=== PATIENT | female | born 1995 | race Caucasian/White ===

== ENCOUNTER 2016-09-25 13:46 | Observation (INO) | payer BC ==
[2016-09-25 14:17] LABS: Glucose,Whole Blood 138 mg/dL (75-99)
[2016-09-25 14:46] LABS: Basophils % (A) 1 %; CH 26.9; CHCM 33.3; Eosinophils % (A) 0 %; HCT 31.7 % (34.0-46.0); HDW 3.38; HGB 10.5 gm/dL (11.4-16.0); Luc # (Auto) 0.07; Luc % (Auto) 1; Lymphocytes # (A) 0.2 k/uL (1.0-4.8); Lymphocytes % (A) 3 %; MCHC 33.3 g/dL (31.0-37.0); MCV 81.3 fL (80.0-100.0); Mean Platelet Volume 8.2; Monocytes # (A) 0.3 k/uL (0-1.0); Monocytes % (A) 5 %; Neutrophils # (A) 5.4 k/uL (1.3-7.7); Neutrophils % (A) 90 %; RDW 14.8 % (11.5-15.5); WBC 6.1 k/uL (3.8-10.6)
[2016-09-25] MEDS ORDERED: ACETAMINOPHEN IV (For NPO) 1,000 MG in EMPTY BAG 1 BAG IVPB ONE (14:47)
[2016-09-25 14:48] LABS: Appearance,Urine Clear (Clear); Bilirubin,Urine Negative (Negative); Glucose,Urine (UA) Negative (Negative); Ketones,Urine 2+ (Negative); Leukocyte Esterase,Urine Negative (Negative); Mucus,Urine Many /hpf; Nitrite,Urine Negative (Negative); PH, Urine 6.5 (5.0-8.0); Particle Count 7068; Protein,Urine 1+ (Negative); RBC,Urine 1 /hpf (0-5); Specific Gravity,Urine 1.024 (1.001-1.035); Squamous Epithelial Cell,Urine 1 /hpf (0-4); UA Billing (MACRO vs. MICRO) MICRO
[2016-09-25 14:51] LABS: ALT 23 U/L (9-52); AST 23 U/L (14-36); Alkaline Phosphatase 72 U/L (38-126); Anion Gap 14 mmol/L; Blood Urea Nitrogen 4 mg/dL (7-17); Calcium 8.2 mg/dL (8.4-10.2); Carbon Dioxide 19 mmol/L (22-30); Chloride 101 mmol/L (98-107); Glucose 110 mg/dL (74-99); Non-African American GFR(MDRD) >60 (>60 ml/min/1.73 sqM); Potassium 3.5 mmol/L (3.5-5.1); Sodium 134 mmol/L (137-145); Total Bilirubin 0.3 mg/dL (0.2-1.3); Total Protein 6.5 g/dL (6.3-8.2)
[2016-09-25] MEDS: LACTATED RINGERS 1,000 ML IV SCH ×4 (14:52→21:54)
[2016-09-25] MEDS ORDERED: OSELTAMIVIR 75 MG CAP PO STA (16:03)
--- NOTE | 2016-09-25 16:29 | P.HPOB ---
History of Present Illness H&P Date: 09/25/16 This is a 20-year-old white female 5 para 4004 EDC 01/04/2017 established via ultrasound here at 18-4/7 weeks on 08/08/2016. Today she is 25- 4/7 weeks and presents with fever, chills, body aches, and emesis 1 for the past 2 days. Fetus has been active throughout the . She denies uterine contractions or vaginal bleeding. She denies fluid leakage. Past medical history is significant for anxiety and depression, previously on Prozac but stopped upon discovering she was . Past surgical history section 2014 for breech presentation. Past obstetric history normal spontaneous vaginal delivery 2012 of liveborn male infant, 7 pounds, live-born vaginal delivery of female infant 2013 7 pounds , for breech 2014, 2015 of liveborn male , 7 pounds. She denies issues with any of the previous pregnancies. Past gynecologic history menarche began at the age of 7 with monthly interval and 7 day duration. She denies the history in the past of gonorrhea chlamydia HSV or HPV infections. Social history patient is , her is not the father of this current , she was a tobacco smoker for approximately 3 years of one half pack per day, she denies alcohol or drug use. ALLERGIES include penicillin to which reports hives. Family history patient states is noncontributory. On exam this is a pleasant white female, 5 foot 5 inches, 220 pounds, blood pressure 122/70, respirations 16, pulse 133, temp 103. heart rate is in the 150 to 160s. Chest is clear to auscultation in all cunha anteriorly and posteriorly. Abdomen is soft, obviously gravid, nontender. Extremities are negative for edema. Breasts are not engorged. Cervix is closed, posterior, high, floating. Bedside ultrasound reveals a darling breech fetus, estimated weight 32 percentile for 25 weeks. heart rate 160 sonographically, SEDA normal at 14.5 cm, posterior placenta. Labs include sodium 134, potassium 3.5, chloride 101, CO2 19, P1 4, creatinine 0.47, glucose 110. UA is essentially negative but 1+ urine protein is noted. There are also 2+ ketones noted. Hemoglobin 10.5, hematocrit 31.7, WBC 6.1, platelets 209,000. Influenza A swab is positive of the patient's nares. Impression: 25-4/7 weeks intrauterine , positive influenza A with associated maternal fever and tachycardia. Plan we will proceed with IV fluid hydration. Tamiflu 75 mg has been ordered. Supportive care. Consider observation through the night versus discharge home pending patient's progress. Ofirmev 1000 mg has been given to help with patient 's fever, tachycardia, and body aches. Patient is encouraged to seek care at one of the local physician's offices at her earliest convenience. Past Medical History Past Medical History: No Reported History Additional Past Medical History / Comment(s): Gestational diabetes History of Any Multi-Drug Resistant Organisms: None Reported Past Surgical History: Section Past Anesthesia/Blood Transfusion Reactions: No Reported Reaction Past Psychological History: Anxiety, Depression Smoking Status: Never smoker Past Alcohol Use History: None Reported Past Drug Use History: None Reported - Past Family History Mother History Unknown: Yes Family Medical History: No Reported History Medications and Allergies Home Medications Medication Instructions Recorded Confirmed Type Idc-Ttvk-Zcuhd Acid 1 dose PO DAILY 08/08/16 09/22/16 History [-U Capsule] Allergies Allergy/AdvReac Type Severity Reaction Status Date / Time Penicillins Allergy Intermediate Rash/Hives Verified 08/08/16 14:50 Exam - Vital Signs Vital signs: Intake and Output 09/25/16 09/25/16 09/25/16 06:59 14:59 22:59 Other: Weight 205 kg Patient Weight 09/26/16 06:59 Weight 205 kg Results Result Diagrams: 09/25/16 14:24 09/25/16 14:24 Abnormal Lab Results - Last 24 Hours (Table) 09/25/16 09/25/16 09/25/16 Range/Units 14:07 14:17 14:24 Hgb 10.5 L (11.4-16.0) gm/dL Hct 31.7 L (34.0-46.0) % Lymphocytes # 0.2 L (1.0-4.8) k/uL Sodium (137-145) mmol/L Carbon Dioxide (22-30) mmol/L BUN (7-17) mg/dL Creatinine (0.52-1.04) mg/dL Glucose (74-99) mg/dL POC Glucose (mg/dL) 138 H (75-99) mg/dL Calcium (8.4-10.2) mg/dL Albumin (3.5-5.0) g/dL Urine Protein 1+ H (Negative) Urine Ketones 2+ H (Negative) Urine Mucus Many H (None) /hpf Influenza Type A RNA (Not Detectd) 09/25/16 09/25/16 Range/Units 14:24 15:30 Hgb (11.4-16.0) gm/dL Hct (34.0-46.0) % Lymphocytes # (1.0-4.8) k/uL Sodium 134 L (137-145) mmol/L Carbon Dioxide 19 L (22-30) mmol/L BUN 4 L (7-17) mg/dL Creatinine 0.47 L (0.52-1.04) mg/dL Glucose 110 H (74-99) mg/dL POC Glucose (mg/dL) (75-99) mg/dL Calcium 8.2 L (8.4-10.2) mg/dL Albumin 3.2 L (3.5-5.0) g/dL Urine Protein (Negative) Urine Ketones (Negative) Urine Mucus (None) /hpf Influenza Type A RNA Detected H (Not Detectd)
--- NOTE | 2016-09-25 16:46 | US ---
EXAMINATION TYPE: US OB >= 14 wk fetus DATE OF EXAM: 09/25/2016 2:48 PM COMPARISON: None CLINICAL HISTORY: no care Abdominal pain, nausea TECHNIQUE: Transabdominal (TA) GESTATIONAL AGE / DATING Physician Established: (25 weeks/4 days) EDC: 01/04/17 Dates by LMP: (25 weeks/4 days) EDC: 01/04/17 Dates by First Scan: (25 weeks/1 days) EDC: 01/07/17 Dates by Current Scan: (25 weeks/0 days) EDC: 01/08/17 SURVEY IUP: Single PLACENTA: Posterior PREVIA: No Previa SEDA: 14.6 cm Normal CERVICAL LENGTH (transabdominal: norm > 3.0cm): 3.7 cm BIOMETRY PRESENTATION: Breech LIE: Transverse with head maternal RT BPD: 6.3 cm 25 weeks / 3 days HC: 23.6 cm 25 weeks / 4 days AC: 21.3 cm 25 weeks / 5 days FL: 4.5 cm 24 weeks / 6 days ESTIMATED WEIGHT IN GRAMS: 805 grams ESTIMATED WEIGHT IN LBS/OZS: 1 lbs. 12 oz. WEIGHT PERCENTAGE BASED ON ESTABLISHED DATES: 32.1% HC/AC: 1.11 Normal FL/AC: 21.15 Normal HEART RATE: 160 bpm RHYTHM: Normal MATERNAL WALL MEASUREMENT: 4.2 cm from skin to anterior uterine wall (if exam limited due to body hab itus). TECHNOLOGIST IMPRESSION: Single viable IUP 25wks/0days with VINITA of 01/08/17 IMPRESSION: 1. Single intrauterine gestation estimated 25 weeks 0 days gestation. Cardiac activity measures 160 b pm.
[2016-09-25] MEDS: SODIUM CHLORIDE 0.9% 1,000 ML IV ONE ×3 (17:00→19:00)
[2016-09-25 19:55] LABS: Hepatitis B Surface Ag Index 0.06
[2016-09-25] MEDS: ACETAMINOPHEN TAB 325 MG TAB PO PRN (21:28)
[2016-09-25 21:45] VITALS: BMI 34.1
[2016-09-26] MEDS: ACETAMINOPHEN TAB 325 MG TAB PO PRN (03:42)
[2016-09-26] MEDS: LACTATED RINGERS 1,000 ML IV SCH (03:43)
[2016-09-26 04:34] VITALS: RESP 17
[2016-09-26 04:53] LABS: Potassium 3.5 mmol/L (3.5-5.1)
[2016-09-26 07:31] VITALS: BP 107/53; PULSE 111; TEMP 98.2
--- NOTE | 2016-09-26 10:33 | P.DS ---
Providers Date of admission: 09/25/16 20:44 Expected date of discharge: 09/26/16 Attending physician: Denise Stern Primary care physician: Stated None Hospital Course: This is a 20-year-old white female 5 para 4004 EDC 01/04/2017 established by 18 week ultrasound here, at 25-4/7 weeks' gestation. Patient presented yesterday to the triage area with body aches, fever, malaise, and emesis 2. She has had no care with this . Please see my dictated history and physical for details. On admission patient's temperature was 103 orally. She was given O firm out with good response. On admission her heart rate was 133, this has resolved through the night. Influenza a cultures of the nares were positive. labs were all drawn, rubella status noted to be nonimmune, blood type AB+. Patient was given 4 L of fluid for initial 2+ ketones in the urine, UA otherwise negative. She slept well through the night. This morning she has had clear liquids, she has showered, she is feeling somewhat improved. Chest is reasonably clear, there are some scattered rhonchi that clear with cough. Abdomen is soft and nontender, heart rate is in the 140s with good overall variability for stated gestational age. Cervix was checked and noted to be long and closed. Patient is being discharged home this morning with a diagnosis of influenza. I have reviewed with her and her good hand hygiene and other parameters to be undertaken at home. I have strongly encouraged her to proceed with some care. She will use zjxe-zwe-qyahqzk acetaminophen as needed, 500 mg pills, 2 every 4-6 hours as needed. Again, I have strongly recommended that she follow up for care tomorrow. Return with any fever greater than 100.4, inability to tolerate food, decreased movement, or any other obstetrical concerns. Patient Condition at Discharge: Stable Plan - Discharge Summary Discharge Medication List Dfh-Ncay-Cgpzm Acid [-U Capsule] 1 dose PO DAILY 08/08/16 [ History] Discharge Disposition: HOME SELF-CARE
[2016-09-28 17:46] LABS: HIV-1/HIV-2 Ab Screen NONREAC (NON REAC)
== END 2016-09-26 12:18 | disposition home or self-care (01) ==
LOC: FBPOP 13:46 → 4FBP 20:44
PROVIDERS: ADMIT Obstetrics & Gynecology; ATTEND Obstetrics & Gynecology
DX: O99.512 Diseases of the respiratory system complicating pregnancy, second trimester (principal); J11.1 Influenza due to unidentified influenza virus with other respiratory manifestations; O99.342 Other mental disorders complicating pregnancy, second trimester; F41.8 Other specified anxiety disorders; O09.32 Supervision of pregnancy with insufficient antenatal care, second trimester; Z3A.25 25 weeks gestation of pregnancy; Z88.0 Allergy status to penicillin
CPT/HCPCS: 99214; 96360; 96361; 86900; 86901; 86762; 80051; 80053; 85025; 86850; 87340; 81001; 87040; 87389; 86780; 80306; 87502; 76805; G0378 ×2; J0131; 96365; 96366

== ENCOUNTER 2016-11-01 17:00 | Outpatient (CLI) | payer BC ==
[2016-11-01] MEDS ORDERED: BETAMET ACET-BETAMETH SOD PHOS 6 MG/ML VIAL IM SCH (18:00)
--- NOTE | 2016-11-01 18:59 | US ---
EXAMINATION TYPE: US OB >= 14 wk fetus DATE OF EXAM: 11/01/2016 6:27 PM COMPARISON: Prior in PACS CLINICAL HISTORY: Pain and pressure TECHNIQUE: Transvaginal (TV) and Transabdominal (TA) GESTATIONAL AGE / DATING Physician Established: (30 weeks/6 days) EDC: 01/04/2017 Dates by LMP: (30 weeks/6 days) EDC: 01/04/2017 Dates by First Scan: (30 weeks/3 days) EDC: 01/07/2017 Dates by Current Scan: (31 weeks/6 days) EDC: 12/28/2016 SURVEY IUP: Single PLACENTA: Posterior PREVIA: No Previa SEDA: 9.4 cm Lower limits of normal CERVICAL LENGTH (transvaginal: norm> 2.5cm): 1.9 cm (Supplemental transvaginal imaging performed to verify cervical length.) BIOMETRY PRESENTATION: Vertex LIE: Longitudinal BPD: 8.1 cm 32 weeks / 5 days HC: 30.2 cm 33 weeks / 4 days AC: 26.69 cm 30 weeks / 6 days FL: 5.81 cm 30 weeks / 3 days ESTIMATED WEIGHT IN GRAMS: 1694 grams ESTIMATED WEIGHT IN LBS/OZS: 3 lbs. 12 oz. WEIGHT PERCENTAGE BASED ON ESTABLISHED DATES: 44.9% HC/AC: 1.13 Normal FL/AC: 21.76 Normal HEART RATE: 147 bpm RHYTHM: Normal TECHNOLOGIST IMPRESSION: Viable IUP, measurements congruent with dates. The cervix is shortened and there appears to be a small amount of possible cervical funneling present IMPRESSION: The cervical length is 2 cm. There is very minimal funneling. Normal amniotic fluid. No definite comp licating process seen.
== END 2016-11-01 18:57 | disposition home or self-care (01) ==
LOC: FBPOP 17:00
PROVIDERS: ATTEND Obstetrics & Gynecology
DX: Z53.9 Procedure and treatment not carried out, unspecified reason (principal); O99.89 Other specified diseases and conditions complicating pregnancy, childbirth and the puerperium; R10.9 Unspecified abdominal pain; R19.7 Diarrhea, unspecified; O62.2 Other uterine inertia; O26.873 Cervical shortening, third trimester; Z3A.30 30 weeks gestation of pregnancy
CPT/HCPCS: 59025; 99214; 96372; 84112; 82731; 76805; J0702

== ENCOUNTER 2016-11-02 18:29 | Outpatient (CLI) | payer BC ==
[2016-11-02] MEDS ORDERED: BETAMET ACET-BETAMETH SOD PHOS 6 MG/ML VIAL IM SCH (18:45)
== END 2016-11-02 19:00 | disposition home or self-care (01) ==
LOC: FBPOP 18:29
PROVIDERS: ATTEND Obstetrics & Gynecology
DX: Z53.9 Procedure and treatment not carried out, unspecified reason (principal)
CPT/HCPCS: 59025; 96372; J0702

== ENCOUNTER 2016-12-27 21:10 | Inpatient (IN) | payer BC, OTHER ==
[2016-12-27] MEDS ORDERED: LIDOCAINE 1% (PF) 10 MG/ML (30 ML SDV) SQ PRN (23:17)
[2016-12-27] MEDS ORDERED: TERBUTALINE 1 MG/ML VIAL SQ PRN (23:17)
[2016-12-27] MEDS ORDERED: CARBOPROST TROMETHAMINE 250 MCG/ML 1 ML AMP IM PRN (23:17)
[2016-12-27] MEDS ORDERED: METHYLERGONOVINE 0.2 MG/ML 1 ML AMP IM PRN (23:17)
[2016-12-27] MEDS ORDERED: OXYTOCIN 10 UNIT/ML 1 ML VIAL IM PRN (23:17)
[2016-12-27] MEDS ORDERED: LACTATED RINGERS 1,000 ML IV SCH (23:30)
[2016-12-27] MEDS: LACTATED RINGERS 1,000 ML IV SCH (23:55)
[2016-12-28 00:13] LABS: Basophils % (A) 0 %; CH 24.4; CHCM 32.1; Eosinophils # (A) 0.1 k/uL (0-0.7); Eosinophils % (A) 1 %; HDW 3.62; HGB 10.6 gm/dL (11.4-16.0); Hypochromasia Moderate; Luc # (Auto) 0.16; Luc % (Auto) 2; Lymphocytes # (A) 1.7 k/uL (1.0-4.8); Lymphocytes % (A) 17 %; MCH 23.9 pg (25.0-35.0); MCHC 31.3 g/dL (31.0-37.0); MCV 76.4 fL (80.0-100.0); Mean Platelet Volume 8.6; Microcytosis Slight; Monocytes # (A) 0.4 k/uL (0-1.0); Monocytes % (A) 4 %; Neutrophils # (A) 7.4 k/uL (1.3-7.7); Neutrophils % (A) 76 %; Poikilocytosis Slight; RBC 4.45 m/uL (3.80-5.40); RDW 15.7 % (11.5-15.5); WBC 9.7 k/uL (3.8-10.6); WBC (Perox) 9.48
[2016-12-28 00:22] VITALS: BMI 35.6
[2016-12-28] MEDS: OXYTOCIN 30 UNITS/500 ML NS 30 UNIT in SALINE 1 500ML.BAG IV SCH (06:53)
[2016-12-28] MEDS: LACTATED RINGERS 1,000 ML IV SCH ×2 (07:11→08:04)
[2016-12-28] MEDS ORDERED: BUPIVACAINE (PF) 0.25% 30 ML VIAL ONE (07:30)
[2016-12-28] MEDS ORDERED: SODIUM CHLORIDE 0.9% 100 ML BAG ONE (07:30)
[2016-12-28] MEDS ORDERED: fentaNYL (PF) 50 MCG/ML 5 ML AMP ONE (07:30)
--- NOTE | 2016-12-28 10:20 | P.HPOB ---
History of Present Illness H&P Date: 12/28/16 This is a 21-year-old white female 5 para 4004 EDC 01/04/2017 at 39 weeks gestation. Patient presented last night with uterine contractions, she was found to be 5 cm on admission. She denied fluid leakage or vaginal bleeding. Fetus is been active throughout the . history blood type is AB+, rubella status immune. VDRL testing, hepatitis B surface antigen, group B strep cultures, urine culture, gonorrhea and chlamydia cultures all negative. One-hour Glucola 114. Past medical history is significant for anxiety, asthma, depression, kidney stones, and thyroid disease. Past surgical history section in 2014, successful VBACs to follow. Current medications vitamins daily. ALLERGIES penicillin to which reports vomiting and hives. Social history patient is , she had social tobacco prior to , no alcohol tobacco or drug use with . On exam this is a pleasant white female, she is 5 foot 5 inches 214 pounds, vital signs are stable and she is afebrile. The general physical exam is within normal limits. The chest is clear in all cunha. Cervix is 7 cm dilated , 80% effaced, -2 station, vertex presentation. Artificial amniorrhexis reveals clear fluid. heart tones are reassuring in the 140s baseline with frequent accelerations, consistent with reactive NST. Impression: 39 week intrauterine , active spontaneous labor. All signs reassuring. Plan: Close maternal and surveillance. Epidural may be placed per patient 's request. Oxytocin will be used if needed for arrest of dilatation. Anticipate . Past Medical History Past Medical History: No Reported History Additional Past Medical History / Comment(s): Gestational diabetes History of Any Multi-Drug Resistant Organisms: None Reported Past Surgical History: Section Past Anesthesia/Blood Transfusion Reactions: No Reported Reaction Past Psychological History: Anxiety, Depression Smoking Status: Never smoker Past Alcohol Use History: None Reported Past Drug Use History: None Reported - Past Family History Mother History Unknown: Yes Family Medical History: No Reported History Medications and Allergies Home Medications Medication Instructions Recorded Confirmed Type Rbl-Yryv-Cihhd Acid 1 dose PO DAILY 08/08/16 12/27/16 History [-U Capsule (formulary)] Allergies Allergy/AdvReac Type Severity Reaction Status Date / Time Penicillins Allergy Intermediate Rash/Hives Verified 12/27/16 21:33 Exam - Vital Signs Vital signs: Vital Signs Temp Pulse Resp BP 12/27/16 23:19 98.1 F 93 16 144/90 12/27/16 21:33 98.1 F 93 16 144/90 Intake and Output 12/27/16 12/28/16 12/28/16 22:59 06:59 14:59 Intake Total 1999 Balance 1999 Intake: IV 2000 Lactated Ringers 1,000 ml 2000 @ 125 mls/hr IV .Q8H [facility] Rx#:[id number] Other: # Voids 1 Weight 97.069 kg 97.069 kg Results Result Diagrams: 12/27/16 23:53 Abnormal Lab Results - Last 24 Hours (Table) 12/27/16 Range/Units 23:53 Hgb 10.6 L (11.4-16.0) gm/dL MCV 76.4 L (80.0-100.0) fL MCH 23.9 L (25.0-35.0) pg RDW 15.7 H (11.5-15.5) %
[2016-12-28] MEDS ORDERED: WITCH HAZEL 1 EACH MED..PAD TOPICAL PRN (10:24)
[2016-12-28] MEDS ORDERED: diphenhydrAMINE 50 MG CAP PO PRN (10:24)
[2016-12-28] MEDS ORDERED: diphenhydrAMINE ELIXIR 25 MG/10 ML CUP PO PRN (10:24)
[2016-12-28] MEDS ORDERED: diphenhydrAMINE 50 MG/ML 1 ML VIAL IVP PRN ×2 (10:24)
[2016-12-28] MEDS ORDERED: ACETAMINOPHEN TAB 325 MG TAB PO PRN (10:24)
[2016-12-28] MEDS ORDERED: SIMETHICONE 80 MG CHEWABLE PO PRN (10:24)
[2016-12-28] MEDS ORDERED: diphenhydrAMINE 25 MG CAP PO PRN (10:24)
[2016-12-28] MEDS ORDERED: ZOLPIDEM 5 MG TAB PO PRN (10:24)
[2016-12-28] MEDS ORDERED: HYDROCORTISONE 2.5% RECTAL CREAM 30 GM TUBE RECTAL PRN (10:24)
[2016-12-28] MEDS ORDERED: BENZOCAINE/MENTHOL SPRAY 1 GM/SPRAY AEROSOL TOPICAL PRN (10:24)
[2016-12-28] MEDS ORDERED: LANOLIN CREAM 5 GM TUBE TOPICAL PRN (10:24)
--- NOTE | 2016-12-28 10:24 | P.PROBDLV ---
Vaginal Delivery Note - . Vaginal Delivery Note: This is a 21-year-old white female 5 para 4004 EDC 01/04/2017 at 39 weeks gestation. Patient presented last night in early spontaneous labor. Artificial amniorrhexis this morning reveals clear fluid. She requested and received an epidural. Oxytocin augmentation was given. She does have a history of previous section, planning . Please see my dictated history and physical for details. Patient became completely dilated and began the second stage of labor at that time. Perineal body was prepped and draped in the usual sterile fashion. Infant's head delivered straight occiput posterior. He restituted accordingly. There was a nuchal cord 1 that was reduced. The left or anterior shoulder was delivered from underneath the pubic symphysis at which time the oropharynx, nasopharynx, and external nares were bulb suctioned on the perineal body. Patient was officially delivered of a liveborn male at 1007 hrs. Umbilical cord was doubly clamped and ligated, he was handed to waiting nurses for evaluation where scores of 9 and 9 at one and 5 minutes respectively were given. weighed 7 lbs. 13 oz. The placenta delivered spontaneously , it was inspected and noted to be intact with trivascular cord at 1010 hrs. Uterus is then massaged, firm and mobile and in the midline. Inspection of the cervix, vagina, perineum and periurethral areas revealed a small superficial left labial laceration, approximate 1.5 cm. It is not bleeding, well approximated, and therefore not suture repaired. Patient and her are requesting circumcision for their son. Total estimated blood loss 200 mL's.
[2016-12-28] MEDS: IBUPROFEN 600 MG TAB PO PRN ×2 (13:49→20:12)
[2016-12-28] MEDS: Acetaminophen-Codeine 300-30mg TAB PO PRN (15:21)
[2016-12-28] MEDS: HYDROcodone/APAP 5-325MG 1 EACH TAB PO PRN ×2 (17:47→22:36)
[2016-12-28] MEDS: SENNOSIDES-DOCUSATE SODIUM 1 EACH TAB PO SCH (20:12)
[2016-12-29] MEDS: LACTATED RINGERS 1,000 ML IV SCH (01:33)
[2016-12-29] MEDS: IBUPROFEN 600 MG TAB PO PRN ×3 (02:58→17:28)
[2016-12-29] MEDS: HYDROcodone/APAP 5-325MG 1 EACH TAB PO PRN (06:15)
--- NOTE | 2016-12-29 07:06 | P.PN ---
Subjective Principal diagnosis: day #1 Well. Patient complains of bilateral hip pain. Declines discharge home today. Objective - Vital Signs Vital signs: Vital Signs Temp 98.4 F 12/29/16 00:00 Pulse 87 12/29/16 00:00 Resp 16 12/29/16 00:00 BP 120/56 12/29/16 00:00 Pulse Ox Intake & Output 12/28/16 12/29/16 12/29/16 18:59 06:59 18:59 Intake Total 2000 Output Total 400 Balance 1600 Intake: IV 2000 Lactated Ringers 1,000 ml 2000 @ 125 mls/hr IV .Q8H [facility] Rx#:[id number] Output: Estimated Blood Loss 400 Other: # Voids 1 - Constitutional General appearance: Present: average body habitus, morbidly obese - EENT Eyes: Present: PERRLA ENT: Present: hearing grossly normal - Neck Thyroid: bilateral: normal size - Respiratory Respiratory: bilateral: CTA - Cardiovascular Rhythm: regular - Gastrointestinal General gastrointestinal: Present: normal bowel sounds - Integumentary Integumentary: Present: normal - Neurologic Neurologic: Present: CNII-XII intact - Musculoskeletal Musculoskeletal: Present: gait normal, strength equal bilaterally - Psychiatric Psychiatric: Present: A&O x's 3 - Labs CBC & Chem 7: 12/27/16 23:53 Assessment and Plan Plan: We'll discontinue [place]. Ibuprofen as needed for pain. Circumcision now. Patient requesting discharge home tomorrow. Time with Patient: Less than 30
[2016-12-29] MEDS: OXYTOCIN 30 UNITS/500 ML NS 30 UNIT in SALINE 1 500ML.BAG IV SCH (07:21)
[2016-12-29] MEDS: SENNOSIDES-DOCUSATE SODIUM 1 EACH TAB PO SCH ×2 (10:24→20:49)
[2016-12-29] MEDS: Acetaminophen-Codeine 300-30mg TAB PO PRN ×3 (12:21→21:36)
[2016-12-30] MEDS: IBUPROFEN 600 MG TAB PO PRN ×3 (00:18→12:58)
[2016-12-30] MEDS: Acetaminophen-Codeine 300-30mg TAB PO PRN ×3 (01:56→15:45)
--- NOTE | 2016-12-30 07:08 | P.DS ---
Providers Date of admission: 12/27/16 23:15 Expected date of discharge: 12/30/16 Attending physician: Denise Stern Primary care physician: Denise Stern [place] Hospital Course: This is a 21-year-old white female 5 para 5005 status post successful 2 days ago. Patient was scheduled for induction, one on to swiftly deliver a liveborn male infant with scores of 9 and 9 at one and 5 minutes respectively. She did receive an epidural. was occiput posterior on presentation, there was a nuchal cord 1. was 7 lbs. 13 oz. or 3550 g. Please see my dictated delivery note for details. Patient is doing well today. She is voiding, ambulating and passing flatus without difficulty. Vital signs are stable and she is afebrile. She is complaining of right hip pain, she has good strength, normal reflexes, physical exam is certainly normal. It is possible that the sciatic nerve has been stretched secondary to be occiput posterior position on presentation. I find no focal deficits. Fundus is firm and in the midline, symmetric and 18 week size. Breast-feeding is going well. There is minimal lochia rubra. Perineal body is intact. Patient is being discharged home today in good condition. She is reminded no intercourse, tampons or douching. I reminded her to use bupi-mwj-bcziudu ibuprofen products, 200 mg pills, for every 8 hours as needed for pain. I've asked her to call with any fevers shakes or chills, foul smelling or copious lochia, with the passage of large blood clots, with any pain not alleviated by ibuprofen, or indeed with any concerns. Patient Condition at Discharge: Good Plan - Discharge Summary Discharge Medication List Dxy-Pxte-Jegqx Acid [-U Capsule (formulary)] 1 dose PO DAILY [History] Follow up Appointment(s)/Referral(s): Denise Stern MD [Primary Care Provider] - 6 Weeks Discharge Disposition: HOME SELF-CARE
[2016-12-30] MEDS: SENNOSIDES-DOCUSATE SODIUM 1 EACH TAB PO SCH (08:49)
[2016-12-30 09:19] VITALS: RESP 18
[2016-12-30 17:08] VITALS: BP 132/94; PULSE 90; TEMP 97.2
== END 2016-12-30 20:00 | disposition home or self-care (01) | DRG 775 ==
LOC: FBPOP 21:10 → 4FBP 23:15
PROVIDERS: ADMIT Obstetrics & Gynecology; ATTEND Obstetrics & Gynecology
PROC: 10E0XZZ Delivery of Products of Conception, External Approach (ICD-10-PCS; principal; 2016-12-28)
DX: O34.219 Maternal care for unspecified type scar from previous cesarean delivery (principal); O64.0XX0 Obstructed labor due to incomplete rotation of fetal head, not applicable or unspecified; Z37.0 Single live birth; O69.81X0 Labor and delivery complicated by cord around neck, without compression, not applicable or unspecified; Z3A.39 39 weeks gestation of pregnancy; O70.0 First degree perineal laceration during delivery; Z86.32 Personal history of gestational diabetes; Z87.442 Personal history of urinary calculi; Z88.0 Allergy status to penicillin
CPT/HCPCS: 59025; 84112; 85025; 88307; 99213

== ENCOUNTER 2017-01-16 11:29 | Emergency (ER) | payer OTHER ==
[2017-01-16 11:33] VITALS: RESP 18
--- NOTE | 2017-01-16 12:05 | ED ---
General Adult HPI - General Chief complaint: Urogenital Stated complaint: female gu, problems urinating Time Seen by Provider: 01/16/17 11:36 Source: patient, family, RN notes reviewed, old records reviewed Mode of arrival: ambulatory Limitations: no limitations - History of Present Illness Initial comments: Chief complaint and history of present illness a 21-year-old female here with significant other. The patient had a baby 3 weeks ago. 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 Last night around 3 AM she had discomfort with urination frequency and urgency. Yesterday she had right flank area pain but she also states she's had chronic low back pain. The pain seemingly went toward the right lower quadrant. Currently no back pain no right lower quadrant pain no nausea no vomiting no chills. Just frequency urgency and terminal dysuria. - Related Data Home Medications Medication Instructions Recorded Confirmed Acetaminophen Tab [Tylenol Tab] 1,000 mg PO Q6HR PRN 01/16/17 01/16/17 Previous Rx's Medication Instructions Recorded Phenazopyridine [Pyridium] 200 mg PO TID #6 tablet 01/16/17 Sulfamethox-Tmp 800-160Mg [Bactrim 1 each PO Q12HR #20 tab 01/16/17 DS 800-160 mg] Allergies Allergy/AdvReac Type Severity Reaction Status Date / Time Penicillins Allergy Intermediate Rash/Hives Verified 01/16/17 11:38 Review of Systems ROS Statement: Those systems with pertinent positive or pertinent negative responses have been documented in the HPI. Review of systems. No visual acuity changes or headache no chest pain or shortness of breath no gastrointestinal problems. problems as noted in the chief complaint. No neuro deficits. All systems were reviewed. Past medical problems none. Patient's surgeries include 1 . Family history grandfather had lung cancer. Patient has ALLERGIES to penicillin which causes hives and shortness of breath. Patient denies smoking denies drinking. Patient had a on her third baby's this last one, her fifth, was natural spontaneous delivery. Without complications. ROS Other: All systems not noted in ROS Statement are negative. Past Medical History Past Medical History: No Reported History Additional Past Medical History / Comment(s): Gestational diabetes History of Any Multi-Drug Resistant Organisms: None Reported Past Surgical History: Section Past Anesthesia/Blood Transfusion Reactions: No Reported Reaction Past Psychological History: Anxiety, Depression Smoking Status: Never smoker Past Alcohol Use History: None Reported Past Drug Use History: None Reported - Past Family History Mother History Unknown: Yes Family Medical History: No Reported History General Exam - General Exam Comments Initial Comments: General: The patient is awake and alert, in no distress, and does not appear acutely ill. Here complaining of frequency urgency and dysuria and no other complaints this time. Vital signs shows temperature 97.6 pulse 77 respiratory rate 18 pulse ox 98% room air blood pressure 140/78 Eye: Pupils are equal, extra-ocular movements are intact; there is normal conjunctiva bilaterally. No signs of icterus. Cardiovascular: There is a regular rate and rhythm. No murmur, rub or gallop is appreciated. Respiratory: Lungs are clear to auscultation, respirations are non-labored, breath sounds are equal. No wheezes, stridor, rales, or rhonchi. Gastrointestinal: Soft, non-distended, non-tender abdomen without masses or organomegaly noted. There is no rebound or guarding present. No CVA tenderness. Bowel sounds are unremarkable. Negative Barth sign. No pain with deep palpation to the right lower quadrant. Back: There is no tenderness to palpation in the midline. There is no obvious deformity. No rashes noted. History of chronic low back pain. When she does get steroid shots. Musculoskeletal: Normal ROM, no tenderness, There is no pedal edema. There is no calf tenderness or swelling. Sensation intact. Neurological: No complaint of any numbness or tingling. Skin: Skin is warm and dry and no rashes or lesions are noted. Limitations: no limitations Course Vital Signs 01/16/17 11:30 Temperature 97.6 F Pulse Rate 77 Respiratory 18 Rate Blood Pressure 140/78 O2 Sat by Pulse 98 Oximetry Medical Decision Making - Medical Decision Making X-ray was done and reviewed by radiologist's his final impression is is no sign of intestinal obstruction or pneumoperitoneum. Fecal pattern is normal. Lung bases are clear. There are no pathologic calcifications. Impression; nonacute abdomen, no change. As read by Dr. Hoskins Urine shows large leuk esterase, 15 rbc's greater than 180 WBCs. Culture pending. The patient is not breast-feeding. She'll be placed on Bactrim DS one tablet twice day for 10 days for UTI, as well as Pyridium for control of dysuria. Told to increase her fluids. Follow-up with family physician. Recommend that she get a repeat urine test done approximately one week after finishing the antibiotics. - Lab Data Lab Results 01/16/17 Range/Units 12:00 Urine Color Yellow Urine Appearance Cloudy H (Clear) Urine pH 5.5 (5.0-8.0) Ur Specific [place] 1.015 (1.001-1.035) Urine Protein Trace H (Negative) Urine Glucose (UA) Negative (Negative) Urine Ketones Negative (Negative) Urine Blood Moderate H (Negative) Urine Nitrite Positive H (Negative) Urine Bilirubin Negative (Negative) Urine Urobilinogen <2.0 (<2.0) mg/dL Ur Leukocyte Esterase Large H (Negative) Urine RBC 15 H (0-5) /hpf Urine WBC >182 H (0-5) /hpf Urine WBC Clumps Few H (None) /hpf Ur Squamous Epith Cells 2 (0-4) /hpf Urine Bacteria Rare H (None) /hpf Urine Mucus Rare H (None) /hpf Disposition Clinical Impression: Urinary tract infection Disposition: HOME SELF-CARE Condition: Fair Instructions: Urinary Tract Infection in Women (ED) Additional Instructions: Increase fluids. Take Bactrim DS one tablet twice a day for 10 days, use Pyridium 1 tablet 3 times daily for 2 days. This will turn her urine orange. Get urine rechecked within the week following completion of antibiotics. Return emergency room if you have any difficulties develop high fever or back pain. Prescriptions: Phenazopyridine [Pyridium] 200 mg PO TID #6 tablet Sulfamethox-Tmp 800-160Mg [Bactrim DS 800-160 mg] 1 each PO Q12HR #20 tab Time of Disposition: 12:39
--- NOTE | 2017-01-16 12:27 | XR ---
EXAMINATION TYPE: XR abdomen 2V DATE OF EXAM: 01/16/2017 12:23 PM COMPARISON: 02/24/2015 HISTORY: Abdominal pain TECHNIQUE: 3 views FINDINGS: There is no sign of intestinal obstruction or pneumoperitoneum. Fecal pattern is normal. Kimmie ng bases are clear. There are no pathologic calcifications. IMPRESSION: Nonacute abdomen. No change.
[2017-01-16 12:29] LABS: Appearance,Urine Cloudy (Clear); Bacteria,Urine Rare /hpf; Bilirubin,Urine Negative (Negative); Glucose,Urine (UA) Negative (Negative); Ketones,Urine Negative (Negative); Leukocyte Esterase,Urine Large (Negative); Mucus,Urine Rare /hpf; Nitrite,Urine Positive (Negative); PH, Urine 5.5 (5.0-8.0); Particle Count 52137; Protein,Urine Trace (Negative); RBC,Urine 15 /hpf (0-5); Specific Gravity,Urine 1.015 (1.001-1.035); Squamous Epithelial Cell,Urine 2 /hpf (0-4); UA Billing (MACRO vs. MICRO) MICRO; Urobilinogen,Urine <2.0 mg/dL (<2.0); WBC,Urine >182 /hpf (0-5)
[2017-01-16 12:57] VITALS: BP 118/72; PULSE 75; TEMP 98.1
== END 2017-01-16 12:57 | disposition home or self-care (01) ==
LOC: EC 11:29
DX: N39.0 Urinary tract infection, site not specified (principal); Z88.0 Allergy status to penicillin
CPT/HCPCS: 74020; 81001; 87077; 87086; 87186; 99284

== ENCOUNTER 2017-02-27 16:20 | Emergency (ER) | payer BC, OTHER ==
[2017-02-27 17:06] VITALS: RESP 18
[2017-02-27] MEDS ORDERED: ORPHENADRINE 30 MG/ML 2 ML VIAL IM STA (17:23)
[2017-02-27] MEDS ORDERED: KETOROLAC 60 MG/2 ML VIAL IM STA (17:23)
--- NOTE | 2017-02-27 17:25 | ED ---
Back Pain HPI - General Chief Complaint: Back Pain/Injury Stated Complaint: back pain Time Seen by Provider: 02/27/17 17:11 Source: patient, RN notes reviewed, old records reviewed Limitations: no limitations - History of Present Illness Initial Comments: This is a 21 Road female presenting to the emergency Department chief complaint of right leg and back pain for the past day. Patient reports she will comply with that after sleeping. She denies any falls or trauma. Patient reports that she's not . Last menstrual cycle was one week ago. Patient reports no difficulty in urinating or bowel movements. Denies any saddle anesthesias. - Related Data Home Medications Medication Instructions Recorded Confirmed Acetaminophen Tab [Tylenol Tab] 1,000 mg PO Q6HR PRN 01/16/17 01/16/17 Previous Rx's Medication Instructions Recorded Phenazopyridine [Pyridium] 200 mg PO TID #6 tablet 01/16/17 Sulfamethox-Tmp 800-160Mg [Bactrim 1 each PO Q12HR #20 tab 01/16/17 DS 800-160 mg] Acetaminophen-Codeine 300-30mg 1 tab PO Q6H PRN #15 tablet 02/27/17 [Tylenol #3] Cyclobenzaprine [Flexeril] 10 mg PO TID #20 tab 02/27/17 Allergies Allergy/AdvReac Type Severity Reaction Status Date / Time Penicillins Allergy Intermediate Rash/Hives Verified 02/27/17 17:07 Review of Systems ROS Statement: Those systems with pertinent positive or pertinent negative responses have been documented in the HPI. ROS Other: All systems not noted in ROS Statement are negative. Past Medical History Past Medical History: No Reported History Additional Past Medical History / Comment(s): Gestational diabetes History of Any Multi-Drug Resistant Organisms: None Reported Past Surgical History: Section Past Anesthesia/Blood Transfusion Reactions: No Reported Reaction Past Psychological History: Anxiety, Depression Smoking Status: Never smoker Past Alcohol Use History: None Reported Past Drug Use History: None Reported - Past Family History Mother History Unknown: Yes Family Medical History: No Reported History General Exam - General Exam Comments Initial Comments: Well-appearing 21-year-old female. No distress. Limitations: no limitations General appearance: alert, in no apparent distress Head exam: Present: atraumatic, normocephalic, normal inspection Eye exam: Present: normal appearance, PERRL, EOMI. Absent: scleral icterus, conjunctival injection, periorbital swelling ENT exam: Present: normal exam, mucous membranes moist Neck exam: Present: normal inspection. Absent: tenderness, meningismus, lymphadenopathy Respiratory exam: Present: normal lung sounds bilaterally. Absent: respiratory distress, wheezes, rales, rhonchi, stridor Cardiovascular Exam: Present: regular rate, normal rhythm, normal heart sounds. Absent: systolic murmur, diastolic murmur, rubs, gallop, clicks GI/Abdominal exam: Present: soft, normal bowel sounds. Absent: distended, tenderness, guarding, rebound, rigid Extremities exam: Present: normal inspection, full ROM, normal capillary refill. Absent: tenderness, pedal edema, joint swelling, calf tenderness Back exam: Present: normal inspection, full ROM, paraspinal tenderness (Sided lumbar paraspinal tenderness.), other (Right-sided positive straight leg test.) Neurological exam: Present: alert, oriented X3, CN II-XII intact Psychiatric exam: Present: normal affect, normal mood Skin exam: Present: warm, dry, intact, normal color. Absent: rash Course Vital Signs 02/27/17 16:20 Temperature 98.3 F Pulse Rate 89 Respiratory 18 Rate Blood Pressure 113/79 O2 Sat by Pulse 98 Oximetry Medical Decision Making - Medical Decision Making Was is a 21-year-old female chief complaint of right-sided back pain radiating down her right leg for the past day. Patient denies any fever or chills. Patient reports that she had this pain after waking up. She denies any trauma. Patient does have positive straight leg test on the right leg. She is tender over the lumbar vertebral spine. Patient will be given IM Norflex and Toradol. Given no trauma unlikely knee x-rays. Patient will be discharged with muscle relaxers and pain medication. Discussed following up with primary care provider orthopedic physician. Patient was also given a note for work today. Disposition Clinical Impression: Lumbar paraspinal muscle spasm Disposition: HOME SELF-CARE Condition: Good Instructions: Acute Low Back Pain (ED) Additional Instructions: Denies apply heat and ice lower back. Follow-up with primary care provider. Take the medication as prescribed. Return to the emergency department if any alarming signs or symptoms occur. Prescriptions: Acetaminophen-Codeine 300-30mg [Tylenol #3] 1 tab PO Q6H PRN #15 tablet PRN Reason: Pain Cyclobenzaprine [Flexeril] 10 mg PO TID #20 tab Referrals: None,Stated [Primary Care Provider] - 1-2 days Laura Stone MD [STAFF PHYSICIAN] - 1-2 days Time of Disposition: 17:25
[2017-02-27 17:49] VITALS: BP 125/85; PULSE 98; TEMP 98.7
== END 2017-02-27 17:49 | disposition home or self-care (01) ==
LOC: EC 16:20
DX: M62.830 Muscle spasm of back (principal); M79.604 Pain in right leg; Z88.0 Allergy status to penicillin
CPT/HCPCS: 99283; 96372; J2360; J1885

== ENCOUNTER 2017-04-01 14:16 | Emergency (ER) | payer BC, OTHER ==
[2017-04-01 14:29] VITALS: RESP 18
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
[2017-04-01] MEDS ORDERED: ACET/COD 300 MG/30 MG STARTER PACK 6 TAB BTL PO STA (16:02)
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
[2017-04-01 16:54] VITALS: BP 125/75; PULSE 72; TEMP 98.2
== END 2017-04-01 16:53 | disposition home or self-care (01) ==
LOC: EC 14:16
DX: S06.0X9A Concussion with loss of consciousness of unspecified duration, initial encounter (principal); H57.11 Ocular pain, right eye; H53.8 Other visual disturbances; H57.8 Other specified disorders of eye and adnexa; F17.200 Nicotine dependence, unspecified, uncomplicated; Z88.0 Allergy status to penicillin; W22.8XXA Striking against or struck by other objects, initial encounter
CPT/HCPCS: 70450; 70480; 99284

== ENCOUNTER 2017-06-07 23:44 | Emergency (ER) | payer BC, OTHER ==
[2017-06-07 23:51] VITALS: BP 131/85; PULSE 78; RESP 18; TEMP 98.1
[2017-06-08] MEDS ORDERED: ACET/COD 300 MG/30 MG STARTER PACK 6 TAB BTL PO STA (00:13)
--- NOTE | 2017-06-08 00:13 | ED ---
ENT HPI - General Chief complaint: Dental/Oral Stated complaint: Dental Pain Time Seen by Provider: 06/08/17 00:01 Source: patient Mode of arrival: ambulatory Limitations: no limitations - History of Present Illness Initial comments: 21-year-old female patient presents to emergency department today for evaluation of bilateral upper and lower jaw pain. Patient states that symptoms started approximately 3 weeks ago. She states the pain has been intermittent since then. She states that for the last 2 days the pain has been constant and feels like its getting worse. She states that she is unable to sleep due to the pain. She states that the pain radiates into her head. States she has been taking Tylenol and ibuprofen at home without relief of symptoms. She states she did call some dentist office today to see if she could get in, she is awaiting return calls. She states that she does have one broken tooth of the right upper, and does have some known cavities. She states that she is not sure when her last visit to the dentist was, but it has been a long time. She denies any difficulty opening and closing her mouth, difficulty swallowing, any oral swelling, fever, chills, nausea, or vomiting. Patient denies any recent rash, shortness breath, chest pain, abdominal pain, diarrhea, constipation, back pain, numbness, tingling, dizziness, weakness, hematuria, dysuria, urinary urgency, urinary frequency, headache, visual changes, or any other complaints. - Related Data Home Medications Medication Instructions Recorded Confirmed Ibuprofen [Motrin] 800 mg PO 06/07/17 Previous Rx's Medication Instructions Recorded Acetaminophen-Codeine 300-30mg 1 tab PO Q6H PRN #15 tablet 06/08/17 [Tylenol #3] Allergies Allergy/AdvReac Type Severity Reaction Status Date / Time Penicillins Allergy Unknown Anaphylaxis Verified 02/27/17 17:32 Review of Systems ROS Statement: Those systems with pertinent positive or pertinent negative responses have been documented in the HPI. ROS Other: All systems not noted in ROS Statement are negative. Past Medical History Past Medical History: No Reported History Additional Past Medical History / Comment(s): Gestational diabetes History of Any Multi-Drug Resistant Organisms: None Reported Past Surgical History: Section Past Anesthesia/Blood Transfusion Reactions: No Reported Reaction Past Psychological History: Anxiety, Depression Smoking Status: Light tobacco smoker Past Alcohol Use History: None Reported, Occasional Past Drug Use History: None Reported - Past Family History Mother History Unknown: Yes Family Medical History: No Reported History General Exam Limitations: no limitations General appearance: alert, in no apparent distress, other (This is a well- developed, well-nourished adult female patient in no acute distress. Vital signs upon presentation her temperature 98.1F, pulse 78, respirations 18, blood pressure 131/85, pulse ox 100% on room air.) Head exam: Present: atraumatic, normocephalic, normal inspection Eye exam: Present: normal appearance, PERRL, EOMI. Absent: scleral icterus, conjunctival injection, periorbital swelling ENT exam: Present: normal exam, normal oropharynx, mucous membranes moist, TM's normal bilaterally, other (There is a fractured tooth #4. There is evidence of an erupting wisdom tooth in the left upper, and the right lower. There is no evidence of gingival erythema, gumline tenderness, or area of drainable abscess. ) Neck exam: Present: normal inspection. Absent: tenderness, meningismus, lymphadenopathy Respiratory exam: Present: normal lung sounds bilaterally. Absent: respiratory distress, wheezes, rales, rhonchi, stridor Cardiovascular Exam: Present: regular rate, normal rhythm, normal heart sounds. Absent: systolic murmur, diastolic murmur, rubs, gallop, clicks Neurological exam: Present: alert, oriented X3, CN II-XII intact Psychiatric exam: Present: normal affect, normal mood Skin exam: Present: warm, dry, intact, normal color. Absent: rash Course Vital Signs 06/07/17 23:48 Temperature 98.1 F Pulse Rate 78 Respiratory 18 Rate Blood Pressure 131/85 O2 Sat by Pulse 100 Oximetry Medical Decision Making - Medical Decision Making 21-year-old female patient presents for complaints of bilateral upper and lower dental pain. She states that her front teeth are not affected. Physical exam did reveal a fractured tooth #4. There was also evidence of erupting wisdom teeth in the right upper, and left lower. Patient will be given Tylenol No. 3 for pain management, she is instructed to apply warm compresses or ice packs to the face. She is instructed to follow-up with a dentist as soon as possible. She reports that she does have calls out to dentist near where she lives, she is waiting return calls. She is urged to call other places to see when she can get in the soonest. She is instructed to follow-up with her primary care physician for recheck in 1-2 days. She is instructed to return here immediately for any new, worsening, or concerning symptoms. She verbalizes understanding and agrees with this plan. Disposition Clinical Impression: Pain, dental Disposition: HOME SELF-CARE Condition: Good Instructions: Toothache (ED) Additional Instructions: Apply warm compresses or ice packs to the outside of your face. Take pain medications as directed. Follow up with dentist as soon as possible. Return here immediately for any new, worsening, or concerning symptoms. Prescriptions: Acetaminophen-Codeine 300-30mg [Tylenol #3] 1 tab PO Q6H PRN #15 tablet PRN Reason: Pain Referrals: Bay Crowell MD [Primary Care Provider] - 1-2 days Time of Disposition: 00:13
== END 2017-06-08 00:30 | disposition home or self-care (01) ==
LOC: EC 23:44
DX: K08.89 Other specified disorders of teeth and supporting structures (principal); F17.200 Nicotine dependence, unspecified, uncomplicated; Z88.0 Allergy status to penicillin; Z79.1 Long term (current) use of non-steroidal anti-inflammatories (NSAID)
CPT/HCPCS: 99282

== ENCOUNTER 2017-06-13 23:27 | Emergency (ER) | payer OTHER ==
[2017-06-13 23:38] VITALS: RESP 16; TEMP 98.9
[2017-06-14] MEDS ORDERED: ACET/COD 300 MG/30 MG STARTER PACK 6 TAB BTL PO STA (00:44)
--- NOTE | 2017-06-14 00:45 | ED ---
ENT HPI - General Chief complaint: ENT Stated complaint: Jaw Pain Time Seen by Provider: 06/14/17 00:28 Source: patient, RN notes reviewed, old records reviewed Mode of arrival: ambulatory Limitations: no limitations - History of Present Illness Initial comments: This jis a 21 year old female with CC of right jaw and lower tooth pain for one week. Patient states tried orajel and otc medication to repair a broken tooth. Patient states she thinks she has abscess. Patient denies trisumus or discharge of gums. Repors that occasionally right cheek swelled. Patient denies fever or chills. MD complaint: tooth pain - Related Data Home Medications Medication Instructions Recorded Confirmed Ibuprofen [Motrin] 800 mg PO 06/07/17 Previous Rx's Medication Instructions Recorded Acetaminophen-Codeine 300-30mg 1 tab PO Q6H PRN #15 tablet 06/08/17 [Tylenol #3] Acetaminophen-Codeine 300-30mg 1 tab PO Q8H PRN #15 tablet 06/14/17 [Tylenol #3] Clindamycin [Cleocin] 450 mg PO TID 7 Days 06/14/17 Allergies Allergy/AdvReac Type Severity Reaction Status Date / Time Penicillins Allergy Unknown Anaphylaxis Verified 06/13/17 23:38 Review of Systems ROS Statement: Those systems with pertinent positive or pertinent negative responses have been documented in the HPI. ROS Other: All systems not noted in ROS Statement are negative. Constitutional: Denies: fever, chills Eyes: Denies: eye pain ENT: Reports: dental pain. Denies: ear pain Respiratory: Denies: cough, dyspnea Cardiovascular: Denies: chest pain, palpitations Endocrine: Denies: fatigue Gastrointestinal: Denies: abdominal pain, nausea Genitourinary: Denies: dysuria Musculoskeletal: Denies: back pain Skin: Reports: lesions Past Medical History Past Medical History: No Reported History Additional Past Medical History / Comment(s): Gestational diabetes History of Any Multi-Drug Resistant Organisms: None Reported Past Surgical History: Section Past Anesthesia/Blood Transfusion Reactions: No Reported Reaction Past Psychological History: Anxiety, Depression Smoking Status: Light tobacco smoker Past Alcohol Use History: None Reported, Occasional Past Drug Use History: None Reported - Past Family History Mother History Unknown: Yes Family Medical History: No Reported History General Exam - General Exam Comments Initial Comments: Patient is a 21 year old female, no distress. Limitations: no limitations General appearance: alert, in no apparent distress Head exam: Present: atraumatic, normocephalic, normal inspection Eye exam: Present: normal appearance, PERRL, EOMI. Absent: scleral icterus, conjunctival injection, periorbital swelling ENT exam: Present: normal exam, mucous membranes moist, other (broken right lower molar, tender around gum and patient has plastic filler OTC in tooth. ) Neck exam: Present: normal inspection. Absent: tenderness, meningismus, lymphadenopathy Respiratory exam: Present: normal lung sounds bilaterally. Absent: respiratory distress, wheezes, rales, rhonchi, stridor Cardiovascular Exam: Present: regular rate, normal rhythm, normal heart sounds. Absent: systolic murmur, diastolic murmur, rubs, gallop, clicks Neurological exam: Present: alert, oriented X3, CN II-XII intact Psychiatric exam: Present: normal affect, normal mood Skin exam: Present: warm, dry, intact, normal color. Absent: rash Course Vital Signs 06/13/17 06/14/17 23:35 01:08 Temperature 98.9 F Pulse Rate 89 78 Respiratory 16 16 Rate Blood Pressure 153/84 143/91 O2 Sat by Pulse 100 96 Oximetry Medical Decision Making - Medical Decision Making This jis a 21 year old female with CC of right jaw and lower tooth pain for one week. PAtient has fractured tooth #28 and patient has tooth repair cream over the tooth. Patient is tender over gums, will be discharged with pain and antibiotics. REturn parameters discussed. Disposition Clinical Impression: Pain, dental Disposition: HOME SELF-CARE Condition: Good Instructions: Dental Abscess (ED) Additional Instructions: [facility] [address] [place] [address] [phone] (existing clients only) For new clients: [phone] 1st consult: $50 (includes Xrays) Usually 30% less then private dentist for visits after. [employer] Have to pay $50 for Xrays anmd rest is covered. [phone] Prescriptions: Acetaminophen-Codeine 300-30mg [Tylenol #3] 1 tab PO Q8H PRN #15 tablet PRN Reason: Pain Clindamycin [Cleocin] 450 mg PO TID 7 Days Referrals: Bay Crowell MD [Primary Care Provider] - 1-2 days Time of Disposition: 00:44
[2017-06-14 01:10] VITALS: BP 143/91; PULSE 78
== END 2017-06-14 01:10 | disposition home or self-care (01) ==
LOC: EC 23:27
DX: K08.89 Other specified disorders of teeth and supporting structures (principal); R68.84 Jaw pain; F17.200 Nicotine dependence, unspecified, uncomplicated; Z79.1 Long term (current) use of non-steroidal anti-inflammatories (NSAID); Z88.0 Allergy status to penicillin
CPT/HCPCS: 99283

== ENCOUNTER 2017-11-21 18:08 | Emergency (ER) | payer BC, OTHER ==
--- NOTE | 2017-11-21 19:04 | ED ---
Lower Extremity Injury HPI - General Chief Complaint: Extremity Injury, Lower Stated Complaint: Leg pain Time Seen by Provider: 11/21/17 18:43 Source: patient, RN notes reviewed Mode of arrival: ambulatory Limitations: no limitations - History of Present Illness Initial Comments: This is a 21-year-old female who presents to the emergency department with chief complaint of left leg pain. Patient states that she developed left knee pain 3 days ago. She denies any falls or specific injury/trauma. She describes the pain as sharp and shooting occurring intermittently throughout the day. She states that sometimes it feels tingly. She denies any recent surgeries or hospitalizations. Denies use of oral control. She has had 5 pregnancies, her last being January 2017. She does state that she is a current, every day smoker. Patient states that she does not feel pain when she touches her leg and is able to bear weight and ambulate normally. She states that she has been monitoring for signs of blood clots, including redness and swelling. She states that she has not noticed any of these signs. Denies fever , chills, chest pain, shortness of breath, abdominal pain, nausea or vomiting, constipation or diarrhea, dysuria or hematuria, headache or vision changes. - Related Data Home Medications Medication Instructions Recorded Confirmed No Known Home Medications [No 11/21/17 11/21/17 Known Home Medications] Allergies Allergy/AdvReac Type Severity Reaction Status Date / Time Penicillins Allergy Unknown Anaphylaxis Verified 11/21/17 20:44 Review of Systems ROS Statement: Those systems with pertinent positive or pertinent negative responses have been documented in the HPI. ROS Other: All systems not noted in ROS Statement are negative. Past Medical History Past Medical History: No Reported History Additional Past Medical History / Comment(s): Gestational diabetes History of Any Multi-Drug Resistant Organisms: None Reported Past Surgical History: Section Past Anesthesia/Blood Transfusion Reactions: No Reported Reaction Past Psychological History: Anxiety, Depression Smoking Status: Light tobacco smoker Past Alcohol Use History: None Reported, Occasional Past Drug Use History: None Reported - Past Family History Mother History Unknown: Yes Family Medical History: No Reported History General Exam - General Exam Comments Initial Comments: General: Awake and alert, well-developed; in no apparent distress. HEENT: Head atraumatic, normocephalic. Pupils are equal, round and reactive to light. Extraocular movements intact. Oropharynx moist without erythema or exudate. Neck: Supple. Normal ROM. Cardiovascular: Regular rate and rhythm. No murmurs, rubs or gallops. Chest symmetrical. Respiratory: Lungs clear to auscultation bilaterally. No wheezes, rales or rhonchi. Normal respiratory effort with no use of accessory muscles. Musculoskeletal: Normal range of motion of the left knee. There is no tenderness on palpation. No erythema, swelling or contusions. Sensation is intact. Pedal pulses are 2+ equal and palpable bilaterally. No calf tenderness. Negative Homans sign. Skin: [place], warm and dry without rashes or lesions. Neurological: Alert and oriented x3. CN II-XII grossly intact. Speech is fluent and answers are appropriate. No focal neuro deficits. Psychiatric: Normal mood and affect. No overt signs of depression or anxiety noted. Limitations: no limitations Course Vital Signs 11/21/17 18:46 Temperature 98.2 F Pulse Rate 87 Respiratory 18 Rate Blood Pressure 156/80 O2 Sat by Pulse 99 Oximetry Medical Decision Making - Medical Decision Making This is a 21-year-old female presented to the emergency department with chief complaint of left leg pain. On physical examination, no areas of left lower extremity were tender to palpation. No swelling, erythema or contusions noted. Patient is neurovascularly intact. She denied any specific injuries or trauma. A left knee x-ray was obtained and revealed no acute abnormalities. Ultrasound venous doppler of the left lower extremity was negative for an acute DVT. Patient's vital signs stable and she is in no acute distress. She will be discharged home. Recommended following up with her primary care provider within 1-2 days. Patient is in agreement plan and voices understanding. All questions were answered. - Radiology Data Radiology results: report reviewed X-ray left knee findings: Bones and joints and soft tissues are unremarkable. Impression: No acute process. Disposition Clinical Impression: Knee pain Disposition: HOME SELF-CARE Condition: Good Instructions: Knee Pain (ED) Additional Instructions: Please follow up with primary care provider within 1-2 days. Return to emergency department if symptoms should worsen or any concerns arise. Referrals: Bay Crowell MD [Primary Care Provider] - 1-2 days Time of Disposition: 21:05
--- NOTE | 2017-11-21 19:25 | XR ---
PROCEDURE: XR knee complete LT, 3 views DATE AND TIME: 11/21/2017 7:11 PM REFERRING PHYSICIAN: Karma Whitt CLINICAL INDICATION: PHH, Pain TECHNIQUE: Department protocol. COMPARISON: None FINDINGS: Bones and joints and soft tissues are unremarkable. IMPRESSION: NO ACUTE PROCESS.
--- NOTE | 2017-11-21 21:02 | US ---
EXAMINATION TYPE: US venous doppler duplex LE LT DATE OF EXAM: 11/21/2017 8:02 PM COMPARISON: NONE CLINICAL HISTORY: Pain. Left leg pain SIDE PERFORMED: Left TECHNIQUE: The lower extremity deep venous system is examined utilizing real time linear array sonog raffaele with graded compression, doppler sonography and color-flow sonography. VESSELS IMAGED: External Iliac Vein (EIV) Common Femoral Vein Deep Femoral Vein Greater Saphenous Vein * Femoral Vein Popliteal Vein Small Saphenous Vein * Proximal Calf Veins (* superficial vessels) DESCRIPTION: Grayscale, color doppler, spectral doppler imaging performed of the deep veins of the lo wer extremities. There is normal flow, compressibility, vascular waveforms. IMPRESSION: NEGATIVE FOR DEEP VENOUS THROMBOSIS LEFT LOWER EXTREMITY.
[2017-11-21 21:13] VITALS: BP 144/80; PULSE 88; RESP 16; TEMP 98
== END 2017-11-21 21:13 | disposition home or self-care (01) ==
LOC: EC 18:08
DX: M25.562 Pain in left knee (principal); F17.200 Nicotine dependence, unspecified, uncomplicated; Z88.0 Allergy status to penicillin
CPT/HCPCS: 99284

== ENCOUNTER 2017-12-20 15:10 | Emergency (ER) | payer OTHER ==
[2017-12-20 15:22] VITALS: BP 132/87; PULSE 91; RESP 16; TEMP 98
[2017-12-20] MEDS ORDERED: IBUPROFEN 600 MG TAB PO STA (15:29)
--- NOTE | 2017-12-20 15:55 | ED ---
General Adult HPI - General Chief complaint: Fall Stated complaint: Fall Time Seen by Provider: 12/20/17 15:21 Source: patient, RN notes reviewed, old records reviewed Mode of arrival: ambulatory Limitations: no limitations - History of Present Illness Initial comments: 22-year-old female presents to the emergency department for a chief complaint of right leg pain. Patient states that about 5 days ago she was walking on a boardwalk when she slipped and fell on her right hip. Patient states she has has slight pain with movement of the right hip which is starting to feel better. Patient is mostly concerned about a bruise on the right hip. She states the bruise mostly went away but it feels slightly hard underneath the bruise and is tender. Patient states she can walk without difficulty. Patient states she has pain when she applies pressure to the right hip as well. Patient denies any pain in the knee, calf, or foot. Patient denies pain in the back or neck. Patient states she did not hit her head or lose consciousness when she fell 5 days ago. Patient states she has not been taking any Motrin or Tylenol or icing the area. Patient also donates plasma and is concerned about having continued to donate with a bruise. - Related Data Home Medications Medication Instructions Recorded Confirmed No Known Home Medications [No 11/21/17 11/21/17 Known Home Medications] Allergies Allergy/AdvReac Type Severity Reaction Status Date / Time Penicillins Allergy Unknown Anaphylaxis Verified 11/21/17 20:44 Review of Systems ROS Statement: Those systems with pertinent positive or pertinent negative responses have been documented in the HPI. ROS Other: All systems not noted in ROS Statement are negative. Past Medical History Past Medical History: No Reported History Additional Past Medical History / Comment(s): Gestational diabetes History of Any Multi-Drug Resistant Organisms: None Reported Past Surgical History: Section Past Anesthesia/Blood Transfusion Reactions: No Reported Reaction Past Psychological History: Anxiety, Depression Smoking Status: Light tobacco smoker Past Alcohol Use History: Occasional Past Drug Use History: None Reported - Past Family History Mother History Unknown: Yes Family Medical History: No Reported History General Exam Limitations: no limitations General appearance: alert, in no apparent distress Neck exam: Present: normal inspection. Absent: tenderness, meningismus, lymphadenopathy Respiratory exam: Present: normal lung sounds bilaterally. Absent: respiratory distress, wheezes, rales, rhonchi, stridor Cardiovascular Exam: Present: regular rate, normal rhythm, normal heart sounds. Absent: systolic murmur, diastolic murmur, rubs, gallop, clicks Extremities exam: Present: full ROM (Patient has full range of motion of the lower back including flexion and extension as well as twisting. Patient has full range of motion of the right lower extremity including flexion extension and abduction and abduction.), tenderness (Patient has tenderness to lateral proximal femur on the right side on the bruise. ), normal capillary refill (cap refill < 2 seconds in RLE.), other (Patient has a small 3 x 3 cm hematoma on the right lateral proximal thigh. No other visible abnormalities noted of the hip.). Absent: pedal edema, joint swelling, calf tenderness (neg homans) Back exam: Present: normal inspection, full ROM. Absent: tenderness Course Vital Signs 12/20/17 15:18 Temperature 98 F Pulse Rate 91 Respiratory 16 Rate Blood Pressure 132/87 O2 Sat by Pulse 98 Oximetry Medical Decision Making - Medical Decision Making 22-year-old female presents to the emergency department for chief complaint of right lower extremity pain. Patient states she fell on a boardwalk 5 days ago. Patient states the pain in her hip has been improving and she can walk on it without difficulty. Patient is concerned about a bruise on the lateral proximal femur of the right lower extremity. It is about 3 x 3 cm on exam. Patient states the bruise feels hard and I discussed this is likely a characteristic of a hematoma and nothing to be concerned about at this point. Patient has full range of motion of the lower back and right hip. Neurovascular intact of the right lower extremity. No pain in the calf. Patient was offered x-rays and declined because she did not think she needed them. Patient would rather monitor and make sure she is getting better. Patient states the bruise has decreased a lot so she would like to monitor that as well. She has not tried Motrin or Tylenol for pain relief. test was performed as she stated she was unsure if she was . She was given Motrin in the emergency department which she stated helped with the pain. Patient was instructed to take Motrin or Tylenol for pain and ice the affected area while allowing for the hip to rest. She will follow up in primary care in 1-2 days or return to the emergency department if symptoms worsen. - Lab Data Lab Results 12/20/17 Range/Units 15:40 Urine HCG, Qual Not Detected (Not Detectd) Disposition Clinical Impression: Fall, Hematoma of right lower extremity Disposition: HOME SELF-CARE Condition: Good Instructions: Hip Pain (ED) Additional Instructions: Please return to the emergency department if he has worsening pain or symptoms. Otherwise follow-up with primary care in 1-2 days. Take Motrin or Tylenol for pain relief and ice the affected area. Is patient prescribed a controlled substance at discharge?: No Referrals: Bay Crowell MD [Primary Care Provider] - 1-2 days Time of Disposition: 15:54
== END 2017-12-20 15:58 | disposition home or self-care (01) ==
LOC: EC 15:10
DX: S70.11XA Contusion of right thigh, initial encounter (principal); F17.200 Nicotine dependence, unspecified, uncomplicated; Z88.0 Allergy status to penicillin; W01.0XXA Fall on same level from slipping, tripping and stumbling without subsequent striking against object, initial encounter; Y93.01 Activity, walking, marching and hiking; Y92.89 Other specified places as the place of occurrence of the external cause
CPT/HCPCS: 81025; 99284

== ENCOUNTER 2018-02-19 21:13 | Emergency (ER) | payer BC, OTHER ==
[2018-02-19 21:25] VITALS: BP 139/89; PULSE 90; RESP 20; TEMP 98.4
[2018-02-19] MEDS ORDERED: CLINDAMYCIN 150 MG CAP PO STA (21:46)
[2018-02-19] MEDS ORDERED: ACET/COD 300 MG/30 MG STARTER PACK 6 TAB BTL PO STA (21:46)
[2018-02-19] MEDS ORDERED: KETOROLAC 30 MG/ML 1 ML VIAL IM STA (21:46)
--- NOTE | 2018-02-19 21:52 | ED ---
ENT HPI - General Chief complaint: Dental/Oral Stated complaint: Mouth Pain Time Seen by Provider: 02/19/18 21:30 Source: patient Mode of arrival: ambulatory Limitations: no limitations - History of Present Illness Initial comments: 22-year-old female patient presents to the emergency department today for evaluation of right lower dental pain. Patient states that she has had this pain for the last 3 days. Patient states that she feels that her face is swollen. She denies any fevers or chills. States it hurts to open and close her mouth. Denies any difficulty swallowing. Denies any nausea or vomiting. Patient states that she has been taking Tylenol and Motrin for pain control but is not helping. She denies any drainage from the mouth. Patient denies any recent rash, shortness breath, chest pain, abdominal pain, nausea, vomiting, diarrhea, constipation, back pain, numbness, tingling, dizziness, weakness, hematuria, dysuria, urinary urgency, urinary frequency, headache, visual changes , or any other complaints. - Related Data Previous Rx's Medication Instructions Recorded Acetaminophen-Codeine 300-30mg 1 tab PO Q6H PRN #12 tablet 02/19/18 [Tylenol #3] Clindamycin HCl 300 mg PO Q6H #40 cap 02/19/18 Ibuprofen [Motrin] 600 mg PO Q8HR PRN #30 tab 02/19/18 Allergies Allergy/AdvReac Type Severity Reaction Status Date / Time Penicillins Allergy Unknown Anaphylaxis Verified 02/19/18 21:25 Review of Systems ROS Statement: Those systems with pertinent positive or pertinent negative responses have been documented in the HPI. ROS Other: All systems not noted in ROS Statement are negative. Past Medical History Past Medical History: No Reported History Additional Past Medical History / Comment(s): Gestational diabetes History of Any Multi-Drug Resistant Organisms: None Reported Past Surgical History: Section Past Anesthesia/Blood Transfusion Reactions: No Reported Reaction Past Psychological History: Anxiety, Depression Smoking Status: Former smoker Past Alcohol Use History: Occasional Past Drug Use History: None Reported - Past Family History Mother History Unknown: Yes Family Medical History: No Reported History General Exam Limitations: no limitations General appearance: alert, in no apparent distress, other (Physical well- developed, well-nourished adult female patient in no acute distress. Vital signs upon presentation are temperature 98.4F, pulse 90, respirations 20, blood pressure 139/89, pulse ox 100% on room air.) Eye exam: Present: normal appearance, PERRL, EOMI. Absent: scleral icterus, conjunctival injection, periorbital swelling ENT exam: Present: mucous membranes moist, other (Patient has dental caries, gingival erythema, gingival swelling, no evidence of drainable abscess.). Absent: normal exam Neck exam: Present: normal inspection. Absent: tenderness, meningismus, lymphadenopathy Respiratory exam: Present: normal lung sounds bilaterally. Absent: respiratory distress, wheezes, rales, rhonchi, stridor Cardiovascular Exam: Present: regular rate, normal rhythm, normal heart sounds. Absent: systolic murmur, diastolic murmur, rubs, gallop, clicks Neurological exam: Present: alert, oriented X3, CN II-XII intact Psychiatric exam: Present: normal affect, normal mood Skin exam: Present: warm, dry, intact, normal color. Absent: rash Course Vital Signs 02/19/18 21:21 Temperature 98.4 F Pulse Rate 90 Respiratory 20 Rate Blood Pressure 139/89 O2 Sat by Pulse 100 Oximetry Medical Decision Making - Medical Decision Making 22-year-old female patient presents the emergency department today for evaluation of right lower dental pain. Physical examination did reveal dental caries, gingival erythema, and gingival swelling to the right lower dentition. No evidence of drainable abscess. We will treat patient with clindamycin and pain medication. She is instructed to follow-up with the dentist as soon as possible, her plan is to make calls tomorrow. Return parameters discussed in detail. She verbalizes understanding and agrees with this plan. Disposition Clinical Impression: Dental abscess Disposition: HOME SELF-CARE Condition: Good Instructions: Dental Abscess (ED) Additional Instructions: Take pain medications as directed. Complete antibiotic prescription in full. Follow-up with dentistry as soon as possible. Return here immediately for any new, worsening, or concerning symptoms. Prescriptions: Acetaminophen-Codeine 300-30mg [Tylenol #3] 1 tab PO Q6H PRN #12 tablet PRN Reason: Pain Clindamycin HCl 300 mg PO Q6H #40 cap Ibuprofen [Motrin] 600 mg PO Q8HR PRN #30 tab PRN Reason: Pain Is patient prescribed a controlled substance at d/c from ED?: Yes When asked, does pt state using other controlled substances?: No If prescribed controlled substance>3 days was MAPS reviewed?: Prescribed <3 Days If opioid is for acute pain is fill amount 7 days or less?: Yes If Rx opioid, was Start Talking consent form obtained?: Yes Referrals: Bay Crowell MD [Primary Care Provider] - 1-2 days Time of Disposition: 21:52
== END 2018-02-19 22:00 | disposition home or self-care (01) ==
LOC: EC 21:13
DX: K04.7 Periapical abscess without sinus (principal); K02.9 Dental caries, unspecified; Z87.891 Personal history of nicotine dependence; Z88.0 Allergy status to penicillin
CPT/HCPCS: 99283; 96372; J1885

== ENCOUNTER 2018-02-21 20:20 | Emergency (ER) | payer OTHER ==
--- NOTE | 2018-02-21 21:49 | ED ---
General Adult HPI - General Chief complaint: Dental/Oral Stated complaint: Oral Pain Time Seen by Provider: 02/21/18 21:00 Source: patient, RN notes reviewed Mode of arrival: ambulatory Limitations: no limitations - History of Present Illness Initial comments: 22-year-old female presents to the emergency department for a chief complaint of toothache 1 week. Patient was seen 3 days ago forced the same problem. Patient states the pain is more constant at this point. Patient states the Motrin or hurting her stomach and the Tylenol threes are not helping. Patient will try to get into a dentist but has not yet been successful. Patient denies fevers or chills at home. Patient denies any difficulty swallowing. Patient denies any swelling in the throat or jaw. Patient denies any neck stiffness. Patient has been taking clindamycin for the past 2 days. She states is not helping. Patient has no other complaints at this time including shortness of breath, chest pain, abdominal pain, nausea or vomiting, headache, or visual changes. - Related Data Previous Rx's Medication Instructions Recorded Acetaminophen-Codeine 300-30mg 1 tab PO Q6H PRN #12 tablet 02/19/18 [Tylenol #3] Clindamycin HCl 300 mg PO Q6H #40 cap 02/19/18 Ibuprofen [Motrin] 600 mg PO Q8HR PRN #30 tab 02/19/18 Acetaminophen [Tylenol] 500 mg PO Q4-6H PRN #20 tab 02/21/18 Ibuprofen [Motrin] 600 mg PO Q8HR PRN #20 tab 02/21/18 Allergies Allergy/AdvReac Type Severity Reaction Status Date / Time Penicillins Allergy Unknown Anaphylaxis Verified 02/21/18 20:39 Review of Systems ROS Statement: Those systems with pertinent positive or pertinent negative responses have been documented in the HPI. ROS Other: All systems not noted in ROS Statement are negative. Past Medical History Past Medical History: No Reported History Additional Past Medical History / Comment(s): Gestational diabetes History of Any Multi-Drug Resistant Organisms: None Reported Past Surgical History: Section Past Anesthesia/Blood Transfusion Reactions: No Reported Reaction Past Psychological History: Anxiety, Depression Smoking Status: Former smoker Past Alcohol Use History: Occasional Past Drug Use History: None Reported - Past Family History Mother History Unknown: Yes Family Medical History: No Reported History General Exam Limitations: no limitations General appearance: alert, in no apparent distress Head exam: Present: atraumatic, normocephalic, normal inspection Eye exam: Present: normal appearance ENT exam: Present: normal exam, mucous membranes moist, TM's normal bilaterally , normal external ear exam. Absent: normal oropharynx (Patient has a fractured tooth 29 that is tender to palpation with tongue depressor. No drainable abscesses noted. No swelling around the tooth.), other (no swelling of the jaw or neck.) Neck exam: Present: normal inspection, full ROM (full flexion, extension, or rotation). Absent: tenderness, meningismus, lymphadenopathy Respiratory exam: Present: normal lung sounds bilaterally. Absent: respiratory distress, wheezes, rales, rhonchi, stridor Cardiovascular Exam: Present: regular rate, normal rhythm, normal heart sounds. Absent: systolic murmur, diastolic murmur, rubs, gallop, clicks Course Vital Signs 02/21/18 02/21/18 20:23 21:49 Temperature 98.3 F 97.6 F Pulse Rate 100 83 Respiratory 16 18 Rate Blood Pressure 149/105 136/92 O2 Sat by Pulse 99 97 Oximetry Medical Decision Making - Medical Decision Making 22 year old female presents to the emergency department for a chief complaint of tooth pain times one week. Patient was seen here 3 days ago and given clindamycin. Patient states the pain is becoming more constant. Patient denies swelling in the jaw. Patient denies fevers or chills at home. Patient denies neck stiffness or neck pain. Patient is attempting to get into a dentist and has an appointment but for 2 weeks or now. On exam patient is a fractured tooth 29. No drainable abscess noted. No swelling inside the mouth of the right side of the neck or the jaw. Patient has full range of motion of the neck. At this time due to patient's penicillin ALLERGY she is to continue clindamycin and continue to take Motrin and Tylenol for pain. She is to eat food with Motrin. She is to follow up with primary care in 1-2 days if she cannot get into a dentist. She is aware she needs to return to the emergency Department if she starts to develop swelling of the jaw and neck or fevers. Disposition Clinical Impression: Tooth pain Disposition: HOME SELF-CARE Condition: Good Instructions: Toothache (ED) Additional Instructions: Please take Motrin and Tylenol for pain. Continue antibiotic. Follow-up with dentist as soon as possible. If you have severely worsening symptoms, fever, or swelling of the neck return to the emergency department. Prescriptions: Acetaminophen [Tylenol] 500 mg PO Q4-6H PRN #20 tab PRN Reason: Pain Ibuprofen [Motrin] 600 mg PO Q8HR PRN #20 tab PRN Reason: Pain Is patient prescribed a controlled substance at d/c from ED?: No Referrals: Bay Crowell MD [Primary Care Provider] - 1-2 days Time of Disposition: 21:47
[2018-02-21 21:57] VITALS: BP 136/92; PULSE 83; RESP 18; TEMP 97.6
== END 2018-02-21 21:56 | disposition home or self-care (01) ==
LOC: EC 20:20
DX: K08.89 Other specified disorders of teeth and supporting structures (principal); S02.5XXA Fracture of tooth (traumatic), initial encounter for closed fracture; Z87.891 Personal history of nicotine dependence; Z88.0 Allergy status to penicillin; X58.XXXA Exposure to other specified factors, initial encounter
CPT/HCPCS: 99282

== ENCOUNTER 2018-02-28 14:41 | Emergency (ER) | payer OTHER ==
[2018-02-28 14:46] VITALS: BP 116/82; PULSE 96; RESP 18; TEMP 98
--- NOTE | 2018-02-28 15:24 | ED ---
Female Urogenital HPI - General Chief complaint: Urogenital Stated complaint: pelvic pain Time Seen by Provider: 02/28/18 14:48 Source: patient, RN notes reviewed Mode of arrival: ambulatory Limitations: no limitations - History of Present Illness Initial comments: This is a 22-year-old female presents emergency Department chief complaint lower abdominal pain. Patient states it's in her pelvic region. She has no nausea, vomiting diarrhea constipation. Denies any dysuria or hematuria. She states her last normal period was in November. Patient has not taken a test. Patient is A0. Patient denies any back pain, flank pain, fever, chills, headache, dizziness, rectal pain, vaginal bleeding, vaginal discharge - Related Data Previous Rx's Medication Instructions Recorded Clindamycin HCl 300 mg PO Q6H #40 cap 02/19/18 Cephalexin [Keflex] 500 mg PO Q8HR #21 cap 02/28/18 Allergies Allergy/AdvReac Type Severity Reaction Status Date / Time Penicillins Allergy Unknown Anaphylaxis Verified 02/28/18 15:04 Review of Systems ROS Statement: Those systems with pertinent positive or pertinent negative responses have been documented in the HPI. ROS Other: All systems not noted in ROS Statement are negative. Past Medical History Past Medical History: No Reported History Additional Past Medical History / Comment(s): Gestational diabetes History of Any Multi-Drug Resistant Organisms: None Reported Past Surgical History: Section Past Anesthesia/Blood Transfusion Reactions: No Reported Reaction Past Psychological History: Anxiety, Depression Smoking Status: Former smoker Past Alcohol Use History: None Reported Past Drug Use History: None Reported - Past Family History Mother History Unknown: Yes Family Medical History: No Reported History General Exam Limitations: no limitations General appearance: alert, in no apparent distress Head exam: Present: atraumatic, normocephalic, normal inspection Respiratory exam: Present: normal lung sounds bilaterally. Absent: respiratory distress, wheezes, rales, rhonchi, stridor Cardiovascular Exam: Present: regular rate, normal rhythm, normal heart sounds. Absent: systolic murmur, diastolic murmur, rubs, gallop, clicks GI/Abdominal exam: Present: soft, tenderness (Minimal very low abdominal/pelvic tenderness), normal bowel sounds. Absent: distended, guarding, rebound, rigid Back exam: Absent: CVA tenderness (R), CVA tenderness (L) Skin exam: Present: warm, dry, intact, normal color. Absent: rash Course Vital Signs 02/28/18 14:43 Temperature 98.0 F Pulse Rate 96 Respiratory 18 Rate Blood Pressure 116/82 O2 Sat by Pulse 98 Oximetry Medical Decision Making - Medical Decision Making 22-year-old female was on for lower abdominal pain. Patient's found to have urinary tract infection is found to be . Ultrasound shows single viable IUP 11 weeks 4 days. Patient will be discharged on antibiotics and she is advised follow-up with her [facility]. - Lab Data Lab Results 02/28/18 02/28/18 Range/Units 15:15 15:15 Urine Color Yellow Urine Appearance Cloudy H (Clear) Urine pH 6.0 (5.0-8.0) Ur Specific [place] 1.027 (1.001-1.035) Urine Protein 1+ H (Negative) Urine Glucose (UA) Negative (Negative) Urine Ketones Trace H (Negative) Urine Blood Negative (Negative) Urine Nitrite Positive H (Negative) Urine Bilirubin Negative (Negative) Urine Urobilinogen <2.0 (<2.0) mg/dL Ur Leukocyte Esterase Moderate H (Negative) Urine RBC 2 (0-5) /hpf Urine WBC 23 H (0-5) /hpf Ur Squamous Epith Cells 4 (0-4) /hpf Calcium Oxalate Crystal Many H (None) /hpf Urine Bacteria Many H (None) /hpf Urine Mucus Many H (None) /hpf Urine HCG, Qual Detected (Not Detectd) Disposition Clinical Impression: Urinary tract infection, Disposition: HOME SELF-CARE Condition: Stable Instructions: Urinary Tract Infection in Women (ED) Additional Instructions: Please return to the Emergency Department if symptoms worsen or any other concerns. Prescriptions: Cephalexin [Keflex] 500 mg PO Q8HR #21 cap Is patient prescribed a controlled substance at d/c from ED?: No Referrals: Bay Crowell MD [Primary Care Provider] - 1-2 days Time of Disposition: 16:33
[2018-02-28 15:34] LABS: Appearance,Urine Cloudy (Clear); Bacteria,Urine Many /hpf; Bilirubin,Urine Negative (Negative); Blood,Urine Negative (Negative); Calcium Oxalate Crystals,Urine Many /hpf; Color,Urine Yellow; Glucose,Urine (UA) Negative (Negative); Ketones,Urine Trace (Negative); Leukocyte Esterase,Urine Moderate (Negative); Mucus,Urine Many /hpf; Nitrite,Urine Positive (Negative); Protein,Urine 1+ (Negative); RBC,Urine 2 /hpf (0-5); Specific Gravity,Urine 1.027 (1.001-1.035); Squamous Epithelial Cell,Urine 4 /hpf (0-4); Urobilinogen,Urine <2.0 mg/dL (<2.0); WBC,Urine 23 /hpf (0-5)
--- NOTE | 2018-02-28 16:25 | US ---
EXAMINATION TYPE: Transabdominal DATE OF EXAM: 12/06/17 COMPARISON: NONE CLINICAL HISTORY: Pain. Positive beta-hCG test. EXAM PERFORMED: Transvaginal (TV) and Transabdominal (TA) EXAM MEASUREMENTS: GESTATIONAL AGE / DATING Physician Established: Not yet established Dates by LMP: sometime in November Dates by First Scan: No previous this is first scan Dates by Current Scan for: (11 weeks/4 days) EDC: 09/15/18 MATERNAL ANATOMY Uterus: 12.0 x 8.2 x 9.2cm Right Ovary: obscured by bowel gas Left Ovary: obscured by bowel gas Post CDS / Adnexa: wnl Presence of free fluid: wnl Presence of corpus luteal cyst: no Presence of subchorionic bleed: no GESTATION / SURVEY CRL: 4.8 (11 weeks/4 days) Yolk Sac (normal less than 6mm): not seen Heart Rate: 167 bpm IUP: Viable IUP Date of LMP: sometime in November Beta HcG (if available): not available Single live intrauterine gestation is felt present as pole and gestational sac are seen. Yolk s ac is not clearly identified. No free fluid is seen in pelvic cul-de-sac. Neither ovary is seen. No suspicious adnexal masses are seen on images saved. IMPRESSION: Single live intrauterine gestation is confirmed, mean crown-rump length is 4.8 cm corresponding to 11 week 4 day old fetus.
== END 2018-02-28 16:45 | disposition home or self-care (01) ==
LOC: EC 14:41
DX: O23.41 Unspecified infection of urinary tract in pregnancy, first trimester (principal); Z87.891 Personal history of nicotine dependence; Z88.0 Allergy status to penicillin; Z98.890 Other specified postprocedural states; Z3A.11 11 weeks gestation of pregnancy
CPT/HCPCS: 76801; 76817; 81001; 81025; 87077; 87086; 87186; 99284

== ENCOUNTER 2018-03-12 17:14 | Emergency (ER) | payer OTHER ==
[2018-03-12 17:51] LABS: Appearance,Urine Cloudy (Clear); Bilirubin,Urine Negative (Negative); Blood,Urine Negative (Negative); Color,Urine Yellow; Glucose,Urine (UA) Negative (Negative); Ketones,Urine Negative (Negative); Leukocyte Esterase,Urine Large (Negative); Mucus,Urine Rare /hpf; Nitrite,Urine Negative (Negative); Protein,Urine Trace (Negative); RBC,Urine 15 /hpf (0-5); Specific Gravity,Urine 1.019 (1.001-1.035); Squamous Epithelial Cell,Urine 1 /hpf (0-4); Urobilinogen,Urine <2.0 mg/dL (<2.0); WBC,Urine 119 /hpf (0-5)
--- NOTE | 2018-03-12 18:15 | ED ---
General Adult HPI - General Chief complaint: Abdominal Pain Stated complaint: 12 WEEKS AND CRAMPING Time Seen by Provider: 03/12/18 17:25 Source: patient, RN notes reviewed Mode of arrival: ambulatory Limitations: no limitations - History of Present Illness Initial comments: Patient 22-year-old female presented to the emergency room today with chief complaint of urinary tract infection. Patient does admit to be approximately 13 weeks by ultrasound. Patient states that she was seen here in the emergency room 2 weeks ago diagnosed with urinary tract infection. She states that she was on antibiotics of Keflex which she completed the entire course. Patient states she still having some spotting at times. Still admits to some lower abdominal cramping. Patient states that she does have follow-up with her OB in 2 days. Patient states has been using [id number] Azo for the symptoms with little relief the patient denies any other complaints. Patient denies any recent fever, chills, shortness of breath, chest pain, back pain, nausea or vomiting, numbness or tingling, dysuria or hematuria, constipation or diarrhea, headaches or visual changes, or any other complaints. - Related Data Home Medications Medication Instructions Recorded Confirmed Phenazopyridine HCl 95 mg PO Q6H PRN 03/12/18 03/12/18 Previous Rx's Medication Instructions Recorded Nitrofurantoin Monohyd/M-Cryst 100 mg PO Q12HR #14 cap 03/12/18 [Macrobid] Allergies Allergy/AdvReac Type Severity Reaction Status Date / Time Penicillins Allergy Unknown Anaphylaxis Verified 03/12/18 17:42 Review of Systems ROS Statement: Those systems with pertinent positive or pertinent negative responses have been documented in the HPI. ROS Other: All systems not noted in ROS Statement are negative. Past Medical History Past Medical History: No Reported History Additional Past Medical History / Comment(s): Gestational diabetes History of Any Multi-Drug Resistant Organisms: None Reported Past Surgical History: Section Past Anesthesia/Blood Transfusion Reactions: No Reported Reaction Past Psychological History: Anxiety, Depression Smoking Status: Former smoker Past Alcohol Use History: None Reported Past Drug Use History: None Reported - Past Family History Mother History Unknown: Yes Family Medical History: No Reported History General Exam Limitations: no limitations Course Vital Signs 03/12/18 17:21 Temperature 98.3 F Pulse Rate 85 Respiratory 18 Rate Blood Pressure 128/73 O2 Sat by Pulse 98 Oximetry Medical Decision Making - Medical Decision Making Patient's labs been reviewed and does show evidence for urinary tract infection. Patient's vitals are stable. No fever. She denies any back or flank pain. No chills at home. Patient was on a course of antibiotics of Keflex which she states she didn't complete the course. Urine culture was reviewed from 2 weeks ago showing that susceptible to most drugs. At this time patient will be given dose of Rocephin here in emergency room. He will be discharged home on Macrobid. She does have follow-up in 2 days. She is advised that she should return if there is any fever, chills or increase or worsening of symptoms. Patient states understanding and is in agreement. - Lab Data Lab Results 03/12/18 Range/Units 17:39 Urine Color Yellow Urine Appearance Cloudy H (Clear) Urine pH 6.0 (5.0-8.0) Ur Specific [place] 1.019 (1.001-1.035) Urine Protein Trace H (Negative) Urine Glucose (UA) Negative (Negative) Urine Ketones Negative (Negative) Urine Blood Negative (Negative) Urine Nitrite Negative (Negative) Urine Bilirubin Negative (Negative) Urine Urobilinogen <2.0 (<2.0) mg/dL Ur Leukocyte Esterase Large H (Negative) Urine RBC 15 H (0-5) /hpf Urine WBC 119 H (0-5) /hpf Ur Squamous Epith Cells 1 (0-4) /hpf Urine Mucus Rare H (None) /hpf Disposition Clinical Impression: UTI (urinary tract infection), Disposition: HOME SELF-CARE Condition: Good Instructions: Urinary Tract Infection in Women (ED) Additional Instructions: Please use medication as discussed. Please follow-up with [facility]/family doctor in the next 2 days of symptoms have not improved. Please return to emergency room if the symptoms increase or worsen or for any other concerns. Prescriptions: Nitrofurantoin Monohyd/M-Cryst [Macrobid] 100 mg PO Q12HR #14 cap Is patient prescribed a controlled substance at d/c from ED?: No Referrals: Bay Crowell MD [Primary Care Provider] - 1-2 days Issa Marie DO [Doctor of Osteopathic Medicine] - 1-2 days Time of Disposition: 18:14
[2018-03-12] MEDS ORDERED: cefTRIAXone 1,000 MG VIAL (IM USE) IM STA (18:23)
[2018-03-12 18:34] VITALS: BP 130/80; PULSE 86; RESP 16; TEMP 98.2
== END 2018-03-12 18:33 | disposition home or self-care (01) ==
LOC: EC 17:14
DX: O23.41 Unspecified infection of urinary tract in pregnancy, first trimester (principal); Z3A.13 13 weeks gestation of pregnancy; Z87.891 Personal history of nicotine dependence; Z88.0 Allergy status to penicillin
CPT/HCPCS: 81001; 87086; 99284; 96372; J0696; 87077; 87186

== ENCOUNTER 2018-04-05 15:41 | Emergency (ER) | payer OTHER ==
[2018-04-05] MEDS ORDERED: SODIUM CHLORIDE 0.9% 1,000 ML IV STA (16:02)
--- NOTE | 2018-04-05 16:12 | ED ---
General Adult HPI - General Chief complaint: Vaginal Bleeding Stated complaint: Vaginal Bleeding-15 wks Time Seen by Provider: 04/05/18 15:46 Source: patient, RN notes reviewed, old records reviewed Mode of arrival: ambulatory Limitations: no limitations - History of Present Illness Initial comments: Patient 22-year-old female presented to the emergency room today with a chief complaint of vaginal bleeding. Patient does admit that she is approximately 15 weeks by ultrasound. Patient does admit that she was treated for urinary tract infection approximately one month ago. Patient states that she was feeling well up until the past 2 days she noticed she was having some light spotting. She states heavier bleeding today that was bright in color. She states she has been using tampon. Patient is to some lower abdominal cramping. Denies any other complaints. Patient denies any recent fever, chills, shortness of breath, chest pain, back pain, numbness or tingling, dysuria or hematuria, constipation or diarrhea, headaches or visual changes, or any other complaints. - Related Data Home Medications Medication Instructions Recorded Confirmed Acetaminophen Tab [Tylenol Tab] 650 mg PO Q6H PRN 04/05/18 04/05/18 [id number] Acid 1 cap PO DAILY 04/05/18 04/05/18 [-U Capsule (formulary)] Previous Rx's Medication Instructions Recorded Sulfamethox-Tmp 800-160Mg [Bactrim 1 tab PO Q12HR #6 tab 04/05/18 DS 800-160 mg] Allergies Allergy/AdvReac Type Severity Reaction Status Date / Time Penicillins Allergy Unknown Anaphylaxis Verified 04/05/18 16:04 Review of Systems ROS Statement: Those systems with pertinent positive or pertinent negative responses have been documented in the HPI. ROS Other: All systems not noted in ROS Statement are negative. Past Medical History Past Medical History: No Reported History Additional Past Medical History / Comment(s): Gestational diabetes History of Any Multi-Drug Resistant Organisms: None Reported Past Surgical History: Section Past Anesthesia/Blood Transfusion Reactions: No Reported Reaction Past Psychological History: Anxiety, Depression Smoking Status: Former smoker Past Alcohol Use History: None Reported Past Drug Use History: None Reported - Past Family History Mother History Unknown: Yes Family Medical History: No Reported History General Exam - General Exam Comments Initial Comments: General: The patient is awake and alert, in no distress, and does not appear acutely ill. Eye: extra-ocular movements are intact. No nystagmus. There is normal conjunctiva bilaterally. No signs of icterus. Ears, nose, mouth and throat: There are moist mucous membranes and no oral lesions. Neck: The neck is supple, there is no tenderness or JVD. Cardiovascular: There is a regular rate and rhythm. No murmur, rub or gallop is appreciated. Respiratory: Lungs are clear to auscultation, respirations are non-labored, breath sounds are equal. No wheezes, stridor, rales, or rhonchi. Gastrointestinal: Soft, non-distended, non-tender abdomen without masses or organomegaly noted. There is no rebound or guarding present. No CVA tenderness. Musculoskeletal: Normal ROM, no tenderness. Strength 5/5. Sensation intact. Neurological: A&O x 3. CN II-XII intact, There are no obvious motor or sensory deficits. Coordination appears grossly intact. Speech is normal. Skin: Skin is warm and dry and no rashes or lesions are noted. Psychiatric: Cooperative, appropriate mood & affect, normal judgment. Limitations: no limitations Course Vital Signs 04/05/18 15:43 Temperature 98.1 F Pulse Rate 101 H Respiratory 20 Rate Blood Pressure 106/56 O2 Sat by Pulse 99 Oximetry Medical Decision Making - Medical Decision Making Patient's reexamined at this time shows no signs of distress. Her labs are been reviewed. Her beta hCG is less than 2.4. Her urinalysis shows possible infection. Culture will be added. Patient will be given antibiotic to cover. Patient's ultrasound shows no evidence of IUP. Results were discussed with the patient. Patient is resting comfortably. She will be discharged home she is advised to follow-up with her [facility]. Advised return to emergency room if any symptoms increase or worsen. - Lab Data Result diagrams: 04/05/18 16:30 04/05/18 16:30 Lab Results 04/05/18 04/05/18 04/05/18 Range/Units 16:30 16:30 16:30 WBC 8.5 (3.8-10.6) k/uL RBC 5.54 H (3.80-5.40) m/uL Hgb 13.6 (11.4-16.0) gm/dL Hct 42.7 (34.0-46.0) % MCV 77.1 L (80.0-100.0) fL MCH 24.5 L (25.0-35.0) pg MCHC 31.8 (31.0-37.0) g/dL RDW 15.4 (11.5-15.5) % Plt Count 282 (150-450) k/uL Neutrophils % 67 % Lymphocytes % 24 % Monocytes % 4 % Eosinophils % 2 % Basophils % 1 % Neutrophils # 5.7 (1.3-7.7) k/uL Lymphocytes # 2.0 (1.0-4.8) k/uL Monocytes # 0.3 (0-1.0) k/uL Eosinophils # 0.2 (0-0.7) k/uL Basophils # 0.1 (0-0.2) k/uL Hypochromasia Slight Microcytosis Slight Sodium 141 (137-145) mmol/L Potassium 4.1 (3.5-5.1) mmol/L Chloride 108 H (98-107) mmol/L Carbon Dioxide 26 (22-30) mmol/L Anion Gap 7 mmol/L BUN 5 L (7-17) mg/dL Creatinine 0.50 L (0.52-1.04) mg/dL Est GFR (CKD-EPI)AfAm >90 (>60 ml/min/1.73 sqM) Est GFR (CKD-EPI)NonAf >90 (>60 ml/min/1.73 sqM) Glucose 107 H (74-99) mg/dL Calcium 8.1 L (8.4-10.2) mg/dL Total Bilirubin 0.2 (0.2-1.3) mg/dL AST 18 (14-36) U/L ALT 24 (9-52) U/L Alkaline Phosphatase 52 (38-126) U/L Total Protein 5.4 L (6.3-8.2) g/dL Albumin 3.0 L (3.5-5.0) g/dL HCG, Quant mIU/mL Urine Color Urine Appearance (Clear) Urine pH (5.0-8.0) Ur Specific [place] (1.001-1.035) Urine Protein (Negative) Urine Glucose (UA) (Negative) Urine Ketones (Negative) Urine Blood (Negative) Urine Nitrite (Negative) Urine Bilirubin (Negative) Urine Urobilinogen (<2.0) mg/dL Ur Leukocyte Esterase (Negative) Urine RBC (0-5) /hpf Urine WBC (0-5) /hpf Urine Bacteria (None) /hpf Urine Mucus (None) /hpf Blood Type AB Positive Blood Type Recheck No 04/05/18 04/05/18 Range/Units 16:30 18:05 WBC (3.8-10.6) k/uL RBC (3.80-5.40) m/uL Hgb (11.4-16.0) gm/dL Hct (34.0-46.0) % MCV (80.0-100.0) fL MCH (25.0-35.0) pg MCHC (31.0-37.0) g/dL RDW (11.5-15.5) % Plt Count (150-450) k/uL Neutrophils % % Lymphocytes % % Monocytes % % Eosinophils % % Basophils % % Neutrophils # (1.3-7.7) k/uL Lymphocytes # (1.0-4.8) k/uL Monocytes # (0-1.0) k/uL Eosinophils # (0-0.7) k/uL Basophils # (0-0.2) k/uL Hypochromasia Microcytosis Sodium (137-145) mmol/L Potassium (3.5-5.1) mmol/L Chloride (98-107) mmol/L Carbon Dioxide (22-30) mmol/L Anion Gap mmol/L BUN (7-17) mg/dL Creatinine (0.52-1.04) mg/dL Est GFR (CKD-EPI)AfAm (>60 ml/min/1.73 sqM) Est GFR (CKD-EPI)NonAf (>60 ml/min/1.73 sqM) Glucose (74-99) mg/dL Calcium (8.4-10.2) mg/dL Total Bilirubin (0.2-1.3) mg/dL AST (14-36) U/L ALT (9-52) U/L Alkaline Phosphatase (38-126) U/L Total Protein (6.3-8.2) g/dL Albumin (3.5-5.0) g/dL HCG, Quant <2.4 mIU/mL Urine Color Light Yellow Urine Appearance Clear (Clear) Urine pH 7.0 (5.0-8.0) Ur Specific [place] 1.012 (1.001-1.035) Urine Protein Negative (Negative) Urine Glucose (UA) Negative (Negative) Urine Ketones Negative (Negative) Urine Blood Small H (Negative) Urine Nitrite Negative (Negative) Urine Bilirubin Negative (Negative) Urine Urobilinogen <2.0 (<2.0) mg/dL Ur Leukocyte Esterase Small H (Negative) Urine RBC 2 (0-5) /hpf Urine WBC 13 H (0-5) /hpf Urine Bacteria Rare H (None) /hpf Urine Mucus Rare H (None) /hpf Blood Type Blood Type Recheck Disposition Clinical Impression: Spontaneous Disposition: HOME SELF-CARE Condition: Good Instructions: Miscarriage (ED) Additional Instructions: Please follow-up with her [facility] over the next 2-5 days. Please use antibiotic as prescribed for urinary tract infection. Please return here to the emergency room for symptoms increase or worsen. Prescriptions: Sulfamethox-Tmp 800-160Mg [Bactrim DS 800-160 mg] 1 tab PO Q12HR #6 tab Is patient prescribed a controlled substance at d/c from ED?: No Referrals: Bay Crowell MD [Primary Care Provider] - 1-2 days Time of Disposition: 18:47
[2018-04-05 16:58] LABS: Basophils # (A) 0.1 k/uL (0-0.2); Basophils % (A) 1 %; Eosinophils # (A) 0.2 k/uL (0-0.7); Eosinophils % (A) 2 %; HCT 42.7 % (34.0-46.0); HGB 13.6 gm/dL (11.4-16.0); Hypochromasia Slight; Lymphocytes % (A) 24 %; MCH 24.5 pg (25.0-35.0); MCHC 31.8 g/dL (31.0-37.0); MCV 77.1 fL (80.0-100.0); Mean Platelet Volume 6.7; Microcytosis Slight; Monocytes # (A) 0.3 k/uL (0-1.0); Monocytes % (A) 4 %; Neutrophils # (A) 5.7 k/uL (1.3-7.7); Neutrophils % (A) 67 %; Platelet Count 282 k/uL (150-450); RBC 5.54 m/uL (3.80-5.40); RDW 15.4 % (11.5-15.5); WBC 8.5 k/uL (3.8-10.6)
[2018-04-05 17:02] LABS: ALT 24 U/L (9-52); AST 18 U/L (14-36); Alkaline Phosphatase 52 U/L (38-126); Anion Gap 7 mmol/L; Blood Urea Nitrogen 5 mg/dL (7-17); Calcium 8.1 mg/dL (8.4-10.2); Carbon Dioxide 26 mmol/L (22-30); Chloride 108 mmol/L (98-107); Glucose 107 mg/dL (74-99); Potassium 4.1 mmol/L (3.5-5.1); Sodium 141 mmol/L (137-145); Total Bilirubin 0.2 mg/dL (0.2-1.3); Total Protein 5.4 g/dL (6.3-8.2)
--- NOTE | 2018-04-05 17:55 | US ---
EXAMINATION TYPE: US OB >= 14 wk fetus DATE OF EXAM: 04/05/2018 COMPARISON: US 2018 CLINICAL HISTORY: Pain; bleeding/cramping x 4 days, 6, para 5 TECHNIQUE: Transabdominal (TA) GESTATIONAL AGE / DATING Physician Established: Not established yet Dates by LMP: Unknown Dates by First Scan: (16 weeks/5 days) EDC: 09/15/2018 Dates by Current Scan: No IUP seen at this time Beta HCG (if available): Not available at time of exam Uterus: 8.5 x 4.1 x 5.0cm, anteverted Endometrium: 1.2cm Right Ovary: 2.9 x 1.8 x 1.9cm Left Ovary: 2.3 x 1.7 x 1.9cm Bilateral adnexa: wnl Posterior Cul de Sac: wnl SURVEY IUP: No IUP seen at this time IMPRESSION: NO IUP AT THIS TIME.
[2018-04-05 18:21] LABS: Appearance,Urine Clear (Clear); Bacteria,Urine Rare /hpf; Bilirubin,Urine Negative (Negative); Blood,Urine Small (Negative); Color,Urine Light Yellow; Glucose,Urine (UA) Negative (Negative); Ketones,Urine Negative (Negative); Leukocyte Esterase,Urine Small (Negative); Mucus,Urine Rare /hpf; Nitrite,Urine Negative (Negative); Protein,Urine Negative (Negative); RBC,Urine 2 /hpf (0-5); Specific Gravity,Urine 1.012 (1.001-1.035); Urobilinogen,Urine <2.0 mg/dL (<2.0); WBC,Urine 13 /hpf (0-5)
[2018-04-05 19:06] VITALS: BP 131/82; PULSE 77; RESP 18; TEMP 98.3
== END 2018-04-05 19:06 | disposition home or self-care (01) ==
LOC: EC 15:41
DX: O03.9 Complete or unspecified spontaneous abortion without complication (principal); Z87.891 Personal history of nicotine dependence; Z88.0 Allergy status to penicillin
CPT/HCPCS: 36415; 76805; 80053; 81001; 84702; 85025; 86900; 86901; 87086; 96360; 99284

== ENCOUNTER 2018-04-29 02:22 | Emergency (ER) | payer OTHER ==
[2018-04-29] MEDS ORDERED: SODIUM CHLORIDE 0.9% 1,000 ML IV STA (03:10)
[2018-04-29 03:31] LABS: Basophils % (A) 0 %; Eosinophils % (A) 0 %; HCT 33.9 % (34.0-46.0); HGB 10.9 gm/dL (11.4-16.0); Hypochromasia Slight; Lymphocytes # (A) 0.8 k/uL (1.0-4.8); Lymphocytes % (A) 6 %; MCH 24.6 pg (25.0-35.0); MCHC 32.3 g/dL (31.0-37.0); MCV 76.2 fL (80.0-100.0); Mean Platelet Volume 7.3; Microcytosis Slight; Monocytes # (A) 0.6 k/uL (0-1.0); Monocytes % (A) 4 %; Neutrophils # (A) 11.5 k/uL (1.3-7.7); Neutrophils % (A) 89 %; Platelet Count 332 k/uL (150-450); RBC 4.45 m/uL (3.80-5.40); RDW 15.7 % (11.5-15.5)
[2018-04-29 03:39] LABS: Partial Thromboplastin Time 22.2 sec (22.0-30.0); Prothrombin Time 10.1 sec (9.0-12.0)
[2018-04-29 03:43] LABS: ALT 130 U/L (9-52); AST 213 U/L (14-36); Alcohol 28 mg/dL; Alkaline Phosphatase 58 U/L (38-126); Anion Gap 11 mmol/L; Blood Urea Nitrogen 8 mg/dL (7-17); Carbon Dioxide 22 mmol/L (22-30); Chloride 108 mmol/L (98-107); Glucose 119 mg/dL (74-99); Potassium 3.8 mmol/L (3.5-5.1); Sodium 141 mmol/L (137-145); Total Bilirubin 0.3 mg/dL (0.2-1.3); Total Protein 6.9 g/dL (6.3-8.2)
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
--- NOTE | 2018-04-29 03:58 | XR ---
EXAMINATION TYPE: XR hand complete LT DATE OF EXAM: 04/29/2018 COMPARISON: NONE HISTORY: Hand pain TECHNIQUE: 3 views FINDINGS: Metacarpals appear intact. I see no fracture nor dislocation. Joint spaces are fairly zabrina l. There are no erosions. There is nondisplaced transverse fracture of the distal radius. There is no ndisplaced fracture of the ulnar styloid process. IMPRESSION: Distal radius and ulna fractures. No hand fracture.
--- NOTE | 2018-04-29 04:00 | XR ---
EXAMINATION TYPE: XR forearm LT DATE OF EXAM: 04/29/2018 COMPARISON: NONE HISTORY: Pain TECHNIQUE: 2 views FINDINGS: There is nondisplaced transverse fracture of the distal radial metaphysis. There is nondisp laced fracture of the ulnar styloid process. Elbow joint appears intact. There is no dislocation. IMPRESSION: Nondisplaced distal radius and ulna fractures.
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
[2018-04-29 04:18] LABS: Creatine Kinase 380 U/L (30-135)
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
[2018-04-29] MEDS ORDERED: ONDANSETRON 4 MG/2 ML VIAL IVP STA (04:25)
[2018-04-29] MEDS ORDERED: MORPHINE SULFATE 4 MG/ML SYRINGE IVP STA (04:25)
[2018-04-29 04:31] LABS: Troponin I <0.012 ng/mL (0.000-0.034)
[2018-04-29 05:20] LABS: Appearance,Urine Clear (Clear); Bilirubin,Urine Negative (Negative); Blood,Urine Large (Negative); Color,Urine Yellow; Glucose,Urine (UA) Negative (Negative); Ketones,Urine Negative (Negative); Leukocyte Esterase,Urine Small (Negative); Nitrite,Urine Negative (Negative); PH, Urine 6.5 (5.0-8.0); Protein,Urine 1+ (Negative); RBC,Urine >182 /hpf (0-5); Specific Gravity,Urine 1.036 (1.001-1.035); Squamous Epithelial Cell,Urine 1 /hpf (0-4); Urobilinogen,Urine <2.0 mg/dL (<2.0); WBC,Urine 20 /hpf (0-5)
[2018-04-29 05:23] LABS: Amphetamine Screen,Urine Not Detected (NotDetected); Barbiturate Screen,Urine Not Detected (NotDetected); Benzodiazepines Screen,Urine Not Detected (NotDetected); Cocaine Screen,Urine Not Detected (NotDetected); Methadone Screen, Urine Not Detected (NotDetected); Opiate Screen,Urine Not Detected (NotDetected); Oxycodone Screen, Urine Not Detected (NotDetected); Phencyclidine Screen,Urine Not Detected (NotDetected); Tricyclic Antidepressant,Urine Not Detected (NotDetected); Urn Cannabinoid Scrn Detected (NotDetected)
[2018-04-29 05:27] LABS: Creatine Kinase MB 2.7 ng/mL (0.0-2.4)
[2018-04-29 06:15] VITALS: BP 125/79; PULSE 108; RESP 18; TEMP 98.6
== END 2018-04-29 06:05 | disposition other institution (70) ==
LOC: EC 02:22
DX: S52.592A Other fractures of lower end of left radius, initial encounter for closed fracture (principal); S52.615A Nondisplaced fracture of left ulna styloid process, initial encounter for closed fracture; S36.899A Unspecified injury of other intra-abdominal organs, initial encounter; Z87.891 Personal history of nicotine dependence; Z88.0 Allergy status to penicillin; V47.5XXA Car driver injured in collision with fixed or stationary object in traffic accident, initial encounter; Y92.89 Other specified places as the place of occurrence of the external cause
CPT/HCPCS: 36415; 93005; 86900; 86901; 80053; 82550; 82553; 84484; 85025; 85610; 85730; 86850; 81001; 81025; 80306; 80320; 73090; 73130; 72125; 70450; 71260; 74177; 99285; 29125; 96374; 96375; 96361; J2270; J2405; Q9967

== ENCOUNTER 2018-05-25 10:29 | Emergency (ER) | payer OTHER ==
[2018-05-25] MEDS ORDERED: SODIUM CHLORIDE 0.9% 1,000 ML IV STA (11:27)
[2018-05-25 11:56] LABS: Basophils % (A) 0 %; Eosinophils # (A) 0.1 k/uL (0-0.7); Eosinophils % (A) 2 %; HGB 10.9 gm/dL (11.4-16.0); Hypochromasia Marked; Lymphocytes % (A) 22 %; MCH 23.4 pg (25.0-35.0); MCHC 30.3 g/dL (31.0-37.0); MCV 77.4 fL (80.0-100.0); Mean Platelet Volume 7.1; Monocytes # (A) 0.2 k/uL (0-1.0); Monocytes % (A) 5 %; Neutrophils # (A) 3.1 k/uL (1.3-7.7); Neutrophils % (A) 70 %; Platelet Count 262 k/uL (150-450); RBC 4.65 m/uL (3.80-5.40); RDW 13.8 % (11.5-15.5); WBC 4.4 k/uL (3.8-10.6)
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
[2018-05-25 12:07] LABS: Appearance,Urine Cloudy (Clear); Bacteria,Urine Rare /hpf; Bilirubin,Urine Negative (Negative); Blood,Urine Negative (Negative); Color,Urine Yellow; Glucose,Urine (UA) Negative (Negative); Ketones,Urine Negative (Negative); Leukocyte Esterase,Urine Trace (Negative); Mucus,Urine Few /hpf; Nitrite,Urine Negative (Negative); PH, Urine 6.5 (5.0-8.0); Partial Thromboplastin Time 24.5 sec (22.0-30.0); Protein,Urine Negative (Negative); Prothrombin Time 10.1 sec (9.0-12.0); RBC,Urine 1 /hpf (0-5); Specific Gravity,Urine 1.017 (1.001-1.035); Squamous Epithelial Cell,Urine 12 /hpf (0-4); Urobilinogen,Urine <2.0 mg/dL (<2.0); WBC,Urine 5 /hpf (0-5)
[2018-05-25 12:09] LABS: ALT 21 U/L (9-52); AST 28 U/L (14-36); Alkaline Phosphatase 62 U/L (38-126); Amylase 43 U/L (30-110); Anion Gap 12 mmol/L; Blood Urea Nitrogen 7 mg/dL (7-17); Calcium 9.2 mg/dL (8.4-10.2); Carbon Dioxide 20 mmol/L (22-30); Chloride 108 mmol/L (98-107); Glucose 87 mg/dL (74-99); Lipase 54 U/L (23-300); Sodium 140 mmol/L (137-145); Total Bilirubin 0.4 mg/dL (0.2-1.3); Total Protein 7.4 g/dL (6.3-8.2)
[2018-05-25 12:10] LABS: Potassium 4.2 mmol/L (3.5-5.1)
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
[2018-05-25 14:38] VITALS: BP 135/85; PULSE 72; RESP 18; TEMP 98
== END 2018-05-25 14:38 | disposition home or self-care (01) ==
LOC: EC 10:29
DX: O99.89 Other specified diseases and conditions complicating pregnancy, childbirth and the puerperium (principal); R10.9 Unspecified abdominal pain; R07.81 Pleurodynia; Z3A.01 Less than 8 weeks gestation of pregnancy; Z87.891 Personal history of nicotine dependence; Z88.0 Allergy status to penicillin; Z98.890 Other specified postprocedural states
CPT/HCPCS: 36415; 76700; 76770; 76801; 76817; 80053; 81001; 81025; 82150; 83605; 83690; 84702; 85025; 85610; 85730; 96360; 96361; 99284

== ENCOUNTER 2019-02-05 12:21 | Emergency (ER) | payer OTHER ==
[2019-02-05] MEDS ORDERED: ONDANSETRON 4 MG/2 ML VIAL IVP STA (13:57)
[2019-02-05] MEDS ORDERED: PANTOPRAZOLE 40 MG/10 ML VIAL IVP STA (13:57)
[2019-02-05] MEDS ORDERED: KETOROLAC 30 MG/ML 1 ML VIAL IVP STA (13:57)
[2019-02-05] MEDS ORDERED: SODIUM CHLORIDE 0.9% 1,000 ML IV STA ×2 (13:57)
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
[2019-02-05 14:40] LABS: Appearance,Urine Cloudy (Clear); Bacteria,Urine Many /hpf; Bilirubin,Urine Negative (Negative); Blood,Urine Negative (Negative); Color,Urine Yellow; Glucose,Urine (UA) Negative (Negative); Ketones,Urine Negative (Negative); Leukocyte Esterase,Urine Small (Negative); Mucus,Urine Occasional /hpf; Nitrite,Urine Positive (Negative); Protein,Urine Negative (Negative); RBC,Urine 1 /hpf (0-5); Specific Gravity,Urine 1.026 (1.001-1.035); Squamous Epithelial Cell,Urine 20 /hpf (0-4); Urobilinogen,Urine <2.0 mg/dL (<2.0); WBC,Urine 10 /hpf (0-5)
[2019-02-05 14:46] LABS: INR 0.9 (<1.2); Prothrombin Time 10.1 sec (9.0-12.0)
[2019-02-05 14:54] LABS: ALT 12 U/L (9-52); AST 14 U/L (14-36); African American GFR (CKD) >90 (>60 ml/min/1.73 sqM); Albumin 3.3 g/dL (3.5-5.0); Alkaline Phosphatase 52 U/L (38-126); Amylase 34 U/L (30-110); Anion Gap 4 mmol/L; Blood Urea Nitrogen 11 mg/dL (7-17); Calcium 8.7 mg/dL (8.4-10.2); Carbon Dioxide 27 mmol/L (22-30); Chloride 111 mmol/L (98-107); Glucose 88 mg/dL (74-99); Lipase 50 U/L (23-300); Potassium 4.2 mmol/L (3.5-5.1); Sodium 142 mmol/L (137-145); Total Bilirubin 0.2 mg/dL (0.2-1.3); Total Protein 5.8 g/dL (6.3-8.2)
[2019-02-05 15:14] LABS: Anisocytosis Slight; Basophils # (A) 0.1 k/uL (0-0.2); Basophils % (A) 1 %; Eosinophils # (A) 0.3 k/uL (0-0.7); Eosinophils % (A) 4 %; HCT 44.4 % (34.0-46.0); HGB 14.3 gm/dL (11.4-16.0); Lymphocytes # (A) 1.8 k/uL (1.0-4.8); Lymphocytes % (A) 23 %; MCH 26.2 pg (25.0-35.0); MCHC 32.3 g/dL (31.0-37.0); Mean Platelet Volume 7.5; Monocytes # (A) 0.3 k/uL (0-1.0); Monocytes % (A) 4 %; Neutrophils # (A) 5.1 k/uL (1.3-7.7); Neutrophils % (A) 66 %; Platelet Count 294 k/uL (150-450); RBC 5.48 m/uL (3.80-5.40); WBC 7.8 k/uL (3.8-10.6)
--- NOTE | 2019-02-05 15:43 | XR ---
KUB HISTORY: Abdominal pain Frontal KUB submitted on [address] 04/29/2018 There is a slight spinal curvature present. Lung bases are clear. No evident bowel obstruction or pne umoperitoneum. Intrauterine contraceptive device is present over the pelvis. Bone mineralization is n ormal. IMPRESSION: IUD within the pelvis.
--- NOTE | 2019-02-05 15:45 | XR ---
EXAMINATION TYPE: XR chest 2V DATE OF EXAM: 02/05/2019 COMPARISON: Prior chest x-ray 02/15/2014 HISTORY: Abdominal pain TECHNIQUE: Frontal and lateral views of the chest are obtained. FINDINGS: There is no focal air space opacity, pleural effusion, or pneumothorax seen. The cardiac silhouette size is within normal limits. The osseous structures are intact. IMPRESSION: No acute cardiopulmonary process.
[2019-02-05] MEDS ORDERED: AZITHROMYCIN 500 MG TAB PO STA (16:29)
[2019-02-05 16:43] VITALS: BP 128/75; PULSE 77; RESP 16; TEMP 98.1
[2019-02-06 14:42] LABS: N. gonorrhoeae,PCR Negative (Neg,Equiv); Neisseria Source Urine
[2019-02-06 14:59] LABS: C. trachomatis,PCR Negative (Neg,Equiv); Chlamydia trachomatis Source Urine
== END 2019-02-05 16:56 | disposition home or self-care (01) ==
LOC: EC 12:21
DX: N39.0 Urinary tract infection, site not specified (principal); R10.12 Left upper quadrant pain; R07.81 Pleurodynia; R11.0 Nausea; F32.9 Major depressive disorder, single episode, unspecified; F41.9 Anxiety disorder, unspecified; Z87.891 Personal history of nicotine dependence; Z88.0 Allergy status to penicillin; Z79.899 Other long term (current) drug therapy; Z97.5 Presence of (intrauterine) contraceptive device
CPT/HCPCS: 99284; 96365; 96375 ×3; 96361 ×2; 36415; 80053; 82150; 83690; 85025; 85610; 85730; 81001; 81025; 87491; 87591; 87086; 87077; 87186; 71046; 74018; J2405; J0696; J1885; C9113

== ENCOUNTER 2019-02-23 19:02 | Emergency (ER) | payer OTHER ==
[2019-02-23] MEDS ORDERED: ONDANSETRON 4 MG/2 ML VIAL IVP STA (19:34)
[2019-02-23] MEDS ORDERED: KETOROLAC 30 MG/ML 1 ML VIAL IVP STA (19:34)
[2019-02-23] MEDS ORDERED: SODIUM CHLORIDE 0.9% 1,000 ML IV STA (19:34)
[2019-02-23 20:16] LABS: Basophils # (A) 0.1 k/uL (0-0.2); Basophils % (A) 1 %; Eosinophils # (A) 0.3 k/uL (0-0.7); Eosinophils % (A) 4 %; HCT 41.4 % (34.0-46.0); HGB 13.9 gm/dL (11.4-16.0); Lymphocytes # (A) 2.2 k/uL (1.0-4.8); Lymphocytes % (A) 29 %; MCH 26.7 pg (25.0-35.0); MCHC 33.5 g/dL (31.0-37.0); MCV 79.6 fL (80.0-100.0); Mean Platelet Volume 7.6; Monocytes # (A) 0.3 k/uL (0-1.0); Monocytes % (A) 4 %; Neutrophils # (A) 4.7 k/uL (1.3-7.7); Neutrophils % (A) 61 %; Platelet Count 282 k/uL (150-450); RBC 5.21 m/uL (3.80-5.40); RDW 14.7 % (11.5-15.5); WBC 7.7 k/uL (3.8-10.6)
[2019-02-23 20:25] LABS: ALT 12 U/L (9-52); AST 20 U/L (14-36); African American GFR (CKD) >90 (>60 ml/min/1.73 sqM); Albumin 4.2 g/dL (3.5-5.0); Alkaline Phosphatase 62 U/L (38-126); Anion Gap 9 mmol/L; Blood Urea Nitrogen 14 mg/dL (7-17); Calcium 8.7 mg/dL (8.4-10.2); Carbon Dioxide 28 mmol/L (22-30); Chloride 104 mmol/L (98-107); Glucose 110 mg/dL (74-99); Potassium 3.7 mmol/L (3.5-5.1); Sodium 141 mmol/L (137-145); Total Bilirubin 0.3 mg/dL (0.2-1.3); Total Protein 7.2 g/dL (6.3-8.2)
--- NOTE | 2019-02-23 20:35 | ED ---
Headache HPI - General Chief Complaint: Headache Stated Complaint: headaches, vision trouble Time Seen by Provider: 02/23/19 19:18 Mode of arrival: ambulatory - History of Present Illness Initial Comments: 23-year-old female patient presents to the emergency department today for evaluation of headache and dizziness for the last 5-7 days. Patient states that the headache has been present constantly for the last 7 days. States that whenever she stands she becomes dizzy and lightheaded. Patient states it is affecting her vision. She denies any double vision. States she has been nauseated but no vomiting. She denies chance of . Denies any numbness, tingling, weakness to extremities. Denies any headache injury. Denies any history of headache. She denies any chest pain or shortness of breath. Patient denies any recent rash, shortness breath, chest pain, abdominal pain, diarrhea, constipation, back pain, hematuria, dysuria, urinary urgency, urinary frequency, or any other complaints. - Related Data Home Medications Medication Instructions Recorded Confirmed Citalopram Hydrobromide [CeleXA] 40 mg PO HS 02/05/19 02/05/19 Previous Rx's Medication Instructions Recorded Ketorolac [Toradol] 10 mg PO TID #12 tab 02/05/19 Nitrofurantoin Monohyd/M-Cryst 100 mg PO Q12HR #14 cap 02/05/19 [Macrobid] Ondansetron [Zofran ODT] 4 mg PO Q8HR #8 tab 02/05/19 Allergies Allergy/AdvReac Type Severity Reaction Status Date / Time Penicillins Allergy Unknown Anaphylaxis Verified 02/23/19 19:06 Review of Systems ROS Statement: Those systems with pertinent positive or pertinent negative responses have been documented in the HPI. ROS Other: All systems not noted in ROS Statement are negative. Past Medical History Past Medical History: No Reported History Additional Past Medical History / Comment(s): Gestational diabetes History of Any Multi-Drug Resistant Organisms: None Reported Past Surgical History: Section Past Anesthesia/Blood Transfusion Reactions: No Reported Reaction Past Psychological History: Anxiety, Depression Smoking Status: Former smoker Past Alcohol Use History: Occasional Past Drug Use History: None Reported - Past Family History Mother History Unknown: Yes Family Medical History: No Reported History General Exam General appearance: alert, in no apparent distress, other (This a well- developed, well-nourished adult female patient in no acute distress. Vital signs upon presentation are temperature 98.5F, pulse 81, respirations 20, blood pressure 132/74, pulse ox 97% on room air.) Eye exam: Present: normal appearance, PERRL, EOMI. Absent: scleral icterus, conjunctival injection, nystagmus, periorbital swelling ENT exam: Present: normal exam, normal oropharynx, mucous membranes moist Respiratory exam: Present: normal lung sounds bilaterally. Absent: respiratory distress, wheezes, rales, rhonchi, stridor Cardiovascular Exam: Present: regular rate, normal rhythm, normal heart sounds. Absent: systolic murmur, diastolic murmur, rubs, gallop, clicks GI/Abdominal exam: Present: soft, normal bowel sounds. Absent: distended, tenderness, guarding, rebound, rigid Neurological exam: Present: alert, oriented X3, CN II-XII intact, other (Strength in all 4 extremities is 5/5.) Psychiatric exam: Present: normal affect, normal mood Skin exam: Present: warm, dry, intact, normal color. Absent: rash Course Vital Signs 02/23/19 02/23/19 19:07 21:49 Temperature 98.5 F 98.2 F Pulse Rate 81 77 Respiratory 20 18 Rate Blood Pressure 132/74 97/66 O2 Sat by Pulse 97 99 Oximetry Medical Decision Making - Medical Decision Making 23-year-old female patient presented to the emergency department today for evaluation of headache and dizziness. Physical examination is unremarkable. She is neurologically intact with no focal deficits. Labs reviewed and were unremarkable. EKG showed normal sinus rhythm. Patient was given IV fluids, Toradol, Reglan, Benadryl. Upon reevaluation she does report complete improvement of symptoms. She will be discharged at this time to follow-up with her primary care physician for recheck in 1-2 days. Return parameters were discussed in detail. She verbalizes understanding and agrees with this plan. - Lab Data Result diagrams: 02/23/19 20:04 02/23/19 20:04 Lab Results 02/23/19 02/23/19 02/23/19 Range/Units 20:04 20:04 21:00 WBC 7.7 (3.8-10.6) k/uL RBC 5.21 (3.80-5.40) m/uL Hgb 13.9 (11.4-16.0) gm/dL Hct 41.4 (34.0-46.0) % MCV 79.6 L (80.0-100.0) fL MCH 26.7 (25.0-35.0) pg MCHC 33.5 (31.0-37.0) g/dL RDW 14.7 (11.5-15.5) % Plt Count 282 (150-450) k/uL Neutrophils % 61 % Lymphocytes % 29 % Monocytes % 4 % Eosinophils % 4 % Basophils % 1 % Neutrophils # 4.7 (1.3-7.7) k/uL Lymphocytes # 2.2 (1.0-4.8) k/uL Monocytes # 0.3 (0-1.0) k/uL Eosinophils # 0.3 (0-0.7) k/uL Basophils # 0.1 (0-0.2) k/uL Sodium 141 (137-145) mmol/L Potassium 3.7 (3.5-5.1) mmol/L Chloride 104 (98-107) mmol/L Carbon Dioxide 28 (22-30) mmol/L Anion Gap 9 mmol/L BUN 14 (7-17) mg/dL Creatinine 0.52 (0.52-1.04) mg/dL Est GFR (CKD-EPI)AfAm >90 (>60 ml/min/1.73 sqM) Est GFR (CKD-EPI)NonAf >90 (>60 ml/min/1.73 sqM) Glucose 110 H (74-99) mg/dL Calcium 8.7 (8.4-10.2) mg/dL Total Bilirubin 0.3 (0.2-1.3) mg/dL AST 20 (14-36) U/L ALT 12 (9-52) U/L Alkaline Phosphatase 62 (38-126) U/L Total Protein 7.2 (6.3-8.2) g/dL Albumin 4.2 (3.5-5.0) g/dL Urine Color Urine Appearance (Clear) Urine pH (5.0-8.0) Ur Specific [place] (1.001-1.035) Urine Protein (Negative) Urine Glucose (UA) (Negative) Urine Ketones (Negative) Urine Blood (Negative) Urine Nitrite (Negative) Urine Bilirubin (Negative) Urine Urobilinogen (<2.0) mg/dL Ur Leukocyte Esterase (Negative) Urine HCG, Qual Not Detected (Not Detectd) 02/23/19 Range/Units 21:00 WBC (3.8-10.6) k/uL RBC (3.80-5.40) m/uL Hgb (11.4-16.0) gm/dL Hct (34.0-46.0) % MCV (80.0-100.0) fL MCH (25.0-35.0) pg MCHC (31.0-37.0) g/dL RDW (11.5-15.5) % Plt Count (150-450) k/uL Neutrophils % % Lymphocytes % % Monocytes % % Eosinophils % % Basophils % % Neutrophils # (1.3-7.7) k/uL Lymphocytes # (1.0-4.8) k/uL Monocytes # (0-1.0) k/uL Eosinophils # (0-0.7) k/uL Basophils # (0-0.2) k/uL Sodium (137-145) mmol/L Potassium (3.5-5.1) mmol/L Chloride (98-107) mmol/L Carbon Dioxide (22-30) mmol/L Anion Gap mmol/L BUN (7-17) mg/dL Creatinine (0.52-1.04) mg/dL Est GFR (CKD-EPI)AfAm (>60 ml/min/1.73 sqM) Est GFR (CKD-EPI)NonAf (>60 ml/min/1.73 sqM) Glucose (74-99) mg/dL Calcium (8.4-10.2) mg/dL Total Bilirubin (0.2-1.3) mg/dL AST (14-36) U/L ALT (9-52) U/L Alkaline Phosphatase (38-126) U/L Total Protein (6.3-8.2) g/dL Albumin (3.5-5.0) g/dL Urine Color Yellow Urine Appearance Clear (Clear) Urine pH 5.5 (5.0-8.0) Ur Specific [place] 1.019 (1.001-1.035) Urine Protein Negative (Negative) Urine Glucose (UA) Negative (Negative) Urine Ketones Negative (Negative) Urine Blood Negative (Negative) Urine Nitrite Negative (Negative) Urine Bilirubin Negative (Negative) Urine Urobilinogen <2.0 (<2.0) mg/dL Ur Leukocyte Esterase Negative (Negative) Urine HCG, Qual (Not Detectd) - EKG Data -: EKG Interpreted by Me EKG Comments: EKG obtained at 1957 shows normal sinus rhythm with a ventricular rate of 84, AL interval 136, QRS duration 82, QT 370, QTC 437. No evidence of ST elevation or depression. Disposition Clinical Impression: Acute headache Disposition: HOME SELF-CARE Condition: Good Instructions (If sedation given, give patient instructions): Acute Headache (ED) Additional Instructions: Increase fluids. Consider taking codn-uvv-voilbid ALLERGY medication. Follow- up with your primary care physician for recheck in 1-2 days. Return to the emergency department immediately for any new, worsening, or concerning symptoms. Is patient prescribed a controlled substance at d/c from ED?: No Referrals: Bay Crowell MD [Primary Care Provider] - 1-2 days Time of Disposition: 21:34
[2019-02-23] MEDS ORDERED: METOCLOPRAMIDE 5 MG/ML 2 ML VIAL IVP STA (21:03)
[2019-02-23] MEDS ORDERED: diphenhydrAMINE 50 MG/ML 1 ML VIAL IVP STA (21:03)
[2019-02-23 21:08] LABS: Appearance,Urine Clear (Clear); Bilirubin,Urine Negative (Negative); Blood,Urine Negative (Negative); Color,Urine Yellow; Glucose,Urine (UA) Negative (Negative); Ketones,Urine Negative (Negative); Leukocyte Esterase,Urine Negative (Negative); Nitrite,Urine Negative (Negative); PH, Urine 5.5 (5.0-8.0); Protein,Urine Negative (Negative); Specific Gravity,Urine 1.019 (1.001-1.035); Urobilinogen,Urine <2.0 mg/dL (<2.0)
[2019-02-23 21:50] VITALS: BP 97/66; PULSE 77; RESP 18; TEMP 98.2
== END 2019-02-23 21:55 | disposition home or self-care (01) ==
LOC: EC 19:02
DX: R51 Headache (principal); R42 Dizziness and giddiness; R11.0 Nausea; F32.9 Major depressive disorder, single episode, unspecified; F41.9 Anxiety disorder, unspecified; Z87.891 Personal history of nicotine dependence; Z79.899 Other long term (current) drug therapy; Z88.0 Allergy status to penicillin
CPT/HCPCS: 36415; 93005; 80053; 85025; 81003; 81025; 99284; 96374; 96375 ×3; 96361 ×2; J1200; J2765; J2405; J1885

== ENCOUNTER 2019-03-19 00:11 | Emergency (ER) | payer OTHER ==
[2019-03-19 01:40] LABS: Amorphous Sediment,Urine Rare /hpf; Appearance,Urine Cloudy (Clear); Bacteria,Urine Occasional /hpf; Bilirubin,Urine Negative (Negative); Blood,Urine Negative (Negative); Color,Urine Light Yellow; Glucose,Urine (UA) Negative (Negative); Ketones,Urine Negative (Negative); Leukocyte Esterase,Urine Negative (Negative); Nitrite,Urine Negative (Negative); Protein,Urine Negative (Negative); Specific Gravity,Urine 1.012 (1.001-1.035); Squamous Epithelial Cell,Urine 1 /hpf (0-4); Urobilinogen,Urine <2.0 mg/dL (<2.0); WBC,Urine 1 /hpf (0-5)
--- NOTE | 2019-03-19 01:40 | ED ---
Abdominal Pain HPI - General Chief Complaint: Abdominal Pain Stated Complaint: Abd Cramping/Pelvic Pain Time Seen by Provider: 03/19/19 00:28 Source: patient, RN notes reviewed, old records reviewed Mode of arrival: ambulatory Limitations: no limitations - History of Present Illness Initial Comments: Patient's 23-year-old female presents emergency department today for evaluation with complaints of pelvic pain and cramping for the past 2 weeks. She states she was seen at [facility] on March 06. Attention negative test. She is concerned because she has an IUD Mirena she had this placed in November. She states she is on her menstrual cycle throughout this month. Patient states that she is well seen and on March 06. Patient states that she has had no fevers or chills. Denies any lower quadrant specific sided pain. She denies any dysuria hematuria or stool changes. - Related Data Home Medications Medication Instructions Recorded Confirmed Citalopram Hydrobromide [CeleXA] 40 mg PO HS 02/05/19 02/05/19 Previous Rx's Medication Instructions Recorded Ketorolac [Toradol] 10 mg PO TID #12 tab 02/05/19 Nitrofurantoin Monohyd/M-Cryst 100 mg PO Q12HR #14 cap 02/05/19 [Macrobid] Ondansetron [Zofran ODT] 4 mg PO Q8HR #8 tab 02/05/19 traMADol HCL [Ultram] 50 mg PO Q6HR PRN 3 Days #12 tab 03/19/19 Allergies Allergy/AdvReac Type Severity Reaction Status Date / Time Penicillins Allergy Unknown Anaphylaxis Verified 03/19/19 00:18 Review of Systems ROS Statement: Those systems with pertinent positive or pertinent negative responses have been documented in the HPI. ROS Other: All systems not noted in ROS Statement are negative. Past Medical History Past Medical History: Asthma Additional Past Medical History / Comment(s): Gestational diabetes, History of Any Multi-Drug Resistant Organisms: None Reported Past Surgical History: Section Additional Past Surgical History / Comment(s): IUD placement Past Anesthesia/Blood Transfusion Reactions: No Reported Reaction Past Psychological History: Anxiety, Depression Smoking Status: Current some day smoker Past Alcohol Use History: Occasional Past Drug Use History: None Reported - Past Family History Mother History Unknown: Yes Family Medical History: No Reported History General Exam - General Exam Comments Initial Comments: Well appearing 23 year old female. Limitations: no limitations General appearance: alert, in no apparent distress Head exam: Present: atraumatic, normocephalic, normal inspection Eye exam: Present: normal appearance, PERRL, EOMI. Absent: scleral icterus, conjunctival injection, periorbital swelling ENT exam: Present: normal exam, mucous membranes moist Neck exam: Present: normal inspection. Absent: tenderness, meningismus, lymphadenopathy Respiratory exam: Present: normal lung sounds bilaterally. Absent: respiratory distress, wheezes, rales, rhonchi, stridor Cardiovascular Exam: Present: regular rate GI/Abdominal exam: Present: soft, normal bowel sounds. Absent: distended, tenderness, guarding, rebound, rigid External exam: Present: normal external exam Speculum exam: Present: normal speculum exam, other (IUD strings found. ) By manual exam: Present: normal by manual exam. Absent: cervical motion tenderness Extremities exam: Present: normal inspection, full ROM, normal capillary refill. Absent: tenderness, pedal edema, joint swelling, calf tenderness Back exam: Present: normal inspection Course Vital Signs 03/19/19 03/19/19 03/19/19 00:15 01:30 02:47 Temperature 98.0 F 97.5 F L Pulse Rate 83 80 82 Respiratory 18 12 12 Rate Blood Pressure 126/87 124/85 139/86 O2 Sat by Pulse 97 99 99 Oximetry Medical Decision Making - Medical Decision Making 23 year old female concern for no menstrual cycle has IUD for 3 months. Patient HCG is negative. Patient pelvic found IUD inplace, no adnexal tendernesss. She has US scheduled with OB in 4 days. Discussed completing US and close OBGYN follow up. - Lab Data Lab Results 03/19/19 03/19/19 03/19/19 Range/Units 00:28 00:28 02:06 Urine Color Light Yellow Urine Appearance Cloudy H (Clear) Urine pH 7.0 (5.0-8.0) Ur Specific [place] 1.012 (1.001-1.035) Urine Protein Negative (Negative) Urine Glucose (UA) Negative (Negative) Urine Ketones Negative (Negative) Urine Blood Negative (Negative) Urine Nitrite Negative (Negative) Urine Bilirubin Negative (Negative) Urine Urobilinogen <2.0 (<2.0) mg/dL Ur Leukocyte Esterase Negative (Negative) Urine WBC 1 (0-5) /hpf Ur Squamous Epith Cells 1 (0-4) /hpf Amorphous Sediment Rare H (None) /hpf Urine Bacteria Occasional H (None) /hpf Urine HCG, Qual Not Detected (Not Detectd) Trichomonas Ag (Rapid) Negative (Negative) Disposition Clinical Impression: Pelvic cramping, IUD contraception Disposition: HOME SELF-CARE Condition: Good Instructions (If sedation given, give patient instructions): Intrauterine Device (DC) Additional Instructions: Follow-up with [facility] within the next few days. Patient has a scheduled ultrasound on March 23. Take the anti-inflammatory medication as prescribed for pain. Return to emergency department if any alarming signs or symptoms occur. Prescriptions: traMADol HCL [Ultram] 50 mg PO Q6HR PRN 3 Days #12 tab PRN Reason: Pain Is patient prescribed a controlled substance at d/c from ED?: Yes If prescribed controlled substance>3 days was MAPS reviewed?: Prescribed <3 Days If opioid is for acute pain is fill amount 7 days or less?: Yes If Rx opioid, was Start Talking consent form obtained?: Yes Referrals: Bay Crowell MD [Primary Care Provider] - 1-2 days Time of Disposition: 02:31
[2019-03-19] MEDS ORDERED: ACET/COD 300 MG/30 MG STARTER PACK 6 TAB BTL PO STA (02:29)
[2019-03-19 03:06] VITALS: RESP 12
[2019-03-19 03:08] VITALS: BP 139/86; PULSE 82; TEMP 97.5
[2019-03-20 12:55] LABS: C. trachomatis,PCR Negative (Neg,Equiv); Chlamydia trachomatis Source Vagina
[2019-03-20 12:59] LABS: N. gonorrhoeae,PCR Negative (Neg,Equiv); Neisseria Source Vagina
== END 2019-03-19 02:47 | disposition home or self-care (01) ==
LOC: EC 00:11
DX: R10.2 Pelvic and perineal pain (principal); F41.9 Anxiety disorder, unspecified; F32.9 Major depressive disorder, single episode, unspecified; F17.200 Nicotine dependence, unspecified, uncomplicated; Z97.5 Presence of (intrauterine) contraceptive device; Z32.02 Encounter for pregnancy test, result negative; Z79.899 Other long term (current) drug therapy; Z88.0 Allergy status to penicillin
CPT/HCPCS: 81001; 81025; 87070; 87205; 87491; 87591; 87808; 99284

== ENCOUNTER 2019-03-22 22:23 | Emergency (ER) | payer OTHER ==
[2019-03-22 22:27] VITALS: BP 147/86; PULSE 92; RESP 18; TEMP 97.6
[2019-03-22] MEDS ORDERED: BUPIVACAIN-EPI 0.25%-1:200,000 30 ML VIAL SQ STA (23:07)
[2019-03-22] MEDS ORDERED: ACET/COD 300 MG/30 MG STARTER PACK 6 TAB BTL PO STA (23:08)
[2019-03-22] MEDS ORDERED: BUPIVACAINE (PF) 0.75% 10 ML VIAL SQ STA (23:42)
--- NOTE | 2019-03-23 | ED ---
ENT HPI - General Chief complaint: Dental/Oral Stated complaint: dental pain Time Seen by Provider: 03/22/19 22:46 Source: patient Mode of arrival: ambulatory Limitations: no limitations - History of Present Illness Initial comments: Patient is a 23-year-old male presenting to emergency Department with dental pain. Patient reports her dental pain started approximately 3 days ago in the left lower jaw so she went to the emergency department where she was diagnosed with a dental infection and prescribed clindamycin. Patient reports taking 2 days' worth of antibiotics but the pain or swelling have not resolved. Patient reports the pain is located at tooth #19 and 20. Patient reports the pain is exacerbated with trying or putting any pressure on those teeth. Patient reports the pain is alleviated when nothing is touching them. Patient reports alternating between Tylenol and ibuprofen for pain control with minimal improvement. Patient denies drooling, dysphasia, changes in voice, headache, fever, nausea or vomiting. - Related Data Home Medications Medication Instructions Recorded Confirmed Citalopram Hydrobromide [CeleXA] 40 mg PO HS 02/05/19 02/05/19 Previous Rx's Medication Instructions Recorded Ketorolac [Toradol] 10 mg PO TID #12 tab 02/05/19 Nitrofurantoin Monohyd/M-Cryst 100 mg PO Q12HR #14 cap 02/05/19 [Macrobid] Ondansetron [Zofran ODT] 4 mg PO Q8HR #8 tab 02/05/19 traMADol HCL [Ultram] 50 mg PO Q6HR PRN 3 Days #12 tab 03/19/19 Allergies Allergy/AdvReac Type Severity Reaction Status Date / Time Penicillins Allergy Unknown Anaphylaxis Verified 03/19/19 00:18 Review of Systems ROS Statement: Those systems with pertinent positive or pertinent negative responses have been documented in the HPI. ROS Other: All systems not noted in ROS Statement are negative. Past Medical History Past Medical History: Asthma Additional Past Medical History / Comment(s): Gestational diabetes, History of Any Multi-Drug Resistant Organisms: None Reported Past Surgical History: Section Additional Past Surgical History / Comment(s): IUD placement Past Anesthesia/Blood Transfusion Reactions: No Reported Reaction Past Psychological History: Anxiety, Depression Smoking Status: Current some day smoker Past Alcohol Use History: Occasional Past Drug Use History: None Reported - Past Family History Mother History Unknown: Yes Family Medical History: No Reported History General Exam Limitations: no limitations General appearance: alert, in no apparent distress Head exam: Present: atraumatic, normocephalic. Absent: normal inspection (Mild swelling near the angle of the mandible.) Eye exam: Present: normal appearance, PERRL, EOMI Pupils: Present: normal accommodation ENT exam: Present: normal exam, mucous membranes moist, TM's normal bilaterally, normal external ear exam. Absent: normal oropharynx (Multiple dental caries. Dental caries on tooth #18 through 21. Pain with palpation on tooth #19 and 20. No erythema of the gumline or discharge. No oral lesions noted.) Neck exam: Present: normal inspection, full ROM. Absent: tenderness, meningismus, lymphadenopathy Respiratory exam: Present: normal lung sounds bilaterally Cardiovascular Exam: Present: regular rate, normal rhythm, normal heart sounds Extremities exam: Present: normal inspection, full ROM Back exam: Present: normal inspection, full ROM Neurological exam: Present: alert, oriented X3 Psychiatric exam: Present: normal affect, normal mood Skin exam: Present: warm, intact, normal color Course Vital Signs 03/22/19 22:24 Temperature 97.6 F Pulse Rate 92 Respiratory 18 Rate Blood Pressure 147/86 O2 Sat by Pulse 100 Oximetry Medical Decision Making - Medical Decision Making Patient is a 23-year-old female presenting to emergency Department with dental pain. Based on physical examination the patient does not appear to have a dental infection. No abscesses were noted. I suspect the pain to be directly related to poor dentition. Patient was given Tylenol 3 starter pack. Left Inferior alveolar block with Marcaine was administered. Patient reports feeling much better. Patient advised to follow-up with a dentist. Strict return parameters were thoroughly discussed with patient who is understanding and agreeable. Case discussed with physician. Disposition Clinical Impression: Pain, dental Disposition: HOME SELF-CARE Condition: Stable Instructions (If sedation given, give patient instructions): Toothache (ED), Dental Caries (ED) Additional Instructions: Please follow up with a dentist. Please maintain proper oral hygiene. Please return to emergency department if symptoms worsen. Is patient prescribed a controlled substance at d/c from ED?: No Referrals: Bay Crowell MD [Primary Care Provider] - 1-2 days Time of Disposition: 00:00
== END 2019-03-23 00:05 | disposition home or self-care (01) ==
LOC: EC 22:23
DX: K08.89 Other specified disorders of teeth and supporting structures (principal); F32.9 Major depressive disorder, single episode, unspecified; F41.9 Anxiety disorder, unspecified; F17.200 Nicotine dependence, unspecified, uncomplicated; Z79.899 Other long term (current) drug therapy; Z88.0 Allergy status to penicillin; Z97.5 Presence of (intrauterine) contraceptive device
CPT/HCPCS: 64400; 99282

== ENCOUNTER 2019-03-24 08:02 | Emergency (ER) | payer OTHER ==
[2019-03-24 08:06] VITALS: BP 135/97; PULSE 87; RESP 18; TEMP 97.9
--- NOTE | 2019-03-24 08:35 | ED ---
General Adult HPI - General Chief complaint: Dental/Oral Stated complaint: Oral Pain Time Seen by Provider: 03/24/19 08:10 Source: patient, RN notes reviewed, old records reviewed Mode of arrival: ambulatory Limitations: no limitations - History of Present Illness Initial comments: 23-year-old female patient presented to the chief complaint of dental pain and abscess. Patient reports that she is not . Patient has no pertinent past medical history. Patient is currently taking clindamycin. Patient does have a penicillin ALLERGY. Denies any systemic complaints. Systemic: Pt denies fatigue, fever/chills, rash. Pt denies weakness, night sweats, weight loss. Neuro: Pt denies headache, visual disturbances, syncope or pre-syncope. HEENT: Pt denies ocular discharge or irritation, otalgia, rhinorrhea, pharyngitis or notable lymphadenopathy. Cardiopulmonary: Pt denies chest pain, SOB, heart palpitations, dyspnea on exertion. Abdominal/GI: Pt denies abdominal pain, n/v/d. : Pt denies dysuria, burning w/ urination, frequency/urgency. Denies new onset urinary or bowel incontinence. MSK: Pt denies myalgia, loss of strength or function in extremities. Neuro: Pt denies new onset weakness, paresthesias. - Related Data Home Medications Medication Instructions Recorded Confirmed Citalopram Hydrobromide [CeleXA] 40 mg PO HS 02/05/19 02/05/19 Previous Rx's Medication Instructions Recorded Ketorolac [Toradol] 10 mg PO TID #12 tab 02/05/19 Nitrofurantoin Monohyd/M-Cryst 100 mg PO Q12HR #14 cap 02/05/19 [Macrobid] Ondansetron [Zofran ODT] 4 mg PO Q8HR #8 tab 02/05/19 traMADol HCL [Ultram] 50 mg PO Q6HR PRN 3 Days #12 tab 03/19/19 Allergies Allergy/AdvReac Type Severity Reaction Status Date / Time Penicillins Allergy Unknown Anaphylaxis Verified 03/24/19 08:04 Review of Systems ROS Statement: Those systems with pertinent positive or pertinent negative responses have been documented in the HPI. ROS Other: All systems not noted in ROS Statement are negative. Past Medical History Past Medical History: Asthma Additional Past Medical History / Comment(s): Gestational diabetes, History of Any Multi-Drug Resistant Organisms: None Reported Past Surgical History: Section Additional Past Surgical History / Comment(s): IUD placement Past Anesthesia/Blood Transfusion Reactions: No Reported Reaction Past Psychological History: Anxiety, Depression Smoking Status: Current some day smoker Past Alcohol Use History: Occasional Past Drug Use History: None Reported - Past Family History Mother History Unknown: Yes Family Medical History: No Reported History General Exam - General Exam Comments Initial Comments: Constitutional: NAD, AOX3, Pt has pleasant affect. HEENT: NC/AT, trachea midline, neck supple, no lymphadenopathy. Posterior pharynx non erythematous, without exudates. External ears appear normal, without discharge. Mucous membranes moist. Eyes PERRLA, EOM intact. There is no scleral icterus. No pallor noted. Small abscess noted inferior to 19th and 20th tooth. I&D displayed a small amount of purulent drainage and blood. Cardiopulmonary: RRR, no murmurs, rubs or gallops, no JVD noted. Lungs CTAB in anterior and posterior cunha. No peripheral edema. Abdominal exam: Abdomen soft and non-distended. Abdomen non-tender to palpation in all 4 quadrants. Bowel sounds active in LLQ. No hepatosplenomegaly. No ecchymosis Neuro: CN II-XII grossly intact. No nuchal rigidity. No raccon eyes, no lujan sign, no hemotympanum. No cervical spinal tenderness. MSK: No posterior calf tenderness bilaterally, homans sign negative bilaterally. Posterior tibialis and radial pulse +2 bilaterally. Sensation intact in upper and lower extremities. Full active ROM in upper and lower extremities, 5/5 stregnth. Limitations: no limitations Course Vital Signs 03/24/19 08:04 Temperature 97.9 F Pulse Rate 87 Respiratory 18 Rate Blood Pressure 135/97 O2 Sat by Pulse 99 Oximetry Procedures - Incision & Drainage Consent Obtained: verbal consent Indication: dental abscess Site: other (inferior to 19th and 20th tooth) Size (cm): 2 Needle Aspiration Performed?: Yes I&D Drainage Obtained: Pus, Blood Patient Tolerated Procedure: well Medical Decision Making - Medical Decision Making 23-year-old female patient presented to the chief complaint of dental pain and abscess. Patient reports that she is not . Patient has no pertinent past medical history. Patient is currently taking clindamycin. Patient does have a penicillin ALLERGY. Denies any systemic complaints. Patient also in stable, afebrile. Physical exam displayed: Small abscess noted inferior to 19th and 20th tooth. I&D displayed a small amount of purulent drainage and blood. Patient will be discharged, will continue to take clindamycin. Patient to follow up with dentist today. Patient return to ER if condition worsens. Case discussed with Dr. Carrero. Disposition Clinical Impression: Dental abscess Disposition: HOME SELF-CARE Condition: Stable Instructions (If sedation given, give patient instructions): Dental Abscess (ED) Additional Instructions: Patient to adhere to previously discussed treatment plan and will take medication(s) as directed. Patient to follow up with PCP in 1-2 days. Patient to return to ED if symptoms do not improve. Continue taking clindamycin. Follow up with dentist today. Return to ER if condition worsens. Is patient prescribed a controlled substance at d/c from ED?: No Referrals: Bay Crowell MD [Primary Care Provider] - 1-2 days Marcella Nassar DDS [STAFF PHYSICIAN] - 1-2 days Fercho Del Real DDS [STAFF PHYSICIAN] - 1-2 days Cecilia Dolan DDS [STAFF PHYSICIAN] - 1-2 days
[2019-03-24] MEDS ORDERED: ACETAMINOPHEN TAB 325 MG TAB PO STA (08:40)
== END 2019-03-24 08:47 | disposition home or self-care (01) ==
LOC: EC 08:02
DX: K04.7 Periapical abscess without sinus (principal); F41.9 Anxiety disorder, unspecified; F32.9 Major depressive disorder, single episode, unspecified; F17.200 Nicotine dependence, unspecified, uncomplicated; Z97.5 Presence of (intrauterine) contraceptive device; Z79.899 Other long term (current) drug therapy; Z88.0 Allergy status to penicillin
CPT/HCPCS: 41800; 99283

== ENCOUNTER 2020-11-15 19:46 | Emergency (ER) | payer OTHER ==
[2020-11-15 19:58] VITALS: RESP 18; TEMP 98.5
[2020-11-15] MEDS ORDERED: SODIUM CHLORIDE 0.9% 1,000 ML IV STA (20:36)
[2020-11-15] MEDS ORDERED: KETOROLAC 15 MG/ML 1 ML VIAL IVP STA (20:36)
[2020-11-15] MEDS ORDERED: ONDANSETRON 4 MG/2 ML VIAL IVP STA (20:36)
--- NOTE | 2020-11-15 20:51 | ED ---
Abdominal Pain HPI - General Chief Complaint: Abdominal Pain Stated Complaint: Left side pain Time Seen by Provider: 11/15/20 20:17 Source: patient Mode of arrival: ambulatory Limitations: no limitations - History of Present Illness Initial Comments: Patient is a 24-year-old female presenting to the emergency Department with complaints of left flank pain that started yesterday. Patient states it has been fairly constant with increases in pain that make her very nauseous. She denies history of kidney stones. She states that "her right kidney does not function as well as the left side, she does get frequent UTIs." She denies any dysuria or hematuria. She admits to a , no other abdominal surgeries. She denies being secondary to IUD. She denies any chest pain or shortness of breath. She has no further complaints at this time. Upon arrival to the ER, her vitals are stable. - Related Data Home Medications Medication Instructions Recorded Confirmed Citalopram Hydrobromide [CeleXA] 40 mg PO HS 02/05/19 02/05/19 Previous Rx's Medication Instructions Recorded Ketorolac [Toradol] 10 mg PO TID #12 tab 02/05/19 Nitrofurantoin Monohyd/M-Cryst 100 mg PO Q12HR #14 cap 02/05/19 [Macrobid] Ondansetron [Zofran ODT] 4 mg PO Q8HR #8 tab 02/05/19 traMADol HCL [Ultram] 50 mg PO Q6HR PRN 3 Days #12 tab 03/19/19 Allergies Allergy/AdvReac Type Severity Reaction Status Date / Time Penicillins Allergy Unknown Anaphylaxis Verified 11/15/20 19:58 Review of Systems ROS Statement: Those systems with pertinent positive or pertinent negative responses have been documented in the HPI. ROS Other: All systems not noted in ROS Statement are negative. Past Medical History Past Medical History: Asthma Additional Past Medical History / Comment(s): Gestational diabetes, History of Any Multi-Drug Resistant Organisms: None Reported Past Surgical History: Section Additional Past Surgical History / Comment(s): IUD placement Past Anesthesia/Blood Transfusion Reactions: No Reported Reaction Past Psychological History: Anxiety, Depression Smoking Status: Never smoker Past Alcohol Use History: Occasional Past Drug Use History: None Reported - Past Family History Mother History Unknown: Yes Family Medical History: No Reported History General Exam - General Exam Comments Initial Comments: GENERAL: Patient is well-developed and well-nourished. Patient is nontoxic and in mild distress. HEAD: Atraumatic, normocephalic. EYES: Pupils equal round and reactive to light, extraocular movements intact, sclera anicteric, conjunctiva are normal. Eyelids were unremarkable. ENT: TMs normal, nares patent, oropharynx clear without exudates. Moist mucous membranes. NECK: Normal range of motion, supple without lymphadenopathy or JVD. LUNGS: Unlabored respirations. Breath sounds clear to auscultation bilaterally and equal. No wheezes rales or rhonchi. HEART: Regular rate and rhythm without murmurs, rubs or gallops. ABDOMEN: Soft, nontender, normoactive bowel sounds. No guarding, no rebound. No masses appreciated. Mild left flank pain tenderness with percussion. : Deferred MUSCULOSKELETAL: Normal extremities with adequate strength and normal range of motion, no pitting or edema. No clubbing or cyanosis. NEUROLOGICAL: Patient is alert and oriented x 3. Motor and sensory are also intact. Cranial nerves II through XII grossly intact. Symmetrical smile. Normal speech, normal gait. PSYCH: Normal mood, normal affect. SKIN: Warm, Dry, normal turgor, no rashes or lesions noted. Limitations: no limitations Course Vital Signs 11/15/20 11/15/20 11/15/20 19:56 21:25 22:31 Temperature 98.5 F Pulse Rate 91 81 82 Respiratory 18 18 18 Rate Blood Pressure 121/85 117/84 121/96 O2 Sat by Pulse 98 98 98 Oximetry Medical Decision Making - Medical Decision Making Patient is a 24-year-old female here with left flank pain since yesterday. Positive nausea and vomiting. No fevers. Her vitals are stable. She denies being secondary to IUD. Labs are unremarkable, urine shows no evidence of infection, hCG is not detected. CT of the abdomen shows no evidence of renal stone. I discussed with patient that her pain could be from a muscle s train of her back versus gas pains. She states she does have issues with constipation. I recommended MiraLAX for the constipation as well as ibuprofen for possible back strain. Patient is stable for discharge. Patient is in agreement with this plan of care. Return parameters were discussed with the patient and they verbalized understanding. Case discussed with Dr. Perez. - Lab Data Result diagrams: 11/15/20 20:55 11/15/20 20:55 Lab Results 11/15/20 11/15/20 11/15/20 Range/Units 20:55 20:55 20:55 WBC 8.9 (3.8-10.6) k/uL RBC 5.05 (3.80-5.40) m/uL Hgb 14.7 (11.4-16.0) gm/dL Hct 42.0 (34.0-46.0) % MCV 83.1 (80.0-100.0) fL MCH 29.1 (25.0-35.0) pg MCHC 35.0 (31.0-37.0) g/dL RDW 13.4 (11.5-15.5) % Plt Count 299 (150-450) k/uL MPV 7.0 Neutrophils % 63 % Lymphocytes % 29 % Monocytes % 4 % Eosinophils % 2 % Basophils % 1 % Neutrophils # 5.6 (1.3-7.7) k/uL Lymphocytes # 2.6 (1.0-4.8) k/uL Monocytes # 0.4 (0-1.0) k/uL Eosinophils # 0.1 (0-0.7) k/uL Basophils # 0.1 (0-0.2) k/uL Sodium 139 (137-145) mmol/L Potassium 3.9 (3.5-5.1) mmol/L Chloride 102 (98-107) mmol/L Carbon Dioxide 27 (22-30) mmol/L Anion Gap 10 mmol/L BUN 11 (7-17) mg/dL Creatinine 0.58 (0.52-1.04) mg/dL Est GFR (CKD-EPI)AfAm >90 (>60 ml/min/1.73 sqM) Est GFR (CKD-EPI)NonAf >90 (>60 ml/min/1.73 sqM) Glucose 96 (74-99) mg/dL Calcium 9.1 (8.4-10.2) mg/dL Total Bilirubin 0.3 (0.2-1.3) mg/dL AST 20 (14-36) U/L ALT 16 (4-34) U/L Alkaline Phosphatase 89 (38-126) U/L Total Protein 7.4 (6.3-8.2) g/dL Albumin 4.2 (3.5-5.0) g/dL Amylase 49 (30-110) U/L Lipase 85 (23-300) U/L Urine Color Yellow Urine Appearance Clear (Clear) Urine pH 6.0 (5.0-8.0) Ur Specific [place] 1.024 (1.001-1.035) Urine Protein Negative (Negative) Urine Glucose (UA) Negative (Negative) Urine Ketones Negative (Negative) Urine Blood Small H (Negative) Urine Nitrite Negative (Negative) Urine Bilirubin Negative (Negative) Urine Urobilinogen <2.0 (<2.0) mg/dL Ur Leukocyte Esterase Trace H (Negative) Urine RBC 2 (0-5) /hpf Urine WBC 9 H (0-5) /hpf Ur Squamous Epith Cells 3 (0-4) /hpf Urine Bacteria Rare H (None) /hpf Hyaline Casts 1 (0-2) /lpf Urine Mucus Occasional H (None) /hpf Urine HCG, Qual (Not Detectd) 11/15/20 Range/Units 20:55 WBC (3.8-10.6) k/uL RBC (3.80-5.40) m/uL Hgb (11.4-16.0) gm/dL Hct (34.0-46.0) % MCV (80.0-100.0) fL MCH (25.0-35.0) pg MCHC (31.0-37.0) g/dL RDW (11.5-15.5) % Plt Count (150-450) k/uL MPV Neutrophils % % Lymphocytes % % Monocytes % % Eosinophils % % Basophils % % Neutrophils # (1.3-7.7) k/uL Lymphocytes # (1.0-4.8) k/uL Monocytes # (0-1.0) k/uL Eosinophils # (0-0.7) k/uL Basophils # (0-0.2) k/uL Sodium (137-145) mmol/L Potassium (3.5-5.1) mmol/L Chloride (98-107) mmol/L Carbon Dioxide (22-30) mmol/L Anion Gap mmol/L BUN (7-17) mg/dL Creatinine (0.52-1.04) mg/dL Est GFR (CKD-EPI)AfAm (>60 ml/min/1.73 sqM) Est GFR (CKD-EPI)NonAf (>60 ml/min/1.73 sqM) Glucose (74-99) mg/dL Calcium (8.4-10.2) mg/dL Total Bilirubin (0.2-1.3) mg/dL AST (14-36) U/L ALT (4-34) U/L Alkaline Phosphatase (38-126) U/L Total Protein (6.3-8.2) g/dL Albumin (3.5-5.0) g/dL Amylase (30-110) U/L Lipase (23-300) U/L Urine Color Urine Appearance (Clear) Urine pH (5.0-8.0) Ur Specific [place] (1.001-1.035) Urine Protein (Negative) Urine Glucose (UA) (Negative) Urine Ketones (Negative) Urine Blood (Negative) Urine Nitrite (Negative) Urine Bilirubin (Negative) Urine Urobilinogen (<2.0) mg/dL Ur Leukocyte Esterase (Negative) Urine RBC (0-5) /hpf Urine WBC (0-5) /hpf Ur Squamous Epith Cells (0-4) /hpf Urine Bacteria (None) /hpf Hyaline Casts (0-2) /lpf Urine Mucus (None) /hpf Urine HCG, Qual Not Detected (Not Detectd) Disposition Clinical Impression: Left sided abdominal pain Disposition: HOME SELF-CARE Condition: Stable Instructions (If sedation given, give patient instructions): Abdominal Pain (ED) Additional Instructions: Please return to the Emergency Department if symptoms worsen or any other concerns. Trial of ibuprofen for muscle ache. Also try MiraLAX and/or gas-X for constipation, gas relief. Follow-up with your regular doctor. Is patient prescribed a controlled substance at d/c from ED?: No Referrals: None,Stated [Primary Care Provider] - 1-2 days Time of Disposition: 22:54
[2020-11-15 21:27] LABS: Basophils # (A) 0.1 k/uL (0-0.2); Basophils % (A) 1 %; Eosinophils # (A) 0.1 k/uL (0-0.7); Eosinophils % (A) 2 %; HGB 14.7 gm/dL (11.4-16.0); Lymphocytes # (A) 2.6 k/uL (1.0-4.8); Lymphocytes % (A) 29 %; MCH 29.1 pg (25.0-35.0); MCV 83.1 fL (80.0-100.0); Monocytes # (A) 0.4 k/uL (0-1.0); Monocytes % (A) 4 %; Neutrophils # (A) 5.6 k/uL (1.3-7.7); Neutrophils % (A) 63 %; Platelet Count 299 k/uL (150-450); RBC 5.05 m/uL (3.80-5.40); RDW 13.4 % (11.5-15.5); WBC 8.9 k/uL (3.8-10.6)
[2020-11-15 21:31] LABS: Appearance,Urine Clear (Clear); Bacteria,Urine Rare /hpf; Bilirubin,Urine Negative (Negative); Blood,Urine Small (Negative); Color,Urine Yellow; Glucose,Urine (UA) Negative (Negative); Hyaline Casts,Urine 1 /lpf (0-2); Ketones,Urine Negative (Negative); Leukocyte Esterase,Urine Trace (Negative); Mucus,Urine Occasional /hpf; Nitrite,Urine Negative (Negative); Protein,Urine Negative (Negative); RBC,Urine 2 /hpf (0-5); Specific Gravity,Urine 1.024 (1.001-1.035); Squamous Epithelial Cell,Urine 3 /hpf (0-4); Urobilinogen,Urine <2.0 mg/dL (<2.0); WBC,Urine 9 /hpf (0-5)
[2020-11-15 21:38] LABS: ALT 16 U/L (4-34); AST 20 U/L (14-36); African American GFR (CKD) >90 (>60 ml/min/1.73 sqM); Albumin 4.2 g/dL (3.5-5.0); Alkaline Phosphatase 89 U/L (38-126); Amylase 49 U/L (30-110); Anion Gap 10 mmol/L; Blood Urea Nitrogen 11 mg/dL (7-17); Calcium 9.1 mg/dL (8.4-10.2); Carbon Dioxide 27 mmol/L (22-30); Chloride 102 mmol/L (98-107); Glucose 96 mg/dL (74-99); Lipase 85 U/L (23-300); Non-African American GFR(CKD) >90 (>60 ml/min/1.73 sqM); Potassium 3.9 mmol/L (3.5-5.1); Sodium 139 mmol/L (137-145); Total Bilirubin 0.3 mg/dL (0.2-1.3); Total Protein 7.4 g/dL (6.3-8.2)
[2020-11-15] MEDS ORDERED: MORPHINE SULFATE 2 MG/ML SYRINGE IVP ONE (22:07)
--- NOTE | 2020-11-15 22:28 | CT ---
EXAMINATION TYPE: CT abdomen pelvis wo con DATE OF EXAM: 11/15/2020 COMPARISON: 04/29/2018 HISTORY: left flank pain CT DLP: 1395.4 mGycm Automated exposure control for dose reduction was used. Images obtained from the diaphragm to the floor the pelvis without contrast. The lung bases are clear of consolidation. There is no pleural effusion. There is minimal pleural thi ckening at the left posterior lung base. Heart appears normal. Liver spleen pancreas gallbladder stomach appear intact. The bile ducts are not dilated. There is no adrenal mass. Kidneys have normal size and contour. There is no hydronephrosis. Ureters a re not dilated. There is no retroperitoneal adenopathy. Bladder distends smoothly. There is no inguin al hernia. Uterus is anteverted. There is no evidence of a pelvic mass. There is no free fluid in the pelvis. There is no mesenteric edema. There is no ascites or free air. There is no bowel obstruction. Appendi x appears normal. Lumbar vertebra have normal spacing and alignment. Posterior elements are intact. Bony pelvis is inta ct. The hip joints are intact. I see no bony destructive process. IMPRESSION: No significant abnormality of the abdomen and pelvis. There is clearing of the retroperitoneal densit y on the right side compared to old exam. No renal stone or obstruction. I do not see a cause for left flank pain.
[2020-11-15 22:32] VITALS: BP 121/96; PULSE 82
== END 2020-11-15 23:19 | disposition home or self-care (01) ==
LOC: EC 19:46
DX: R10.9 Unspecified abdominal pain (principal); J45.909 Unspecified asthma, uncomplicated; Z79.1 Long term (current) use of non-steroidal anti-inflammatories (NSAID); Z88.0 Allergy status to penicillin
CPT/HCPCS: 36415; 80053; 82150; 83690; 85025; 81001; 81025; 74176; 99284; 96374; 96375; 96361; J2405; J2270; J1885

== ENCOUNTER 2021-07-06 17:04 | Emergency (ER) | payer OTHER ==
[2021-07-06 17:33] VITALS: BP 140/92; PULSE 86; RESP 18; TEMP 98.7
[2021-07-06] MEDS ORDERED: ONDANSETRON ODT 4 MG TAB PO STA (18:54)
[2021-07-06] MEDS ORDERED: HYDROcodone/APAP 5-325MG 1 EACH TAB PO STA (18:55)
[2021-07-06] MEDS ORDERED: KETOROLAC 15 MG/ML 1 ML VIAL IM STA (19:02)
--- NOTE | 2021-07-06 19:11 | XR ---
Result: History: Pain. Comparison: None available. Technique: 3 views of the left foot. Findings: The bone mineralization is appropriate for age. There is moderately displaced fracture of the third toe distal phalangeal tuft with overlying soft ti ssue edema. No radiopaque foreign body seen. Impression: Third toe distal phalanx fracture.
[2021-07-06] MEDS ORDERED: DIPH,PERTUS(ACELL)TETVAC-LF 0.5 ML VIAL IM ONE (19:22)
[2021-07-06] MEDS ORDERED: MORPHINE SULFATE 4 MG/ML SYRINGE IVP STA (19:41)
[2021-07-06] MEDS ORDERED: LIDOCAINE 1% INJ 10MG/ML (20 ML MDV) SQ ONE (19:41)
[2021-07-06] MEDS ORDERED: CLINDAMYCIN 150 MG CAP PO STA (21:30)
[2021-07-06] MEDS ORDERED: ACET/COD 300 MG/30 MG STARTER PACK 6 TAB BTL PO STA (21:32)
--- NOTE | 2021-07-06 21:45 | ED ---
Lower Extremity Injury HPI - General Chief Complaint: Extremity Injury, Lower Stated Complaint: toe injury Time Seen by Provider: 07/06/21 18:52 Source: patient Mode of arrival: ambulatory Limitations: no limitations - History of Present Illness Initial Comments: 25-year-old female presents emergency room with reported toe injury. Patient states that she stubbed her toe just prior to hospital arrival. Patient suffered a laceration to her third toe on the left. She had extensive bleeding from the area. Admits to numbness and tingling. No pain in any other digit. Denies any other injury sustained. - Related Data Home Medications Medication Instructions Recorded Confirmed Citalopram Hydrobromide [CeleXA] 40 mg PO HS 02/05/19 02/05/19 Previous Rx's Medication Instructions Recorded Ketorolac [Toradol] 10 mg PO TID #12 tab 02/05/19 Nitrofurantoin Monohyd/M-Cryst 100 mg PO Q12HR #14 cap 02/05/19 [Macrobid] Ondansetron [Zofran ODT] 4 mg PO Q8HR #8 tab 02/05/19 traMADol HCL [Ultram] 50 mg PO Q6HR PRN 3 Days #12 tab 03/19/19 Clindamycin HCl 300 mg PO Q6HR #20 cap 07/06/21 HYDROcodone/APAP 5-325MG [[place] 5] 1 each PO Q6HR PRN #12 tab 07/06/21 Allergies Allergy/AdvReac Type Severity Reaction Status Date / Time Penicillins Allergy Unknown Anaphylaxis Verified 07/06/21 17:33 Review of Systems ROS Statement: Those systems with pertinent positive or pertinent negative responses have been documented in the HPI. ROS Other: All systems not noted in ROS Statement are negative. Past Medical History Past Medical History: Asthma Additional Past Medical History / Comment(s): Gestational diabetes, History of Any Multi-Drug Resistant Organisms: None Reported Past Surgical History: Section Additional Past Surgical History / Comment(s): IUD placement Past Anesthesia/Blood Transfusion Reactions: No Reported Reaction Past Psychological History: Anxiety, Depression Smoking Status: Current some day smoker Past Alcohol Use History: Occasional Past Drug Use History: None Reported - Past Family History Mother History Unknown: Yes Family Medical History: No Reported History General Exam Limitations: no limitations Skin exam: Present: warm, dry, other (3rd toe on right demonstrates partial amputation with nail avulsion and hematoma formation - overall laceration measures 3.5 x 1.5 cm. Deep subq involvement. cap refill delayed. Continued oozing from digit. ) Course Vital Signs 07/06/21 17:30 Temperature 98.7 F Pulse Rate 86 Respiratory 18 Rate Blood Pressure 140/92 O2 Sat by Pulse 98 Oximetry Procedures - Laceration Laceration #1 Consent Obtained: verbal consent Indication: laceration Site: foot Size (cm): 4 Description: avulsion, irregular Depth: involves muscle layer Anesthetic Used: lidocaine 1%, without epi Anesthesia Technique: nerve block Amount (mls): 6 Pre-repair: wound explored, irrigated extensively, wound margins revised Type of Sutures: nylon Size of Sutures: 5-0 Number of Sutures: 2 Technique: simple, interrupted Complications: other (inability to close top of laceration due to hematoma formation and swelling) Medical Decision Making - Medical Decision Making Upon arrival patient was placed into room 29. She is given a dose of Toradol for pain control and 4 mg of Zofran for nausea. Patient has continued pain and therefore is given a [place]. Unsure of her last tetanus vaccine and therefore tetanus was updated. She was sent for an x-ray of her foot which demonstrates a tuft fracture of the third distal phalanx. This is an open fracture and therefore the patient was given a dose of clindamycin in the emergency department due to ALLERGY to penicillins. I do attempt repair however the patient does have significant thrombosed tissue on the dorsal aspect of her digit. Clot was removed and 2 nylon sutures were placed at the lateral aspects to approximate the tissue. Patient is instructed that she will need to follow up with orthopedics or podiatry for revision. Patient will be placed on clindamycin for open fracture. She is sent with a Tylenol 3 starter pack was placed on [place] in the outpatient setting. She is instructed that her stitches must be removed in 7-10 days and therefore would like her to follow up with the sales and training specialist her mechanical applications engineer in this amount of time. Return to the emergency room for any new or worsening symptoms. Patient agreed to treatment plan and was discharged home in stable condition Disposition Clinical Impression: Open toe fracture Disposition: HOME SELF-CARE Condition: Stable Instructions (If sedation given, give patient instructions): Toe Fracture (ED) Additional Instructions: Please follow up with the mechanical applications engineer or the orthopedic surgeons for further repair. You should be seen within the next week. Call to make an appointment. Keep the area clean and dry. Your stitches need to come out in 7-10 days. Return to the ER for any increasing redness, pustular drainage Prescriptions: Clindamycin HCl 300 mg PO Q6HR #20 cap HYDROcodone/APAP 5-325MG [[place] 5] 1 each PO Q6HR PRN #12 tab PRN Reason: Pain Is patient prescribed a controlled substance at d/c from ED?: Yes When asked, does pt state using other controlled substances?: No If prescribed controlled substance>3 days was MAPS reviewed?: Prescribed <3 Days If opioid is for acute pain is fill amount 7 days or less?: Yes If Rx opioid, was Start Talking consent form obtained?: Yes Referrals: Guru Hernandez MD [Primary Care Provider] - 1-2 days Lars Mesa DPM [Doctor of Osteopathic Medicine] - 1-2 days Justice Shane DPM [STAFF PHYSICIAN] - 1-2 days Tobias Newman MD [STAFF PHYSICIAN] - 1-2 days Time of Disposition: 21:48
== END 2021-07-06 22:16 | disposition home or self-care (01) ==
LOC: EC 17:04
DX: S92.422B Displaced fracture of distal phalanx of left great toe, initial encounter for open fracture (principal); S91.312A Laceration without foreign body, left foot, initial encounter; J45.909 Unspecified asthma, uncomplicated; F17.200 Nicotine dependence, unspecified, uncomplicated; Z88.0 Allergy status to penicillin; W22.8XXA Striking against or struck by other objects, initial encounter
CPT/HCPCS: 73630; 99284; 96374; 96372; J2270; J2001; J1885

== ENCOUNTER 2021-08-23 13:55 | Emergency (ER) | payer OTHER ==
[2021-08-23 14:44] VITALS: TEMP 98.7
--- NOTE | 2021-08-23 15:29 | XR ---
EXAMINATION TYPE: XR chest 2V DATE OF EXAM: 08/23/2021 COMPARISON: 02/05/2019 HISTORY: Cough TECHNIQUE: FINDINGS: Heart and mediastinum are normal. Lungs are clear. Diaphragm is normal. Bony thorax is inta ct. IMPRESSION: Normal chest. No change.
[2021-08-23 15:38] VITALS: BP 144/90; PULSE 87; RESP 18
[2021-08-23] MEDS ORDERED: CLARITHROMYCIN 500 MG TAB PO STA (15:57)
--- NOTE | 2021-08-23 15:57 | ED ---
URI HPI - General Chief Complaint: Upper Respiratory Infection Stated Complaint: Headache Time Seen by Provider: 08/23/21 15:13 Source: patient, RN notes reviewed Mode of arrival: ambulatory Limitations: no limitations - History of Present Illness Initial Comments: 25-year-old female presents emergency from chief complaint of sinus pressure sinus headache. Patient states she's been sick for last 1 week. Patient states she has recurrent sinus issues states that this pressure frontal and cheek area area patient states that she just doesn't feel well with good denies any posterior headache, dizziness, blurred vision states pain her face gets worse when she leans over she states she's had multiple decongestants which only gave her minimal relief. No focal deficits no visual changes patient offers no complaints. - Related Data Home Medications Medication Instructions Recorded Confirmed Citalopram Hydrobromide [CeleXA] 40 mg PO HS 02/05/19 02/05/19 Previous Rx's Medication Instructions Recorded Ketorolac [Toradol] 10 mg PO TID #12 tab 02/05/19 Nitrofurantoin Monohyd/M-Cryst 100 mg PO Q12HR #14 cap 02/05/19 [Macrobid] Ondansetron [Zofran ODT] 4 mg PO Q8HR #8 tab 02/05/19 traMADol HCL [Ultram] 50 mg PO Q6HR PRN 3 Days #12 tab 03/19/19 Clindamycin HCl 300 mg PO Q6HR #20 cap 07/06/21 HYDROcodone/APAP 5-325MG [[place] 5] 1 each PO Q6HR PRN #12 tab 07/06/21 Clarithromycin [Biaxin] 500 mg PO Q12HR #20 tablet 08/23/21 Allergies Allergy/AdvReac Type Severity Reaction Status Date / Time Penicillins Allergy Unknown Anaphylaxis Verified 08/23/21 14:44 Review of Systems ROS Statement: Those systems with pertinent positive or pertinent negative responses have been documented in the HPI. ROS Other: All systems not noted in ROS Statement are negative. Past Medical History Past Medical History: Asthma Additional Past Medical History / Comment(s): Gestational diabetes, History of Any Multi-Drug Resistant Organisms: None Reported Past Surgical History: Section Additional Past Surgical History / Comment(s): IUD placement Past Anesthesia/Blood Transfusion Reactions: No Reported Reaction Past Psychological History: Anxiety, Depression Smoking Status: Current some day smoker Past Alcohol Use History: Occasional Past Drug Use History: None Reported - Past Family History Mother History Unknown: Yes Family Medical History: No Reported History General Exam Limitations: no limitations General appearance: alert, in no apparent distress Head exam: Present: atraumatic, normocephalic, normal inspection Eye exam: Present: normal appearance, PERRL, EOMI. Absent: scleral icterus, conjunctival injection, periorbital swelling ENT exam: Present: normal oropharynx, mucous membranes moist, TM's normal bilaterally, other (Maxillary frontal sinus tenderness). Absent: normal exam Neck exam: Present: normal inspection, full ROM. Absent: tenderness, meningismus, lymphadenopathy Respiratory exam: Present: normal lung sounds bilaterally. Absent: respiratory distress, wheezes, rales, rhonchi, stridor Cardiovascular Exam: Present: regular rate, normal rhythm, normal heart sounds. Absent: systolic murmur, diastolic murmur, rubs, gallop, clicks Course Vital Signs 08/23/21 08/23/21 14:40 15:37 Temperature 98.7 F Pulse Rate 84 87 Respiratory 16 18 Rate Blood Pressure 143/104 144/90 O2 Sat by Pulse 99 98 Oximetry Medical Decision Making - Medical Decision Making Patient symptoms more consistent with acute sinusitis. Patient has normal neuro exam normal exam otherwise. Patient will be discharged in stable condition she is advised to follow-up with ENT this week and return for worsening change in symptoms. - Lab Data Lab Results 08/23/21 Range/Units 14:46 Coronavirus (PCR) Not Detected (Not Detectd) Disposition Clinical Impression: Sinusitis Disposition: HOME SELF-CARE Condition: Stable Instructions (If sedation given, give patient instructions): Sinusitis (ED) Additional Instructions: Please return to the Emergency Department if symptoms worsen or any other concerns. Prescriptions: Clarithromycin [Biaxin] 500 mg PO Q12HR #20 tablet Is patient prescribed a controlled substance at d/c from ED?: No Referrals: Guru Hernandez MD [Primary Care Provider] - 1-2 days Time of Disposition: 15:57
== END 2021-08-23 16:27 | disposition home or self-care (01) ==
LOC: EC 13:55
DX: J01.90 Acute sinusitis, unspecified (principal); F17.200 Nicotine dependence, unspecified, uncomplicated; J45.909 Unspecified asthma, uncomplicated; Z20.822 Contact with and (suspected) exposure to COVID-19; Z88.0 Allergy status to penicillin
CPT/HCPCS: 71046; 87635; 99284

== ENCOUNTER 2021-09-11 22:17 | Emergency (ER) | payer OTHER ==
--- NOTE | 2021-09-11 23:21 | ED ---
Chest Pain HPI - General Chief Complaint: Chest Pain Stated Complaint: chest, arm pain Time Seen by Provider: 09/11/21 22:43 Source: patient, RN notes reviewed, old records reviewed Mode of arrival: ambulatory Limitations: no limitations - History of Present Illness Initial Comments: This is a 25-year-old female presents to the ER stay. Patient concern for heart heart history has a strong family history of heart disease. Patient presented today for evaluation of shortness of breath chest pain and left arm pain. Patient herself is no medical history does suffer from gestational diabetes. Symptoms are for 3 days now has been persistent for all 3 days. Denies any fevers, no other complaints MD Complaint: chest pain -: days(s) (3) Pain Location: left chest Pain Radiation: LUE Severity: moderate Severity scale (1-10): 4 Quality: tightness, aching Consistency: constant Improves With: nothing Worsens With: exertion Anginal Symptoms: dyspnea Other Symptoms: palpitations Treatments Prior to Arrival: none - Related Data Home Medications Medication Instructions Recorded Confirmed Albuterol Sulfate [Ventolin HFA] 1 - 2 puff INHALATION RT-Q6H PRN 09/11/21 09/11/21 Gabapentin 300 mg PO DIRECTED 09/11/21 09/11/21 buPROPion XL [Wellbutrin XL] 150 mg PO DIRECTED 09/11/21 09/11/21 Allergies Allergy/AdvReac Type Severity Reaction Status Date / Time Penicillins Allergy Unknown Anaphylaxis Verified 09/11/21 23:16 Review of Systems ROS Statement: Those systems with pertinent positive or pertinent negative responses have been documented in the HPI. ROS Other: All systems not noted in ROS Statement are negative. EKG Findings - EKG Comments: EKG Findings:: EKG shows sinus rhythm 82 [place] 136 QRS 76 QTC 432 Past Medical History Past Medical History: Asthma Additional Past Medical History / Comment(s): Gestational diabetes, History of Any Multi-Drug Resistant Organisms: None Reported Past Surgical History: Section Additional Past Surgical History / Comment(s): IUD placement Past Anesthesia/Blood Transfusion Reactions: No Reported Reaction Past Psychological History: Anxiety, Depression Smoking Status: Current some day smoker Past Alcohol Use History: Occasional Past Drug Use History: None Reported - Past Family History Mother History Unknown: Yes Family Medical History: No Reported History General Exam General appearance: alert, in no apparent distress Head exam: Present: atraumatic, normocephalic, normal inspection Eye exam: Present: normal appearance, PERRL, EOMI. Absent: scleral icterus, conjunctival injection, periorbital swelling ENT exam: Present: normal exam, mucous membranes moist Neck exam: Present: normal inspection. Absent: tenderness, meningismus, lymphadenopathy Respiratory exam: Present: normal lung sounds bilaterally. Absent: respiratory distress, wheezes, rales, rhonchi, stridor Cardiovascular Exam: Present: regular rate, normal rhythm, normal heart sounds. Absent: systolic murmur, diastolic murmur, rubs, gallop, clicks GI/Abdominal exam: Present: soft, normal bowel sounds. Absent: distended, tenderness, guarding, rebound, rigid Extremities exam: Present: normal inspection, full ROM, normal capillary refill. Absent: tenderness, pedal edema, joint swelling, calf tenderness Back exam: Present: normal inspection Neurological exam: Present: alert, oriented X3, CN II-XII intact Psychiatric exam: Present: normal affect, normal mood Skin exam: Present: warm, dry, intact, normal color. Absent: rash Course Vital Signs 09/11/21 09/12/21 22:34 01:15 Temperature 97.5 F L 98.7 F Pulse Rate 83 87 Respiratory 18 16 Rate Blood Pressure 136/102 130/70 O2 Sat by Pulse 98 100 Oximetry - Reevaluation(s) Reevaluation #1: 09/12/21 00:53 Medical record is reviewed Reevaluation #2: 09/12/21 02:09 Patient's symptoms here in the ER but there are non-concerning no distress Reevaluation #3: 09/12/21 02:09 Patient informed results and questions answered - Consultations Consultation #1: Studies Chest x-rays negative for acute disease Chest Pain MDM - MDM 25 female of atypical chest pain. No acute findings here in the ER patient can be discharged home Disposition Clinical Impression: Chest pain Disposition: HOME SELF-CARE Condition: Good Instructions (If sedation given, give patient instructions): Chest Pain (ED) Is patient prescribed a controlled substance at d/c from ED?: No Referrals: Guru Hernandez MD [Primary Care Provider] - 1-2 days
[2021-09-11] MEDS ORDERED: KETOROLAC 15 MG/ML 1 ML VIAL IVP STA (23:36)
[2021-09-11] MEDS ORDERED: SODIUM CHLORIDE 0.9% 1,000 ML IV STA (23:36)
[2021-09-12 00:44] LABS: Basophils # (A) 0.1 k/uL (0-0.2); Basophils % (A) 1 %; Eosinophils # (A) 0.1 k/uL (0-0.7); Eosinophils % (A) 2 %; HCT 44.4 % (34.0-46.0); HGB 14.8 gm/dL (11.4-16.0); Lymphocytes # (A) 2.3 k/uL (1.0-4.8); Lymphocytes % (A) 28 %; MCH 28.5 pg (25.0-35.0); MCHC 33.5 g/dL (31.0-37.0); MCV 85.3 fL (80.0-100.0); Mean Platelet Volume 7.4; Monocytes # (A) 0.4 k/uL (0-1.0); Monocytes % (A) 4 %; Neutrophils # (A) 5.1 k/uL (1.3-7.7); Neutrophils % (A) 63 %; Platelet Count 317 k/uL (150-450); RDW 13.1 % (11.5-15.5); WBC 8.1 k/uL (3.8-10.6)
[2021-09-12 00:55] LABS: ALT 25 U/L (4-34); AST 25 U/L (14-36); African American GFR (CKD) >90 (>60 ml/min/1.73 sqM); Albumin 4.4 g/dL (3.5-5.0); Alkaline Phosphatase 87 U/L (38-126); Anion Gap 11 mmol/L; Blood Urea Nitrogen 13 mg/dL (7-17); Calcium 9.2 mg/dL (8.4-10.2); Carbon Dioxide 23 mmol/L (22-30); Chloride 105 mmol/L (98-107); Glucose 96 mg/dL (74-99); Lipase 89 U/L (23-300); Magnesium 1.9 mg/dL (1.6-2.3); Non-African American GFR(CKD) >90 (>60 ml/min/1.73 sqM); Potassium 4.1 mmol/L (3.5-5.1); Sodium 139 mmol/L (137-145); Total Bilirubin 0.5 mg/dL (0.2-1.3)
[2021-09-12 01:58] VITALS: RESP 16
--- NOTE | 2021-09-12 02:18 | XR ---
EXAMINATION TYPE: XR chest 1V portable DATE OF EXAM: 09/12/2021 COMPARISON: 08/23/2021 HISTORY: Chest pain TECHNIQUE: Single view FINDINGS: Heart and mediastinum are normal. Lungs are clear. Diaphragm is normal. Bony thorax is norm al. IMPRESSION: Multiple chest. No change.
[2021-09-12 02:30] VITALS: BP 174/90; PULSE 88; TEMP 98.6
== END 2021-09-12 02:25 | disposition home or self-care (01) ==
LOC: EC 22:17
DX: R07.89 Other chest pain (principal); J45.909 Unspecified asthma, uncomplicated; F17.200 Nicotine dependence, unspecified, uncomplicated; Z79.899 Other long term (current) drug therapy; Z88.0 Allergy status to penicillin
CPT/HCPCS: 99285; 96374; 96361; 36415; 93005; 85379; 83880; 80053; 83690; 83735; 84484; 85025; 71045; J1885

== ENCOUNTER 2022-04-01 20:58 | Emergency (ER) | payer OTHER ==
[2022-04-01 21:08] VITALS: PULSE 90; RESP 16; TEMP 98.1
--- NOTE | 2022-04-01 22:02 | ED ---
Animal Bite HPI - General Chief Complaint: Recheck/Abnormal Lab/Rx Stated Complaint: Lt leg possibe tick stuck Time Seen by Provider: 04/01/22 21:31 Source: patient Mode of arrival: ambulatory Limitations: no limitations - Related Data Home Medications Medication Instructions Recorded Confirmed Albuterol Sulfate [Ventolin HFA] 1 - 2 puff INHALATION RT-Q6H PRN 09/11/21 09/11/21 Gabapentin 300 mg PO DIRECTED 09/11/21 09/11/21 buPROPion XL [Wellbutrin XL] 150 mg PO DIRECTED 09/11/21 09/11/21 Allergies Allergy/AdvReac Type Severity Reaction Status Date / Time Penicillins Allergy Unknown Anaphylaxis Verified 04/01/22 21:08 Review of Systems ROS Statement: Those systems with pertinent positive or pertinent negative responses have been documented in the HPI. ROS Other: All systems not noted in ROS Statement are negative. Past Medical History Past Medical History: Asthma Additional Past Medical History / Comment(s): Gestational diabetes, History of Any Multi-Drug Resistant Organisms: None Reported Past Surgical History: Section Additional Past Surgical History / Comment(s): IUD placement Past Anesthesia/Blood Transfusion Reactions: No Reported Reaction Past Psychological History: Anxiety, Depression Smoking Status: Current some day smoker Past Alcohol Use History: Occasional Past Drug Use History: None Reported - Past Family History Mother History Unknown: Yes Family Medical History: No Reported History General Exam Limitations: no limitations Course Vital Signs 04/01/22 21:06 Temperature 98.1 F Pulse Rate 90 Respiratory 16 Rate O2 Sat by Pulse 99 Oximetry Disposition Referrals: Guru Hernandez MD [Primary Care Provider] - 1-2 days
[2022-04-01] MEDS ORDERED: DOXYCYCLINE 100 MG CAP PO STA (22:07)
--- NOTE | 2022-04-01 22:09 | ED ---
General Adult HPI - General Chief complaint: Recheck/Abnormal Lab/Rx Stated complaint: Lt leg possibe tick stuck Time Seen by Provider: 04/01/22 21:31 Source: patient, RN notes reviewed, old records reviewed Mode of arrival: ambulatory Limitations: no limitations - History of Present Illness Initial comments: Patient is a 26-year-old female who presents emergency department over concern for a bug bite on her left leg. Concerned she had a tick in her leg. Was told by family members to come have it removed. Is concerned the tick Is still present. She self admits she did actually did not see herself to bed. Believe she got bit yesterday. She's noticed a bump there. Is not sure what bit her. He is concerned regarding ticks that she states there are a lot of them. Denies any fevers, chills, other rashes. Denies any other acute complaints at this time. Presents for further evaluation and is concerned regarding possible presence of the tick head. - Related Data Home Medications Medication Instructions Recorded Confirmed Albuterol Sulfate [Ventolin HFA] 1 - 2 puff INHALATION RT-Q6H PRN 09/11/2103/26 Gabapentin 300 mg PO DIRECTED 09/11/21 09/11/21 buPROPion XL [Wellbutrin XL] 150 mg PO DIRECTED 09/11/21 09/11/21 Allergies Allergy/AdvReac Type Severity Reaction Status Date / Time Penicillins Allergy Unknown Anaphylaxis Verified 04/01/22 21:08 Review of Systems ROS Statement: Those systems with pertinent positive or pertinent negative responses have been documented in the HPI. Review of Systems: CONST: Denies fever EYES: Denies blurry vision ENT: Denies nasal congestion C/V: Denies Chest pain RESP: Denies shortness of breath GI: Denies abdominal pain : Denies dysuria SKIN: Endorses left thigh Bug bite MSK: Denies joint pain. NEURO: Denies headache ROS Other: All systems not noted in ROS Statement are negative. Past Medical History Past Medical History: Asthma Additional Past Medical History / Comment(s): Gestational diabetes, History of Any Multi-Drug Resistant Organisms: None Reported Past Surgical History: Section Additional Past Surgical History / Comment(s): IUD placement Past Anesthesia/Blood Transfusion Reactions: No Reported Reaction Past Psychological History: Anxiety, Depression Smoking Status: Current some day smoker Past Alcohol Use History: Occasional Past Drug Use History: None Reported - Past Family History Mother History Unknown: Yes Family Medical History: No Reported History General Exam - General Exam Comments Initial Comments: General: Appears in no acute distress. HEAD: Normal with no signs of head trauma. EYES: EOMI ENT: Hearing grossly intact RESPIRATORY: No respiratory distress C/V: Left lower extremity peripheral pulses 2+ and intact. ABD: Abdomen is nondistended EXT: No obvious deformity SKIN: Bug bite located over the lateral aspect of the left thigh. No surrounding cellulitis. No bug present. No tick visualized. There is a small scab on top of it. NEURO: Alert and oriented 4. Limitations: no limitations Course Vital Signs 04/01/22 21:06 Temperature 98.1 F Pulse Rate 90 Respiratory 16 Rate O2 Sat by Pulse 99 Oximetry Medical Decision Making - Medical Decision Making Based on the patient's presentation and physical exam, does appear she has a bite on her leg but no signs of a tick. She is concerned that it was a tick bite. I explained to her that there is no way for me to be sure, as I do not visualize a tick at this time. I did offer her prophylactic dosing for Lyme disease with a single dose doxycycline in the event that was a tick. The bite occurred yesterday. She was in agreement this plan. I advised follow-up with her PCP if symptoms do not improve. Can use local wound care otherwise. I instructed the patient to follow up with their PCP in the next 1-3 days. . I explained that the patient should return to the emergency department if they experience any worsening symptoms. Strict return precautions were discussed with the patient. The patient expressed understanding of these instructions. I answered all questions that the patient had. The patient was discharged home in good condition with their prescriptions and follow up information. Disposition Clinical Impression: Bug bite Disposition: HOME SELF-CARE Condition: Good Instructions (If sedation given, give patient instructions): Insect Bite or Sting (ED) Is patient prescribed a controlled substance at d/c from ED?: No Referrals: Guru Hernandez MD [Primary Care Provider] - 1-2 days Time of Disposition: 22:08
== END 2022-04-01 22:31 | disposition home or self-care (01) ==
LOC: EC 20:58
DX: S80.862A Insect bite (nonvenomous), left lower leg, initial encounter (principal); W57.XXXA Bitten or stung by nonvenomous insect and other nonvenomous arthropods, initial encounter; J45.909 Unspecified asthma, uncomplicated; F17.200 Nicotine dependence, unspecified, uncomplicated; Z88.0 Allergy status to penicillin; Z79.899 Other long term (current) drug therapy
CPT/HCPCS: 99281

== ENCOUNTER 2022-07-06 11:59 | Observation (INO) | payer OTHER ==
--- NOTE | 2022-07-06 12:32 | ED ---
General Adult HPI - General Chief complaint: Neuro Symptoms/Deficit Stated complaint: rt arm numbness, back pain Time Seen by Provider: 07/06/22 12:12 Source: patient, RN notes reviewed, old records reviewed Mode of arrival: ambulatory Limitations: no limitations - History of Present Illness Initial comments: Patient is a 26-year-old female with past medical history remarkable for asthma who presents emergency Department complaining of right arm numbness that has been more or less constant since approximate 7:30 PM last night. No known history of stroke herself but does have a history of stroke in family members. No known trauma. Denies headaches. Denies any weakness or other sensory deficits at this time. States it is isolated to her right arm demonstrated on the right shoulder down to the right fingertips. Has no numbness in the right neck, right superior shoulder. States she thinks she has a history of a bulging disc in her mid back but denies any known history of it in her neck. Denies any shooting sensation or pain down her right arm. No radicular like symptoms. No other acute complaints at this time. Presents for further evaluation at this time.Patient does endorse having some chronic back pain over the last few weeks which she states that occasionally shoots down her spine. - Related Data Home Medications Medication Instructions Recorded Confirmed No Known Home Medications 07/06/22 07/06/22 Allergies Allergy/AdvReac Type Severity Reaction Status Date / Time Penicillins Allergy Unknown Rash/Hives Verified 07/06/22 14:05 Review of Systems ROS Statement: Those systems with pertinent positive or pertinent negative responses have been documented in the HPI. Review of Systems: CONST: Denies fever EYES: Denies blurry vision ENT: Denies nasal congestion C/V: Denies Chest pain RESP: Denies shortness of breath GI: Denies abdominal pain : Denies dysuria SKIN: Denies rash. MSK: Denies joint pain. NEURO: Endorses right arm numbness ROS Other: All systems not noted in ROS Statement are negative. Past Medical History Past Medical History: Asthma Additional Past Medical History / Comment(s): Gestational diabetes, History of Any Multi-Drug Resistant Organisms: None Reported Past Surgical History: Section Additional Past Surgical History / Comment(s): IUD placement Past Anesthesia/Blood Transfusion Reactions: No Reported Reaction Past Psychological History: Anxiety, Depression Smoking Status: Current some day smoker Past Alcohol Use History: Occasional Past Drug Use History: Marijuana - Past Family History Mother History Unknown: Yes Family Medical History: No Reported History General Exam - General Exam Comments Initial Comments: General: Appears in no acute distress. HEAD: Normal with no signs of head trauma. EYES: PERRLA, EOMI, conjunctiva normal, no discharge. Pupils 3 mm and equal bilaterally. ENT: Hearing grossly intact, normal oropharynx. RESPIRATORY: Clear breath sounds bilaterally. No wheezes, rales, or rhonchi. C/V: Regular rate and rhythm. Peripheral pulses 2+ intact throughout. ABD: Abd is soft, nontender, nondistended EXT: Normal range of motion, no obvious deformity. No midline cervical spine tenderness to palpation. No midline thoracic or lumbar spine tenderness to palpation. SKIN: No rashes or lesions observed on exposed skin. NEURO: Alert and oriented 4. Cranial nerves II through XII are intact. NIH of 1, for decreased sensation to light touch in the right upper extremity from the proximal humerus down to the fingertips. GCS of 15. Limitations: no limitations Course Vital Signs 07/06/22 07/06/22 07/06/22 12:09 13:31 14:21 Temperature 98.3 F Pulse Rate 92 66 79 Respiratory 20 18 18 Rate Blood Pressure 127/85 122/89 112/76 O2 Sat by Pulse 98 94 L 98 Oximetry Medical Decision Making - Medical Decision Making Based on the patient's presentation and physical exam, patient has had decreased sensation to light touch in the right upper extremity since yesterday at approximate 7:30 PM. Last known well at 7:30 PM on 07/05/2022. Seems less likely to be radicular symptoms as the patient has an isolated to the proximal humerus and distally. As neuro symptoms started within the last 24 hours, Code stroke will be activated at this time. Patient is not a TPA candidate at this time as risks far outweigh the benefits, and patient is outside of the window. I spoke with Dr. Ngo of neurocrit care who was in agreement with the plan. We will obtain CT imaging, EKG, laboratory studies. Patient was in agreement this plan. Vital signs within acceptable limits. EKG shows no signs of acute ischemia. Laboratory studies are remarkable for undetectable troponin. Remainder the labs are unremarkable. Sugar is within normal limits. Chest x-ray shows no acute cardio Person process. CT C-spine shows no acute process. CT brain and CT angiogram of the brain shows no acute findings. I discussed results with the patient. I also updated Dr. Ngo who agreed with medical management, aspirin, admission to the hospital. I discussed admission for the patient and she was in agreement with this plan. Neurology will be consulted. I spoke with the admitting physician Dr. Duke accepted the patient. Patient was admitted in stable condition. Symptoms are unchanged. NIH remains 1 for right upper extremity sensory deficits to light touch. - Lab Data Result diagrams: 07/06/22 12:48 07/06/22 12:48 Lab Results 07/06/22 07/06/22 07/06/22 Range/Units 12:48 12:48 12:48 WBC 8.6 (3.8-10.6) k/uL RBC 5.15 (3.80-5.40) m/uL Hgb 14.8 (11.4-16.0) gm/dL Hct 43.2 (34.0-46.0) % MCV 83.9 (80.0-100.0) fL MCH 28.8 (25.0-35.0) pg MCHC 34.4 (31.0-37.0) g/dL RDW 13.2 (11.5-15.5) % Plt Count 312 (150-450) k/uL MPV 7.9 Neutrophils % 70 % Lymphocytes % 22 % Monocytes % 4 % Eosinophils % 2 % Basophils % 1 % Neutrophils # 6.1 (1.3-7.7) k/uL Lymphocytes # 1.9 (1.0-4.8) k/uL Monocytes # 0.3 (0-1.0) k/uL Eosinophils # 0.2 (0-0.7) k/uL Basophils # 0.1 (0-0.2) k/uL PT 10.5 (9.0-12.0) sec INR 1.0 (<1.2) APTT 25.4 (22.0-30.0) sec Sodium 138 (137-145) mmol/L Potassium 4.0 (3.5-5.1) mmol/L Chloride 104 (98-107) mmol/L Carbon Dioxide 24 (22-30) mmol/L Anion Gap 10 mmol/L BUN 9 (7-17) mg/dL Creatinine 0.46 L (0.52-1.04) mg/dL Est GFR (CKD-EPI)AfAm >90 (>60 ml/min/1.73 sqM) Est GFR (CKD-EPI)NonAf >90 (>60 ml/min/1.73 sqM) Glucose 107 H (74-99) mg/dL Calcium 8.4 (8.4-10.2) mg/dL Total Bilirubin 0.5 (0.2-1.3) mg/dL AST 23 (14-36) U/L ALT 22 (4-34) U/L Alkaline Phosphatase 82 (38-126) U/L Troponin I (0.000-0.034) ng/mL Total Protein 7.3 (6.3-8.2) g/dL Albumin 4.2 (3.5-5.0) g/dL 07/06/22 Range/Units 12:48 WBC (3.8-10.6) k/uL RBC (3.80-5.40) m/uL Hgb (11.4-16.0) gm/dL Hct (34.0-46.0) % MCV (80.0-100.0) fL MCH (25.0-35.0) pg MCHC (31.0-37.0) g/dL RDW (11.5-15.5) % Plt Count (150-450) k/uL MPV Neutrophils % % Lymphocytes % % Monocytes % % Eosinophils % % Basophils % % Neutrophils # (1.3-7.7) k/uL Lymphocytes # (1.0-4.8) k/uL Monocytes # (0-1.0) k/uL Eosinophils # (0-0.7) k/uL Basophils # (0-0.2) k/uL PT (9.0-12.0) sec INR (<1.2) APTT (22.0-30.0) sec Sodium (137-145) mmol/L Potassium (3.5-5.1) mmol/L Chloride (98-107) mmol/L Carbon Dioxide (22-30) mmol/L Anion Gap mmol/L BUN (7-17) mg/dL Creatinine (0.52-1.04) mg/dL Est GFR (CKD-EPI)AfAm (>60 ml/min/1.73 sqM) Est GFR (CKD-EPI)NonAf (>60 ml/min/1.73 sqM) Glucose (74-99) mg/dL Calcium (8.4-10.2) mg/dL Total Bilirubin (0.2-1.3) mg/dL AST (14-36) U/L ALT (4-34) U/L Alkaline Phosphatase (38-126) U/L Troponin I <0.012 (0.000-0.034) ng/mL Total Protein (6.3-8.2) g/dL Albumin (3.5-5.0) g/dL - EKG Data -: EKG Interpreted by Me EKG Comments: 12-lead Electrocardiogram Interpretation Note EKG was reviewed and interpreted by myself. 12-lead ECG performed at 1320 is interpreted by me as revealing normal sinus rhythm at a rate of 77 beats per minute. [place] is normal. NM interval 142 ms, QRS duration 97 ms, QTc 400 ms.. Isolated T-wave inversion in lead III. There were no acute ST or T wave abnormalities to suggest myocardial ischemia or injury. R wave progression across the precordium was satisfactory. By my interpretation this EKG is non- diagnostic for acute ischemia. Critical Care Time Critical Care Time: Yes Total Critical Care Time: 35 Critical Care Time: Upon my evaluation, this patient had a high probability of imminent or life- threatening deterioration due to a stroke pager activation, right upper extremity decreased sensation to light touch, which required my direct at tention, intervention, and personal management. I have personally provided 35 minutes of critical care time exclusive of time spent on separately billable procedures. Time includes review of laboratory data, radiology results, discussion with consultants, and monitoring for potential decompensation. Interventions were performed as documented in my note. Disposition Clinical Impression: Right arm numbness Disposition: ADMITTED IP TO THIS HOSP Condition: Stable Is patient prescribed a controlled substance at d/c from ED?: No Referrals: Guru Hernandez MD [Primary Care Provider] - 1-2 days Time of Disposition: 14:50
--- NOTE | 2022-07-06 12:55 | CT ---
EXAMINATION TYPE: CT brain wo con for TPA DATE OF EXAM: 07/06/2022 COMPARISON: CT brain April 29, 2018 HISTORY: Rt sided arm numbness since 8 PM last night. Acute onset neural deficit. CT DLP: 1103.6 mGycm. Automated Exposure Control for Dose Reduction was Utilized. TECHNIQUE: CT scan of the head is performed without contrast. FINDINGS: There is no acute intracranial hemorrhage, mass effect, or midline shift identified. The ventricles and sulci are within normal limits in size. Dow-white matter differentiation is maintain ed. The globes are intact and the visualized sinuses are clear. Incidental left nasal metallic ornam ent and right cheek metallic ornaments on current study. IMPRESSION: No acute intracranial hemorrhage or midline shift is seen.
--- NOTE | 2022-07-06 12:58 | CT ---
EXAMINATION TYPE: CT cervical spine wo con DATE OF EXAM: 07/06/2022 COMPARISON: CT cervical spine April 29, 2018 HISTORY: Neck pain and right arm numbness CT DLP: 880.7 mGycm. Automated Exposure Control for Dose Reduction was Utilized. TECHNIQUE: CT scan of the cervical spine is obtained without contrast, axial images are obtained, sa gittal and coronal reformatted images are also reviewed. FINDINGS: Coronal images redemonstrate slight scoliotic curvature. Sagittal images redemonstrate stra ightening and some reversal of normal cervical curvature. There is no acute fracture or dislocation. Prevertebral soft tissue appears within normal limits. The C1-C2 articulation is within normal limi ts on the coronal images. Vertebral body heights and disc space heights are maintained. Spinal canal is grossly preserved. Some artifact related to large body habitus limits evaluation for disc herniati on, posterior spurring right C6-C7 level sagittal image 60 effaces anterolateral thecal sac. Review of axial images redemonstrates normal size thyroid gland . Visualized lung apices show no pneu mothorax. IMPRESSION: There is no acute fracture or dislocation evident in the cervical spine. MRI noted more sensitive to evaluate spinal cord and disc herniations.
[2022-07-06 13:05] LABS: Basophils # (A) 0.1 k/uL (0-0.2); Basophils % (A) 1 %; Eosinophils # (A) 0.2 k/uL (0-0.7); Eosinophils % (A) 2 %; HCT 43.2 % (34.0-46.0); HGB 14.8 gm/dL (11.4-16.0); Lymphocytes # (A) 1.9 k/uL (1.0-4.8); Lymphocytes % (A) 22 %; MCH 28.8 pg (25.0-35.0); MCHC 34.4 g/dL (31.0-37.0); MCV 83.9 fL (80.0-100.0); Mean Platelet Volume 7.9; Monocytes # (A) 0.3 k/uL (0-1.0); Monocytes % (A) 4 %; Neutrophils # (A) 6.1 k/uL (1.3-7.7); Neutrophils % (A) 70 %; Platelet Count 312 k/uL (150-450); RBC 5.15 m/uL (3.80-5.40); RDW 13.2 % (11.5-15.5); WBC 8.6 k/uL (3.8-10.6)
[2022-07-06 13:26] LABS: ALT 22 U/L (4-34); AST 23 U/L (14-36); African American GFR (CKD) >90 (>60 ml/min/1.73 sqM); Albumin 4.2 g/dL (3.5-5.0); Alkaline Phosphatase 82 U/L (38-126); Anion Gap 10 mmol/L; Blood Urea Nitrogen 9 mg/dL (7-17); Calcium 8.4 mg/dL (8.4-10.2); Carbon Dioxide 24 mmol/L (22-30); Chloride 104 mmol/L (98-107); Glucose 107 mg/dL (74-99); Non-African American GFR(CKD) >90 (>60 ml/min/1.73 sqM); Sodium 138 mmol/L (137-145); Total Bilirubin 0.5 mg/dL (0.2-1.3); Total Protein 7.3 g/dL (6.3-8.2)
[2022-07-06 13:27] LABS: Partial Thromboplastin Time 25.4 sec (22.0-30.0); Prothrombin Time 10.5 sec (9.0-12.0)
--- NOTE | 2022-07-06 13:43 | XR ---
EXAMINATION TYPE: XR chest 2V DATE OF EXAM: 07/06/2022 COMPARISON: NONE TECHNIQUE: PA and lateral views submitted. HISTORY: Altered mental status FINDINGS: The lungs are clear and there is no pneumothorax, pleural effusion, or focal pneumonia. Heart size normal. No overt failure. IMPRESSION: 1. No acute process.
--- NOTE | 2022-07-06 13:53 | CT ---
EXAMINATION TYPE: CT angio head neck DATE OF EXAM: 07/06/2022 HISTORY: Rt arm numbness since 8 PM last night COMPARISON: None. CT DLP: 1047.2 mGycm. Automated Exposure Control for Dose Reduction was Utilized. TECHNIQUE: CTA scan of the head and neck is performed with IV Contrast, patient injected with 65 mL of Isovue 370, axial images are obtained, coronal and sagittal reformatted images are reviewed. 3D re constructed images are created on an independent workstation and reviewed. FINDINGS: Carotid/Vascular Structures: Normal 3 vessel origin from the aortic arch without significant plaque o r stenosis. No significant plaque or stenosis in the common or internal carotid arteries bilaterally. Patent external carotid arteries bilaterally without significant plaque or stenosis. Codominant vertebral arteries patent to basilar junction. No significant stenosis or aneurysm in the posterior circulation. There are hypoplastic bilateral posterior communicating arteries seen. Images of the anterior circulation show patent but small caliber left A1 segment. There is patent anterior c ommunicating artery seen. No significant focal stenosis or aneurysm is noted. Other: Prominent but subcentimeter lymph nodes throughout the neck are incidentally noted bilaterally . IMPRESSION: No significant vascular abnormality is seen. NASCET criteria was used in interpretation of this exam?
[2022-07-06] MEDS ORDERED: ASPIRIN 325 MG TAB PO STA (14:53)
--- NOTE | 2022-07-06 17:37 | P.CNNES ---
History of Present Illness Consult date: 07/06/22 Requesting physician: Lars Gonzales Reason for Consult: right arm sensory deficit History of Present Illness: Patient is a 26-year-old right-handed female, otherwise healthy, states that yesterday at 8 PM she was watching TV when she's developed numbness of the right arm, from shoulder all the way to the hand and fingers. She ignored the symptoms and went to sleep. At 2 AM she woke up and noticed that she was laying on her left side, but the right arm has become further worse. He was noticing pins and needles sensation in the right arm. She also was feeling some hurting aching in the right arm which she rates 8-9/10. 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 She denies any symptoms involving the face or the leg. No slurred speech or visual disturbance. Patient does complain of pain in the mid dorsal spine between scapulae and slight pain in the neck. As the symptoms persisted, she came to the ER at 12 noon. Vital signs on arrival blood pressure 127/85, pulse rate 92, temperature 98.3. Her CBC is normal, PT/PTT normal, CMP normal. Troponin negative. Patient continues to have symptoms in the right arm as mentioned above. Symptoms have not progressed any further. Stroke code was activated in the ED. Patient is of course not a candidate for TPA as symptoms have been present since yesterday. Patient underwent computed tomography scan of the head which was normal. I personally reviewed CT head agree with the findings. CT of the cervical spine showed no acute fracture or dislocation evident in the cervical spine. MRI recommended if needed. CTA of head and neck showed no significant vascular abnormality. EKG shows sinus rhythm. Patient says that she does get sometimes positional numbness of her arm if she is laying on that side, or of the leg if she is sitting with leg crossed, but the symptom goes away within a few minutes. Never persisted like this. She states her balance is fine. No visual symptoms. Patient states she has history of some transient vertigo, that'll resolve within couple minutes. Never had persistent vertigo. Patient denies any diabetes or hypertension. Patient has 6 kids. She works at a factory. Patient is not vaccinated. She sometimes smokes marijuana, once in a while to help her sleep. She is a very light smoker, about 1 pack per month. She does not take any antiplatelet medication. She does have some anxiety depression. Review of Systems All 14 points of review systems reviewed, pertinent positives and negatives mentioned as mentioned in HPI in detail. All other review of systems completely unremarkable. Past Medical History Past Medical History: Asthma Additional Past Medical History / Comment(s): Gestational diabetes, History of Any Multi-Drug Resistant Organisms: None Reported Past Surgical History: Section Additional Past Surgical History / Comment(s): IUD placement Past Anesthesia/Blood Transfusion Reactions: No Reported Reaction Past Psychological History: Anxiety, Depression Smoking Status: Current some day smoker Past Alcohol Use History: Occasional Past Drug Use History: Marijuana - Past Family History Mother History Unknown: Yes Family Medical History: No Reported History Medications and Allergies Home Medications Medication Instructions Recorded Confirmed Type No Known Home Medications 07/06/22 07/06/22 History Allergies Allergy/AdvReac Type Severity Reaction Status Date / Time Penicillins Allergy Unknown Rash/Hives Verified 07/06/22 14:05 Physical Examination - Vital Signs Vital Signs: Vital Signs Temp Pulse Pulse Resp BP BP Pulse Ox 07/06/22 17:04 99.0 F 91 18 133/95 98 07/06/22 16:57 78 18 136/86 98 07/06/22 15:04 99.0 F 91 18 133/95 98 07/06/22 14:21 79 18 112/76 98 07/06/22 13:31 66 18 122/89 94 L 07/06/22 12:09 98.3 F 92 20 127/85 98 Intake and Output 07/06/22 07/06/22 07/06/22 06:59 14:59 22:59 Other: Voiding Method Toilet Weight 117.934 kg Patient is a young female, very pleasant in no acute distress. Patient is alert awake oriented to time place and person. Speech and language functions are normal. Patient can name and repeat very well. No aphasia or dysarthria. Attention, concentration and fund of knowledge is adequate. On cranial nerve examination, pupils are equal, round and reacting to light, visual cunha are full on confrontation, with no neglect on double simultaneous stimulation. Extraocular muscles are intact with no nystagmus. Face is symmetric, tongue protrudes to the midline. Palatal elevation and sensation normal, hearing and shoulder shrug normal, facial sensation normal. On muscle strength testing, there is no pronator drift and the strength is normal in arms and legs distally and proximally. Deep tendon reflexes are symmetric 2 at the biceps, 2 brachioradialis, 2 at triceps, 2+ at the knees, 2 ankles and plantar is questionable down on the right, but definitely down on the left. Sensory to touch is decreased in the right arm as compared to the left. Sensory touch is equal involving the face and the legs. Sensory to temperature is s lightly decreased in the right arm as compared to the left. Cerebellar function showed no ataxia for [id number]-ct-[id number] testing. No dysdiadochokinesia. No ataxia for ryle-id-gjcf testing on either side. Tone and bulk of muscles normal. Gait deferred.. On general examination, there is no carotid bruit or murmur, S1-S2 audible. Chest is clear on consultation. Abdomen is soft nontender. No organomegaly, bowel sounds present. Peripheral pulses are present. No edema. Results - Laboratory Findings CBC and BMP: 07/06/22 12:48 07/07/22 08:00 Abnormal Lab Findings: Abnormal Labs 07/06/22 12:48 Creatinine 0.46 L Glucose 107 H Assessment and Plan Assessment: * Acute onset of numbness and tingling of right upper extremity from shoulder down to the fingertips since 8 PM last night. Exact cause is uncertain. Clinical examination is nonfocal except for right arm numbness. Rule out demyelinating disease, CVA, versus cervical disc. * Neck and midthoracic pain. * Anxiety * Depression Plan: * MRI of the brain with and without contrast rule out MS, versus CVA. * MRI of the cervical spine without contrast, rule out cervical disc herniation. * Further management based upon above test results. * Neurology will follow. Thank you for the consult.
--- NOTE | 2022-07-06 21:06 | P.HPIM ---
History of Present Illness H&P Date: 07/06/22 Chief Complaint: Right arm numbness This is a pleasant 26-year-old patient who follows with Dr. Hernandez. Patient had gone [id number] with her son in the evening. 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 After having dinner she said side down on the couch to watch television. She noticed that the right arm was feeling funny to started becoming numb. They to the light the right arm started hurting. Has slightly weak. No headache. No change in vision. No change in speech. No trouble walking. Presented to ER. Code stroke was called in the ER. An computed tomography scan of the brain and CT angiogram was unremarkable. Patient has noticed slight improvement in the right arm no symptoms are still present. Patient does not remember lifting any heavy objects or reaching out with the right arm. Or sleeping in the same arm. About a month ago patient had gone to [facility] where she thought she had herniated disc in the neck. As she was unable to straighten her neck. She was treated with NSAIDs steroids and antispasmodics. 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 Smokes about a pack a day month. Occasional marijuana and alcohol. Physical examination: VITAL SIGNS: 97.8, 77, 14, 130/79, 98% room air GENERAL: BMI 43.3, laying in bed awake. EYES: Pupils equal. Conjunctiva normal. HEENT: External appearance of nose and ears normal, oral cavity grossly normal. NECK: JVD not raised; masses not palpable. HEART: First and second heart sounds are normal; no edema. LUNGS: Respiratory rate normal; clear to auscultation. ABDOMEN: Soft, nontender, liver spleen not palpable, no masses palpable. PSYCH: Alert and oriented x3; mood and affect normal. MUSCULOSKELETAL:No Clubbing/cyanosis;muscles-grossly intact NEUROLOGICAL: [Cranial nerves grossly intact; no facial asymmetry, power in the right top 4/5, right side is slightly hyperreflexic, altered sensation in the right arm LYMPHATICS: No lymph nodes palpable in the axilla and neck INVESTIGATIONS, reviewed in the clinical context: WBC 8.6 hemoglobin 14.8 platelets 312 potassium 4 creatinine 0.46 Troponin I less than 0.012 EKG tracing personally reviewed by me-normal sinus rhythm. Rate 77 CT angiogram head and neck: No significant vascular abnormality seen. Chest x-ray film personally reviewed by me-unremarkable Cervical spine CT: Unremarkable CT brain: Unremarkable Assessment and plan: -This patient presents with about 24 hours of right arm weakness and numbness with abnormal sensation. Computed tomography scan of the brain and CT angiogram head and neck is all negative. About a month ago she was having trouble extending her neck and was found of herniated disc in the cervical spine. Most likely may be dealing with cervical spine radiculopathy with herniated disc. Brachial plexus involvement to be ruled out. Patient need MRI of the spine. Neurology is consulted to rule out other central causes. -Morbid obesity BMI 43.3 Weight loss measures -Chronic nicotine dependence, cigarette smoker Nicotine patch MR cervical spine without contrast, MRI of the brain with and without contrast, neurology consultation. Consultation to orthopedic spine. Care was discussed with the patient. Questions answered. Past Medical History Past Medical History: Asthma Additional Past Medical History / Comment(s): Gestational diabetes, History of Any Multi-Drug Resistant Organisms: None Reported Past Surgical History: Section Additional Past Surgical History / Comment(s): IUD placement Past Anesthesia/Blood Transfusion Reactions: No Reported Reaction Past Psychological History: Anxiety, Depression Smoking Status: Current some day smoker Past Alcohol Use History: Occasional Past Drug Use History: Marijuana - Past Family History Mother History Unknown: Yes Family Medical History: No Reported History Medications and Allergies Home Medications Medication Instructions Recorded Confirmed Type No Known Home Medications 07/06/22 07/06/22 History Allergies Allergy/AdvReac Type Severity Reaction Status Date / Time Penicillins Allergy Unknown Rash/Hives Verified 07/06/22 14:05 Physical Exam Vitals: Vital Signs Temp Pulse Pulse Resp BP BP Pulse Ox 07/06/22 20:00 97.8 F 77 14 138/79 98 07/06/22 17:04 99.0 F 91 18 133/95 98 07/06/22 16:57 78 18 136/86 98 07/06/22 15:23 99.0 F 98 18 133/95 98 07/06/22 15:04 99.0 F 91 18 133/95 98 07/06/22 14:21 79 18 112/76 98 07/06/22 13:31 66 18 122/89 94 L 07/06/22 12:09 98.3 F 92 20 127/85 98 Intake and Output 07/06/22 07/06/22 07/06/22 06:59 14:59 22:59 Intake Total 120 Balance 120 Intake: Oral 120 Other: Voiding Method Toilet Weight 117.934 kg 117.934 kg Results CBC & Chem 7: 07/06/22 12:48 07/06/22 12:48 Labs: Abnormal Lab Results - Last 24 Hours (Table) 07/06/22 Range/Units 12:48 Creatinine 0.46 L (0.52-1.04) mg/dL Glucose 107 H (74-99) mg/dL Thrombosis Risk Factor Assmnt - Choose All That Apply Each Factor Represents 1 point: Obesity (BMI >25) Thrombosis Risk Factor Assessment Total Risk Factor Score: 1 Thrombosis Risk Factor Assessment Level: Low Risk
[2022-07-06] MEDS: ENOXAPARIN 40 MG/0.4 ML SYRINGE SQ SCH (21:17)
[2022-07-06] MEDS: ACETAMINOPHEN TAB 325 MG TAB PO PRN (21:17)
[2022-07-07] MEDS: ENOXAPARIN 40 MG/0.4 ML SYRINGE SQ SCH (07:44)
[2022-07-07] MEDS ORDERED: ASPIRIN 81 MG PO SCH (09:00)
[2022-07-07 09:05] LABS: ALT 21 U/L (4-34); AST 21 U/L (14-36); African American GFR (CKD) >90 (>60 ml/min/1.73 sqM); Alkaline Phosphatase 85 U/L (38-126); Anion Gap 11 mmol/L; Blood Urea Nitrogen 8 mg/dL (7-17); Calcium 8.5 mg/dL (8.4-10.2); Carbon Dioxide 24 mmol/L (22-30); Chloride 104 mmol/L (98-107); Glucose 113 mg/dL (74-99); Non-African American GFR(CKD) >90 (>60 ml/min/1.73 sqM); Potassium 4.2 mmol/L (3.5-5.1); Sodium 139 mmol/L (137-145); Total Bilirubin 0.5 mg/dL (0.2-1.3); Total Protein 6.9 g/dL (6.3-8.2)
[2022-07-07] MEDS ORDERED: LORazepam 1 MG TAB PO STA (10:44)
--- NOTE | 2022-07-07 12:42 | P.PN ---
Progress Note - Text Progress Note Date: 07/07/22 Chief Complaint: Right arm numbness This is a pleasant 26-year-old patient who follows with Dr. Hernandez. Patient had gone [id number]-au-[id number] with her son in the evening. 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 After having dinner she said side down on the couch to watch television. She noticed that the right arm was feeling funny to started becoming numb. They to the light the right arm started hurting. Has slightly weak. No headache. No change in vision. No change in speech. No trouble walking. Presented to ER. Code stroke was called in the ER. An computed tomography scan of the brain and CT angiogram was unremarkable. Patient has noticed slight improvement in the right arm no symptoms are still present. Patient does not remember lifting any heavy objects or reaching out with the right arm. Or sleeping in the same arm. About a month ago patient had gone to [facility] where she thought she had herniated disc in the neck. As she was unable to straighten her neck. She was treated with NSAIDs steroids and antispasmodics. 07/07/2022: Patient has some numbness tingling and weakness in the right arm. Awaiting MRI of the neck and brain that was ordered. Awaiting consultation from orthopedic spine. Discussed with patient. 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 Smokes about a pack a day month. Occasional marijuana and alcohol. Physical examination: VITAL SIGNS: 98.3, 79, 18, 111/79, 96% room air GENERAL: Negative bed, comfortable EYES: Pupils equal. Conjunctiva normal. HEENT: External appearance of nose and ears normal, oral cavity grossly normal. NECK: JVD not raised; masses not palpable. HEART: First and second heart sounds are normal; no edema. LUNGS: Respiratory rate normal; clear to auscultation. ABDOMEN: Soft, nontender, liver spleen not palpable, no masses palpable. PSYCH: Alert and oriented x3; mood and affect normal. MUSCULOSKELETAL:No Clubbing/cyanosis;muscles-grossly intact NEUROLOGICAL: [Cranial nerves grossly intact; no facial asymmetry, power in the right top 4/5, right side is slightly hyperreflexic, altered sensation in the right arm INVESTIGATIONS, reviewed in the clinical context: WBC 8.6 hemoglobin 14.8 platelets 312 potassium 4 creatinine 0.46 Troponin I less than 0.012 EKG tracing personally reviewed by me-normal sinus rhythm. Rate 77 CT angiogram head and neck: No significant vascular abnormality seen. Chest x-ray film personally reviewed by me-unremarkable Cervical spine CT: Unremarkable CT brain: Unremarkable Assessment and plan: -This patient presents with about 24 hours of right arm weakness and numbness with abnormal sensation. Computed tomography scan of the brain and CT angiogram head and neck is all negative. About a month ago she was having trouble extending her neck and was found of herniated disc in the cervical spine. Most likely may be dealing with cervical spine radiculopathy with herniated disc. Brachial plexus involvement to be ruled out. Patient need MRI of the spine. Neurology is consulted to rule out other central causes. -Morbid obesity BMI 43.3 Weight loss measures -Chronic nicotine dependence, cigarette smoker Nicotine patch MR cervical spine without contrast, MRI of the brain with and without contrast, pending. Follow with neurology and orthopedic spine.
--- NOTE | 2022-07-07 13:39 | MR ---
EXAMINATION TYPE: MR brain wo/w antwon wo DATE OF EXAM: 07/07/2022 COMPARISON: CT cervical spine and brain from yesterday and older studies HISTORY: Right arm numbness, pain, neck pain, ?MS TECHNIQUE: Multiplanar, multisequence images of the brain and brainstem are all performed without and with IV co ntrast, utilizing 12 mL intravenous Gadavist . Demyelinating disease protocol. MRI cervical spine wit hout contrast. FINDINGS: Brain: FINDINGS: T2 Lesions Present : No Approximate Number of Lesions: n/a Locations Identified : n/a Size of Reference Lesion(s): n/a Enhancing Lesion(s) Present: n/a T1 Hypointense Lesion(s) Present: n/a Change from Prior: n/a Diffusion weighted images demonstrate no evidence of a recent infarct or other diffusion abnormality. There is no worrisome extra-axial fluid collection. The ventricular system and cisternal spaces ar e normal in size and appearance. The brain volume is age appropriate. T2*weighted images show no flor picious intraparenchymal blood product. No significant white matter changes. Midline structures redemonstrate empty sella morphology. The craniocervical junction appears within normal limits. Post contrast images demonstrate no abnormal enhancement or focal enhancing lesions. The dural venous sinuses appear patent. Mucosal thickening left sphenoid sinus redemonstrated posteri maeve otherwise paranasal sinuses are clear. Globes are intact bilaterally. IMPRESSION: 1. No significant white matter changes. No MRI evidence for recent infarct. No suspicious enhancement . 2. Empty sella morphology with mild to moderate left-sided chronic sphenoid sinusitis redemonstrated. MRI CERVICAL SPINE: FINDINGS: Sagittal images of the cervical spine show the craniocervical junction to remain within nor mal limits. The cervical and upper thoracic spinal cord is normal in caliber and signal. Vertebral alignment is stable and straightened. The vertebral body and intravertebral disk heights are normal. The bone marrow signal intensity is within normal limits. Axial images show C2-C3 through C4-C5 levels appear within normal limits. Axial images at C5-C6 level shows a focal right paracentral disc protrusion effacing the anterior the mathieu sac causing slight ventral indentation of right spinal cord ventral surface axial image 24. Paten t bilateral neural foramina. Axial images at C6-C7 levels with broad-based right paracentral disc protrusion effacing the anterior thecal sac up to ventral surface of spinal cord which is slightly flattened, the bilateral neural fo ramina no abnormal cord signal or edema. Axial images at C7-T1 level appear within normal limits. IMPRESSION: No MRI evidence for demyelinating disease involvement in the cervical spinal cord. Straig htening of the cervical spine with disc herniations at C5-C6 and C6-C7 level are noted as detailed ab ove.
[2022-07-07 14:54] LABS: LDL Cholesterol,Calculated 67.2 mg/dL (0.0-131.0)
--- NOTE | 2022-07-07 15:29 | P.CNOR ---
History of Present Illness - HPI Consult date: 07/07/22 Consult reason: other History of present illness: Patient is seen and examined at bedside. She is a very pleasant 26-year-old female who is coming by her toddler and her . Apparently patient's been having no tingling in her right upper extremity over the past 2 nights. She was quite worried about this and was worried about cardiac issues she felt numbness tingling and weakness at her right upper extremity. She says a couple of months ago she was having pain at her neck and that has been on and off for the past couple of months. Despite that she had been able to return to her regular activity. 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 She has not had missed work because of her neck and upper extremities until yesterday and today. She feels that her hand is still numb and tingly. She denies any problems in her lower extremity. She denies any chest pain or shortness of breath. She denies any left upper extremity issues. She says that she overall feels weak in her hand and fingers. She says is a history of coronary artery disease and her family. She denies any history of stroke. Denies any recent injury or trauma. Review of Systems As stated per HPI. Denies any nausea vomiting. Denies any shortness breath. Denies any changes lower extremities. Past Medical History Past Medical History: Asthma Additional Past Medical History / Comment(s): Gestational diabetes, History of Any Multi-Drug Resistant Organisms: None Reported Past Surgical History: Section Additional Past Surgical History / Comment(s): IUD placement Past Anesthesia/Blood Transfusion Reactions: No Reported Reaction Past Psychological History: Anxiety, Depression Smoking Status: Current some day smoker Past Alcohol Use History: Occasional Past Drug Use History: Marijuana - Past Family History Mother History Unknown: Yes Family Medical History: No Reported History Medications and Allergies Home Medications Medication Instructions Recorded Confirmed Type methylPREDNISolone Dose Pack 4 mg PO DIRECTED #21 tab 07/07/22 Rx [Medrol Dose Pack] Allergies Allergy/AdvReac Type Severity Reaction Status Date / Time Penicillins Allergy Unknown Rash/Hives Verified 07/06/22 14:05 Physical Examination Osteopathic Statement: *. No significant issues noted on an osteopathic structural exam other than those noted in the History and Physical/Consult. - C Spine: dermatomal strength & reflexes right Shoulder strength: flexion: 5/5 (Neck she has some diffuse spasm at the right paraspinals at the base of her neck. She has 5 out of 5 strength to her shoulder biceps triceps welcome hostess thumb extension and interosseous. There is no h yperreflexia. Negative Orlando's. Compartments are soft.) Strength: welcome hostess: 5/5 (Bilateral upper extremities have equal strength. She has good strength in her bilateral lower extremity. Her neck is good active and passive range of motion.) Results - Labs Labs: Abnormal Lab Results - Last 24 Hours (Table) 07/07/22 Range/Units 08:00 Glucose 113 H (74-99) mg/dL H & H 07/06/22 Range/Units 12:48 Hgb 14.8 (11.4-16.0) gm/dL Hct 43.2 (34.0-46.0) % Coagulation 07/06/22 Range/Units 12:48 INR 1.0 (<1.2) Result Diagrams: 07/06/22 12:48 07/07/22 08:00 - Diagnostic results Cervical MRI with/without contrast: report reviewed (MRI of the cervical spine without contrast is reviewed. She has evidence of an annular fissure and small disc herniation at the right paracentral space at C6 7. It is causing some distortion of the anterior thecal sac and narrowing of the right neural foramen. There is some diffuse disc bulging a), image reviewed (There is some diffuse disc bulging at C5 6. There is no cord signal change. There is no dislocation or evidence of trauma.) Assessment and Plan Assessment: Right upper extremity radiculopathy without weakness C6 7 disc herniation and annular fissure on the right which correlates with her right upper extremity symptoms Disc bulging C5 6 without significant stenosis No apparent evidence on imaging of cerebral vascular incident Plan: Right upper extremity radiculopathy without weakness C6 7 disc herniation and annular fissure on the right which correlates with her right upper extremity symptoms Disc bulging C5 6 without significant stenosis No apparent evidence on imaging of cerebral vascular incident The patient has had significant workup in regards to possibility of cerebrovascular incident however this is come up negative. She does have evidence of a disc herniation at C6 7 which correlates with her right upper extremity symptoms. She still maintains decent strength at her right upper extremity and I don't see a specific neurologic deficit at her right arm. I think that her symptoms stem from the disc herniation at C6 7 and as she is neurologically intact it is okay to continue with conservative treatment at this point. She can continue oral medications with anti-inflammatories. She may have some benefit with a dose of steroid and then discharge home with oral tapering dose of steroid. I think that she could have some benefit with physical therapy as well. It is okay for her to continue activities as she tolerates. I can see her back on an outpatient basis in the next few weeks. From a spine surgery standpoint I think it is okay for the patient be discharged home when she is cleared medicine.
[2022-07-07] MEDS ORDERED: methylPREDNISolone SOD SUCCI 40 MG/ML 1 ML VIAL IV STA (15:30)
--- NOTE | 2022-07-07 18:18 | P.PN ---
Subjective Progress Note Date: 07/07/22 Patient was seen for a follow-up. Patient denies any new neurological symptoms. Continues to have numbness of the right arm, essentially unchanged. No numbness of the facial region or the leg. Objective - Vital Signs Vital signs: Vital Signs Temp 98.3 F 07/07/22 11:42 Pulse 79 07/07/22 11:42 Resp 18 07/07/22 11:42 BP 111/79 07/07/22 11:42 Pulse Ox 96 07/07/22 11:42 FiO2 Intake & Output 07/06/22 07/07/22 07/07/22 18:59 06:59 18:59 Intake Total 120 120 380 Balance 120 120 380 Weight 117.934 kg Intake: IV 20 Invasive Line 1 20 Oral 120 120 360 Other: Voiding Method Toilet Toilet Toilet # Voids 2 1 - Exam Patient's mental status, speech and language functions are normal. Examination nonfocal except for right arm numbness. - Labs CBC & Chem 7: 07/06/22 12:48 07/07/22 08:00 Labs: Abnormal Lab Results - Last 24 Hours (Table) 07/07/22 Range/Units 08:00 Glucose 113 H (74-99) mg/dL Assessment and Plan Assessment: * Right arm numbness and tingling, likely due to right paracentral cervical disc herniation, right C5-C6 and C6-C7 levels. CVA ruled out. * Neck and midthoracic pain. * Anxiety * Depression Plan: * MRI of the brain with and without contrast was completely normal. No acute ischemic process. No demyelinating disease. I personally reviewed MRI, agree with the findings. * MRI of the cervical spine without contrast revealed straightening of the c ervical lordosis suggestive of muscle spasm. Focal right paracentral disc protrusion at C5-C6 level causing slight ventral indentation of the right spinal cord ventral surface. There is also broad-based right paracentral disc protrusion at C6-C7 level effacing the anterior thecal sac up to the ventral surface of spinal cord which is slightly flattened. No abnormal cord signal. I personally reviewed MRI, agree with the findings. * Agree with consultation with orthopedics spine. * Stop aspirin. * I reviewed patient's MRI of the brain and cervical spine with the patient. * Neurologically clear, if cleared by orthopedic spine.
[2022-07-08] MEDS: ENOXAPARIN 40 MG/0.4 ML SYRINGE SQ SCH (09:16)
[2022-07-08] MEDS: ACETAMINOPHEN TAB 325 MG TAB PO PRN (09:21)
[2022-07-08 11:10] VITALS: BP 129/86; RESP 16; TEMP 97.7
[2022-07-08 11:39] VITALS: BMI 43.2
[2022-07-08 13:35] VITALS: PULSE 74
--- NOTE | 2022-07-08 17:54 | P.DS ---
Providers Date of admission: 07/06/22 15:07 Expected date of discharge: 07/08/22 Attending physician: Ac Duke Consults: 07/06/22 14:54 Consult Physician Routine Consulting Provider: Derrek Cruz Consult Reason/Comments: right arm sensory deficit Do you want consulting provider notified?: Yes 07/06/22 20:56 Consult Physician Routine Consulting Provider: Nathalie Damon Consult Reason/Comments: Neck pain/right arm numbness Do you want consulting provider notified?: Yes Primary care physician: Guru [facility] Course: Chief Complaint: Right arm numbness This is a pleasant 26-year-old patient who follows with Dr. Hernandez. Patient had gone [id number] with her son in the evening. 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 After having dinner she said side down on the couch to watch television. She noticed that the right arm was feeling funny to started becoming numb. They to the light the right arm started hurting. Has slightly weak. No headache. No change in vision. No change in speech. No trouble walking. Presented to ER. Code stroke was called in the ER. An computed tomography scan of the brain and CT angiogram was unremarkable. Patient has noticed slight improvement in the right arm no symptoms are still present. Patient does not remember lifting any heavy objects or reaching out with the right arm. Or sleeping in the same arm. About a month ago patient had gone to [facility] where she thought she had herniated disc in the neck. As she was unable to straighten her neck. She was treated with NSAIDs steroids and antispasmodics. 07/07/2022: Patient has some numbness tingling and weakness in the right arm. Awaiting MRI of the neck and brain that was ordered. Awaiting consultation from orthopedic spine. Discussed with patient. 07/08/2022: Patient was seen by orthopedic spine Dr. Damon. Patient is felt to have symptoms coming from a herniated disc at C6-C7 level. Patient is put on steroids. Because of prior history of trouble with stomach bleeding want to avoid NSAIDs. This was discussed with the patient. Pepcid has been started. Activity as per orthopedics. Patient's follow-up with orthopedics outpatient. MRI brain unremarkable. Some improvement in part of the right arm. Past medical history to include: Asthma, gestational diabetes, anxiety depression Social history: Works in a factory. Lives with her fianc. Smokes about a pack a day month. Occasional marijuana and alcohol. Physical examination: VITAL SIGNS: 97.7, 79, 16, 10/03/1985, 99% room air GENERAL: comfortable EYES: Pupils equal. Conjunctiva normal. HEENT: External appearance of nose and ears normal, oral cavity grossly normal. NECK: JVD not raised; masses not palpable. HEART: First and second heart sounds are normal; no edema. LUNGS: Respiratory rate normal; clear to auscultation. ABDOMEN: Soft, nontender, liver spleen not palpable, no masses palpable. PSYCH: Alert and oriented x3; mood and affect normal. MUSCULOSKELETAL:No Clubbing/cyanosis;muscles-grossly intact NEUROLOGICAL: [Cranial nerves grossly intact; no facial asymmetry, power in the right top 4/5, right side is slightly hyperreflexic, altered sensation in the right arm INVESTIGATIONS, reviewed in the clinical context: Brain MRI: Unremarkable LDL 67 WBC 8.6 hemoglobin 14.8 platelets 312 potassium 4 creatinine 0.46 Troponin I less than 0.012 EKG tracing personally reviewed by me-normal sinus rhythm. Rate 77 CT angiogram head and neck: No significant vascular abnormality seen. Chest x-ray film personally reviewed by me-unremarkable Cervical spine CT: Unremarkable CT brain: Unremarkable Assessment and plan: -Disc herniation at C5-C6 and C6 7, causing right arm paresis and radiculopathy. Avoid NSAIDs because of GI symptoms. Prednisone taper. Follow with Dr. Damon outpatient. -Morbid obesity BMI 43.3 Weight loss measures -Chronic nicotine dependence, cigarette smoker Nicotine patch Disposition: Home Plan - Discharge Summary Discharge Rx Participant: Yes New Discharge Prescriptions: New Famotidine [Pepcid] 20 mg PO BID #60 tablet methylPREDNISolone Dose Pack [Medrol Dose Pack] 4 mg PO DIRECTED #21 tab Discharge Medication List methylPREDNISolone Dose Pack [Medrol Dose Pack] 4 mg PO DIRECTED #21 tab 07/07/22 [Rx] Famotidine [Pepcid] 20 mg PO BID #60 tablet 07/08/22 [Rx] Follow up Appointment(s)/Referral(s): Nathalie Damon DO [Doctor of Osteopathic Medicine] - 07/23/22 2:15 pm [facility] - 1 Week (For post-hospital followup care.) Patient Instructions/Handouts: Cervical Disc Herniation (DC) Activity/Diet/Wound Care/Special Instructions: Okay to continue activity as tolerated without restriction. Would try to avoid prolonged overhead work or heavy rigorous activity. Discharge/Stand Alone Forms: Work/Release Restrictions Form Discharge Disposition: HOME SELF-CARE
== END 2022-07-08 13:33 | disposition home or self-care (01) ==
LOC: EC 11:59 → INTOOBSV 15:07 → 3SCARD 15:07 → UNDODISIN 07-08 13:33
PROVIDERS: ADMIT Hospitalist; ATTEND Hospitalist
DX: M50.122 Cervical disc disorder at C5-C6 level with radiculopathy (principal); Z68.41 Body mass index [BMI] 40.0-44.9, adult; J45.909 Unspecified asthma, uncomplicated; F41.9 Anxiety disorder, unspecified; F32.A Depression, unspecified; F17.210 Nicotine dependence, cigarettes, uncomplicated; E66.01 Morbid (severe) obesity due to excess calories; Z88.0 Allergy status to penicillin; Z83.3 Family history of diabetes mellitus
CPT/HCPCS: 96374; 99285; 36415; 94760; 93005; 97161; 97535; 97165; 80061; 80053 ×2; 84484; 85025; 85610; 85730; 71046; 72125; 70496; 70450; 70498; 70553; 72141; G0378 ×3; J2920; A9585; Q9967

== ENCOUNTER 2022-08-20 05:14 | Emergency (ER) | payer OTHER ==
[2022-08-20] MEDS ORDERED: SODIUM CHLORIDE 0.9% 1,000 ML IV STA (05:41)
--- NOTE | 2022-08-20 05:43 | ED ---
Chest Pain HPI - General Chief Complaint: Chest Pain Stated Complaint: Chest pain, dizziness Time Seen by Provider: 08/20/22 05:41 Source: patient, RN notes reviewed, old records reviewed Mode of arrival: wheelchair Limitations: no limitations - History of Present Illness Initial Comments: This is a 26-year-old female DF for evaluation of chest pain today. Patient has no medical history takes no medications nonsmoker no trauma no fevers. Patient has had some chills and chest pain does have positive coronavirus exposure she does suffer from asthma MD Complaint: chest pain -: hour(s) Onset: during rest Pain Location: substernal Pain Radiation: none Severity: moderate Severity scale (1-10): 4 Quality: tightness, heaviness Consistency: constant Improves With: nothing Worsens With: nothing Context: recent illness Anginal Symptoms: diaphoresis, dyspnea Other Symptoms: cough, palpitations Treatments Prior to Arrival: none - Related Data Previous Rx's Medication Instructions Recorded methylPREDNISolone Dose Pack 4 mg PO DIRECTED #21 tab 07/07/22 [Medrol Dose Pack] Famotidine [Pepcid] 20 mg PO BID #60 tablet 07/08/22 Allergies Allergy/AdvReac Type Severity Reaction Status Date / Time Penicillins Allergy Unknown Rash/Hives Verified 08/20/22 05:17 Review of Systems ROS Statement: Those systems with pertinent positive or pertinent negative responses have been documented in the HPI. ROS Other: All systems not noted in ROS Statement are negative. EKG Findings - EKG Comments: EKG Findings:: EKG is sinus 86 MA 147 QRS 77 QTC 386 Past Medical History Past Medical History: Asthma Additional Past Medical History / Comment(s): Gestational diabetes, History of Any Multi-Drug Resistant Organisms: None Reported Past Surgical History: Section Additional Past Surgical History / Comment(s): IUD placement Past Anesthesia/Blood Transfusion Reactions: No Reported Reaction Past Psychological History: Anxiety, Depression Smoking Status: Current every day smoker Past Alcohol Use History: Occasional Past Drug Use History: Marijuana - Past Family History Mother History Unknown: Yes Family Medical History: No Reported History General Exam Limitations: no limitations General appearance: alert, in no apparent distress, anxious Head exam: Present: atraumatic, normocephalic, normal inspection Eye exam: Present: normal appearance, PERRL, EOMI. Absent: scleral icterus, conjunctival injection, periorbital swelling ENT exam: Present: normal exam, mucous membranes moist Neck exam: Present: normal inspection. Absent: tenderness, meningismus, lymphadenopathy Respiratory exam: Present: normal lung sounds bilaterally. Absent: respiratory distress, wheezes, rales, rhonchi, stridor Cardiovascular Exam: Present: regular rate, normal rhythm, normal heart sounds. Absent: systolic murmur, diastolic murmur, rubs, gallop, clicks GI/Abdominal exam: Present: soft, normal bowel sounds. Absent: distended, tenderness, guarding, rebound, rigid Extremities exam: Present: normal inspection, full ROM, normal capillary refill. Absent: tenderness, pedal edema, joint swelling, calf tenderness Back exam: Present: normal inspection Neurological exam: Present: alert, oriented X3, CN II-XII intact Psychiatric exam: Present: normal affect, normal mood Skin exam: Present: warm, dry, intact, normal color. Absent: rash Course Vital Signs 08/20/22 08/20/22 08/20/22 05:17 05:33 06:39 Temperature 97.9 F 98.7 F 98.0 F Pulse Rate 72 82 82 Respiratory 16 16 16 Rate Blood Pressure 129/94 138/118 121/88 O2 Sat by Pulse 98 100 100 Oximetry 08/20/22 08:38 Temperature 98.5 F Pulse Rate 70 Respiratory 18 Rate Blood Pressure 109/76 O2 Sat by Pulse 97 Oximetry - Reevaluation(s) Reevaluation #1: 08/19/22 Medical record is reviewed Patient symptoms improved here in the ER Patient informed of results and questions answered Chest Pain MDM - MDM 26 female to the emergency department for evaluation of chest pain today. Patient is nonspecific chest pain with improvement in symptoms here in the ER patient can be discharged home and patient is also positive for coronavirus Disposition Clinical Impression: Chest pain, Atypical chest pain, Coronavirus infection Disposition: HOME SELF-CARE Condition: Good Instructions (If sedation given, give patient instructions): Chest Pain (ED), Coronavirus Disease 2019 (COVID-19) Is patient prescribed a controlled substance at d/c from ED?: No Referrals: None,Stated [Primary Care Provider] - 1-2 days Time of Disposition: 07:20
--- NOTE | 2022-08-20 06:00 | XR ---
EXAMINATION TYPE: XR chest 1V portable DATE OF EXAM: 08/20/2022 COMPARISON: 07/06/2022 HISTORY: Chest pain TECHNIQUE: FINDINGS: Heart is normal. Lungs are clear. Diaphragm is normal. Bony thorax appears normal. IMPRESSION: Normal chest. No change.
[2022-08-20 07:21] LABS: Basophils % (A) 1 %; Eosinophils % (A) 1 %; HCT 41.9 % (34.0-46.0); HGB 15.6 gm/dL (11.4-16.0); Lymphocytes # (A) 1.8 k/uL (1.0-4.8); Lymphocytes % (A) 36 %; MCH 30.4 pg (25.0-35.0); MCHC 37.2 g/dL (31.0-37.0); MCV 81.7 fL (80.0-100.0); Monocytes # (A) 0.3 k/uL (0-1.0); Monocytes % (A) 6 %; Neutrophils # (A) 2.6 k/uL (1.3-7.7); Neutrophils % (A) 55 %; Platelet Count 272 k/uL (150-450); RBC 5.13 m/uL (3.80-5.40); RDW 13.3 % (11.5-15.5); WBC 4.9 k/uL (3.8-10.6)
[2022-08-20 07:35] LABS: ALT 27 U/L (4-34); AST 29 U/L (14-36); African American GFR (CKD) >90 (>60 ml/min/1.73 sqM); Albumin 4.5 g/dL (3.5-5.0); Alkaline Phosphatase 87 U/L (38-126); Anion Gap 10 mmol/L; Blood Urea Nitrogen 11 mg/dL (7-17); Calcium 8.6 mg/dL (8.4-10.2); Carbon Dioxide 25 mmol/L (22-30); Chloride 104 mmol/L (98-107); Glucose 93 mg/dL (74-99); Magnesium 1.8 mg/dL (1.6-2.3); Non-African American GFR(CKD) >90 (>60 ml/min/1.73 sqM); Potassium 3.7 mmol/L (3.5-5.1); Sodium 139 mmol/L (137-145); Total Bilirubin 0.6 mg/dL (0.2-1.3); Total Protein 8.4 g/dL (6.3-8.2)
[2022-08-20 08:46] VITALS: BP 109/76; PULSE 70; RESP 18; TEMP 98.5
== END 2022-08-20 08:45 | disposition home or self-care (01) ==
LOC: EC 05:14
DX: U07.1 COVID-19 (principal); J45.909 Unspecified asthma, uncomplicated; F41.9 Anxiety disorder, unspecified; F32.A Depression, unspecified; F17.200 Nicotine dependence, unspecified, uncomplicated; F12.90 Cannabis use, unspecified, uncomplicated; Z88.0 Allergy status to penicillin; Z20.822 Contact with and (suspected) exposure to COVID-19
CPT/HCPCS: 36415; 71045; 80053; 83735; 83880; 84484; 85025; 85379; 87636; 93005; 96360; 96361; 99285

== ENCOUNTER 2023-08-02 02:29 | Emergency (ER) | payer OTHER ==
[2023-08-02 02:55] VITALS: RESP 18
[2023-08-02 03:16] LABS: Basophils % (A) 0 %; Eosinophils # (A) 0.3 k/uL (0-0.7); Eosinophils % (A) 3 %; HGB 14.4 gm/dL (11.4-16.0); Lymphocytes # (A) 2.8 k/uL (1.0-4.8); Lymphocytes % (A) 27 %; MCH 30.4 pg (25.0-35.0); MCHC 35.1 g/dL (31.0-37.0); MCV 86.6 fL (80.0-100.0); Mean Platelet Volume 7.9; Monocytes # (A) 0.4 k/uL (0-1.0); Monocytes % (A) 4 %; Neutrophils # (A) 6.9 k/uL (1.3-7.7); Neutrophils % (A) 65 %; Platelet Count 294 k/uL (150-450); RBC 4.74 m/uL (3.80-5.40); RDW 13.2 % (11.5-15.5); WBC 10.6 k/uL (3.8-10.6)
--- NOTE | 2023-08-02 03:23 | ED ---
Chest Pain HPI - General Chief Complaint: Chest Pain Stated Complaint: Chest pain Time Seen by Provider: 08/02/23 03:22 Source: patient Mode of arrival: wheelchair Limitations: no limitations - History of Present Illness Initial Comments: healthy 27 yo female with PMH who presents to the ER via private vehicle for evaluation of left sided chest pain and tingling in her arm. Patient reports she was laying in bed when she experienced a sharp pain in her superior chest. No associated diaphoresis, lightheadedness or SOB. She did have some tingling in her left arm. She decided to come to the ER for evaluation. Patient denies any personal cadiac history or parents with early cardiac disease. She does vape and use marijuana. No other illicit drug use. - Related Data Allergies Allergy/AdvReac Type Severity Reaction Status Date / Time Penicillins Allergy Unknown Rash/Hives Verified 08/02/23 02:37 Review of Systems ROS Statement: Those systems with pertinent positive or pertinent negative responses have been documented in the HPI. ROS Other: All systems not noted in ROS Statement are negative. Past Medical History Past Medical History: Asthma Additional Past Medical History / Comment(s): Gestational diabetes, History of Any Multi-Drug Resistant Organisms: None Reported Past Surgical History: Section Additional Past Surgical History / Comment(s): IUD placement Past Anesthesia/Blood Transfusion Reactions: No Reported Reaction Past Psychological History: Anxiety, Depression Smoking Status: Current every day smoker, Vaper Past Alcohol Use History: Occasional Past Drug Use History: Marijuana - Past Family History Mother History Unknown: Yes Family Medical History: No Reported History General Exam Limitations: no limitations General appearance: alert, in no apparent distress Head exam: Present: atraumatic, normocephalic Eye exam: Present: normal appearance ENT exam: Present: normal exam Neck exam: Present: normal inspection Respiratory exam: Present: normal lung sounds bilaterally. Absent: respiratory distress Cardiovascular Exam: Present: regular rate, normal rhythm, normal heart sounds. Absent: systolic murmur, diastolic murmur, rubs GI/Abdominal exam: Present: soft. Absent: distended Rectal exam: Present: deferred Neurological exam: Present: alert, oriented X3 Psychiatric exam: Present: normal affect, normal mood Skin exam: Present: warm, dry, intact Course Vital Signs 08/02/23 08/02/23 02:35 05:56 Temperature 98.7 F 98 F Pulse Rate 84 80 Respiratory 18 18 Rate Blood Pressure 133/91 149/100 O2 Sat by Pulse 97 99 Oximetry Chest Pain MDM - MDM Patient seen and evaluated in the triage doherty as there were no ER beds available Was pt. sent in by a medical professional or institution (CHAPIN Torres, DISABILITY SERVICES COORDINATOR, urgent care, hospital, or group home...) When possible be specific @ -No Did you speak to anyone other than the patient for history (EMS, parent, family, police, friend...)? What history was obtained from this source @ -No Did you review nursing and triage notes (agree or disagree)? Why? @ -I reviewed and agree with nursing and triage notes Were old charts reviewed (outside hosp., previous admission, EMS record, old EKG, old radiological studies, urgent care reports/EKG's, group home records)? Report findings @ -No old charts were reviewed Differential Diagnosis (chest pain, altered mental status, abdominal pain women, abdominal pain men, vaginal bleeding, weakness, fever, dyspnea, syncope, headache, dizziness, GI bleed, back pain, seizure, CVA, palpatations, mental health)? @ -Differential Chest Pain: Stable Angina, Unstable Angina, STEMI, NSTEMI Aortic Dissection, Pneumothorax, Musculoskeletal, Esophageal Spasm GERD, Cholecystitis, Pancreatitis, Zoster, this is not meant to be an all-inclusive list. EKG interpreted by me (3pts min.). @ -As above X-rays interpreted by me (1pt min.). @No pneumothorax, no widened mediastinum CT interpreted by me (1pt min.). @ -None done U/S interpreted by me (1pt. min.). @ -None done What testing was considered but not performed or refused? (CT, X-rays, U/S, labs)? Why? @ -None What meds were considered but not given or refused? Why? @ -None Did you discuss the management of the patient with other professionals (professionals i.e. CHAPIN Torres, DISABILITY SERVICES COORDINATOR, lab, RT, psych nurse, sexual assault social worker, predatory animal exterminator, teacher, bank secrecy act officer, rehabilitation caseworker)? Give summary @ -No Was smoking cessation discussed for >3mins.? @ -No Was critical care preformed (if so, how long)? @ -No Were there social determinants of health that impacted care today? How? (Homelessness, low income, unemployed, alcoholism, drug addiction, transportation, low edu. Level, literacy, decrease access to med. care, usp, rehab)? @ -No Was there de-escalation of care discussed even if they declined (Discuss DNR or withdrawal of care, Hospice)? DNR status @ -No What co-morbidities impacted this encounter? (DM, HTN, Smoking, COPD, CAD, Cancer, CVA, ARF, Chemo, Hep., AIDS, mental health diagnosis, sleep apnea, morbid obesity)? @ -None Was patient admitted / discharged? Hospital course, mention meds given and route, prescriptions, significant lab abnormalities, going to OR and other pertinent info. @ -Discharge Workup initiated in triage, EKG was nonischemic chest x-ray was unremarkable. Patient was reevaluated she's minimal cardiac risk factors, non-ischemic EKG, unremarkable CXR Patient asymptomatic, comfortable with plan for discharge home. Undiagnosed new problem with uncertain prognosis? @ -No Drug Therapy requiring intensive monitoring for toxicity (Heparin, Nitro, Insulin, Cardizem)? @ -No Were any procedures done? @ -No Diagnosis/symptom? @ -Non cardiac chest pain Acute, or Chronic, or Acute on Chronic? @ -default Uncomplicated (without systemic symptoms) or Complicated (systemic symptoms)? @ -default Side effects of treatment? @ -No Exacerbation, Progression, or Severe Exacerbation? @ -No Poses a threat to life or bodily function? How? (Chest pain, [place], [place], pneumonia, PE, COPD, DKA, ARF, appy, cholecystitis, CVA, Diverticulitis, Homicidal, Suicidal, threat to staff... and all critical care pts) @ -No Disposition Clinical Impression: Atypical chest pain, HTN (hypertension) Disposition: HOME SELF-CARE Condition: Stable Instructions (If sedation given, give patient instructions): Noncardiac Chest Pain (ED) Is patient prescribed a controlled substance at d/c from ED?: No Referrals: Bay Crowell MD [Primary Care Provider] - 1-2 days
[2023-08-02 03:57] LABS: ALT 20 U/L (4-34); AST 27 U/L (14-36); African American GFR (CKD) >90 (>60 ml/min/1.73 sqM); Albumin 4.1 g/dL (3.5-5.0); Anion Gap 8 mmol/L; Blood Urea Nitrogen 12 mg/dL (7-17); Calcium 8.7 mg/dL (8.4-10.2); Carbon Dioxide 26 mmol/L (22-30); Chloride 104 mmol/L (98-107); Glucose 133 mg/dL (74-99); Non-African American GFR(CKD) >90 (>60 ml/min/1.73 sqM); Potassium 3.9 mmol/L (3.5-5.1); Sodium 138 mmol/L (137-145); Total Bilirubin 0.5 mg/dL (0.2-1.3); Total Protein 7.3 g/dL (6.3-8.2)
[2023-08-02 03:58] LABS: Alkaline Phosphatase 78 U/L (38-126); INR 0.9 (<1.2); Partial Thromboplastin Time 24.7 sec (22.0-30.0)
--- NOTE | 2023-08-02 06:00 | XR ---
EXAM: XR Chest, 2 Views CLINICAL HISTORY: ITS.REASON XR Reason: Chest Pain TECHNIQUE: Frontal and lateral views of the chest. COMPARISON: 10/24/22 FINDINGS: Lungs: Unremarkable. No consolidation. Pleural space: Unremarkable. No pneumothorax. Heart: Unremarkable. No cardiomegaly. Mediastinum: Unremarkable. Normal mediastinal contour. Bones/joints: Unremarkable. No acute fracture. IMPRESSION: Normal chest x-rays.
[2023-08-02 06:01] VITALS: BP 149/100; PULSE 80; TEMP 98
== END 2023-08-02 06:07 | disposition home or self-care (01) ==
LOC: EC 02:29
DX: R07.89 Other chest pain (principal); I10 Essential (primary) hypertension; J45.909 Unspecified asthma, uncomplicated; F17.290 Nicotine dependence, other tobacco product, uncomplicated; F12.90 Cannabis use, unspecified, uncomplicated; Z86.59 Personal history of other mental and behavioral disorders; Z88.0 Allergy status to penicillin
CPT/HCPCS: 36415; 71046; 80053; 83735; 84484; 85025; 85610; 85730; 93005; 99285

== ENCOUNTER 2024-07-07 17:32 | Emergency (ER) | payer OTHER ==
[2024-07-07 17:42] VITALS: TEMP 98
--- NOTE | 2024-07-07 18:03 | ED ---
General Adult HPI - General Chief complaint: Arrhythmia/Palpitations Stated complaint: Left leg pain, SOB Time Seen by Provider: 07/07/24 17:50 Source: patient, RN notes reviewed Mode of arrival: ambulatory Limitations: no limitations - History of Present Illness Initial comments: This is a 28 old female with significant past medical history resenting to the emergency department chief complaint of heart palpitations, intermittent shortness of breath, and left leg pain. Patient states that over the past week she has been experiencing upper respiratory faction symptoms including cough, runny nose, congestion, headaches and bodyaches. States that she has not been moving around much and is mostly been laying in bed and resting. She denies recent prolonged travel or recent surgeries or estrogen use. She denies history of DVT or blood clotting disorders. She denies chest pain. - Related Data Allergies Allergy/AdvReac Type Severity Reaction Status Date / Time Penicillins Allergy Unknown Rash/Hives Verified 07/07/24 17:41 Review of Systems ROS Statement: Those systems with pertinent positive or pertinent negative responses have been documented in the HPI. ROS Other: All systems not noted in ROS Statement are negative. Past Medical History Past Medical History: Asthma Additional Past Medical History / Comment(s): Gestational diabetes, History of Any Multi-Drug Resistant Organisms: None Reported Past Surgical History: Section Additional Past Surgical History / Comment(s): IUD placement Past Anesthesia/Blood Transfusion Reactions: No Reported Reaction Past Psychological History: Anxiety, Depression Smoking Status: Current every day smoker, Vaper Past Alcohol Use History: Occasional Past Drug Use History: Marijuana - Past Family History Mother History Unknown: Yes Family Medical History: No Reported History General Exam Limitations: no limitations General appearance: alert, in no apparent distress ENT exam: Present: normal exam, mucous membranes moist Neck exam: Present: normal inspection. Absent: tenderness, meningismus, lymphadenopathy Respiratory exam: Present: normal lung sounds bilaterally. Absent: respiratory distress, wheezes, rales, rhonchi, stridor Cardiovascular Exam: Present: regular rate, normal rhythm, normal heart sounds. Absent: systolic murmur, diastolic murmur, rubs, gallop, clicks GI/Abdominal exam: Present: soft, normal bowel sounds. Absent: distended, tenderness, guarding, rebound, rigid Extremities exam: Present: normal inspection, full ROM, normal capillary refill. Absent: tenderness, pedal edema, joint swelling, calf tenderness Back exam: Present: normal inspection Neurological exam: Present: alert, oriented X3, CN II-XII intact Course Vital Signs 07/07/24 07/07/24 17:40 21:24 Temperature 98.0 F Pulse Rate 89 94 Respiratory 16 18 Rate Blood Pressure 124/89 120/90 O2 Sat by Pulse 97 97 Oximetry Medical Decision Making - Medical Decision Making Was pt. sent in by a medical professional or institution (, PA, SLAB WORKER, urgent care, hospital, or fpc...) When possible be specific @ -No Did you speak to anyone other than the patient for history (EMS, parent, family, police, friend...)? What history was obtained from this source @ -No Did you review nursing and triage notes (agree or disagree)? Why? @ -I reviewed and agree with nursing and triage notes Were old charts reviewed (outside hosp., previous admission, EMS record, old EKG, old radiological studies, urgent care reports/EKG's, fpc records)? Report findings @ -No old charts were reviewed Differential Diagnosis (chest pain, altered mental status, abdominal pain women, abdominal pain men, vaginal bleeding, weakness, fever, dyspnea, syncope, head ache, dizziness, GI bleed, back pain, seizure, CVA, palpatations, mental health, musculoskeletal)? @ -Differential Dyspnea: Coronary syndrome, arrhythmia, tamponade, asthma, COPD, pulmonary embolism, pneumonia, pneumothorax, pulmonary effusion, anaphylaxis, diabetic ketoacidosis, flailed chest, pulmonary contusion, diaphragmatic rupture, anemia, neuromuscular, this is not meant to be an all-inclusive list. EKG interpreted by me (3pts min.). @ -completed at 1811 sinus rhythm with a ventricular rate of 79, parable 141, QRS 85, QTc 399 no acute signs ischemia X-rays interpreted by me (1pt min.). @ -chest X-ray no acute cardiopulmonary process or disease CT interpreted by me (1pt min.). @ -None done U/S interpreted by me (1pt. min.). @ -Ultrasound of the left lower extremity negative for DVT What testing was considered but not performed or refused? (CT, X-rays, U/S, labs)? Why? @ -None What meds were considered but not given or refused? Why? @ -None Did you discuss the management of the patient with other professionals (professionals i.e. , PA, SLAB WORKER, lab, RT, psych nurse, director social service, encephalographer, teacher, aerospace engineer officer armament, piano case maker)? Give summary @ -No Was smoking cessation discussed for >3mins.? @ -No Was critical care preformed (if so, how long)? @ -No Were there social determinants of health that impacted care today? How? (Homelessness, low income, unemployed, alcoholism, drug addiction, transportation, low edu. Level, literacy, decrease access to med. care, fdc, rehab)? @ -No Was there de-escalation of care discussed even if they declined (Discuss DNR or withdrawal of care, Hospice)? DNR status @ -No What co-morbidities impacted this encounter? (DM, HTN, Smoking, COPD, CAD, Cancer, CVA, ARF, Chemo, Hep., AIDS, mental health diagnosis, sleep apnea, morbid obesity)? @ -None Was patient admitted / discharged? Hospital course, mention meds given and route, prescriptions, significant lab abnormalities, going to OR and other pertinent info. @ -Discharge. 28-year-old female with heart palpitations, and shortness of breath. On initial evaluation patient's vitals are stable and nonhypoxic. Patient is not expressing signs of respiratory distress. Examination unremarkable. Patient is ultrasound is negative for DVT. Chest x-ray no acute cardiopulmonary process or disease noted. EKG reveals sinus rhythm. Patient's laboratory results are remarkable for a mildly low TSH level of 0.314. COVID, flu, RSV negative. Recommend that patient follows up with her primary care provider outpatient for further laboratory testing with low TSH. Patient stable for discharge. Discussed with my attending Dr. Lyon Undiagnosed new problem with uncertain prognosis? @ -No Drug Therapy requiring intensive monitoring for toxicity (Heparin, Nitro, Insulin, Cardizem)? @ -No Were any procedures done? @ -No Diagnosis/symptom? @ -Heart palpitations, shortness of breath, viral syndrome Acute, or Chronic, or Acute on Chronic? @ -acute Uncomplicated (without systemic symptoms) or Complicated (systemic symptoms)? @ -uncomplicated Side effects of treatment? @ -No Exacerbation, Progression, or Severe Exacerbation? @ -No Poses a threat to life or bodily function? How? (Chest pain, [place], [place], pneumonia, PE, COPD, DKA, ARF, appy, cholecystitis, CVA, Diverticulitis, Homicidal, Suicidal, threat to staff... and all critical care pts) @ -No - Lab Data Result diagrams: 07/07/24 18:19 07/07/24 18:19 Lab Results 07/07/24 07/07/24 07/07/24 Range/Units 18:19 18:19 18:19 WBC 7.7 (3.8-10.6) k/uL RBC 5.23 (3.80-5.40) m/uL Hgb 14.9 (11.4-16.0) gm/dL Hct 43.8 (34.0-46.0) % MCV 83.7 (80.0-100.0) fL MCH 28.4 (25.0-35.0) pg MCHC 33.9 (31.0-37.0) g/dL RDW 13.1 (11.5-15.5) % Plt Count 316 (150-450) k/uL MPV 7.0 Neutrophils % 67 % Lymphocytes % 26 % Monocytes % 4 % Eosinophils % 2 % Basophils % 1 % Neutrophils # 5.2 (1.3-7.7) k/uL Lymphocytes # 2.0 (1.0-4.8) k/uL Monocytes # 0.3 (0-1.0) k/uL Eosinophils # 0.1 (0-0.7) k/uL Basophils # 0.0 (0-0.2) k/uL PT 10.5 (10.0-12.5) sec INR 1.0 (<1.2) APTT 26.1 (22.0-30.0) sec D-Dimer 0.23 (<0.60) mg/L FEU Sodium 138 (137-145) mmol/L Potassium 3.9 (3.5-5.1) mmol/L Chloride 105 (98-107) mmol/L Carbon Dioxide 27 (22-30) mmol/L Anion Gap 6 mmol/L BUN 10 (7-17) mg/dL Creatinine 0.47 L (0.52-1.04) mg/dL Est GFR (CKD-EPI)AfAm >90 (>60 ml/min/1.73 sqM) Est GFR (CKD-EPI)NonAf >90 (>60 ml/min/1.73 sqM) Glucose 100 H (74-99) mg/dL Calcium 8.7 (8.4-10.2) mg/dL Magnesium 1.9 (1.6-2.3) mg/dL Total Bilirubin 0.4 (0.2-1.3) mg/dL AST 24 (14-36) U/L ALT 31 (4-34) U/L Alkaline Phosphatase 70 (38-126) U/L Troponin I (0.000-0.034) ng/mL Total Protein 7.4 (6.3-8.2) g/dL Albumin 4.1 (3.5-5.0) g/dL TSH 0.314 L (0.465-4.680) mIU/L HCG, Quant <2.4 mIU/mL Influenza Type A (PCR) (Not Detectd) Influenza Type B (PCR) (Not Detectd) RSV (PCR) (Not Detectd) SARS-CoV-2 (PCR) (Not Detectd) 07/07/24 07/07/24 Range/Units 18:19 19:51 WBC (3.8-10.6) k/uL RBC (3.80-5.40) m/uL Hgb (11.4-16.0) gm/dL Hct (34.0-46.0) % MCV (80.0-100.0) fL MCH (25.0-35.0) pg MCHC (31.0-37.0) g/dL RDW (11.5-15.5) % Plt Count (150-450) k/uL MPV Neutrophils % % Lymphocytes % % Monocytes % % Eosinophils % % Basophils % % Neutrophils # (1.3-7.7) k/uL Lymphocytes # (1.0-4.8) k/uL Monocytes # (0-1.0) k/uL Eosinophils # (0-0.7) k/uL Basophils # (0-0.2) k/uL PT (10.0-12.5) sec INR (<1.2) APTT (22.0-30.0) sec D-Dimer (<0.60) mg/L FEU Sodium (137-145) mmol/L Potassium (3.5-5.1) mmol/L Chloride (98-107) mmol/L Carbon Dioxide (22-30) mmol/L Anion Gap mmol/L BUN (7-17) mg/dL Creatinine (0.52-1.04) mg/dL Est GFR (CKD-EPI)AfAm (>60 ml/min/1.73 sqM) Est GFR (CKD-EPI)NonAf (>60 ml/min/1.73 sqM) Glucose (74-99) mg/dL Calcium (8.4-10.2) mg/dL Magnesium (1.6-2.3) mg/dL Total Bilirubin (0.2-1.3) mg/dL AST (14-36) U/L ALT (4-34) U/L Alkaline Phosphatase (38-126) U/L Troponin I <0.012 (0.000-0.034) ng/mL Total Protein (6.3-8.2) g/dL Albumin (3.5-5.0) g/dL TSH (0.465-4.680) mIU/L HCG, Quant mIU/mL Influenza Type A (PCR) Not Detected (Not Detectd) Influenza Type B (PCR) Not Detected (Not Detectd) RSV (PCR) Not Detected (Not Detectd) SARS-CoV-2 (PCR) Not Detected (Not Detectd) Disposition Clinical Impression: Viral syndrome, Heart palpitations, Leg pain Disposition: HOME SELF-CARE Condition: Good Instructions (If sedation given, give patient instructions): Heart Palpitations (ED) Additional Instructions: Please return to the Emergency Department if symptoms worsen or any other concerns. Recommend that you follow-up next week with your primary care provider for further evaluation of laboratory findings concerning for low TSH. Is patient prescribed a controlled substance at d/c from ED?: No Referrals: Bay Crowell MD [Primary Care Provider] - 1-2 days Time of Disposition: 21:17
[2024-07-07] MEDS: KETOROLAC 15 MG/ML 1 ML VIAL IVP STA (18:34)
[2024-07-07 18:35] LABS: Basophils % (A) 1 %; Eosinophils # (A) 0.1 k/uL (0-0.7); Eosinophils % (A) 2 %; HCT 43.8 % (34.0-46.0); HGB 14.9 gm/dL (11.4-16.0); Lymphocytes % (A) 26 %; MCH 28.4 pg (25.0-35.0); MCHC 33.9 g/dL (31.0-37.0); MCV 83.7 fL (80.0-100.0); Monocytes # (A) 0.3 k/uL (0-1.0); Monocytes % (A) 4 %; Neutrophils # (A) 5.2 k/uL (1.3-7.7); Neutrophils % (A) 67 %; Platelet Count 316 k/uL (150-450); RBC 5.23 m/uL (3.80-5.40); RDW 13.1 % (11.5-15.5); WBC 7.7 k/uL (3.8-10.6)
[2024-07-07 18:46] LABS: ALT 31 U/L (4-34); AST 24 U/L (14-36); African American GFR (CKD) >90 (>60 ml/min/1.73 sqM); Albumin 4.1 g/dL (3.5-5.0); Alkaline Phosphatase 70 U/L (38-126); Anion Gap 6 mmol/L; Blood Urea Nitrogen 10 mg/dL (7-17); Calcium 8.7 mg/dL (8.4-10.2); Carbon Dioxide 27 mmol/L (22-30); Chloride 105 mmol/L (98-107); Glucose 100 mg/dL (74-99); Magnesium 1.9 mg/dL (1.6-2.3); Non-African American GFR(CKD) >90 (>60 ml/min/1.73 sqM); Potassium 3.9 mmol/L (3.5-5.1); Sodium 138 mmol/L (137-145); Total Bilirubin 0.4 mg/dL (0.2-1.3); Total Protein 7.4 g/dL (6.3-8.2)
[2024-07-07 18:50] LABS: Partial Thromboplastin Time 26.1 sec (22.0-30.0); Prothrombin Time 10.5 sec (10.0-12.5)
[2024-07-07 19:03] LABS: HCG,Quantitative Serum <2.4 mIU/mL
--- NOTE | 2024-07-07 19:14 | US ---
EXAMINATION TYPE: US venous doppler duplex LE LT DATE OF EXAM: 07/07/2024 6:55 PM COMPARISON: NONE CLINICAL INDICATION: Female, 28 years old with history of popliteal pain; Pain left leg. , Pain, Swel ling TECHNIQUE: The lower extremity deep venous system is examined utilizing real time linear array sonog raffaele with graded compression, color doppler sonography, and spectral doppler. SIDE PERFORMED: Left FINDINGS: VESSELS IMAGED: Common Femoral Vein Deep Femoral Vein Greater Saphenous Vein * Femoral Vein Popliteal Vein Small Saphenous Vein * Proximal Calf Veins (* superficial vessels) Left Leg: Negative for DVT IMPRESSION: No ultrasound evidence for deep venous thrombosis. [facility], , 07/07/2024 7:11 PM
--- NOTE | 2024-07-07 19:31 | XR ---
EXAMINATION TYPE: XR chest 2V DATE OF EXAM: 07/07/2024 7:23 PM COMPARISON: 08/02/2023 CLINICAL INDICATION: Female, 28 years old with history of heart palpitations, SOB; [facility] TECHNIQUE: XR chest 2V Frontal and lateral views of the chest. FINDINGS: Lungs/Pleura: There is no evidence of pleural effusion, focal consolidation, or pneumothorax. Pulmonary vascularity: Unremarkable. Heart/mediastinum: Cardiomediastinal silhouette is unremarkable. Musculoskeletal: No acute osseous pathology. IMPRESSION: No acute cardiopulmonary disease/process. [facility], , 07/07/2024 7:29 PM
[2024-07-07] MEDS: MORPHINE SULFATE 2 MG/ML SYRINGE IVP ONE (19:58)
[2024-07-07 21:25] VITALS: BP 120/90; PULSE 94; RESP 18
== END 2024-07-07 21:27 | disposition home or self-care (01) ==
LOC: EC 17:32
DX: M79.605 Pain in left leg (principal); R00.2 Palpitations; B34.9 Viral infection, unspecified; F17.200 Nicotine dependence, unspecified, uncomplicated; Z88.0 Allergy status to penicillin; Z11.52 Encounter for screening for COVID-19
CPT/HCPCS: 36415; 93005; 85379; 80053; 83735; 84443; 84484; 85025; 85610; 85730; 84702; 87636; 71046; 93971; 99285; 96374; 96375; J2270; J1885

== ENCOUNTER 2024-07-08 21:55 | Emergency (ER) | payer OTHER ==
[2024-07-08] MEDS: FAMOTIDINE 20 MG/2 ML VIAL IV STA (22:41)
[2024-07-08] MEDS: KETOROLAC 15 MG/ML 1 ML VIAL IVP STA (22:44)
--- NOTE | 2024-07-08 22:46 | ED ---
Chest Pain HPI - General Chief Complaint: Chest Pain Stated Complaint: Chest pressure, left leg pain Time Seen by Provider: 07/08/24 22:04 Source: patient Mode of arrival: ambulatory Limitations: no limitations - History of Present Illness Initial Comments: Patient is a 28 y/o female with PMH anxiety, depression presenting for LLE pain. Pt states she has been sick and in bed for the last week with nasal congestion. Pt began noticing LLE pain when she got up to use the bathroom this week. Describes the pain as "hot" and "tingly" that began in the medial aspect of her left calf and today radiates up towards her inner thigh. Patient presented yesterday and had ultrasound of lower extremity done as well as labs, chest x- ray and EKG which were all within normal limits. Patient is been taking Tylenol and ibuprofen at home without relief. No overlying skin changes, rashes, no injuries, no back pain. Patient has no history of prior PE/DVT. Is a non- smoker. Is not on estrogen replacement therapy, though does have Kyleena IUD, no history of cancers, no hemoptysis, travel surgery or hospitalizations. No abdominal pain. Does endorse central chest pressure that is nonradiating today. States she is unsure if it is from her anxiety or something else. Endorses shortness of breath but feels this is from nasal congestion. Had a fever last Tuesday but none since. Notes few blood streaked stools but no grossly bloody or black stools. No first family members with CAD or CVA. No history of clotting disorders. No family history of sudden cardiac . - Related Data Allergies Allergy/AdvReac Type Severity Reaction Status Date / Time Penicillins Allergy Unknown Rash/Hives Verified 07/08/24 22:02 Review of Systems ROS Statement: Those systems with pertinent positive or pertinent negative responses have been documented in the HPI. ROS Other: All systems not noted in ROS Statement are negative. Constitutional: Denies: fever (last Tuesday, none since), weakness ENT: Reports: congestion Respiratory: Reports: cough, dyspnea (feels congested/thinks from nasal congestion). Denies: hemoptysis Cardiovascular: Reports: chest pain, palpitations. Denies: dyspnea on exertion Gastrointestinal: Reports: nausea, hematochezia (small streaks blood in stool intermittently). Denies: abdominal pain, vomiting, melena Musculoskeletal: Reports: myalgia. Denies: back pain, joint swelling, arthralgia Skin: Denies: rash, lesions, change in color Neurological: Denies: weakness, numbness, paresthesias Psychiatric: Reports: anxiety EKG Findings - EKG Comments: EKG Findings:: Sinus rhythm, rate 83 bpm, FL interval 136 ms, QRS duration 81 ms, QT QTc 345/34 ms, normal axis, no ST elevations or depressions, compared to EKG performed yesterday, no changes from prior arrhythmia, no Brugada pattern no delta waves Past Medical History Past Medical History: Asthma Additional Past Medical History / Comment(s): Gestational diabetes, History of Any Multi-Drug Resistant Organisms: None Reported Past Surgical History: Section Additional Past Surgical History / Comment(s): IUD placement Past Anesthesia/Blood Transfusion Reactions: No Reported Reaction Past Psychological History: Anxiety, Depression Smoking Status: Current every day smoker, Vaper Past Alcohol Use History: Occasional Past Drug Use History: Marijuana - Past Family History Mother History Unknown: Yes Family Medical History: No Reported History General Exam - General Exam Comments Initial Comments: PE: CONSTITUTIONAL: No apparent distress, well appearing SKIN: Warm, dry, no jaundice, hives or petechiae, no skin changes, bruising, erythema or lesions overlying area of discomfort EYES: Pupils are equally round, extraocular movements intact without nystagmus, clear conjunctiva, non-icteric sclera HENT: Normocephalic, atraumatic, moist mucus membranes, oropharynx clear without exudates NECK: , Full range of motion, normal appearance, no midline spinal tenderness to palpation, no lymphadenopathy PULMONARY: Clear to auscultation without wheezes, rhonchi, or rales, normal excursion, no accessory muscle use and no stridor CARDIOVASCULAR: Regular rate, rhythm, normal S1 and S2. No appreciated murmurs, rubs or gallops. Strong radial p and dorsalis pedis ulses with intact distal perfusion. No lower extremity edema GASTROINTESTINAL: Soft, active bowel sounds throughout, non-tender, non- distended, no palpable masses, no rebound or guarding. No hepatosplenomegaly MUSCULOSKELETAL: Extremities have no gross deformity, no edema, redness, or swelling. No calf swelling. Positive straight leg raise with lifting left right leg (states pain radiates towards medial left calf with leg raise, no midline spinal TTP NEUROLOGIC:_a/o x 3, GCS 15, normal mentation and speech. 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 sent in by a medical professional or institution (, PA, ABALONE FISHERMAN, urgent care, hospital, or half-way...) When possible be specific @ -[No] Did you speak to anyone other than the patient for history (EMS, parent, family, police, friend...)? What history was obtained from this source @ -[No] Did you review nursing and triage notes (agree or disagree)? Why? @ -[I reviewed and agree with nursing and triage notes] Were old charts reviewed (outside hosp., previous admission, EMS record, old EKG, old radiological studies, urgent care reports/EKG's, half-way records)? Report findings @Medical records reviewed, I reviewed patient's ER summary, chest x-ray, EKG, ultrasound and lab work obtained yesterday, x-ray without acute process, ultrasound did not show DVT, D-dimer 0.23, troponin less than 0.012, test negative, EKG reassuring Differential Diagnosis (chest pain, altered mental status, abdominal pain women, abdominal pain men, vaginal bleeding, weakness, fever, dyspnea, syncope, hea dache, dizziness, GI bleed, back pain, seizure, CVA, palpatations, mental health, musculoskeletal)? @Differential Musculoskeletal Muscular strain, contusion, ligament sprain, fracture, arthritis, septic arthritis, bursitis, cellulitis, muscle spasm, nerve compression, DVT, arterial occlusion, herpes zoster, electrolyte abnormality, tumor.... This is not meant to be in all inclusive list Differential Chest Pain: Stable Angina, Unstable Angina, STEMI, NSTEMI Aortic Dissection, pericarditis, pleurisy, chostochondirits, Pneumothorax, Musculoskeletal, Esophageal Spasm GERD, Cholecystitis, Pancreatitis, Zoster, this is not meant to be an all- inclusive list. EKG interpreted by me (3pts min.). @ -[As above] X-rays interpreted by me (1pt min.). @ -[None done] CT interpreted by me (1pt min.). @ -[None done] U/S interpreted by me (1pt. min.). @ -[None done] What testing was considered but not performed or refused? (CT, X-rays, U/S, labs)? Why? @ -[None] What meds were considered but not given or refused? Why? @ -[None] Did you discuss the management of the patient with other professionals (professionals i.e. Dr., PA, ABALONE FISHERMAN, lab, RT, psych nurse, social secretary, glass unloading equipment tender, teacher, field artillery officer, case management associate)? Give summary @ -[No] Was smoking cessation discussed for >3mins.? @ -[No] Was critical care preformed (if so, how long)? @ -[No] Were there social determinants of health that impacted care today? How? (Homelessness, low income, unemployed, alcoholism, drug addiction, transportation, low edu. Level, literacy, decrease access to med. care, alf, rehab)? @ -[No] Was there de-escalation of care discussed even if they declined (Discuss DNR or withdrawal of care, Hospice)? @ -[No] What co-morbidities impacted this encounter? (DM, HTN, Smoking, COPD, CAD, Cancer, CVA, ARF, Chemo, Hep., AIDS, mental health diagnosis, sleep apnea, morbid obesity)? @Anxiety Was patient admitted / discharged? Hospital course, mention meds given and route, prescriptions, significant lab abnormalities, going to OR and other pertinent info. @ -[hospital course] Patient is a previous healthy 28-year-old female history anxiety and depression presenting for left lower extremity pain. Noted central chest pain as well today. On my assessment patient is well-appearing and in no acute distress, no tachycardia or hypoxia. Patient is very anxious and endorses anxiety. Lungs are clear to auscultation bilaterally, normal S1-S2 on cardiac exam, 2+ pulses in all 4 extremities, left lower extremity shows no erythema, bruising, lesions, no joint swelling or deformity. Does have a positive straight leg raise. Neurovascularly intact. No midline spinal tenderness palpation. Differential diagnoses noted as above, I highly suspect radiculopathy/sciatica as cause of patient's leg pain. In addition, given patient's reassuring workup yesterday and the low suspicion for acute cardiac pathology or PE as cause patient's chest pain however I did discuss with the patient her reassuring workup yesterday and low risk for PE, but cannot be entirely ruled out without further imaging. I discussed radiation exposure from CT with patient and using shared decision making, patient preferred CT PE study be performed for her peace of mind. Additionally, we discussed valium for zanaflex for suspected radiculopathy, as valium would also help treat patient's anxiety. Pt preferred to start with zanaflex. Will do zanaflex, toradol, pepcid. Consider aspirin however I have very low suspicion for ACS given patient's reassuring workup yesterday and lack of risk factors and patient will already be receiving Toradol, another NSAID with hx gastric irritation from NSAIDs, so will forgo ASA at this time and reconsider if signficant troponin elevation. Labs reviewed. Grossly within normal limits. Abnormal values not concerning for acute pathology related to presenting complaint. Undiagnosed new problem with uncertain prognosis? @ -[No] Drug Therapy requiring intensive monitoring for toxicity (Heparin, Nitro, Insulin, Cardizem)? @ -[No] Were any procedures done? @ -[No] Diagnosis/symptom? @ -Leg pain, chest pain, anxiety Acute, or Chronic, or Acute on Chronic? @ -[default] Uncomplicated (without systemic symptoms) or Complicated (systemic symptoms)? @ -Complicated Side effects of treatment? @ -[No] Exacerbation, Progression, or Severe Exacerbation? @ -[No] Poses a threat to life or bodily function? How? (Chest pain, [place], [place], pneumonia, PE, COPD, DKA, ARF, appy, cholecystitis, CVA, Diverticulitis, Homicidal, Suicidal, threat to staff... and all critical care pts) @ -[No] Disposition Clinical Impression: Left leg pain, Chest pain Disposition: HOME SELF-CARE Condition: Good Instructions (If sedation given, give patient instructions): Chest Pain (ED), Chest Pain (DC) Additional Instructions: Every disease is a spectrum and a small chance still exists that a serious condition could develop, for this reason, please monitor yourself closely for new, changing or worsening symptoms, symptoms that persist beyond 48 hours, new rashes or redness on your skin, coughing up blood, swelling in your leg, pain that you cannot control home medications, episodes of passing out, fever, inability to tolerate/keep down fluids or your medications, inability to follow up with outpatient providers as instructed and should you experience these symptoms or should you have any further concerns for your wellbeing please return to the ED or call 911 immediately. Your pain can be treated with ibuprofen and acetaminophen. You can take up to 400-600 mg of ibuprofen (Advil, Motrin) 3 times daily (every 8 hours) but can also use lower doses if this relieves your pain. Some people prefer naproxen (Aleve, Naprosyn) which can be taken in doses of 500 mg up to twice a day. Do not take both of these medicines together, and do not combine either with ketor olac (Toradol), meloxicam (Mobic), or indomethacin (Tivorbex). Some people can develop stomach discomfort with higher doses of either ibuprofen or naproxen, if this develops decrease your dose or stop taking it. If you need to take this dose daily for more than a week, please schedule an appointment for re- evaluation with your PCP. Please take these medications with food. You can take up to 1000 mg of acetaminophen (Tylenol) every 6 hours. Be careful as this is included in some medicines like Nyquil, [place], Percocet, Vicodin, STANBACK, Goody's Powders, and Excedrin. You can also use lidocaine patches for topical pain. You can purchase 4% patches over the counter at most drug stores. These can be helpful for pain from your muscles or bones. PLEASE call your primary care physician as soon as possible to arrange / discuss plan for followup appointment. Appointment in the next 1-3 days is strongly encouraged if possible. PLEASE let us know here before you leave if there is anything further we can do to be of any assistance. Take care and feel Better! Is patient prescribed a controlled substance at d/c from ED?: No Referrals: Bay Crowell MD [Primary Care Provider] - 1-2 days Dami Rice MD [Medical Doctor] - 1-2 days
[2024-07-08 22:53] LABS: INR 0.9 (<1.2); Partial Thromboplastin Time 25.2 sec (22.0-30.0); Prothrombin Time 10.1 sec (10.0-12.5)
[2024-07-08 22:55] LABS: ALT 30 U/L (4-34); AST 34 U/L (14-36); African American GFR (CKD) >90 (>60 ml/min/1.73 sqM); Albumin 4.4 g/dL (3.5-5.0); Alkaline Phosphatase 70 U/L (38-126); Anion Gap 8 mmol/L; Basophils % (A) 1 %; Blood Urea Nitrogen 10 mg/dL (7-17); Carbon Dioxide 25 mmol/L (22-30); Chloride 107 mmol/L (98-107); Eosinophils # (A) 0.1 k/uL (0-0.7); Eosinophils % (A) 2 %; Glucose 108 mg/dL (74-99); HCT 42.8 % (34.0-46.0); Lipase 116 U/L (23-300); Lymphocytes # (A) 2.8 k/uL (1.0-4.8); Lymphocytes % (A) 36 %; MCH 29.4 pg (25.0-35.0); MCHC 35.1 g/dL (31.0-37.0); MCV 83.7 fL (80.0-100.0); Mean Platelet Volume 7.1; Monocytes # (A) 0.4 k/uL (0-1.0); Monocytes % (A) 5 %; Neutrophils # (A) 4.4 k/uL (1.3-7.7); Neutrophils % (A) 56 %; Non-African American GFR(CKD) >90 (>60 ml/min/1.73 sqM); Platelet Count 308 k/uL (150-450); RBC 5.11 m/uL (3.80-5.40); RDW 13.2 % (11.5-15.5); Sodium 140 mmol/L (137-145); Total Bilirubin 0.5 mg/dL (0.2-1.3); Total Protein 7.9 g/dL (6.3-8.2); WBC 7.8 k/uL (3.8-10.6)
[2024-07-08 23:04] LABS: NT-Pro-B-Type Natriuretic Pept <20 pg/mL
[2024-07-08] MEDS: tiZANidine 4 MG TAB PO PRN (23:26)
--- NOTE | 2024-07-09 00:08 | CT ---
EXAMINATION TYPE: CT chest angio for PE DATE OF EXAM: 07/08/2024 COMPARISON: Prior CT 2018 HISTORY: CENTRAL CHEST PRESSURE RULE OUT PE CT DLP: 1326 mGycm. Automated Exposure Control for Dose Reduction was Utilized. CONTRAST: CTA scan of the thorax is performed with IV Contrast, patient injected with 100 mL of Isovue 370, pul monary embolism protocol. MIP Images are created on CT scanner and reviewed. FINDINGS: LUNGS: The lungs are grossly clear, there is no concerning parenchymal mass or focal consolidation id entified. There is no pleural effusion or pneumothorax seen. The tracheobronchial tree is patent. MEDIASTINUM: Suboptimal essentially nondiagnostic study for acute pulmonary embolism. Contrast is see n in the aorta without aneurysm or dissection. Contrast is seen filling the pulmonary veins draining into the left atrium. No cardiomegaly or pericardial effusion is seen. OTHER: No additional significant abnormality is seen. IMPRESSION: 1. Nondiagnostic for evaluation for acute pulmonary embolism. Consider hydration and repeat CT in 12 to 24 hours. No suspicious acute pulmonary parenchymal process. [facility], , 07/09/2024 12:06 AM
[2024-07-09 02:21] VITALS: BP 141/92; PULSE 87; RESP 18; TEMP 97.8
== END 2024-07-09 02:20 | disposition home or self-care (01) ==
LOC: EC 21:55
DX: M79.605 Pain in left leg (principal); R07.89 Other chest pain; F17.290 Nicotine dependence, other tobacco product, uncomplicated; Z88.0 Allergy status to penicillin
CPT/HCPCS: 36415 ×2; 93005; 83880; 80053; 83690; 84484 ×2; 85025; 85610; 85730; 84703; 71275; 99285; 96374; 96375 ×2; 96376; J3360 ×2; J3490; J1885; Q9967

== ENCOUNTER 2024-07-23 22:24 | Emergency (ER) | payer OTHER ==
[2024-07-23 22:30] VITALS: RESP 16; TEMP 98
[2024-07-23] MEDS: KETOROLAC 15 MG/ML 1 ML VIAL IM STA (23:27)
[2024-07-23] MEDS: DEXAMETHASONE SOD PHOSPHATE 10 MG/ML 1 ML VIAL IM STA (23:28)
--- NOTE | 2024-07-24 00:31 | CT ---
EXAM: CT Head Without Intravenous Contrast CLINICAL HISTORY: ITS.REASON CT Reason: numbness L hand TECHNIQUE: Axial computed tomography images of the head/brain without intravenous contrast. CTDI is 45.3 mGy and DLP is 1066 mGy-cm. This CT exam was performed using one or more of the following dose reduction techniques: automated exposure control, adjustment of the mA and/or kV according to patient size, and/or use of iterative reconstruction technique. COMPARISON: No relevant prior studies available. FINDINGS: Brain: Unremarkable. No hemorrhage. No significant white matter disease. No edema. Ventricles: Unremarkable. No ventriculomegaly. Bones/joints: Unremarkable. No acute fracture. Soft tissues: Unremarkable. Sinuses: Unremarkable as visualized. No acute sinusitis. Mastoid air cells: Unremarkable as visualized. No mastoid effusion. IMPRESSION: No evidence of acute intracranial abnormality. EXAM: CT Cervical Spine Without Intravenous Contrast CLINICAL HISTORY: ITS.REASON CT Reason: numbness L hand TECHNIQUE: Axial computed tomography images of the cervical spine without intravenous contrast. CTDI is 21.7 mGy and DLP is 581.9 mGy-cm. This CT exam was performed using one or more of the following dose reduction techniques: automated exposure control, adjustment of the mA and/or kV according to patient size, and/or use of iterative reconstruction technique. COMPARISON: No relevant prior studies available. FINDINGS: Vertebrae: Straightening of the cervical lordosis. No acute fracture. Discs/spinal canal/neural foramina: Mild degenerative changes at C5-6 and C6-7. At C6-7 disc osteophyte complex with mild to moderate central canal stenosis. Soft tissues: Unremarkable. IMPRESSION: 1. Straightening of the cervical lordosis. May be positional or due to muscle spasm. 2. Mild degenerative changes at C5-6 and C6-7. At C6-7 disc osteophyte complex with mild to moderate central canal stenosis.
--- NOTE | 2024-07-24 00:33 | ED ---
Extremity Problem HPI - General Chief complaint: Extremity Problem,Nontraumatic Stated complaint: L Arm Numbness Time Seen by Provider: 07/23/24 22:42 Source: patient Mode of arrival: ambulatory Limitations: no limitations - History of Present Illness Initial comments: 36-year-old female presenting with chief complaint of tingling and numbness to the left hand. Has been ongoing for the last 3 to 4 days. Denies any injury or trauma. Denies neck pain. No redness or swelling. No fevers or chills. No history of carpal tunnel. Numbness mainly over the thumb. No headache. No dizziness. No recent illness. No fevers. No chest pain or difficulty breathing. Patient also states she was having some tingling in the left foot. Patient has been seen here previously with similar complaints, had ultrasound negative for DVT on 07/07. No swelling. No injury. No loss of range of motion. - Related Data Previous Rx's Medication Instructions Recorded Cyclobenzaprine [Flexeril] 10 mg PO TID PRN #10 tab 07/24/24 Allergies Allergy/AdvReac Type Severity Reaction Status Date / Time Penicillins Allergy Unknown Rash/Hives Verified 07/23/24 22:30 Review of Systems ROS Statement: Those systems with pertinent positive or pertinent negative responses have been documented in the HPI. ROS Other: All systems not noted in ROS Statement are negative. Past Medical History Past Medical History: Asthma Additional Past Medical History / Comment(s): Gestational diabetes, History of Any Multi-Drug Resistant Organisms: None Reported Past Surgical History: Section Additional Past Surgical History / Comment(s): IUD placement Past Anesthesia/Blood Transfusion Reactions: No Reported Reaction Past Psychological History: Anxiety, Depression Smoking Status: Current every day smoker, Vaper Past Alcohol Use History: Occasional Past Drug Use History: Marijuana - Past Family History Mother History Unknown: Yes Family Medical History: No Reported History General Exam Limitations: no limitations General appearance: alert, in no apparent distress Head exam: Present: atraumatic, normocephalic, normal inspection Eye exam: Present: normal appearance, PERRL, EOMI Neck exam: Present: normal inspection. Absent: tenderness, meningismus Respiratory exam: Present: normal lung sounds bilaterally. Absent: respiratory distress, wheezes, rales, rhonchi, stridor Cardiovascular Exam: Present: regular rate, normal rhythm, normal heart sounds. Absent: systolic murmur, diastolic murmur, rubs, gallop, clicks Extremities exam: Present: normal inspection, full ROM, normal capillary refill (Distal pulses of the lower extremities 2+). Absent: tenderness, pedal edema Neurological exam: Present: alert, oriented X3 Psychiatric exam: Present: normal affect, normal mood Skin exam: Present: warm, dry Course Vital Signs 07/23/24 07/24/24 22:27 01:05 Temperature 98 F Pulse Rate 102 H 94 Respiratory 16 16 Rate Blood Pressure 134/97 131/90 O2 Sat by Pulse 97 97 Oximetry Medical Decision Making - Medical Decision Making Was pt. sent in by a medical professional or institution (, PA, HEALTH SAFETY COORDINATOR, urgent care, hospital, or [place] [facility] facility...) When possible be specific @ -No Did you speak to anyone other than the patient for history (EMS, parent, family, police, friend...)? What history was obtained from this source @ -No Did you review nursing and triage notes (agree or disagree)? Why? @ -I reviewed and agree with nursing and triage notes Were old charts reviewed (outside hosp., previous admission, EMS record, old EKG, old radiological studies, urgent care reports/EKG's, [place] [facility] facility records)? Report findings @ -Previous visits reviewed Differential Diagnosis (chest pain, altered mental status, abdominal pain women, abdominal pain men, vaginal bleeding, weakness, fever, dyspnea, syncope, headache, dizziness, GI bleed, back pain, seizure, CVA, palpatations, mental health, musculoskeletal)? @ -Differential Musculoskeletal Muscular strain, contusion, ligament sprain, fracture, arthritis, septic arthritis, bursitis, cellulitis, muscle spasm, nerve compression, DVT, arterial occlusion, herpes zoster, electrolyte abnormality, tumor.... This is not meant to be in all inclusive list EKG interpreted by me (3pts min.). @ -As above X-rays interpreted by me (1pt min.). @ -None done CT interpreted by me (1pt min.). @ -CT negative for acute intracranial abnormality. Straightening of the cervical lordosis. May be positional or due to muscle spasm. Mild degenerative changes at C5-6 and C6-7. At C6-7 disc osteophyte complex with mild to moderate central canal stenosis U/S interpreted by me (1pt. min.). @ -None done What testing was considered but not performed or refused? (CT, X-rays, U/S, labs)? Why? @ -None What meds were considered but not given or refused? Why? @ -None Did you discuss the management of the patient with other professionals (professionals i.e. , PA, HEALTH SAFETY COORDINATOR, lab, RT, psych nurse, dialysis social worker, speeder machine operator, teacher, campus police officer, lead case manager)? Give summary @ -No Was smoking cessation discussed for >3mins.? @ -No Was critical care preformed (if so, how long)? @ -No Were there social determinants of health that impacted care today? How? (Homelessness, low income, unemployed, alcoholism, drug addiction, transportation, low edu. Level, literacy, decrease access to med. care, halfway, rehab)? @ -No Was there de-escalation of care discussed even if they declined (Discuss DNR or withdrawal of care, Hospice)? DNR status @ -No What co-morbidities impacted this encounter? (DM, HTN, Smoking, COPD, CAD, Cancer, CVA, ARF, Chemo, Hep., AIDS, mental health diagnosis, sleep apnea, morbid obesity)? @ -None Was patient admitted / discharged? Hospital course, mention meds given and route, prescriptions, significant lab abnormalities, going to OR and other pertinent info. @ -28-year-old female presenting with chief complaint of numbness and tingling to the left hand ongoing for 3 to 4 days. History and physical examination are conducted. She is neurovascularly intact with no weakness. CT shows no acute intracranial process there are some degenerative changes of the spine. Educated patient on CT findings and radiculopathy. Educated patient on supportive management at home and the need for outpatient follow-up with her PCP. Follow- up with PCP. Report back to ER with any new or worsening symptoms. Discussed return parameters and answered all questions. Patient conveyed verbal unders tanding and agreed to the plan. I discussed this case in detail with my attending Dr. Perez Undiagnosed new problem with uncertain prognosis? @ -No Drug Therapy requiring intensive monitoring for toxicity (Heparin, Nitro, Insulin, Cardizem)? @ -No Were any procedures done? @ -No Diagnosis/symptom? @ -Radiculopathy Acute, or Chronic, or Acute on Chronic? @ -Acute Uncomplicated (without systemic symptoms) or Complicated (systemic symptoms)? @ -Uncomplicated Side effects of treatment? @ -No Exacerbation, Progression, or Severe Exacerbation? @ -No Poses a threat to life or bodily function? How? (Chest pain, [place], [place], pneumonia, PE, COPD, DKA, ARF, appy, cholecystitis, CVA, Diverticulitis, Homicidal, Suicidal, threat to staff... and all critical care pts) @ -Unlikely Disposition Clinical Impression: Radiculopathy Disposition: HOME SELF-CARE Condition: Good Instructions (If sedation given, give patient instructions): Cervical Radiculopathy (ED) Additional Instructions: Follow-up with PCP. Report back to ER with any new or worsening symptoms. Prescriptions: Cyclobenzaprine [Flexeril] 10 mg PO TID PRN #10 tab PRN Reason: Spasms Is patient prescribed a controlled substance at d/c from ED?: No Referrals: Salina Hermosillo FNPBC [Primary Care Provider] - 1-2 days Time of Disposition: 00:58
[2024-07-24] MEDS: CYCLOBENZAPRINE 10 MG TAB PO STA (00:35)
[2024-07-24 01:08] VITALS: BP 131/90; PULSE 94
== END 2024-07-24 01:05 | disposition home or self-care (01) ==
LOC: EC 22:24
DX: M54.10 Radiculopathy, site unspecified (principal); F17.290 Nicotine dependence, other tobacco product, uncomplicated; Z88.0 Allergy status to penicillin
CPT/HCPCS: 72125; 70450; 99284; 96372 ×2; J1100; J1885

== ENCOUNTER 2024-07-25 18:49 | Emergency (ER) | payer OTHER ==
[2024-07-25 19:06] VITALS: RESP 18
--- NOTE | 2024-07-25 20:08 | ED ---
Extremity Problem HPI - General Chief complaint: Extremity Problem,Nontraumatic Stated complaint: L leg pain/swelling Time Seen by Provider: 07/25/24 20:06 Source: patient, RN notes reviewed Mode of arrival: ambulatory Limitations: no limitations - History of Present Illness Initial comments: 28-year-old female presenting to the ER with chief complaint of right lower leg pain x 2 days. States the pain radiates up to the posterior thigh. She was seen at [facility] and sent here to rule out DVT with ultrasound. Denies recent surgery or travel. She is a non-smoker. Denies control pills. States she has a history of a superficial blood clot in her left upper extremity, however is not on thinners. Denies recent injury or trauma. - Related Data Previous Rx's Medication Instructions Recorded Cyclobenzaprine [Flexeril] 10 mg PO TID PRN #10 tab 07/24/24 Allergies Allergy/AdvReac Type Severity Reaction Status Date / Time Penicillins Allergy Unknown Rash/Hives Verified 07/25/24 19:03 Review of Systems ROS Statement: Those systems with pertinent positive or pertinent negative responses have been documented in the HPI. ROS Other: All systems not noted in ROS Statement are negative. Past Medical History Past Medical History: Asthma Additional Past Medical History / Comment(s): Gestational diabetes, History of Any Multi-Drug Resistant Organisms: None Reported Past Surgical History: Section Additional Past Surgical History / Comment(s): IUD placement Past Anesthesia/Blood Transfusion Reactions: No Reported Reaction Past Psychological History: Anxiety, Depression Smoking Status: Current every day smoker, Vaper Past Alcohol Use History: Occasional Past Drug Use History: Marijuana - Past Family History Mother History Unknown: Yes Family Medical History: No Reported History General Exam Limitations: no limitations General appearance: alert, in no apparent distress Head exam: Present: atraumatic, normocephalic, normal inspection Left Upper Leg exam: Present: normal inspection, full ROM. Absent: tenderness, swelling Knee exam: Present: normal inspection, full ROM. Absent: tenderness, swelling Lower Leg exam: Present: normal inspection, full ROM, tenderness (Calf tenderness). Absent: swelling, abrasion, laceration, ecchymosis, deformity, crepitus, dislocation, erythema, palpable cord Ankle exam: Present: normal inspection, full ROM. Absent: tenderness, swelling Foot/Toe exam: Present: normal inspection, full ROM. Absent: tenderness, swelling Neurovascular tendon exam: Present: no vascular compromise. Absent: pulse deficit, abnormal cap refill, sensory deficit Neurological exam: Present: alert, oriented X3 Psychiatric exam: Present: normal affect, normal mood Skin exam: Present: warm, dry, intact, normal color. Absent: rash Course Vital Signs 07/25/24 19:04 Temperature 98.1 F Pulse Rate 90 Respiratory 18 Rate Blood Pressure 126/83 O2 Sat by Pulse 97 Oximetry Medical Decision Making - Medical Decision Making Was pt. sent in by a medical professional or institution (, PA, BROWNFIELD PROGRAM COORDINATOR, urgent care, hospital, or alf...) When possible be specific @ -Sent by [facility] to rule out DVT Did you speak to anyone other than the patient for history (EMS, parent, family, police, friend...)? What history was obtained from this source @ -No Did you review nursing and triage notes (agree or disagree)? Why? @ -I reviewed and agree with nursing and triage notes Were old charts reviewed (outside hosp., previous admission, EMS record, old EKG, old radiological studies, urgent care reports/EKG's, alf records)? Report findings @ -No old charts were reviewed Differential Diagnosis (chest pain, altered mental status, abdominal pain women, abdominal pain men, vaginal bleeding, weakness, fever, dyspnea, syncope, headache, dizziness, GI bleed, back pain, seizure, CVA, palpatations, mental health, musculoskeletal)? @ -Differential Musculoskeletal Muscular strain, contusion, ligament sprain, fracture, arthritis, septic arthritis, bursitis, cellulitis, muscle spasm, nerve compression, DVT, arterial occlusion, herpes zoster, electrolyte abnormality, tumor.... This is not meant to be in all inclusive list EKG interpreted by me (3pts min.). @ -None X-rays interpreted by me (1pt min.). @ -None done CT interpreted by me (1pt min.). @ -None done U/S interpreted by me (1pt. min.). @ -Ultrasound left lower extremity negative for DVT What testing was considered but not performed or refused? (CT, X-rays, U/S, labs)? Why? @ -None What meds were considered but not given or refused? Why? @ -None Did you discuss the management of the patient with other professionals (professionals i.e. , PA, BROWNFIELD PROGRAM COORDINATOR, lab, RT, psych nurse, protective services social worker, carbide operator, teacher, business services officer, leather case finisher)? Give summary @ -No Was smoking cessation discussed for >3mins.? @ -No Was critical care preformed (if so, how long)? @ -No Were there social determinants of health that impacted care today? How? (Homelessness, low income, unemployed, alcoholism, drug addiction, transp ortation, low edu. Level, literacy, decrease access to med. care, intermediate, rehab)? @ -No Was there de-escalation of care discussed even if they declined (Discuss DNR or withdrawal of care, Hospice)? DNR status @ -No What co-morbidities impacted this encounter? (DM, HTN, Smoking, COPD, CAD, Cancer, CVA, ARF, Chemo, Hep., AIDS, mental health diagnosis, sleep apnea, morbid obesity)? @ -None Was patient admitted / discharged? Hospital course, mention meds given and route, prescriptions, significant lab abnormalities, going to OR and other pertinent info. @ -Discharged. This is a 28-year-old female presenting to the ER with chief complaint of left lower leg pain x 2 days. Denies trauma or injury. Denies blood thinners. Vital signs within acceptable limits. Physical examination remarkable for left calf tenderness. No sign of bacterial infection. Ultrasound left lower extremity negative for DVT. Discussed results with patient. Appropriate return precautions and follow-up care discussed. Case was discussed with the ED attending Dr. Hebert. Undiagnosed new problem with uncertain prognosis? @ -No Drug Therapy requiring intensive monitoring for toxicity (Heparin, Nitro, Insulin, Cardizem)? @ -No Were any procedures done? @ -No Diagnosis/symptom? @ -Left lower leg pain Acute, or Chronic, or Acute on Chronic? @ -Acute Uncomplicated (without systemic symptoms) or Complicated (systemic symptoms)? @ -Uncomplicated Side effects of treatment? @ -No Exacerbation, Progression, or Severe Exacerbation? @ -No Poses a threat to life or bodily function? How? (Chest pain, [place], [place], pneumonia, PE, COPD, DKA, ARF, appy, cholecystitis, CVA, Diverticulitis, Homicidal, Suicidal, threat to staff... and all critical care pts) @ -No Disposition Clinical Impression: Pain of left lower extremity Disposition: HOME SELF-CARE Condition: Stable Additional Instructions: Please return to the Emergency Department if symptoms worsen or any other concerns. Is patient prescribed a controlled substance at d/c from ED?: No Referrals: Salina Hermosillo FNPBC [Family Provider] - 1-2 days Time of Disposition: 21:31
--- NOTE | 2024-07-25 21:09 | US ---
EXAMINATION TYPE: US venous doppler duplex LE LT DATE OF EXAM: 07/25/2024 9:03 PM COMPARISON: 07/07/24 CLINICAL INDICATION: Female, 28 years old with history of left lower extremity pain; Patient states l eft leg pain. No hx DVT, TECHNIQUE: The lower extremity deep venous system is examined utilizing real time linear array sonog raffaele with graded compression, color doppler sonography, and spectral doppler. SIDE PERFORMED: Left FINDINGS: VESSELS IMAGED: Common Femoral Vein Deep Femoral Vein Greater Saphenous Vein * Femoral Vein Popliteal Vein Small Saphenous Vein * Proximal Calf Veins (* superficial vessels) Left Leg: Appears negative for DVT, Color Doppler imaging shows patency of the vessels. Spectral wav eforms are within normal limits. IMPRESSION: No ultrasound evidence for deep venous thrombosis. [facility], , 07/25/2024 9:07 PM
[2024-07-25 21:42] VITALS: BP 120/78; PULSE 86; TEMP 98
== END 2024-07-25 21:43 | disposition home or self-care (01) ==
LOC: EC 18:49
DX: M79.662 Pain in left lower leg (principal); F17.290 Nicotine dependence, other tobacco product, uncomplicated; Z88.0 Allergy status to penicillin
CPT/HCPCS: 99283

== ENCOUNTER 2024-07-29 15:42 | Emergency (ER) | payer OTHER ==
[2024-07-29 15:51] VITALS: TEMP 98.2
--- NOTE | 2024-07-29 16:26 | ED ---
Chest Pain HPI - General Chief Complaint: Chest Pain Stated Complaint: chest pain Time Seen by Provider: 07/29/24 16:23 Source: patient, RN notes reviewed, old records reviewed Mode of arrival: ambulatory Limitations: no limitations - History of Present Illness Initial Comments: 28-year-old female presented to the ER with a chief complaint of centralized chest discomfort. Patient states it started intermittently yesterday while a passenger in a vehicle on her way to [place]. She describes it as a pressure sensation with radiation to her back. There are intermittent sharp stabbing pains as well. Patient believes he was acid reflux at that time and took Tums and Prilosec without relief. Patient states throughout the day today she noticed stabbing and pressure sensation became more frequent which brought her to the ER. She does report mild lightheadedness. She states when she got home she also took Tylenol and ibuprofen without relief. She denies any dizziness, shortness of breath, nausea or vomiting. Patient denies any known cardiac history. Patient states she is currently being worked up outpatient for thyroid disorder. Patient denies a personal history of DVTs or PEs. She is not on any current control and states she quit vaping approximately 1 month ago. Patient denies any peripheral edema. Patient states she is currently being worked up for "neck issues". She believes she has a pinched nerve as she has been seen here multiple times with arm numbness. She denies any current arm numbness. No other complaints. - Related Data Previous Rx's Medication Instructions Recorded Cyclobenzaprine [Flexeril] 10 mg PO TID PRN #10 tab 07/24/24 Allergies Allergy/AdvReac Type Severity Reaction Status Date / Time Penicillins Allergy Unknown Rash/Hives Verified 07/29/24 15:47 Review of Systems ROS Statement: Those systems with pertinent positive or pertinent negative responses have been documented in the HPI. ROS Other: All systems not noted in ROS Statement are negative. EKG Findings - EKG Comments: EKG Findings:: EKG taken at 16: 10 showing a normal sinus rhythm. No T wave or ST segment abnormalities. Ventricular rate 91, KS interval 136, QRS duration 81, QT/QTc 339/388. Past Medical History Past Medical History: Asthma Additional Past Medical History / Comment(s): Gestational diabetes, History of Any Multi-Drug Resistant Organisms: None Reported Past Surgical History: Section Additional Past Surgical History / Comment(s): IUD placement Past Anesthesia/Blood Transfusion Reactions: No Reported Reaction Past Psychological History: Anxiety, Depression Smoking Status: Current every day smoker, Vaper Past Alcohol Use History: Occasional Past Drug Use History: Marijuana - Past Family History Mother History Unknown: Yes Family Medical History: No Reported History General Exam Limitations: no limitations General appearance: alert, in no apparent distress Respiratory exam: Present: normal lung sounds bilaterally. Absent: respiratory distress, wheezes, rales, rhonchi, stridor Cardiovascular Exam: Present: regular rate, normal rhythm, normal heart sounds. Absent: systolic murmur, diastolic murmur, rubs, gallop, clicks Extremities exam: Present: normal inspection, full ROM, normal capillary refill. Absent: tenderness, pedal edema, joint swelling, calf tenderness Neurological exam: Present: alert, oriented X3, CN II-XII intact Skin exam: Present: warm, dry, intact, normal color. Absent: rash Course Vital Signs 07/29/24 07/29/24 07/29/24 15:47 16:37 16:39 Temperature 98.2 F Pulse Rate 102 H 93 Pulse Rate [ 93 Pulse Oximetery ] Respiratory 18 16 Rate Blood Pressure 138/100 129/87 O2 Sat by Pulse 98 98 Oximetry 07/29/24 18:30 Temperature 98.2 F Pulse Rate 82 Pulse Rate [ Pulse Oximetery ] Respiratory 20 Rate Blood Pressure 145/87 O2 Sat by Pulse 97 Oximetry - Reevaluation(s) Reevaluation #1: 07/29/24 17:47 HEART score 1. Chest Pain MDM - MDM Was pt. sent in by a medical professional or institution (, PA, SHOE PACKER, urgent care, hospital, or jail...) When possible be specific @ -No Did you speak to anyone other than the patient for history (EMS, parent, family, police, friend...)? What history was obtained from this source @ -No Did you review nursing and triage notes (agree or disagree)? Why? @ -I reviewed and agree with nursing and triage notes Were old charts reviewed (outside hosp., previous admission, EMS record, old EKG, old radiological studies, urgent care reports/EKG's, jail records)? Report findings @ -Yes, I reviewed ER visit from 07-08-2024. Patient seen here for similar complaint. Cardiac workup obtained at that time and negative. Troponin x 2 undetectable. Patient discharged home. Differential Diagnosis (chest pain, altered mental status, abdominal pain women, abdominal pain men, vaginal bleeding, weakness, fever, dyspnea, syncope, headache, dizziness, GI bleed, back pain, seizure, CVA, palpatations, mental health, musculoskeletal)? @ -Differential Chest Pain: Stable Angina, Unstable Angina, STEMI, NSTEMI Aortic Dissection, Pneumothorax, Musculoskeletal, Esophageal Spasm GERD, Cholecystitis, Pancreatitis, Zoster, this is not meant to be an all-inclusive list. EKG interpreted by me (3pts min.). @ -As above X-rays interpreted by me (1pt min.). @ -CXR interpreted by me negative for acute cardiopulmonary process. CT interpreted by me (1pt min.). @ -None done U/S interpreted by me (1pt. min.). @ -None done What testing was considered but not performed or refused? (CT, X-rays, U/S, labs)? Why? @ -None What meds were considered but not given or refused? Why? @ -None Did you discuss the management of the patient with other professionals (professionals i.e. , PA, SHOE PACKER, lab, RT, psych nurse, social sciences department chair, returned goods receiving clerk, teacher, adult probation officer, case management associate)? Give summary @ -No Was smoking cessation discussed for >3mins.? @ -No Was critical care preformed (if so, how long)? @ -No Were there social determinants of health that impacted care today? How? (Homelessness, low income, unemployed, alcoholism, drug addiction, transportation, low edu. Level, literacy, decrease access to med. care, assisted, rehab)? @ -No Was there de-escalation of care discussed even if they declined (Discuss DNR or withdrawal of care, Hospice)? DNR status @ -No What co-morbidities impacted this encounter? (DM, HTN, Smoking, COPD, CAD, Cancer, CVA, ARF, Chemo, Hep., AIDS, mental health diagnosis, sleep apnea, morbid obesity)? @ -Former smoker quit 1 month ago Was patient admitted / discharged? Hospital course, mention meds given and route, prescriptions, significant lab abnormalities, going to OR and other pertinent info. @ -Discharge. 28-year-old female presented to the ER with a chief complaint of chest discomfort. History and physical exam completed. Vitals within normal limits. Patient no signs of acute distress nontoxic-appearing. Cardiac workup obtained and negative. Troponin undetectable. D-dimer 0.29. Chest x-ray negative. Symptomatic control in ER with improvement. HEART score 1. Given patient's age, no cardiac history and negative workup, patient stable for discharge. Strict return parameters discussed. Patient discharged in stable condition with follow-up to PCP. Patient verbally expressed understanding and agreement with care plan. Case discussed with ED attending, Dr. Gayle. Undiagnosed new problem with uncertain prognosis? @ -No Drug Therapy requiring intensive monitoring for toxicity (Heparin, Nitro, Insulin, Cardizem)? @ -No Were any procedures done? @ -No Diagnosis/symptom? @ -Atypical chest pain Acute, or Chronic, or Acute on Chronic? @ -Acute Uncomplicated (without systemic symptoms) or Complicated (systemic symptoms)? @ -Uncomplicated Side effects of treatment? @ -No Exacerbation, Progression, or Severe Exacerbation? @ -No Poses a threat to life or bodily function? How? (Chest pain, USA, ID, pneumonia, PE, COPD, DKA, ARF, appy, cholecystitis, CVA, Diverticulitis, Homicidal, Suicidal, threat to staff... and all critical care pts) @ -Low at this time. Chest pain can be ACS which can lead to lethal cardiac arrhythmias. Disposition Clinical Impression: Atypical chest pain Disposition: HOME SELF-CARE Condition: Stable Instructions (If sedation given, give patient instructions): Chest Pain (ED), Costochondritis (ED) Additional Instructions: Follow-up with PCP. Return to the ER for any new or worsening concerns. Is patient prescribed a controlled substance at d/c from ED?: No Referrals: None,Stated [Primary Care Provider] - 1-2 days Forms: Area PCPs Time of Disposition: 17:44
[2024-07-29 17:05] LABS: Basophils % (A) 0 %; Eosinophils # (A) 0.2 k/uL (0-0.7); Eosinophils % (A) 2 %; HCT 43.8 % (34.0-46.0); Lymphocytes # (A) 1.6 k/uL (1.0-4.8); Lymphocytes % (A) 18 %; MCHC 34.3 g/dL (31.0-37.0); MCV 84.6 fL (80.0-100.0); Monocytes # (A) 0.3 k/uL (0-1.0); Monocytes % (A) 3 %; Neutrophils # (A) 6.8 k/uL (1.3-7.7); Neutrophils % (A) 76 %; Platelet Count 295 k/uL (150-450); RBC 5.18 m/uL (3.80-5.40); RDW 13.4 % (11.5-15.5); WBC 8.9 k/uL (3.8-10.6)
[2024-07-29 17:14] LABS: Appearance,Urine Cloudy (Clear); Bacteria,Urine Rare /hpf; Bilirubin,Urine Negative (Negative); Blood,Urine Negative (Negative); Color,Urine Yellow; Glucose,Urine (UA) Negative (Negative); Ketones,Urine Negative (Negative); Leukocyte Esterase,Urine Large (Negative); Mucus,Urine Moderate /hpf; Nitrite,Urine Negative (Negative); PH, Urine 5.5 (5.0-8.0); Protein,Urine Trace (Negative); RBC,Urine 2 /hpf (0-5); Specific Gravity,Urine 1.028 (1.001-1.035); Squamous Epithelial Cell,Urine 10 /hpf (0-4); Urobilinogen,Urine <2.0 mg/dL (<2.0); WBC,Urine 7 /hpf (0-5)
[2024-07-29 17:18] LABS: Prothrombin Time 10.6 sec (10.0-12.5)
[2024-07-29 17:21] LABS: ALT 22 U/L (4-34); AST 22 U/L (14-36); African American GFR (CKD) >90 (>60 ml/min/1.73 sqM); Albumin 4.5 g/dL (3.5-5.0); Alkaline Phosphatase 68 U/L (38-126); Anion Gap 9 mmol/L; Blood Urea Nitrogen 12 mg/dL (7-17); Calcium 9.8 mg/dL (8.4-10.2); Carbon Dioxide 27 mmol/L (22-30); Chloride 103 mmol/L (98-107); Glucose 107 mg/dL (74-99); Magnesium 1.8 mg/dL (1.6-2.3); Non-African American GFR(CKD) >90 (>60 ml/min/1.73 sqM); Potassium 4.5 mmol/L (3.5-5.1); Sodium 139 mmol/L (137-145); Total Bilirubin 0.5 mg/dL (0.2-1.3); Total Protein 7.7 g/dL (6.3-8.2)
--- NOTE | 2024-07-29 17:23 | XR ---
EXAMINATION TYPE: XR chest 2V DATE OF EXAM: 07/29/2024 5:05 PM COMPARISON: Chest radiographs from 07/07/2024 CLINICAL INDICATION: Female, 28 years old with history of Chest Pain; TECHNIQUE: XR chest 2V Frontal and lateral views of the chest. FINDINGS: Lungs/Pleura: There is no evidence of pleural effusion, focal consolidation, or pneumothorax. Pulmonary vascularity: Unremarkable. Heart/mediastinum: Cardiomediastinal silhouette is unremarkable. Musculoskeletal: No acute osseous pathology. IMPRESSION: No acute cardiopulmonary disease/process. [facility], , 07/29/2024 5:21 PM
[2024-07-29] MEDS: MORPHINE SULFATE 2 MG/ML SYRINGE IVP ONE (18:23)
[2024-07-29 18:48] VITALS: BP 145/87; PULSE 82; RESP 20
[2024-07-29] MEDS: SODIUM CHLORIDE 0.9% 1,000 ML IV STA (18:48)
[2024-07-29] MEDS: SODIUM CHLORIDE 0.9% 500 ML 500 ML IV STA (18:49)
== END 2024-07-29 18:56 | disposition home or self-care (01) ==
LOC: EC 15:42
DX: R07.89 Other chest pain (principal); F17.290 Nicotine dependence, other tobacco product, uncomplicated; Z88.0 Allergy status to penicillin
CPT/HCPCS: 36415; 93005; 85379; 80053; 83735; 84484; 85025; 85610; 85730; 81001; 81025; 71046; 99285; 96374; J2270

== ENCOUNTER 2024-11-20 16:39 | Emergency (ER) | payer OTHER ==
[2024-11-20 16:52] VITALS: TEMP 97.9
--- NOTE | 2024-11-20 17:28 | ED ---
Abdominal Pain HPI - General Chief Complaint: Abdominal Pain Stated Complaint: abd pain Time Seen by Provider: 11/20/24 16:53 Source: patient Mode of arrival: ambulatory Limitations: no limitations - History of Present Illness Initial Comments: 28-year-old female presenting with chief complaint of abdominal pain. Patient is having epigastric pain that has been getting worse for 3 days. She admits to nausea with no vomiting. She also admits to alternating diarrhea and constipation. She is on Zepbound and recently had her dose changed. The pain comes and goes. Eating does not make it better or worse. Certain movements make the pain worse. She states that sometimes she gets some chest discomfort which she attributes to her anxiety as she states she has had this pain before. No shortness of breath. No urinary symptoms. No cough congestion or sore throat. - Related Data Previous Rx's Medication Instructions Recorded Cyclobenzaprine [Flexeril] 10 mg PO TID PRN #10 tab 07/24/24 Allergies Allergy/AdvReac Type Severity Reaction Status Date / Time Penicillins Allergy Unknown Rash/Hives Verified 11/20/24 16:52 Review of Systems ROS Statement: Those systems with pertinent positive or pertinent negative responses have been documented in the HPI. ROS Other: All systems not noted in ROS Statement are negative. Past Medical History Past Medical History: Asthma Additional Past Medical History / Comment(s): Gestational diabetes, History of Any Multi-Drug Resistant Organisms: None Reported Past Surgical History: Section Additional Past Surgical History / Comment(s): IUD placement Past Anesthesia/Blood Transfusion Reactions: No Reported Reaction Past Psychological History: Anxiety, Depression Smoking Status: Current every day smoker, Never smoker, Vaper Past Alcohol Use History: None Reported, Occasional Past Drug Use History: None Reported, Marijuana - Past Family History Mother History Unknown: Yes Family Medical History: No Reported History General Exam Limitations: no limitations General appearance: alert, in no apparent distress Head exam: Present: atraumatic, normocephalic, normal inspection Eye exam: Present: normal appearance, EOMI Neck exam: Present: normal inspection. Absent: meningismus Respiratory exam: Present: normal lung sounds bilaterally. Absent: respiratory distress, wheezes, rales, rhonchi, stridor Cardiovascular Exam: Present: regular rate, normal rhythm, normal heart sounds. Absent: systolic murmur, diastolic murmur, rubs, gallop, clicks GI/Abdominal exam: Present: soft, tenderness (Some discomfort in the upper abdomen). Absent: distended, guarding, rebound, rigid Neurological exam: Present: alert, oriented X3 Psychiatric exam: Present: normal affect, normal mood Skin exam: Present: warm, dry, normal color Course Vital Signs 11/20/24 11/20/24 16:47 18:04 Temperature 97.9 F Pulse Rate 84 82 Respiratory 17 20 Rate Blood Pressure 117/74 130/88 O2 Sat by Pulse 96 96 Oximetry Medical Decision Making - Lab Data Result diagrams: 11/20/24 17:36 11/20/24 17:36 Lab Results 11/20/24 11/20/24 11/20/24 Range/Units 17:36 17:36 17:36 WBC 7.5 (3.8-10.6) k/uL RBC 5.14 (3.80-5.40) m/uL Hgb 14.6 (11.4-16.0) gm/dL Hct 43.2 (34.0-46.0) % MCV 84.1 (80.0-100.0) fL MCH 28.4 (25.0-35.0) pg MCHC 33.8 (31.0-37.0) g/dL RDW 13.2 (11.5-15.5) % Plt Count 283 (150-450) k/uL MPV 7.2 Neutrophils % 67 % Lymphocytes % 25 % Monocytes % 4 % Eosinophils % 2 % Basophils % 1 % Neutrophils # 5.0 (1.3-7.7) k/uL Lymphocytes # 1.9 (1.0-4.8) k/uL Monocytes # 0.3 (0-1.0) k/uL Eosinophils # 0.1 (0-0.7) k/uL Basophils # 0.0 (0-0.2) k/uL Sodium 138 (137-145) mmol/L Potassium 4.1 (3.5-5.1) mmol/L Chloride 105 (98-107) mmol/L Carbon Dioxide 25 (22-30) mmol/L Anion Gap 8 mmol/L BUN 9 (7-17) mg/dL Creatinine 0.55 (0.52-1.04) mg/dL Est GFR (CKD-EPI)AfAm >90 (>60 ml/min/1.73 sqM) Est GFR (CKD-EPI)NonAf >90 (>60 ml/min/1.73 sqM) Glucose 126 H (74-99) mg/dL Plasma Lactic Acid [place] (0.7-2.0) mmol/L Calcium 9.0 (8.4-10.2) mg/dL Total Bilirubin 0.5 (0.2-1.3) mg/dL AST 22 (14-36) U/L ALT 17 (4-34) U/L Alkaline Phosphatase 50 (38-126) U/L Troponin I (0.000-0.034) ng/mL Total Protein 7.0 (6.3-8.2) g/dL Albumin 4.0 (3.5-5.0) g/dL Amylase 44 (30-110) U/L Lipase 85 (23-300) U/L Urine Color Yellow Urine Appearance Clear (Clear) Urine pH 5.5 (5.0-8.0) Ur Specific [place] 1.023 (1.001-1.035) Urine Protein Negative (Negative) Urine Glucose (UA) Negative (Negative) Urine Ketones Negative (Negative) Urine Blood Negative (Negative) Urine Nitrite Negative (Negative) Urine Bilirubin Negative (Negative) Urine Urobilinogen <2.0 (<2.0) mg/dL Ur Leukocyte Esterase Negative (Negative) Urine HCG, Qual (Not Detectd) 11/20/24 11/20/24 11/20/24 Range/Units 17:36 17:36 17:36 WBC (3.8-10.6) k/uL RBC (3.80-5.40) m/uL Hgb (11.4-16.0) gm/dL Hct (34.0-46.0) % MCV (80.0-100.0) fL MCH (25.0-35.0) pg MCHC (31.0-37.0) g/dL RDW (11.5-15.5) % Plt Count (150-450) k/uL MPV Neutrophils % % Lymphocytes % % Monocytes % % Eosinophils % % Basophils % % Neutrophils # (1.3-7.7) k/uL Lymphocytes # (1.0-4.8) k/uL Monocytes # (0-1.0) k/uL Eosinophils # (0-0.7) k/uL Basophils # (0-0.2) k/uL Sodium (137-145) mmol/L Potassium (3.5-5.1) mmol/L Chloride (98-107) mmol/L Carbon Dioxide (22-30) mmol/L Anion Gap mmol/L BUN (7-17) mg/dL Creatinine (0.52-1.04) mg/dL Est GFR (CKD-EPI)AfAm (>60 ml/min/1.73 sqM) Est GFR (CKD-EPI)NonAf (>60 ml/min/1.73 sqM) Glucose (74-99) mg/dL Plasma Lactic Acid [place] 1.4 (0.7-2.0) mmol/L Calcium (8.4-10.2) mg/dL Total Bilirubin (0.2-1.3) mg/dL AST (14-36) U/L ALT (4-34) U/L Alkaline Phosphatase (38-126) U/L Troponin I <0.012 (0.000-0.034) ng/mL Total Protein (6.3-8.2) g/dL Albumin (3.5-5.0) g/dL Amylase (30-110) U/L Lipase (23-300) U/L Urine Color Urine Appearance (Clear) Urine pH (5.0-8.0) Ur Specific [place] (1.001-1.035) Urine Protein (Negative) Urine Glucose (UA) (Negative) Urine Ketones (Negative) Urine Blood (Negative) Urine Nitrite (Negative) Urine Bilirubin (Negative) Urine Urobilinogen (<2.0) mg/dL Ur Leukocyte Esterase (Negative) Urine HCG, Qual Not Detected (Not Detectd) Disposition Clinical Impression: Abdominal pain Disposition: HOME SELF-CARE Condition: Good Instructions (If sedation given, give patient instructions): Abdominal Pain (ED) Additional Instructions: Follow-up with your PCP. Report back to ER with any new or worsening symptoms. Report your symptoms to your doctor as they may want to change your Zepbound dosing Is patient prescribed a controlled substance at d/c from ED?: No Referrals: None,Stated [Primary Care Provider] - 1-2 days Forms: Area PCPs Time of Disposition: 18:52
[2024-11-20] MEDS: ONDANSETRON 4 MG/2 ML VIAL IVP STA (17:35)
[2024-11-20] MEDS: SODIUM CHLORIDE 0.9% 1,000 ML IV ONE (17:36)
[2024-11-20 17:56] LABS: Appearance,Urine Clear (Clear); Basophils % (A) 1 %; Bilirubin,Urine Negative (Negative); Blood,Urine Negative (Negative); Color,Urine Yellow; Eosinophils # (A) 0.1 k/uL (0-0.7); Eosinophils % (A) 2 %; Glucose,Urine (UA) Negative (Negative); HCT 43.2 % (34.0-46.0); HGB 14.6 gm/dL (11.4-16.0); Ketones,Urine Negative (Negative); Leukocyte Esterase,Urine Negative (Negative); Lymphocytes # (A) 1.9 k/uL (1.0-4.8); Lymphocytes % (A) 25 %; MCH 28.4 pg (25.0-35.0); MCHC 33.8 g/dL (31.0-37.0); MCV 84.1 fL (80.0-100.0); Mean Platelet Volume 7.2; Monocytes # (A) 0.3 k/uL (0-1.0); Monocytes % (A) 4 %; Neutrophils % (A) 67 %; Nitrite,Urine Negative (Negative); PH, Urine 5.5 (5.0-8.0); Platelet Count 283 k/uL (150-450); Protein,Urine Negative (Negative); RBC 5.14 m/uL (3.80-5.40); RDW 13.2 % (11.5-15.5); Specific Gravity,Urine 1.023 (1.001-1.035); Urobilinogen,Urine <2.0 mg/dL (<2.0); WBC 7.5 k/uL (3.8-10.6)
--- NOTE | 2024-11-20 18:01 | US ---
EXAMINATION TYPE: US abdomen limited DATE OF EXAM: 11/20/2024 COMPARISON: NONE CLINICAL INDICATION: Female, 28 years old with history of epigastric pain; patient states epigastric pain since tuesday with nausea. diarrhea and constipation TECHNIQUE: Grayscale and color Doppler imaging of the right upper quadrant was performed. FINDINGS: EXAM MEASUREMENTS: Liver Length: 15.1 cm Gallbladder Wall: 0.3 cm CBD: 0.5 cm Right Kidney: 9.1 x 4.6 x 5.5 cm STRIPE MARKER NOTES:*limited due to overlying gas and patient body habitus Pancreas: Obscured by bowel gas Liver: wnl as best visualized Gallbladder: wnl as best visualized Evidence for sonographic Barth's sign: no CBD: wnl as best visualized Right Kidney: wnl as best visualized IMPRESSION: Unremarkable right upper quadrant ultrasound exam. [facility], , 11/20/2024 5:59 PM
[2024-11-20] MEDS: MORPHINE SULFATE 4 MG/ML SYRINGE IVP STA (18:03)
[2024-11-20 18:05] VITALS: BP 130/88; PULSE 82; RESP 20
[2024-11-20 18:16] LABS: ALT 17 U/L (4-34); AST 22 U/L (14-36); African American GFR (CKD) >90 (>60 ml/min/1.73 sqM); Alkaline Phosphatase 50 U/L (38-126); Amylase 44 U/L (30-110); Anion Gap 8 mmol/L; Blood Urea Nitrogen 9 mg/dL (7-17); Carbon Dioxide 25 mmol/L (22-30); Chloride 105 mmol/L (98-107); Glucose 126 mg/dL (74-99); Lipase 85 U/L (23-300); Non-African American GFR(CKD) >90 (>60 ml/min/1.73 sqM); Potassium 4.1 mmol/L (3.5-5.1); Sodium 138 mmol/L (137-145); Total Bilirubin 0.5 mg/dL (0.2-1.3)
[2024-11-20] MEDS: FAMOTIDINE 20 MG/2 ML VIAL IV STA (19:05)
== END 2024-11-20 19:16 | disposition home or self-care (01) ==
LOC: EC 16:39
DX: R10.11 Right upper quadrant pain (principal); F17.290 Nicotine dependence, other tobacco product, uncomplicated; Z88.0 Allergy status to penicillin
CPT/HCPCS: 36415; 93005; 80053; 82150; 83605; 83690; 84484; 85025; 81003; 81025; 76705; 99284; 96374; 96375; 96361; J2270; J2405; J3490

== ENCOUNTER 2024-12-07 20:13 | Emergency (ER) | payer OTHER ==
[2024-12-07 20:36] VITALS: TEMP 99
--- NOTE | 2024-12-07 21:22 | ED ---
Chest Pain HPI - General Source: patient, RN notes reviewed Mode of arrival: ambulatory Limitations: no limitations <Roc Diaz - Last Filed: 12/07/24 21:20> <Noreen Jennings - Last Filed: 12/08/24 18:38> - General Chief Complaint: Chest Pain Stated Complaint: Chest pain, elevated heart rate Time Seen by Provider: 12/07/24 20:27 - History of Present Illness Initial Comments: Quick note: This is a 29-year-old female presenting with chest pain since 0200 yesterday morning. Patient describes left-sided pain pain as a heavy pressure (7/10) that radiates to back with associated lightheadedness. States pain is worsening. States heart rate has been increased since Tuesday (x 4 days) going up to 105 bpm with associated palpitations. Denies significant cardiac history. Denies dyspnea/SOB, diaphoresis, pallor, loss of consciousness, nausea/vomiting. (Roc Diaz) 29-year-old female presenting with chief complaint of chest pain. Pain started at around 2:00 yesterday morning. It is located on the left side and feels like a pressure sensation. States that it radiates to the back. No radiation to the jaw or shoulder. Some shortness of breath. She also states that her heart has been racing. No cough congestion or sore throat. She is a previous smoker and quit 6 months ago. No nausea vomiting or abdominal pain. No fevers or chills. No lower extremity swelling. No oral contraceptive use. No recent surgery or long travel. No history of blood clots. (Noreen Jennings) - Related Data Previous Rx's Medication Instructions Recorded Cyclobenzaprine [Flexeril] 10 mg PO TID PRN #10 tab 07/24/24 Allergies Allergy/AdvReac Type Severity Reaction Status Date / Time Penicillins Allergy Unknown Rash/Hives Verified 12/07/24 20:36 Review of Systems ROS Other: All systems not noted in ROS Statement are negative. <Roc Diaz - Last Filed: 12/07/24 21:20> ROS Other: All systems not noted in ROS Statement are negative. <Noreen Jennings - Last Filed: 12/08/24 18:38> ROS Statement: Those systems with pertinent positive or pertinent negative responses have been documented in the HPI. Past Medical History Past Medical History: Asthma Additional Past Medical History / Comment(s): Gestational diabetes, History of Any Multi-Drug Resistant Organisms: None Reported Past Surgical History: Section Additional Past Surgical History / Comment(s): IUD placement Past Anesthesia/Blood Transfusion Reactions: No Reported Reaction Past Psychological History: Anxiety, Depression Smoking Status: Former smoker, Vaper Past Alcohol Use History: None Reported, Occasional Past Drug Use History: None Reported, Marijuana - Past Family History Mother History Unknown: Yes Family Medical History: No Reported History <Roc Diaz - Last Filed: 12/07/24 21:20> General Exam Limitations: no limitations <Roc Diaz - Last Filed: 12/07/24 21:20> Limitations: no limitations General appearance: alert, in no apparent distress Head exam: Present: atraumatic, normocephalic, normal inspection Eye exam: Present: normal appearance, EOMI. Absent: periorbital swelling Neck exam: Present: normal inspection. Absent: meningismus Respiratory exam: Present: normal lung sounds bilaterally. Absent: respiratory distress, wheezes, rales, rhonchi, stridor Cardiovascular Exam: Present: normal rhythm, tachycardia, normal heart sounds. Absent: systolic murmur, diastolic murmur, rubs, gallop, clicks Extremities exam: Absent: pedal edema Neurological exam: Present: alert, oriented X3 Psychiatric exam: Present: normal affect, normal mood Skin exam: Present: warm, dry, normal color <Noreen Jennings - Last Filed: 12/08/24 18:38> - General Exam Comments Initial Comments: Visual Physical Exam Vital signs reviewed General: Well-appearing, nontoxic, no acute distress. Head: Normocephalic, atraumatic Eyes: PERRLA, EOMI ENT: Airway patent Chest: Nonlabored breathing Skin: No visual rash, normal skin tone Neuro: Alert and oriented 3 Musculoskeletal: No gross abnormalities (Roc Diaz) Course Vital Signs 12/07/24 12/07/24 12/07/24 20:34 21:54 23:10 Temperature 99 F Pulse Rate 118 H 110 H 89 Respiratory 20 18 16 Rate Blood Pressure 125/78 125/90 139/93 O2 Sat by Pulse 97 99 97 Oximetry 12/08/24 01:25 Temperature Pulse Rate 76 Respiratory 16 Rate Blood Pressure 117/76 O2 Sat by Pulse 97 Oximetry Chest Pain MDM <Roc Diaz - Last Filed: 12/07/24 21:20> <Noreen Jennings - Last Filed: 12/08/24 18:38> - MDM I completed the quick note portion of this chart signed DIVINE Mera (Roc Diaz) Was pt. sent in by a medical professional or institution ([facility]IN Torres, [employer]VER [employer], urgent care, hospital, or retirement...) When possible be specific @ -No Did you speak to anyone other than the patient for history (EMS, parent, family, police, friend...)? What history was obtained from this source @ -No Did you review nursing and triage notes (agree or disagree)? Why? @ -I reviewed and agree with nursing and triage notes Were old charts reviewed (outside hosp., previous admission, EMS record, old EKG, old radiological studies, urgent care reports/EKG's, retirement records)? Report findings @ -No old charts were reviewed Differential Diagnosis (chest pain, altered mental status, abdominal pain women, abdominal pain men, vaginal bleeding, weakness, fever, dyspnea, syncope, headache, dizziness, GI bleed, back pain, seizure, CVA, palpatations, mental health, musculoskeletal)? @ -[facility] Differential Chest Pain: Stable Angina, Unstable Angina, STEMI, NSTEMI Aortic Dissection, Pneumothorax, Musculoskeletal, Esophageal Spasm GERD, Cholecystitis, Pancreatitis, Zosterâ€¦ This is not meant to be an all-inclusive list. EKG interpreted by me (3pts min.). @ -EKG shows sinus tachycardia ventricular rate 103. NE interval 133. QRS 80. QT 333. QTc 392 X-rays interpreted by me (1pt min.). @ -Chest x-ray shows no acute process CT interpreted by me (1pt min.). @ -None done U/S interpreted by me (1pt. min.). @ -None done What testing was considered but not performed or refused? (CT, X-rays, U/S, labs)? Why? @ -None What meds were considered but not given or refused? Why? @ -None Did you discuss the management of the patient with other professionals (professionals i.e. CHAPIN Torres, ENGRAVER [employer], lab, RT, psych nurse, marriage and family social worker, student finance specialist, teacher, security public safety officer, mattress spring encaser)? Give summary @ -No Was smoking cessation discussed for >3mins.? @ -No Was critical care preformed (if so, how long)? @ -No Were there social determinants of health that impacted care today? How? (Homelessness, low income, unemployed, alcoholism, drug addiction, transportation, low edu. Level, literacy, decrease access to med. care, intermediate, rehab)? @ -No Was there de-escalation of care discussed even if they declined (Discuss DNR or withdrawal of care, Hospice)? DNR status @ -No What co-morbidities impacted this encounter? (DM, HTN, Smoking, COPD, CAD, Cancer, CVA, ARF, Chemo, Hep., AIDS, mental health diagnosis, sleep apnea, morbid obesity)? @ -None Was patient admitted / discharged? Hospital course, mention meds given and route, prescriptions, significant lab abnormalities, going to OR and other pertinent info. @ -29-year-old female presenting with chief complaint of chest pain that started at 2 AM. Workup was initiated by triage. Patient was later placed in a room and evaluated by myself. History and physical examination are conducted. Heart and lungs are clear to auscultation. No lower extremity swelling. Patient is mildly tachycardic. She is treated with aspirin and IV fluids as well as morphine for her pain. Lab work shows no leukocytosis or anemia. Negative troponin. D-dimer 0.46. No evidence of UTI. Negative hCG. Chest x- ray shows no acute process and EKG shows no acute ischemic changes. On reassessment heart rate has improved. Patient does report some improvement in her pain. She is educated on today's findings. Heart score is 2, patient can be discharged home to follow-up with cardiology and PCP. Informed the patient with the possibility of needing an echocardiogram. Report back to ER with any new or worsening symptoms. Discussed return parameters and answered all questions. Patient conveyed verbal understanding and agreed to the plan. I discussed this case in detail with my attending Dr. Antonio Undiagnosed new problem with uncertain prognosis? @ -No Drug Therapy requiring intensive monitoring for toxicity (Heparin, Nitro, Insulin, Cardizem)? @ -No Were any procedures done? @ -No Diagnosis/symptom? @ -Chest pain Acute, or Chronic, or Acute on Chronic? @ -Acute Uncomplicated (without systemic symptoms) or Complicated (systemic symptoms)? @ -Uncomplicated Side effects of treatment? @ -No Exacerbation, Progression, or Severe Exacerbation? @ -No Poses a threat to life or bodily function? How? (Chest pain, [place], [place], pneumonia, PE, COPD, DKA, ARF, appy, cholecystitis, CVA, Diverticulitis, Homicidal, Suicidal, threat to staff... and all critical care pts) @ -Low likelihood (Noreen Jennings) Disposition <Roc Diaz - Last Filed: 12/07/24 21:20> Is patient prescribed a controlled substance at d/c from ED?: No Time of Disposition: 01:20 <Noreen Jennings - Last Filed: 12/08/24 18:38> Clinical Impression: Chest pain Disposition: HOME SELF-CARE Condition: Good Instructions (If sedation given, give patient instructions): Chest Pain (ED) Additional Instructions: Follow-up with PCP and cardiology. Report back to ER with any new or worsening symptoms. Referrals: Salina Hermosillo FNPBC [Family Provider] - 1-2 days Shekhar Barclay MD [STAFF PHYSICIAN] - 1-2 days
--- NOTE | 2024-12-07 21:46 | XR ---
EXAMINATION TYPE: XR chest 2V DATE OF EXAM: 12/07/2024 9:31 PM COMPARISON: 07/29/2024 CLINICAL INDICATION: Female, 29 years old with history of Chest Pain, TECHNIQUE: XR chest 2V view(s) obtained. FINDINGS: The heart size is normal. The pulmonary vasculature is normal. The lungs are clear. IMPRESSION: 1. No acute pulmonary process. [facility], , 12/07/2024 9:44 PM
[2024-12-07] MEDS: ASPIRIN 81 MG PO STA (21:49)
[2024-12-07] MEDS: SODIUM CHLORIDE 0.9% 1,000 ML IV ONE (22:16)
[2024-12-07 22:31] LABS: Basophils # (A) 0.1 k/uL (0-0.2); Basophils % (A) 1 %; Eosinophils # (A) 0.3 k/uL (0-0.7); Eosinophils % (A) 3 %; HCT 45.8 % (34.0-46.0); HGB 15.5 gm/dL (11.4-16.0); Lymphocytes # (A) 2.1 k/uL (1.0-4.8); Lymphocytes % (A) 21 %; MCH 28.4 pg (25.0-35.0); MCHC 33.8 g/dL (31.0-37.0); MCV 84.2 fL (80.0-100.0); Mean Platelet Volume 7.4; Monocytes # (A) 0.4 k/uL (0-1.0); Monocytes % (A) 4 %; Neutrophils # (A) 6.7 k/uL (1.3-7.7); Neutrophils % (A) 70 %; Platelet Count 287 k/uL (150-450); RBC 5.44 m/uL (3.80-5.40); RDW 12.9 % (11.5-15.5); WBC 9.6 k/uL (3.8-10.6)
[2024-12-07 22:39] LABS: Partial Thromboplastin Time 25.3 sec (22.0-30.0); Prothrombin Time 10.9 sec (10.0-12.5)
[2024-12-07 22:51] LABS: ALT 24 U/L (4-34); African American GFR (CKD) >90 (>60 ml/min/1.73 sqM); Albumin 4.5 g/dL (3.5-5.0); Anion Gap 12 mmol/L; Blood Urea Nitrogen 14 mg/dL (7-17); Calcium 9.3 mg/dL (8.4-10.2); Carbon Dioxide 21 mmol/L (22-30); Chloride 105 mmol/L (98-107); Glucose 94 mg/dL (74-99); Non-African American GFR(CKD) >90 (>60 ml/min/1.73 sqM); Sodium 138 mmol/L (137-145); Total Bilirubin 0.7 mg/dL (0.2-1.3); Total Protein 7.7 g/dL (6.3-8.2)
[2024-12-07 22:55] LABS: AST 33 U/L (14-36); Magnesium 1.8 mg/dL (1.6-2.3); Potassium 4.3 mmol/L (3.5-5.1)
[2024-12-07 22:56] LABS: Alkaline Phosphatase 52 U/L (38-126)
[2024-12-07 23:11] VITALS: RESP 16
[2024-12-07] MEDS: MORPHINE SULFATE 4 MG/ML SYRINGE IVP STA (23:12)
[2024-12-08 00:54] LABS: Appearance,Urine Clear (Clear); Bilirubin,Urine Negative (Negative); Blood,Urine Negative (Negative); Color,Urine Yellow; Glucose,Urine (UA) Negative (Negative); Ketones,Urine Negative (Negative); Leukocyte Esterase,Urine Negative (Negative); Nitrite,Urine Negative (Negative); PH, Urine 5.5 (5.0-8.0); Protein,Urine Negative (Negative); Specific Gravity,Urine 1.018 (1.001-1.035); Urobilinogen,Urine <2.0 mg/dL (<2.0)
[2024-12-08 01:26] VITALS: BP 117/76; PULSE 76
== END 2024-12-08 01:26 | disposition home or self-care (01) ==
LOC: EC 20:13
DX: R07.9 Chest pain, unspecified (principal); F17.290 Nicotine dependence, other tobacco product, uncomplicated; Z88.0 Allergy status to penicillin
CPT/HCPCS: 36415; 93005; 85379; 80053; 83735; 84484; 85025; 85610; 85730; 81003; 81025; 71046; 99285; 96374; 96361; J2270

== ENCOUNTER 2024-12-09 16:18 | Emergency (ER) | payer OTHER ==
[2024-12-09 16:25] VITALS: TEMP 98.3
--- NOTE | 2024-12-09 16:45 | ED ---
Chest Pain HPI - General Chief Complaint: Chest Pain Stated Complaint: chest pain Time Seen by Provider: 12/09/24 16:30 Source: patient, RN notes reviewed, old records reviewed Mode of arrival: ambulatory Limitations: no limitations - History of Present Illness Initial Comments: This is a 29-year-old female to the ER for evaluation patient presents today for evaluation regards of chest pain tightness left-sided chest associate with elevated heart rate and anxiety. Patient does suffer from depression on medication. No other significant medical history does claim family history of heart disease not immediate parents. Patient has no high blood pressure nor cholesterol no diabetes non-smoker. MD Complaint: chest pain -: days(s) Onset: during rest, during exertion Pain Location: left chest Pain Radiation: none Severity: mild Quality: tightness Consistency: intermittent Improves With: nothing Worsens With: nothing Anginal Symptoms: dyspnea Other Symptoms: palpitations Treatments Prior to Arrival: none - Related Data Previous Rx's Medication Instructions Recorded Cyclobenzaprine [Flexeril] 10 mg PO TID PRN #10 tab 07/24/24 Allergies Allergy/AdvReac Type Severity Reaction Status Date / Time Penicillins Allergy Unknown Rash/Hives Verified 12/09/24 16:25 Review of Systems ROS Statement: Those systems with pertinent positive or pertinent negative responses have been documented in the HPI. ROS Other: All systems not noted in ROS Statement are negative. EKG Findings - EKG Comments: EKG Findings:: EKG sinus 92 MI 149 QRS 84 QTc 388 - EKG Results: EKG: interpreted by MORALES Past Medical History Past Medical History: Asthma Additional Past Medical History / Comment(s): Gestational diabetes, History of Any Multi-Drug Resistant Organisms: None Reported Past Surgical History: Section Additional Past Surgical History / Comment(s): IUD placement Past Anesthesia/Blood Transfusion Reactions: No Reported Reaction Past Psychological History: Anxiety, Depression Smoking Status: Former smoker, Vaper Past Alcohol Use History: None Reported, Occasional Past Drug Use History: None Reported, Marijuana - Past Family History Mother History Unknown: Yes Family Medical History: No Reported History General Exam Limitations: no limitations General appearance: alert, in no apparent distress Head exam: Present: atraumatic, normocephalic, normal inspection Eye exam: Present: normal appearance, PERRL, EOMI. Absent: scleral icterus, conjunctival injection, periorbital swelling ENT exam: Present: normal exam, mucous membranes moist Neck exam: Present: normal inspection. Absent: tenderness, meningismus, lymphadenopathy Respiratory exam: Present: normal lung sounds bilaterally. Absent: respiratory distress, wheezes, rales, rhonchi, stridor Cardiovascular Exam: Present: regular rate, normal rhythm, normal heart sounds. Absent: systolic murmur, diastolic murmur, rubs, gallop, clicks GI/Abdominal exam: Present: soft, normal bowel sounds. Absent: distended, tenderness, guarding, rebound, rigid Extremities exam: Present: normal inspection, full ROM, normal capillary refill. Absent: tenderness, pedal edema, joint swelling, calf tenderness Back exam: Present: normal inspection Neurological exam: Present: alert, oriented X3, CN II-XII intact Psychiatric exam: Present: normal affect, normal mood Skin exam: Present: warm, dry, intact, normal color. Absent: rash Course Vital Signs 12/09/24 16:20 Temperature 98.3 F Pulse Rate 99 Respiratory 20 Rate Blood Pressure 123/89 O2 Sat by Pulse 95 Oximetry - Reevaluation(s) Reevaluation #1: 12/09/24 18:02 Medical record reviewed Recent ER visit reviewed with normal EKG troponin and cardiac enzymes, Reevaluation #2: 12/09/24 18:02 Patient still with chest pain requesting pain medication refusing Toradol Reevaluation #3: 12/09/24 18:02 Patient informed of results questions answered Reevaluation #4: Was pt. sent in by a medical professional or institution (, PA, FEATHER CUTTING MACHINE FEEDER, urgent care, hospital, or half-way...) When possible be specific @ -no Did you speak to anyone other than the patient for history (EMS, parent, family, police, friend...)? What history was obtained from this source @ -no Did you review nursing and triage notes (agree or disagree)? Why? @ -agree Are old charts reviewed (outside hosp., previous admission, EMS record, old EKG, old radiological studies, urgent care reports/EKG's, half-way records)? Report findings @ -yes Differential Diagnosis (chest pain, altered mental status, abdominal pain women, abdominal pain men, vaginal bleeding, weakness, fever, dyspnea, syncope, headache, dizziness, GI bleed, back pain, seizure, CVA, palpatations, mental health, musculoskeletal)? @ -prior EKG interpreted by me (3pts min.). @ -yes X-rays interpreted by me (1pt min.). @ -yes negative for acute disease CT interpreted by me (1pt min.). @ -no U/S interpreted by me (1pt. min.). @ -no What testing was considered but not performed or refused? (CT, X-rays, U/S, labs)? Why? @ -none What meds were considered but not given or refused? Why? @ -none Did you discuss the management of the patient with other professionals (professionals i.e. , PA, FEATHER CUTTING MACHINE FEEDER, lab, RT, psych nurse, dialysis social worker, burnishing machine operator, teacher, bsa/aml compliance officer, counter caser)? Give summary @ -no Was smoking cessation discussed for >3mins.? @ -no Was critical care preformed (if so, how long)? @ -no Were there social determinants of health that impacted care today? How? (Homelessness, low income, unemployed, alcoholism, drug addiction, transportation, low edu. Level, literacy, decrease access to med. care, care home, rehab)? @ -none Was there de-escalation of care discussed even if they declined (Discuss DNR or withdrawal of care, Hospice)? DNR status @ -no What co-morbidities impacted this encounter? (DM, HTN, Smoking, COPD, CAD, Cancer, CVA, ARF, Chemo, Hep., AIDS, mental health diagnosis, sleep apnea, morbid obesity)? @ -none Was patient admitted / discharged? Hospital course, mention meds given and route, prescriptions, significant lab abnormalities, going to OR and other pertinent info. @ - Undiagnosed new problem with uncertain prognosis? @ -no Drug Therapy requiring intensive monitoring for toxicity (Heparin, Nitro, Insulin, Cardizem)? @ -no Were any procedures done? @ -no Diagnosis/symptom? @ - Acute, or Chronic, or Acute on Chronic? @ -Acute Uncomplicated (without systemic symptoms) or Complicated (systemic symptoms)? @ -Complicated Side effects of treatment? @ -no Exacerbation, Progression, or Severe Exacerbation? @ -exacerbation Poses a threat to life or bodily function? How? (Chest pain, [place], [place], pneumonia, PE, COPD, DKA, ARF, appy, cholecystitis, CVA, Diverticulitis, Homicidal, Suicidal, threat to staff... and all critical care pts) @ -yes Reevaluation #5: Differential Chest Pain: Stable Angina, Unstable Angina, STEMI, NSTEMI Aortic Dissection, Pneumothorax, Musculoskeletal, Esophageal Spasm GERD, Cholecystitis, Pancreatitis, Zoster, this is not meant to be an all-inclusive list. Chest Pain MDM - MDM 29 female with nonspecific chest pain. No acute cause here in the ER patient will be discharged home Disposition Clinical Impression: Atypical chest pain, Chest pain Disposition: HOME SELF-CARE Condition: Good Instructions (If sedation given, give patient instructions): Chest Pain (ED) Is patient prescribed a controlled substance at d/c from ED?: No Referrals: Salina Hermosillo FNPBC [Primary Care Provider] - 1-2 days [facility] [Provider Group] - 1-2 days Time of Disposition: 18:00
[2024-12-09 17:01] LABS: Basophils # (A) 0.1 k/uL (0-0.2); Basophils % (A) 1 %; Eosinophils # (A) 0.2 k/uL (0-0.7); Eosinophils % (A) 2 %; HCT 41.8 % (34.0-46.0); Lymphocytes # (A) 1.8 k/uL (1.0-4.8); Lymphocytes % (A) 20 %; MCH 28.1 pg (25.0-35.0); MCHC 33.5 g/dL (31.0-37.0); MCV 83.9 fL (80.0-100.0); Mean Platelet Volume 7.8; Monocytes # (A) 0.3 k/uL (0-1.0); Monocytes % (A) 4 %; Neutrophils # (A) 6.5 k/uL (1.3-7.7); Neutrophils % (A) 72 %; Platelet Count 263 k/uL (150-450); RBC 4.98 m/uL (3.80-5.40); WBC 8.9 k/uL (3.8-10.6)
[2024-12-09] MEDS: KETOROLAC 15 MG/ML 1 ML VIAL IVP STA (17:01)
--- NOTE | 2024-12-09 17:09 | XR ---
EXAMINATION TYPE: XR chest 2V DATE OF EXAM: 12/09/2024 5:04 PM COMPARISON: Multiple prior chest radiograph, most recently dated 12/07/2024. CLINICAL INDICATION: Female, 29 years old with history of Chest Pain; [facility] TECHNIQUE: XR chest 2V Frontal and lateral views of the chest. FINDINGS: Lungs/Pleura: There is no evidence of pleural effusion, focal consolidation, or pneumothorax. Pulmonary vascularity: Unremarkable. Heart/mediastinum: Cardiomediastinal silhouette is unremarkable. Musculoskeletal: No acute osseous pathology. Other findings: None IMPRESSION: No acute cardiopulmonary disease/process. [facility], , 12/09/2024 5:07 PM
[2024-12-09 17:11] LABS: ALT 20 U/L (4-34); AST 19 U/L (14-36); African American GFR (CKD) >90 (>60 ml/min/1.73 sqM); Alkaline Phosphatase 51 U/L (38-126); Anion Gap 10 mmol/L; Blood Urea Nitrogen 8 mg/dL (7-17); Calcium 8.9 mg/dL (8.4-10.2); Carbon Dioxide 25 mmol/L (22-30); Chloride 105 mmol/L (98-107); Glucose 87 mg/dL (74-99); Lipase 116 U/L (23-300); Magnesium 1.9 mg/dL (1.6-2.3); Non-African American GFR(CKD) >90 (>60 ml/min/1.73 sqM); Potassium 3.2 mmol/L (3.5-5.1); Sodium 140 mmol/L (137-145); Total Bilirubin 0.4 mg/dL (0.2-1.3)
[2024-12-09] MEDS: SODIUM CHLORIDE 0.9% 500 ML 500 ML IV STA (17:11)
[2024-12-09 17:14] LABS: Partial Thromboplastin Time 25.6 sec (22.0-30.0); Prothrombin Time 10.7 sec (10.0-12.5)
[2024-12-09] MEDS: ONDANSETRON 4 MG/2 ML VIAL IVP STA (17:16)
[2024-12-09 17:20] LABS: NT-Pro-B-Type Natriuretic Pept 65 pg/mL
[2024-12-09] MEDS: POTASSIUM CHLORIDE ER 20 MEQ TAB.ER PO STA (18:35)
[2024-12-09 18:49] VITALS: BP 130/96; PULSE 95; RESP 18
== END 2024-12-09 18:49 | disposition home or self-care (01) ==
LOC: EC 16:18
DX: R07.89 Other chest pain (principal); F17.290 Nicotine dependence, other tobacco product, uncomplicated; Z88.0 Allergy status to penicillin
CPT/HCPCS: 36415; 93005; 85379; 83880; 80053; 83690; 83735; 84484; 85025; 85610; 85730; 71046; 99285; 96374; 96361; J2405

== ENCOUNTER 2024-12-10 17:54 | Emergency (ER) | payer OTHER ==
[2024-12-10 17:58] VITALS: RESP 20
--- NOTE | 2024-12-10 18:08 | ED ---
ENT HPI - General Chief complaint: Dental/Oral Stated complaint: Dental Issue Time Seen by Provider: 12/10/24 18:01 Source: patient, RN notes reviewed Mode of arrival: ambulatory Limitations: no limitations - History of Present Illness Initial comments: 29-year-old female presents emergency department complaint of right-sided dental pain. Patient states started overnight states that she is increasing swelling pain upper dental region. Patient did contact her dentist and schedule appointment but states it is not seen enough. Patient denying time associated symptoms. - Related Data Previous Rx's Medication Instructions Recorded Cyclobenzaprine [Flexeril] 10 mg PO TID PRN #10 tab 07/24/24 Ketorolac [Toradol] 10 mg PO Q8HR #15 tab 12/10/24 clindamycin HCL 300 mg PO QID #40 cap 12/10/24 Allergies Allergy/AdvReac Type Severity Reaction Status Date / Time Penicillins Allergy Unknown Rash/Hives Verified 12/09/24 16:25 Review of Systems ROS Statement: Those systems with pertinent positive or pertinent negative responses have been documented in the HPI. ROS Other: All systems not noted in ROS Statement are negative. Past Medical History Past Medical History: Asthma Additional Past Medical History / Comment(s): Gestational diabetes, History of Any Multi-Drug Resistant Organisms: None Reported Past Surgical History: Section Additional Past Surgical History / Comment(s): IUD placement Past Anesthesia/Blood Transfusion Reactions: No Reported Reaction Past Psychological History: Anxiety, Depression Smoking Status: Former smoker, Vaper Past Alcohol Use History: None Reported, Occasional Past Drug Use History: None Reported, Marijuana - Past Family History Mother History Unknown: Yes Family Medical History: No Reported History General Exam Limitations: no limitations General appearance: alert, in no apparent distress Head exam: Present: atraumatic, normocephalic, normal inspection Eye exam: Present: normal appearance, PERRL, EOMI. Absent: scleral icterus, conjunctival injection, periorbital swelling ENT exam: Present: mucous membranes moist. Absent: normal oropharynx (No drainable abscess moderate erythema on the gumline, multiple dental caries noted.) Course Vital Signs 12/10/24 17:57 Temperature 97.9 F Pulse Rate 82 Respiratory 20 Rate Blood Pressure 131/94 O2 Sat by Pulse 99 Oximetry Medical Decision Making - Medical Decision Making Was pt. sent in by a medical professional or institution (Dr., PA, OVEN UNLOADER, urgent care, hospital, or prison...) When possible be specific @ -No Did you speak to anyone other than the patient for history (EMS, parent, family, police, friend...)? What history was obtained from this source @ -No Did you review nursing and triage notes (agree or disagree)? Why? @ -I reviewed and agree with nursing and triage notes Were old charts reviewed (outside hosp., previous admission, EMS record, old EKG, old radiological studies, urgent care reports/EKG's, prison records)? Report findings @ -No old charts were reviewed Differential Diagnosis (chest pain, altered mental status, abdominal pain women, abdominal pain men, vaginal bleeding, weakness, fever, dyspnea, syncope, headache, dizziness, GI bleed, back pain, seizure, CVA, palpatations, mental health, musculoskeletal)? @ -Toothache, dental abscess, dental carry dental fracture impacted molar EKG interpreted by me (3pts min.). @ -None none X-rays interpreted by me (1pt min.). @ -None done CT interpreted by me (1pt min.). @ -None done U/S interpreted by me (1pt. min.). @ -None done What testing was considered but not performed or refused? (CT, X-rays, U/S, labs)? Why? @ -None What meds were considered but not given or refused? Why? @ -None Did you discuss the management of the patient with other professionals (professionals i.e. CHAPIN Torres, OVEN UNLOADER, lab, RT, psych nurse, social work therapist, hazardous substances engineer, teacher, radiation safety officer, medical case worker)? Give summary @ -No Was smoking cessation discussed for >3mins.? @ -No Was critical care preformed (if so, how long)? @ -No Were there social determinants of health that impacted care today? How? (Homelessness, low income, unemployed, alcoholism, drug addiction, transportation, low edu. Level, literacy, decrease access to med. care, custodial, rehab)? @ -No Was there de-escalation of care discussed even if they declined (Discuss DNR or withdrawal of care, Hospice)? DNR status @ -No What co-morbidities impacted this encounter? (DM, HTN, Smoking, COPD, CAD, Cancer, CVA, ARF, Chemo, Hep., AIDS, mental health diagnosis, sleep apnea, morbid obesity)? @ -None Was patient admitted / discharged? Hospital course, mention meds given and route, prescriptions, significant lab abnormalities, going to OR and other pertinent info. @ -Discharge patient presented for toothache no drainable abscess patient placed on oral antibiotics return parens discussed. Undiagnosed new problem with uncertain prognosis? @ -No Drug Therapy requiring intensive monitoring for toxicity (Heparin, Nitro, Insulin, Cardizem)? @ -No Were any procedures done? @ -No Diagnosis/symptom? @ -Toothache Acute, or Chronic, or Acute on Chronic? @ -Acute Uncomplicated (without systemic symptoms) or Complicated (systemic symptoms)? @ -Uncomplicated Side effects of treatment? @ -No Exacerbation, Progression, or Severe Exacerbation? @ -No Poses a threat to life or bodily function? How? (Chest pain, USA, ID, pneumonia, PE, COPD, DKA, ARF, appy, cholecystitis, CVA, Diverticulitis, Homicidal, Suicidal, threat to staff... and all critical care pts) @ -No Disposition Clinical Impression: Toothache Disposition: HOME SELF-CARE Condition: Stable Instructions (If sedation given, give patient instructions): Toothache (ED) Additional Instructions: Please return to the Emergency Department if symptoms worsen or any other concerns. Prescriptions: clindamycin HCL 300 mg PO QID #40 cap Ketorolac [Toradol] 10 mg PO Q8HR #15 tab Is patient prescribed a controlled substance at d/c from ED?: No Referrals: Nonstaff,Physician [Primary Care Provider] - 1-2 days Time of Disposition: 18:08
[2024-12-10] MEDS: CLINDAMYCIN 150 MG CAP PO STA (18:19)
[2024-12-10] MEDS: HYDROcodone/APAP 7.5-325MG 1 EACH TAB PO ONE (18:19)
[2024-12-10] MEDS: ACET/COD 300 MG/30 MG STARTER PACK 6 TAB BTL PO STA (18:19)
[2024-12-10 18:38] VITALS: BP 126/89; PULSE 86; TEMP 98.6
== END 2024-12-10 18:44 | disposition home or self-care (01) ==
LOC: EC 17:54
DX: K08.89 Other specified disorders of teeth and supporting structures (principal); F17.290 Nicotine dependence, other tobacco product, uncomplicated; Z88.0 Allergy status to penicillin
CPT/HCPCS: 99282

== ENCOUNTER 2025-01-03 15:05 | Emergency (ER) | payer OTHER ==
--- NOTE | 2025-01-03 16:18 | ED ---
General Adult HPI - General Chief complaint: Chest Pain Stated complaint: chest pain Time Seen by Provider: 01/03/25 15:39 Source: patient, EMS Mode of arrival: EMS Limitations: no limitations - History of Present Illness Initial comments: Patient is a 29-year-old female with a past medical history of "tachycardia" presenting today for chest tightness. Patient states last night began experiencing intermittent chest tightness and palpitations. Notes associated lightheadedness with the symptoms. States they feel like a panic attack. She does take Xanax intermittently for anxiety but did not trial this for her symptoms. Was given 324 mg aspirin by EMS. States she had a Holter monitor done for approximately 5 days recently and was told that her heart rates have been ranging between 63-73. Patient is a non-smoker, denies illicit drug use or alcohol use. She is on Zepbound and recently increased her dose on Tuesday. To 10 units. She subsequently also increased her intake of "electrolytes" which she takes does have a level electrolyte drinks. Endorses lower extremity muscle cramps, denies nausea or vomiting, black or bloody stools or diarrhea. Denies fevers or chills, sore throat or recent illness. Denies cough or hemoptysis. No recent travels surgery or hospitalizations. Patient is not on blood thinners. States she trialed ashwagandha Gummies yesterday for her anxiety without any improvement in her symptoms. States she has an IUD and does not think she could be . - Related Data Home Medications Medication Instructions Recorded Confirmed ALPRAZolam [Xanax] 0.25 mg PO DAILY PRN 01/03/25 01/03/25 FLUoxetine HCL [PROzac] 10 mg PO DIRECTED 01/03/25 01/03/25 Tirzepatide [Zepbound] 10 mg SQ OSPINA 01/03/25 01/03/25 Allergies Allergy/AdvReac Type Severity Reaction Status Date / Time Penicillins Allergy Unknown Rash/Hives Verified 01/03/25 17:20 Review of Systems ROS Statement: Those systems with pertinent positive or pertinent negative responses have been documented in the HPI. ROS Other: All systems not noted in ROS Statement are negative. Past Medical History Past Medical History: Asthma Additional Past Medical History / Comment(s): Gestational diabetes, sinus tachycardia History of Any Multi-Drug Resistant Organisms: None Reported Past Surgical History: Section Additional Past Surgical History / Comment(s): IUD placement Past Anesthesia/Blood Transfusion Reactions: No Reported Reaction Past Psychological History: Anxiety, Depression Smoking Status: Former smoker Past Alcohol Use History: None Reported Past Drug Use History: None Reported - Past Family History Mother History Unknown: Yes Family Medical History: No Reported History General Exam - General Exam Comments Initial Comments: PE: CONSTITUTIONAL: [no apparent distress, well appearing] SKIN: [warm, dry, no jaundice, hives or petechiae] EYES:[ pupils are equally round, extraocular movements intact without nystagmus, clear conjunctiva, non-icteric sclera] HENT: [normocephalic, atraumatic, moist mucus membranes, oropharynx clear without exudates] NECK: , [Full range of motion, normal appearance] PULMONARY: [clear to auscultation without wheezes, rhonchi, or rales, normal excursion, no accessory muscle use and no stridor] CARDIOVASCULAR:[ regular rate, rhythm, normal S1 and S2. No appreciated murmurs, rubs or gallops. Strong radial pulses with intact distal perfusion. No lower extremity edema] GASTROINTESTINAL: [soft, active bowel sounds throughout, non-tender, non- distended, no palpable masses, no rebound or guarding. No hepatosplenomegaly] GENITOURINARY: MUSCULOSKELETAL: [Extremities have no gross deformity, no edema, redness, or swelling. No calf swelling ] NEUROLOGIC: [_a/o x 3, GCS 15, normal mentation and speech. Moves all extremities x 4 without motor or sensory deficit] PSYCHIATRIC:[Guarded and anxious mood and affect, thought process is clear and linear] Limitations: no limitations Course Vital Signs 01/03/25 01/03/25 15:06 17:00 Temperature 98.7 F Pulse Rate 91 101 H Respiratory 18 17 Rate Blood Pressure 122/91 113/81 O2 Sat by Pulse 99 98 Oximetry EKG Findings - EKG Comments: EKG Findings:: Sinus rhythm, rate 94 bpm intervals within acceptable limits, normal axis, no ST elevations or depressions, no arrhythmia, no delta waves or Brugada patternEKG was performed EKG performed , no significant changes from prior Medical Decision Making - Medical Decision Making Was pt. sent in by a medical professional or institution (, PA, HAND STONECUTTER, urgent care, hospital, or longterm...) When possible be specific @ -[No] Did you speak to anyone other than the patient for history (EMS, parent, family, police, friend...)? What history was obtained from this source @ -[No] Did you review nursing and triage notes (agree or disagree)? Why? @ -[I reviewed nursing and triage notes] Were old charts reviewed (outside hosp., previous admission, EMS record, old EKG, old radiological studies, urgent care reports/EKG's, longterm records)? Report findings @ -[Medical records reviewed]-patient has been here multiple times in the past for similar symptoms. I did see this patient in July 2024 for similar symptoms, I reviewed CT chest done at that time, was nondiagnostic for PE Differential Diagnosis (chest pain, altered mental status, abdominal pain women, abdominal pain men, vaginal bleeding, weakness, fever, dyspnea, syncope, headache, dizziness, GI bleed, back pain, seizure, CVA, palpatations, mental health, musculoskeletal)? Differential Palpitations Ventricular arrhythmias, atrial arrhythmias, myocardial infarction, anemia, thyrotoxicosis, electrolyte imbalance, hypokalemia, pulmonary embolism, pulmo nary disease, drugs, alcohol, anxiety, stress.... This is not meant to be an all-inclusive list. Differential Dyspnea: Coronary syndrome, arrhythmia, tamponade, asthma, COPD, pulmonary embolism, pneu monia, pneumothorax, pulmonary effusion, anaphylaxis, diabetic ketoacidosis, flailed chest, pulmonary contusion, diaphragmatic rupture, anemia, neuromuscular, this is not meant to be an all-inclusive list. EKG interpreted by me (3pts min.). @ -[As above] X-rays interpreted by me (1pt min.). @ -[None done] CT interpreted by me (1pt min.). @ -[None done] U/S interpreted by me (1pt. min.). @ -[None done] What testing was considered but not performed or refused? (CT, X-rays, U/S, labs)? Why? @ -[None] What meds were considered but not given or refused? Why? @ -[None] Did you discuss the management of the patient with other professionals (professionals i.e. , PA, HAND STONECUTTER, lab, RT, psych nurse, high school social studies teacher, telephone sex worker, teacher, special officer automat, case making machine operator)? Give summary @ -[No] Was smoking cessation discussed for >3mins.? @ -[No] Was critical care preformed (if so, how long)? @ -[No] Were there social determinants of health that impacted care today? How? (Homelessness, low income, unemployed, alcoholism, drug addiction, transportation, low edu. Level, literacy, decrease access to med. care, snf, rehab)? @ -[No] Was there de-escalation of care discussed even if they declined (Discuss DNR or withdrawal of care, Hospice)? @ -[No] What co-morbidities impacted this encounter? (DM, HTN, Smoking, COPD, CAD, Cancer, CVA, ARF, Chemo, Hep., AIDS, mental health diagnosis, sleep apnea, morbid obesity)? @ -obesity on GLP-1 Was patient admitted / discharged? Hospital course, mention meds given and route, prescriptions, significant lab abnormalities, going to OR and other pertinent info. @ -[hospital course] patient is a 29-year-old female, obesity, on GLP-1 inhibitor presenting today for chest tightness and palpitations as lightheadedness. Vital signs stable on arrival. Patient is somewhat anxious during my evaluation, no tachycardia, lungs are clear to auscultation bilaterally. patient has been here previously for this as well. it appears workups do bag turner essentially negative. workup will remain broad. pt was agreeable to valium during workup Labs and imaging reviewed. Grossly within normal limits. Abnormal values not concerning for acute pathology related to presenting complaint. On reassessment patient endorsed mild improvement of symptoms,'s was agreeable to additional dose of Valium, currently pending urinalysis Undiagnosed new problem with uncertain prognosis? @ -[No] Drug Therapy requiring intensive monitoring for toxicity (Heparin, Nitro, Insulin, Cardizem)? @ -[No] Were any procedures done? @ -[No] Diagnosis/symptom? @ -[default] Acute, or Chronic, or Acute on Chronic? @ -[default] Uncomplicated (without systemic symptoms) or Complicated (systemic symptoms)? @ -[default] Side effects of treatment? @ -[No] Exacerbation, Progression, or Severe Exacerbation? @ -[No] Poses a threat to life or bodily function? How? (Chest pain, USA, [place], pneumonia, PE, COPD, DKA, ARF, appy, cholecystitis, CVA, Diverticulitis, Homicidal, Suicidal, threat to staff... and all critical care pts) @ -[No] - Lab Data Result diagrams: 01/03/25 16:33 01/03/25 16:33 Lab Results 01/03/25 01/03/25 01/03/25 Range/Units 16:33 16:33 16:33 WBC 8.77 (4.50-10.00) 10*3/uL RBC 5.22 H (4.10-5.20) 10*6/uL Hgb 15.3 H (12.0-15.0) g/dL Hct 43.5 (37.2-46.3) % MCV 83.3 (80.0-97.0) fL MCH 29.3 (27.0-32.0) pg MCHC 35.2 (32.0-37.0) g/dL Plt Count 305 (140-440) 10*3/uL MPV 10.1 (9.5-12.2) fL Immature Gran % (Auto) 0.5 % Neutrophils % 71.7 % Lymphocytes % 19.6 % Monocytes % 5.5 % Eosinophils % 2.2 % Basophils % 0.5 % Immature Gran # 0.04 (0.00-0.04) 10*3/uL Neutrophils # 6.30 (1.80-7.70) 10*3/uL Lymphocytes # 1.72 (0.90-5.00) 10*3/uL Monocytes # 0.48 (0.20-1.00) 10*3/uL Eosinophils # 0.19 (0.04-0.35) 10*3/uL Basophils # 0.04 (0.00-0.10) 10*3/uL PT 10.6 (10.0-12.5) sec INR 1.0 (<1.2) APTT 25.9 (22.0-30.0) sec D-Dimer 0.32 (<0.60) mg/L FEU Sodium 138 (137-145) mmol/L Potassium 4.2 (3.5-5.1) mmol/L Chloride 104 (98-107) mmol/L Carbon Dioxide 20 L (22-30) mmol/L Anion Gap 14 mmol/L BUN 12 (7-17) mg/dL Creatinine 0.45 L (0.52-1.04) mg/dL Est GFR (CKD-EPI)AfAm >90 (>60 ml/min/1.73 sqM) Est GFR (CKD-EPI)NonAf >90 (>60 ml/min/1.73 sqM) Glucose 83 (74-99) mg/dL Calcium 9.6 (8.4-10.2) mg/dL Magnesium 1.9 (1.6-2.3) mg/dL Total Bilirubin 0.6 (0.2-1.3) mg/dL AST 29 (14-36) U/L ALT 18 (4-34) U/L Alkaline Phosphatase 62 (38-126) U/L Troponin I (0.000-0.034) ng/mL NT-Pro-B Natriuret Pep <20 pg/mL Total Protein 7.8 (6.3-8.2) g/dL Albumin 4.5 (3.5-5.0) g/dL Lipase 104 (23-300) U/L TSH 0.885 (0.465-4.680) mIU/L HCG, Qual Not Detected Urine Color Urine Appearance (Clear) Urine pH (5.0-8.0) Ur Specific [place] (1.001-1.035) Urine Protein (Negative) Urine Glucose (UA) (Negative) Urine Ketones (Negative) Urine Blood (Negative) Urine Nitrite (Negative) Urine Bilirubin (Negative) Urine Urobilinogen (<2.0) mg/dL Ur Leukocyte Esterase (Negative) 01/03/25 01/03/25 Range/Units 16:33 17:05 WBC (4.50-10.00) 10*3/uL RBC (4.10-5.20) 10*6/uL Hgb (12.0-15.0) g/dL Hct (37.2-46.3) % MCV (80.0-97.0) fL MCH (27.0-32.0) pg MCHC (32.0-37.0) g/dL Plt Count (140-440) 10*3/uL MPV (9.5-12.2) fL Immature Gran % (Auto) % Neutrophils % % Lymphocytes % % Monocytes % % Eosinophils % % Basophils % % Immature Gran # (0.00-0.04) 10*3/uL Neutrophils # (1.80-7.70) 10*3/uL Lymphocytes # (0.90-5.00) 10*3/uL Monocytes # (0.20-1.00) 10*3/uL Eosinophils # (0.04-0.35) 10*3/uL Basophils # (0.00-0.10) 10*3/uL PT (10.0-12.5) sec INR (<1.2) APTT (22.0-30.0) sec D-Dimer (<0.60) mg/L FEU Sodium (137-145) mmol/L Potassium (3.5-5.1) mmol/L Chloride (98-107) mmol/L Carbon Dioxide (22-30) mmol/L Anion Gap mmol/L BUN (7-17) mg/dL Creatinine (0.52-1.04) mg/dL Est GFR (CKD-EPI)AfAm (>60 ml/min/1.73 sqM) Est GFR (CKD-EPI)NonAf (>60 ml/min/1.73 sqM) Glucose (74-99) mg/dL Calcium (8.4-10.2) mg/dL Magnesium (1.6-2.3) mg/dL Total Bilirubin (0.2-1.3) mg/dL AST (14-36) U/L ALT (4-34) U/L Alkaline Phosphatase (38-126) U/L Troponin I <0.012 (0.000-0.034) ng/mL NT-Pro-B Natriuret Pep pg/mL Total Protein (6.3-8.2) g/dL Albumin (3.5-5.0) g/dL Lipase (23-300) U/L TSH (0.465-4.680) mIU/L HCG, Qual Urine Color Yellow Urine Appearance Clear (Clear) Urine pH 5.5 (5.0-8.0) Ur Specific [place] 1.033 (1.001-1.035) Urine Protein Negative (Negative) Urine Glucose (UA) Negative (Negative) Urine Ketones Negative (Negative) Urine Blood Negative (Negative) Urine Nitrite Negative (Negative) Urine Bilirubin Negative (Negative) Urine Urobilinogen <2.0 (<2.0) mg/dL Ur Leukocyte Esterase Negative (Negative) Disposition Clinical Impression: Palpitations Disposition: HOME SELF-CARE Condition: Good Instructions (If sedation given, give patient instructions): Heart Palpitations (ED) Additional Instructions: Every disease is a spectrum and a small chance still exists that a serious condition could develop, for this reason, please monitor yourself closely for new, changing or worsening symptoms, symptoms that persist beyond 48 hours, fever, chest pain, difficulty in breathing, leg swelling, inability to tolerate/keep down fluids or your medications, inability to follow up with outpatient providers as instructed and should you experience these symptoms or should you have any further concerns for your wellbeing please return to the ED or call 911 immediately. PLEASE call your primary care physician as soon as possible to arrange / discuss plan for followup appointment. Appointment in the next 1-3 days is strongly encouraged if possible. PLEASE let us know here before you leave if there is anything further we can do to be of any assistance. Take care and feel Better! Is patient prescribed a controlled substance at d/c from ED?: No Referrals: Nonstaff,Physician [Primary Care Provider] - 1-2 days Harry Salmeron DO [STAFF PHYSICIAN] - 1-2 days
[2025-01-03 16:37] LABS: Basophils # (A) 0.04 10*3/uL (0.00-0.10); Basophils % (A) 0.5 %; Eosinophils # (A) 0.19 10*3/uL (0.04-0.35); Eosinophils % (A) 2.2 %; HCT 43.5 % (37.2-46.3); HGB 15.3 g/dL (12.0-15.0); Lymphocytes # (A) 1.72 10*3/uL (0.90-5.00); Lymphocytes % (A) 19.6 %; MCH 29.3 pg (27.0-32.0); MCHC 35.2 g/dL (32.0-37.0); MCV 83.3 fL (80.0-97.0); Mean Platelet Volume 10.1 fL (9.5-12.2); Monocytes # (A) 0.48 10*3/uL (0.20-1.00); Monocytes % (A) 5.5 %; Neutrophils % (A) 71.7 %; Platelet Count 305 10*3/uL (140-440); RBC 5.22 10*6/uL (4.10-5.20); RDW 12.9 % (11.5-14.5); WBC 8.77 10*3/uL (4.50-10.00)
[2025-01-03 16:47] LABS: HCG,Qualitative Serum Not Detected
[2025-01-03 16:50] LABS: ALT 18 U/L (4-34); AST 29 U/L (14-36); African American GFR (CKD) >90 (>60 ml/min/1.73 sqM); Albumin 4.5 g/dL (3.5-5.0); Alkaline Phosphatase 62 U/L (38-126); Anion Gap 14 mmol/L; Blood Urea Nitrogen 12 mg/dL (7-17); Calcium 9.6 mg/dL (8.4-10.2); Carbon Dioxide 20 mmol/L (22-30); Chloride 104 mmol/L (98-107); Glucose 83 mg/dL (74-99); Lipase 104 U/L (23-300); Magnesium 1.9 mg/dL (1.6-2.3); Non-African American GFR(CKD) >90 (>60 ml/min/1.73 sqM); Potassium 4.2 mmol/L (3.5-5.1); Sodium 138 mmol/L (137-145); Total Bilirubin 0.6 mg/dL (0.2-1.3); Total Protein 7.8 g/dL (6.3-8.2)
[2025-01-03 16:56] LABS: Partial Thromboplastin Time 25.9 sec (22.0-30.0); Prothrombin Time 10.6 sec (10.0-12.5)
[2025-01-03] MEDS: SODIUM CHLORIDE 0.9% 1,000 ML IV STA (16:57)
[2025-01-03] MEDS: SODIUM CHLORIDE 0.9% 1,000 ML IV ONE (16:58)
[2025-01-03 16:59] LABS: NT-Pro-B-Type Natriuretic Pept <20 pg/mL
--- NOTE | 2025-01-03 17:17 | XR ---
EXAMINATION TYPE: XR chest 2V DATE OF EXAM: 01/03/2025 5:14 PM COMPARISON: 12/09/2024 CLINICAL INDICATION: Female, 29 years old with history of palpitations, Chest pain TECHNIQUE: XR chest 2V views of the chest are obtained. FINDINGS: There is no focal air space opacity. No evidence for pneumothorax. No pleural effusion. The cardiac silhouette size is within normal limits. The osseous structures are grossly intact. IMPRESSION: 1. No acute cardiopulmonary process. [facility], , 01/03/2025 5:15 PM
[2025-01-03 18:07] LABS: Appearance,Urine Clear (Clear); Bilirubin,Urine Negative (Negative); Blood,Urine Negative (Negative); Color,Urine Yellow; Glucose,Urine (UA) Negative (Negative); Ketones,Urine Negative (Negative); Leukocyte Esterase,Urine Negative (Negative); Nitrite,Urine Negative (Negative); PH, Urine 5.5 (5.0-8.0); Protein,Urine Negative (Negative); Specific Gravity,Urine 1.033 (1.001-1.035); Urobilinogen,Urine <2.0 mg/dL (<2.0)
[2025-01-03 18:50] VITALS: BP 116/82; PULSE 95; RESP 18; TEMP 98.6
== END 2025-01-03 19:00 | disposition home or self-care (01) ==
LOC: EC 15:05
DX: R00.2 Palpitations (principal); E66.9 Obesity, unspecified; Z88.0 Allergy status to penicillin; Z87.891 Personal history of nicotine dependence; Z68.41 Body mass index [BMI] 40.0-44.9, adult
CPT/HCPCS: 36415; 93005; 85379; 83880; 80053; 84443; 83690; 83735; 84484; 85025; 85610; 85730; 81003; 84703; 71046; 99285; 96374; 96376; 96361 ×2; J3360

== ENCOUNTER 2025-03-15 18:57 | Emergency (ER) | payer OTHER ==
--- NOTE | 2025-03-15 19:23 | ED ---
Abdominal Pain HPI - General Chief Complaint: Abdominal Pain Stated Complaint: Abd pain Time Seen by Provider: 03/15/25 19:12 Source: patient, RN notes reviewed Mode of arrival: ambulatory Limitations: no limitations - History of Present Illness Initial Comments: This is a 29-year-old female with history including asthma, gestational DM, anxiety presenting for abdominal pain (03/14) x 7 days. Patient states pain is located mainly in her upper and lower abdomen, described as intermittent cramping. Patient Dors is associated nausea/vomiting, diarrhea and dizziness. Patient states she was seen in the ER 2 days ago and was told she may have a kidney issue prescribed Macrobid with no relief. Endorses associated spotting. Patient denies history of kidney stones and still has her appendix and gallbladder. Otherwise denies urinary symptoms, hematuria or vaginal discharge. Denies fever, chills, constant chest pain, dyspnea, hematemesis, hematochezia, melena. MD Complaint: abdominal pain Onset/Timin -: days(s) Location: LUQ, epigastric, suprapubic Radiation: back Severity scale (1-10): 7 Quality: cramping Consistency: intermittent Associated Symptoms: nausea, vomiting, diarrhea Treatments Prior to Arrival: NSAIDs - Related Data Home Medications Medication Instructions Recorded Confirmed ALPRAZolam [Xanax] 0.25 mg PO DAILY PRN 01/03/25 01/03/25 FLUoxetine HCL [PROzac] 10 mg PO DIRECTED 01/03/25 01/03/25 Tirzepatide [Zepbound] 10 mg SQ OSPINA 01/03/25 01/03/25 Allergies Allergy/AdvReac Type Severity Reaction Status Date / Time Penicillins Allergy Unknown Rash/Hives Verified 03/15/25 19:02 Review of Systems ROS Statement: Those systems with pertinent positive or pertinent negative responses have been documented in the HPI. ROS Other: All systems not noted in ROS Statement are negative. Past Medical History Past Medical History: Asthma Additional Past Medical History / Comment(s): Gestational diabetes, sinus tachycardia History of Any Multi-Drug Resistant Organisms: None Reported Past Surgical History: Section Additional Past Surgical History / Comment(s): IUD placement Past Anesthesia/Blood Transfusion Reactions: No Reported Reaction Past Psychological History: Anxiety, Depression Smoking Status: Former smoker Past Alcohol Use History: None Reported Past Drug Use History: None Reported - Past Family History Mother History Unknown: Yes Family Medical History: No Reported History General Exam Limitations: no limitations General appearance: alert, in no apparent distress Head exam: Present: atraumatic, normocephalic, normal inspection Eye exam: Present: normal appearance, PERRL, EOMI. Absent: scleral icterus, conjunctival injection, periorbital swelling ENT exam: Present: normal exam, mucous membranes moist Neck exam: Present: normal inspection. Absent: tenderness, meningismus, lymphadenopathy Respiratory exam: Present: normal lung sounds bilaterally. Absent: respiratory distress, wheezes, rales, rhonchi, stridor, chest wall tenderness, accessory muscle use, decreased breath sounds, prolonged expiratory Cardiovascular Exam: Present: regular rate, normal rhythm, normal heart sounds. Absent: systolic murmur, diastolic murmur, rubs, gallop, clicks GI/Abdominal exam: Present: soft, tenderness (Positive RLQ, RUQ, epigastric and LUQ TTP without guarding. Negative McBurney point, Rovsing sign, Barth sign), diminished bowel sounds, hypoactive bowel sounds. Absent: distended, guarding, rebound, rigid Extremities exam: Present: normal inspection, full ROM, normal capillary refill. Absent: tenderness, pedal edema, joint swelling, calf tenderness Back exam: Present: normal inspection, tenderness (Positive right lumbar TTP and pain with movement), muscle spasm. Absent: CVA tenderness (R), CVA tenderness (L), paraspinal tenderness, vertebral tenderness Neurological exam: Present: alert, oriented X3, CN II-XII intact Psychiatric exam: Present: normal affect, normal mood Skin exam: Present: warm, dry, intact, normal color. Absent: rash Course Vital Signs 03/15/25 03/15/25 18:59 22:11 Temperature 98.1 F 98.3 F Pulse Rate 86 79 Respiratory 20 16 Rate Blood Pressure 130/102 O2 Sat by Pulse 97 97 Oximetry Medical Decision Making - Medical Decision Making Was pt. sent in by a medical professional or institution (, [place], ASPHALT SCREED OPERATOR, urgent care, hospital, or halfway...) When possible be specific @ -No Did you speak to anyone other than the patient for history (EMS, parent, family, police, friend...)? What history was obtained from this source @ -No Did you review nursing and triage notes (agree or disagree)? Why? @ -I reviewed and agree with nursing and triage notes Were old charts reviewed (outside hosp., previous admission, EMS record, old EKG, old radiological studies, urgent care reports/EKG's, halfway records)? Report findings @ -No old charts were reviewed Differential Diagnosis (chest pain, altered mental status, abdominal pain women, abdominal pain men, vaginal bleeding, weakness, fever, dyspnea, syncope, headache, dizziness, GI bleed, back pain, seizure, CVA, palpatations, mental health, musculoskeletal)? @ -Differential Abdominal Pain Women: Appendicitis, Cholecystitis, diverticulosis, ischemic bowel, pancreatitis, hepatitis, UTI, gastroenteritis, AAA, incarcerated hernia, bowel obstruction, constipation, inflammatory bowel, hepatitis, peptic ulcer disease, splenic infarction, perforated viscus, vulvitis, ovarian torsion, PID, kidney stone, placenta abruption, this is not meant to be an all-inclusive list EKG interpreted by me (3pts min.). @ -Not done X-rays interpreted by me (1pt min.). @ - KUB shows nonspecific bowel gas pattern without acute process. CT interpreted by me (1pt min.). @ -None done U/S interpreted by me (1pt. min.). @ -None done What testing was considered but not performed or refused? (CT, X-rays, U/S, labs)? Why? @ -Offered patient abdominal CT scan despite unremarkable lab findings. Patient declined, stating she is following up with PCP this Tuesday. What meds were considered but not given or refused? Why? @ -None Did you discuss the management of the patient with other professionals (professionals i.e. , PA, ASPHALT SCREED OPERATOR, lab, RT, psych nurse, long term care social worker, motor brakeman, teacher, finance officer, rehabilitation case coordinator)? Give summary @ -No Was smoking cessation discussed for >3mins.? @ -No Was critical care preformed (if so, how long)? @ -No Were there social determinants of health that impacted care today? How? (Homelessness, low income, unemployed, alcoholism, drug addiction, transportation, low edu. Level, literacy, decrease access to med. care, [facility], rehab)? @ -No Was there de-escalation of care discussed even if they declined (Discuss DNR or withdrawal of care, Hospice)? DNR status @ -No What co-morbidities impacted this encounter? (DM, HTN, Smoking, COPD, CAD, Canc er, CVA, ARF, Chemo, Hep., AIDS, mental health diagnosis, sleep apnea, morbid obesity)? @ -None Was patient admitted / discharged? Hospital course, mention meds given and route, prescriptions, significant lab abnormalities, going to OR and other pertinent info. @ -Patient initially provided IV normal saline, morphine and Toradol. Lab work and UA completely unremarkable with WBC 7.83, lipase 80 and negative urine hCG. KUB shows nonspecific bowel gas pattern without acute process. Advised patient to follow-up with PCP regarding any ongoing left upper quadrant pain/GI symptoms. Advised return to ER if symptoms should continue to worsen and/or fever develops. Patient discharged with T3 starter pack. Discussed patient with Dr. Gonzales. Undiagnosed new problem with uncertain prognosis? @ -No Drug Therapy requiring intensive monitoring for toxicity (Heparin, Nitro, Insulin, Cardizem)? @ -No Were any procedures done? @ -No Diagnosis/symptom? @ -Abdominal pain of unknown etiology Acute, or Chronic, or Acute on Chronic? @ -Acute Uncomplicated (without systemic symptoms) or Complicated (systemic symptoms)? @ -Complicated Side effects of treatment? @ -No Exacerbation, Progression, or Severe Exacerbation? @ -No Poses a threat to life or bodily function? How? (Chest pain, [place], [place], pneumonia, PE, COPD, DKA, ARF, appy, cholecystitis, CVA, Diverticulitis, Homicidal, Suicidal, threat to staff... and all critical care pts) @ -No - Lab Data Result diagrams: 03/15/25 20:01 03/15/25 20:01 Lab Results 03/15/25 03/15/25 03/15/25 Range/Units 19:49 19:49 20:01 WBC 7.83 (4.50-10.00) 10*3/uL RBC 4.90 (4.10-5.20) 10*6/uL Hgb 14.5 (12.0-15.0) g/dL Hct 41.7 (37.2-46.3) % MCV 85.1 (80.0-97.0) fL MCH 29.6 (27.0-32.0) pg MCHC 34.8 (32.0-37.0) g/dL Plt Count 322 (140-440) 10*3/uL MPV 10.0 (9.5-12.2) fL Immature Gran % (Auto) 0.4 % Neutrophils % 67.3 % Lymphocytes % 24.4 % Monocytes % 5.7 % Eosinophils % 1.7 % Basophils % 0.5 % Immature Gran # 0.03 (0.00-0.04) 10*3/uL Neutrophils # 5.27 (1.80-7.70) 10*3/uL Lymphocytes # 1.91 (0.90-5.00) 10*3/uL Monocytes # 0.45 (0.20-1.00) 10*3/uL Eosinophils # 0.13 (0.04-0.35) 10*3/uL Basophils # 0.04 (0.00-0.10) 10*3/uL Sodium (137-145) mmol/L Potassium (3.5-5.1) mmol/L Chloride (98-107) mmol/L Carbon Dioxide (22-30) mmol/L Anion Gap mmol/L BUN (7-17) mg/dL Creatinine (0.52-1.04) mg/dL Est GFR (CKD-EPI)AfAm (>60 ml/min/1.73 sqM) Est GFR (CKD-EPI)NonAf (>60 ml/min/1.73 sqM) Glucose (74-99) mg/dL Calcium (8.4-10.2) mg/dL Total Bilirubin (0.2-1.3) mg/dL AST (14-36) U/L ALT (4-34) U/L Alkaline Phosphatase (38-126) U/L Total Protein (6.3-8.2) g/dL Albumin (3.5-5.0) g/dL Lipase (23-300) U/L Urine Color Light Yellow Urine Appearance Cloudy H (Clear) Urine pH 5.5 (5.0-8.0) Ur Specific [place] 1.024 (1.001-1.035) Urine Protein Negative (Negative) Urine Glucose (UA) Negative (Negative) Urine Ketones Negative (Negative) Urine Blood Negative (Negative) Urine Nitrite Negative (Negative) Urine Bilirubin Negative (Negative) Urine Urobilinogen <2.0 (<2.0) mg/dL Ur Leukocyte Esterase Trace H (Negative) Urine RBC <1 (0-5) /hpf Urine WBC 2 (0-5) /hpf Ur Squamous Epith Cells 5 H (0-4) /hpf Urine Bacteria Rare H (None) /hpf Urine Mucus Rare H (None) /hpf Urine HCG, Qual Not Detected (Not Detectd) 03/15/25 Range/Units 20:01 WBC (4.50-10.00) 10*3/uL RBC (4.10-5.20) 10*6/uL Hgb (12.0-15.0) g/dL Hct (37.2-46.3) % MCV (80.0-97.0) fL MCH (27.0-32.0) pg MCHC (32.0-37.0) g/dL Plt Count (140-440) 10*3/uL MPV (9.5-12.2) fL Immature Gran % (Auto) % Neutrophils % % Lymphocytes % % Monocytes % % Eosinophils % % Basophils % % Immature Gran # (0.00-0.04) 10*3/uL Neutrophils # (1.80-7.70) 10*3/uL Lymphocytes # (0.90-5.00) 10*3/uL Monocytes # (0.20-1.00) 10*3/uL Eosinophils # (0.04-0.35) 10*3/uL Basophils # (0.00-0.10) 10*3/uL Sodium 140 (137-145) mmol/L Potassium 4.0 (3.5-5.1) mmol/L Chloride 105 (98-107) mmol/L Carbon Dioxide 25 (22-30) mmol/L Anion Gap 10 mmol/L BUN 12 (7-17) mg/dL Creatinine 0.58 (0.52-1.04) mg/dL Est GFR (CKD-EPI)AfAm >90 (>60 ml/min/1.73 sqM) Est GFR (CKD-EPI)NonAf >90 (>60 ml/min/1.73 sqM) Glucose 99 (74-99) mg/dL Calcium 9.0 (8.4-10.2) mg/dL Total Bilirubin 0.3 (0.2-1.3) mg/dL AST 17 (14-36) U/L ALT 12 (4-34) U/L Alkaline Phosphatase 75 (38-126) U/L Total Protein 7.3 (6.3-8.2) g/dL Albumin 4.1 (3.5-5.0) g/dL Lipase 80 (23-300) U/L Urine Color Urine Appearance (Clear) Urine pH (5.0-8.0) Ur Specific [place] (1.001-1.035) Urine Protein (Negative) Urine Glucose (UA) (Negative) Urine Ketones (Negative) Urine Blood (Negative) Urine Nitrite (Negative) Urine Bilirubin (Negative) Urine Urobilinogen (<2.0) mg/dL Ur Leukocyte Esterase (Negative) Urine RBC (0-5) /hpf Urine WBC (0-5) /hpf Ur Squamous Epith Cells (0-4) /hpf Urine Bacteria (None) /hpf Urine Mucus (None) /hpf Urine HCG, Qual (Not Detectd) Disposition Clinical Impression: Abdominal pain of unknown etiology Disposition: HOME SELF-CARE Condition: Fair Instructions (If sedation given, give patient instructions): Abdominal Pain (ED) Additional Instructions: Return to ER if experiencing fever or worsening abdominal pain. Follow-up with PCP on Tuesday for ongoing evaluation and management of abdominal pain. Is patient prescribed a controlled substance at d/c from ED?: No Referrals: Nonstaff,Physician [Primary Care Provider] - 1-2 days Angela Santana MD [REFERRING] - 1-2 days Time of Disposition: 21:15
[2025-03-15] MEDS: SODIUM CHLORIDE 0.9% 1,000 ML IV STA (20:03)
[2025-03-15] MEDS: KETOROLAC 15 MG/ML 1 ML VIAL IVP STA (20:04)
[2025-03-15] MEDS: MORPHINE SULFATE 4 MG/ML SYRINGE IVP STA (20:07)
[2025-03-15 20:26] LABS: Basophils # (A) 0.04 10*3/uL (0.00-0.10); Basophils % (A) 0.5 %; Eosinophils # (A) 0.13 10*3/uL (0.04-0.35); Eosinophils % (A) 1.7 %; HCT 41.7 % (37.2-46.3); HGB 14.5 g/dL (12.0-15.0); Lymphocytes # (A) 1.91 10*3/uL (0.90-5.00); Lymphocytes % (A) 24.4 %; MCH 29.6 pg (27.0-32.0); MCHC 34.8 g/dL (32.0-37.0); MCV 85.1 fL (80.0-97.0); Monocytes # (A) 0.45 10*3/uL (0.20-1.00); Monocytes % (A) 5.7 %; Neutrophils # (A) 5.27 10*3/uL (1.80-7.70); Neutrophils % (A) 67.3 %; Platelet Count 322 10*3/uL (140-440); RBC 4.90 10*6/uL (4.10-5.20); RDW 12.6 % (11.5-14.5); WBC 7.83 10*3/uL (4.50-10.00)
[2025-03-15 20:32] LABS: Bacteria,Urine Rare /hpf; Bilirubin,Urine Negative (Negative); Blood,Urine Negative (Negative); Color,Urine Light Yellow; Glucose,Urine (UA) Negative (Negative); Ketones,Urine Negative (Negative); Leukocyte Esterase,Urine Trace (Negative); Mucus,Urine Rare /hpf; Nitrite,Urine Negative (Negative); PH, Urine 5.5 (5.0-8.0); Protein,Urine Negative (Negative); RBC,Urine <1 /hpf (0-5); Specific Gravity,Urine 1.024 (1.001-1.035); Squamous Epithelial Cell,Urine 5 /hpf (0-4); Urobilinogen,Urine <2.0 mg/dL (<2.0); WBC,Urine 2 /hpf (0-5)
[2025-03-15 20:50] LABS: ALT 12 U/L (4-34); AST 17 U/L (14-36); African American GFR (CKD) >90 (>60 ml/min/1.73 sqM); Albumin 4.1 g/dL (3.5-5.0); Alkaline Phosphatase 75 U/L (38-126); Anion Gap 10 mmol/L; Blood Urea Nitrogen 12 mg/dL (7-17); Calcium 9.0 mg/dL (8.4-10.2); Carbon Dioxide 25 mmol/L (22-30); Chloride 105 mmol/L (98-107); Glucose 99 mg/dL (74-99); Lipase 80 U/L (23-300); Non-African American GFR(CKD) >90 (>60 ml/min/1.73 sqM); Potassium 4.0 mmol/L (3.5-5.1); Sodium 140 mmol/L (137-145); Total Protein 7.3 g/dL (6.3-8.2)
--- NOTE | 2025-03-15 21:32 | XR ---
EXAMINATION TYPE: XR KUB DATE OF EXAM: 03/15/2025 8:33 PM CLINICAL INDICATION:Female, 29 years old with history of Diffuse abdominal pain; PHH, pain COMPARISON: None. TECHNIQUE: One radiographic view of the abdomen was obtained. FINDINGS: The bowel gas pattern is nonspecific without dilated loops of small or large bowel. There is no evidence for pneumoperitoneum. The osseous structures are intact. Visualized portions o f the thorax appears within normal limits. Radiodense focus overlying the mid lower pelvis may relate to IUD. IMPRESSION: Nonspecific bowel gas pattern without radiographic evidence for acute process. Radiodense focus overlying the mid pelvis may relate IUD. Correlate with any history. [facility], , 03/15/2025 9:30 PM
[2025-03-15] MEDS: ACET/COD 300 MG/30 MG STARTER PACK TAB BTL PO STA (22:06)
[2025-03-15 22:12] VITALS: BP 130/102; PULSE 79; RESP 16; TEMP 98.3
== END 2025-03-15 22:12 | disposition home or self-care (01) ==
LOC: EC 18:57
DX: K52.9 Noninfective gastroenteritis and colitis, unspecified (principal); Z87.891 Personal history of nicotine dependence; Z88.0 Allergy status to penicillin
CPT/HCPCS: 36415; 80053; 83690; 85025; 81001; 81025; 74018; 99284; 96374; 96375; 96361; J2270; J1885

== ENCOUNTER 2025-03-30 16:01 | Emergency (ER) | payer OTHER ==
[2025-03-30 16:18] VITALS: TEMP 98.3
--- NOTE | 2025-03-30 18:55 | ED ---
Headache HPI - General Chief Complaint: Headache Stated Complaint: Headache/vision issues Time Seen by Provider: 03/30/25 16:20 Mode of arrival: ambulatory Limitations: no limitations - History of Present Illness Initial Comments: 29-year-old female presents to the emergency department reporting headache. States she has had a global headache for the past 3 days. She admits to photophobia. Has associated nausea with vomiting. She has been taking brja-fyr-[id number] medications for her symptoms without any relief. She denies concern for . No head trauma. No speech disturbance. Denies neck stiffness. No fevers. No other alleviating, precipitating or modifying factors - Related Data Home Medications Medication Instructions Recorded Confirmed ALPRAZolam [Xanax] 0.25 mg PO DAILY PRN 01/03/25 01/03/25 FLUoxetine HCL [PROzac] 10 mg PO DIRECTED 01/03/25 01/03/25 Tirzepatide [Zepbound] 10 mg SQ OSPINA 01/03/25 01/03/25 Allergies Allergy/AdvReac Type Severity Reaction Status Date / Time Penicillins Allergy Unknown Rash/Hives Verified 04/01/25 23:59 metoclopramide [From Reglan] AdvReac Itching Verified 04/02/25 00:39 Review of Systems ROS Statement: Those systems with pertinent positive or pertinent negative responses have been documented in the HPI. ROS Other: All systems not noted in ROS Statement are negative. Past Medical History Past Medical History: Asthma Additional Past Medical History / Comment(s): Gestational diabetes, sinus tachycardia History of Any Multi-Drug Resistant Organisms: None Reported Past Surgical History: Section Additional Past Surgical History / Comment(s): IUD placement Past Anesthesia/Blood Transfusion Reactions: No Reported Reaction Past Psychological History: Anxiety, Depression Smoking Status: Former smoker Past Alcohol Use History: None Reported Past Drug Use History: None Reported - Past Family History Mother History Unknown: Yes Family Medical History: No Reported History General Exam Limitations: no limitations General appearance: alert, in no apparent distress Head exam: Present: atraumatic, normocephalic, normal inspection Eye exam: Present: normal appearance, PERRL, EOMI. Absent: scleral icterus, conjunctival injection, periorbital swelling ENT exam: Present: normal exam, mucous membranes moist Neck exam: Present: normal inspection. Absent: tenderness, meningismus, lymphadenopathy Respiratory exam: Present: normal lung sounds bilaterally. Absent: respiratory distress, wheezes, rales, rhonchi, stridor Cardiovascular Exam: Present: regular rate, normal rhythm, normal heart sounds. Absent: systolic murmur, diastolic murmur, rubs, gallop, clicks GI/Abdominal exam: Present: soft, normal bowel sounds. Absent: distended, tenderness, guarding, rebound, rigid Extremities exam: Present: normal inspection, full ROM, normal capillary refill. Absent: tenderness, pedal edema, joint swelling, calf tenderness Back exam: Present: normal inspection Neurological exam: Present: alert, oriented X3, CN II-XII intact Psychiatric exam: Present: normal affect, normal mood Skin exam: Present: warm, dry, intact, normal color. Absent: rash Course Vital Signs 03/30/25 03/30/25 16:16 21:09 Temperature 98.3 F Pulse Rate 97 82 Respiratory 20 18 Rate Blood Pressure 128/88 124/76 O2 Sat by Pulse 98 99 Oximetry Medical Decision Making - Medical Decision Making Was pt. sent in by a medical professional or institution (, PA, BOILER WELDER, urgent care, hospital, or fdc...) When possible be specific @ -No Did you speak to anyone other than the patient for history (EMS, parent, family, police, friend...)? What history was obtained from this source @ -No Did you review nursing and triage notes (agree or disagree)? Why? @ -I reviewed and agree with nursing and triage notes Were old charts reviewed (outside hosp., previous admission, EMS record, old EKG, old radiological studies, urgent care reports/EKG's, fdc records)? Report findings @ -No old charts were reviewed Differential Diagnosis (chest pain, altered mental status, abdominal pain women, abdominal pain men, vaginal bleeding, weakness, fever, dyspnea, syncope, headache, dizziness, GI bleed, back pain, seizure, CVA, palpatations, mental health, musculoskeletal)? @ -Differential Headache: Migraine, tension, cluster, carbon monoxide, central venous thrombosis, pension karma temporal arteritis, acute closure glaucoma, intercranial hemorrhage, mastoiditis, sinusitis, head injury, this is not meant to be an all-inclusive list. EKG interpreted by me (3pts min.). @ -Not done X-rays interpreted by me (1pt min.). @ -None done CT interpreted by me (1pt min.). @ -Yes which demonstrates no acute process U/S interpreted by me (1pt. min.). @ -None done What testing was considered but not performed or refused? (CT, X-rays, U/S, labs)? Why? @ -None What meds were considered but not given or refused? Why? @ -None Did you discuss the management of the patient with other professionals (professionals i.e. , PA, BOILER WELDER, lab, RT, psych nurse, adoption social worker, admiralty lawyer, teacher, disbursing officer, case worker)? Give summary @ -No Was smoking cessation discussed for >3mins.? @ -No Was critical care preformed (if so, how long)? @ -No Were there social determinants of health that impacted care today? How? (Home lessness, low income, unemployed, alcoholism, drug addiction, transportation, low edu. Level, literacy, decrease access to med. care, prison, rehab)? @ -No Was there de-escalation of care discussed even if they declined (Discuss DNR or withdrawal of care, Hospice)? DNR status @ -No What co-morbidities impacted this encounter? (DM, HTN, Smoking, COPD, CAD, Cancer, CVA, ARF, Chemo, Hep., AIDS, mental health diagnosis, sleep apnea, morbid obesity)? @ -None Was patient admitted / discharged? Hospital course, mention meds given and route, prescriptions, significant lab abnormalities, going to OR and other pertinent info. @ -Upon arrival patient seen and evaluated in room 24. Thorough history and physical exam was performed. IV access was established. Patient was given a migraine cocktail. Laboratory studies are conducted and CT is performed. Results are discussed with the patient. She reports that her headache is gone at this time and feels comfortable. She will follow-up with her primary care doctor in 2 to 4 days. Return for any new or worsening symptoms. Patient agreeable to plan was discharged home in stable condition Undiagnosed new problem with uncertain prognosis? @ -No Drug Therapy requiring intensive monitoring for toxicity (Heparin, Nitro, Insulin, Cardizem)? @ -No Were any procedures done? @ -No Diagnosis/symptom? @ -Acute cephalgia Acute, or Chronic, or Acute on Chronic? @ -Acute Uncomplicated (without systemic symptoms) or Complicated (systemic symptoms)? @ -Complicated Side effects of treatment? @ -No Exacerbation, Progression, or Severe Exacerbation? @ -No Poses a threat to life or bodily function? How? (Chest pain, [place], [place], pneumonia, PE, COPD, DKA, ARF, appy, cholecystitis, CVA, Diverticulitis, Homicidal, Suicidal, threat to staff... and all critical care pts) @ -No - Lab Data Result diagrams: 03/30/25 19:53 03/30/25 19:53 Lab Results 03/30/25 03/30/25 Range/Units 19:53 19:53 WBC 9.16 (4.50-10.00) 10*3/uL RBC 4.88 (4.10-5.20) 10*6/uL Hgb 14.4 (12.0-15.0) g/dL Hct 41.4 (37.2-46.3) % MCV 84.8 (80.0-97.0) fL MCH 29.5 (27.0-32.0) pg MCHC 34.8 (32.0-37.0) g/dL Plt Count 291 (140-440) 10*3/uL MPV 9.7 (9.5-12.2) fL Immature Gran % (Auto) 0.4 % Neutrophils % 67.8 % Lymphocytes % 25.3 % Monocytes % 4.7 % Eosinophils % 1.3 % Basophils % 0.5 % Immature Gran # 0.04 (0.00-0.04) 10*3/uL Neutrophils # 6.20 (1.80-7.70) 10*3/uL Lymphocytes # 2.32 (0.90-5.00) 10*3/uL Monocytes # 0.43 (0.20-1.00) 10*3/uL Eosinophils # 0.12 (0.04-0.35) 10*3/uL Basophils # 0.05 (0.00-0.10) 10*3/uL Sodium 139 (137-145) mmol/L Potassium 4.1 (3.5-5.1) mmol/L Chloride 105 (98-107) mmol/L Carbon Dioxide 25 (22-30) mmol/L Anion Gap 9 mmol/L BUN 12 (7-17) mg/dL Creatinine 0.51 L (0.52-1.04) mg/dL Est GFR (CKD-EPI)AfAm >90 (>60 ml/min/1.73 sqM) Est GFR (CKD-EPI)NonAf >90 (>60 ml/min/1.73 sqM) Glucose 92 (74-99) mg/dL Calcium 9.0 (8.4-10.2) mg/dL Total Bilirubin 0.3 (0.2-1.3) mg/dL AST 23 (14-36) U/L ALT 19 (4-34) U/L Alkaline Phosphatase 73 (38-126) U/L Total Protein 7.1 (6.3-8.2) g/dL Albumin 4.0 (3.5-5.0) g/dL Disposition Clinical Impression: Headache Disposition: HOME SELF-CARE Condition: Stable Instructions (If sedation given, give patient instructions): Acute Headache (ED) Additional Instructions: Please follow-up with your doctor in 2 to 4 days. Return for any new or worsening symptoms Is patient prescribed a controlled substance at d/c from ED?: No Referrals: Nonstaff,Physician [Primary Care Provider] - 1-2 days Time of Disposition: 21:02
--- NOTE | 2025-03-30 19:40 | CT ---
EXAMINATION TYPE: CT brain wo con DATE OF EXAM: 03/30/2025 7:26 PM COMPARISON: Previous CT study 07/23/2024. CLINICAL INDICATION: Female, 29 years old with history of Headache, left arm numbness, headache, naus ea, light sensitivity TECHNIQUE: Brain: Axial CT images of the brain were obtained with coronal and sagittal reformats created and rev iewed. Contrast used: None. Oral contrast used: None. CT DLP: 1098.4 mGycm, Automated exposure control for dose reduction was used. FINDINGS: Brain: Extra-axial spaces: No abnormal extra-axial fluid collections. Ventricular system: Within normal limits Cerebral parenchyma: No acute intraparenchymal hemorrhage or mass effect. The lee-white junction is well differentiated. Cerebellum: Unremarkable. Mass effect: No evidence of midline shift. Intracranial vasculature: unremarkable Soft tissues: Normal. Calvarium/osseous structures: No depressed skull fracture. Paranasal sinuses and mastoid air cells: Mild scattered paranasal sinus disease. Visualized orbits: Orbital contents are intact. IMPRESSION: No acute intracranial process. [facility], , 03/30/2025 7:37 PM
[2025-03-30] MEDS: SODIUM CHLORIDE 0.9% 1,000 ML IV STA (19:56)
[2025-03-30] MEDS: MAGNESIUM SULFATE-D5W PMX 1 GM in DEXTROSE/WATER 1 100ML.BAG IVPB ONE (19:56)
[2025-03-30] MEDS: METOCLOPRAMIDE 5 MG/ML 2 ML VIAL IVP STA (19:57)
[2025-03-30] MEDS: DEXAMETHASONE SOD PHOSPHATE 10 MG/ML 1 ML VIAL IVP STA (19:57)
[2025-03-30] MEDS: KETOROLAC 15 MG/ML 1 ML VIAL IVP STA (19:57)
[2025-03-30] MEDS: diphenhydrAMINE 50 MG/ML 1 ML VIAL IVP STA (19:57)
[2025-03-30 20:08] LABS: Basophils # (A) 0.05 10*3/uL (0.00-0.10); Basophils % (A) 0.5 %; Eosinophils # (A) 0.12 10*3/uL (0.04-0.35); Eosinophils % (A) 1.3 %; HCT 41.4 % (37.2-46.3); HGB 14.4 g/dL (12.0-15.0); Lymphocytes # (A) 2.32 10*3/uL (0.90-5.00); Lymphocytes % (A) 25.3 %; MCH 29.5 pg (27.0-32.0); MCHC 34.8 g/dL (32.0-37.0); MCV 84.8 fL (80.0-97.0); Monocytes # (A) 0.43 10*3/uL (0.20-1.00); Monocytes % (A) 4.7 %; Neutrophils # (A) 6.20 10*3/uL (1.80-7.70); Neutrophils % (A) 67.8 %; Platelet Count 291 10*3/uL (140-440); RBC 4.88 10*6/uL (4.10-5.20); RDW 12.3 % (11.5-14.5); WBC 9.16 10*3/uL (4.50-10.00)
[2025-03-30 20:35] LABS: ALT 19 U/L (4-34); AST 23 U/L (14-36); African American GFR (CKD) >90 (>60 ml/min/1.73 sqM); Albumin 4.0 g/dL (3.5-5.0); Alkaline Phosphatase 73 U/L (38-126); Anion Gap 9 mmol/L; Blood Urea Nitrogen 12 mg/dL (7-17); Calcium 9.0 mg/dL (8.4-10.2); Carbon Dioxide 25 mmol/L (22-30); Chloride 105 mmol/L (98-107); Glucose 92 mg/dL (74-99); Non-African American GFR(CKD) >90 (>60 ml/min/1.73 sqM); Potassium 4.1 mmol/L (3.5-5.1); Sodium 139 mmol/L (137-145); Total Protein 7.1 g/dL (6.3-8.2)
[2025-03-30 21:10] VITALS: BP 124/76; PULSE 82; RESP 18
== END 2025-03-30 21:19 | disposition home or self-care (01) ==
LOC: EC 16:01
DX: R51.9 Headache, unspecified (principal); Z88.0 Allergy status to penicillin; Z88.8 Allergy status to other drugs, medicaments and biological substances; Z87.891 Personal history of nicotine dependence
CPT/HCPCS: 36415; 80053; 85025; 70450; 99284; 96365; 96375; J1200; J1100; J2765; J3475; J1885

== ENCOUNTER 2025-04-01 23:17 | Emergency (ER) | payer OTHER ==
--- NOTE | 2025-04-01 23:51 | ED ---
Anxiety HPI - General Stated Complaint: chest pain Time Seen by Provider: 04/01/25 23:49 Source: RN notes reviewed, old records reviewed Mode of arrival: ambulatory Limitations: no limitations - History of Present Illness Initial Comments: This is a 29-year-old female for increasing anxiety. Patient was recently headache a day and a half ago for headache, was given multiple medications for migraine cocktail and assented feelings of crawling out of her skin, anxiety increased anxiety with palpitations. Symptoms are progressive throughout the day they do appear to come and go but are persistent at currently, patient did call pharmacy who thought there was medication she was taking but was advised to come to the ER for evaluation MD Complaint: anxiety, heart racing -: days(s) Symptoms: palpitations Place: home Severity: mild Provoking factors: none known Improves With: nothing Worsens With: nothing Associated symptoms: palpitations - Related Data Home Medications: Home Medications Medication Instructions Recorded Confirmed ALPRAZolam [Xanax] 0.25 mg PO DAILY PRN 01/03/25 01/03/25 FLUoxetine HCL [PROzac] 10 mg PO DIRECTED 01/03/25 01/03/25 Tirzepatide [Zepbound] 10 mg SQ OSPINA 01/03/25 01/03/25 Allergies/Adverse Reactions: Allergies Allergy/AdvReac Type Severity Reaction Status Date / Time Penicillins Allergy Unknown Rash/Hives Verified 04/01/25 23:59 Review of Systems ROS Statement: Those systems with pertinent positive or pertinent negative responses have been documented in the HPI. ROS Other: All systems not noted in ROS Statement are negative. Past Medical History Past Medical History: Asthma Additional Past Medical History / Comment(s): Gestational diabetes, sinus tachycardia History of Any Multi-Drug Resistant Organisms: None Reported Past Surgical History: Section Additional Past Surgical History / Comment(s): IUD placement Past Anesthesia/Blood Transfusion Reactions: No Reported Reaction Past Psychological History: Anxiety, Depression Smoking Status: Former smoker Past Alcohol Use History: None Reported Past Drug Use History: None Reported - Past Family History Mother History Unknown: Yes Family Medical History: No Reported History General Exam General appearance: alert, in no apparent distress Head exam: Present: atraumatic, normocephalic, normal inspection Eye exam: Present: normal appearance, PERRL, EOMI. Absent: scleral icterus, conjunctival injection, periorbital swelling ENT exam: Present: normal exam, mucous membranes moist Neck exam: Present: normal inspection. Absent: tenderness, meningismus, lymphadenopathy Respiratory exam: Present: normal lung sounds bilaterally. Absent: respiratory distress, wheezes, rales, rhonchi, stridor Cardiovascular Exam: Present: regular rate, normal rhythm, normal heart sounds. Absent: systolic murmur, diastolic murmur, rubs, gallop, clicks GI/Abdominal exam: Present: soft, normal bowel sounds. Absent: distended, tenderness, guarding, rebound, rigid Extremities exam: Present: normal inspection, full ROM, normal capillary refill. Absent: tenderness, pedal edema, joint swelling, calf tenderness Back exam: Present: normal inspection Neurological exam: Present: alert, oriented X3, CN II-XII intact Psychiatric exam: Present: normal affect, normal mood Skin exam: Present: warm, dry, intact, normal color. Absent: rash Course Vital Signs 04/01/25 23:54 Temperature 97.9 F Pulse Rate 91 Respiratory 17 Rate Blood Pressure 138/94 O2 Sat by Pulse 97 Oximetry - Reevaluation(s) Reevaluation #1: 04/02/25 00:08 Medical records reviewed Reevaluation #2: 04/02/25 00:08 Patient symptoms improved Reevaluation #3: 04/02/25 00:08 Patient informed of results questions answered Reevaluation #4: Was pt. sent in by a medical professional or institution (, PA, G[employer] DIST[employer]ION AND EMERGENCY CLERK, urgent care, hospital, or [place] [facility]...) When possible be specific @ -no Did you speak to anyone other than the patient for history (EMS, parent, family, police, friend...)? What history was obtained from this source @ -no Did you review nursing and triage notes (agree or disagree)? Why? @ -agree Are old charts reviewed (outside hosp., previous admission, EMS record, old EKG, old radiological studies, urgent care reports/EKG's, [place] [facility] records)? Report findings @ -yes Differential Diagnosis (chest pain, altered mental status, abdominal pain women, abdominal pain men, vaginal bleeding, weakness, fever, dyspnea, syncope, headache, dizziness, GI bleed, back pain, seizure, CVA, palpatations, mental health, musculoskeletal)? @ -prior EKG interpreted by me (3pts min.). @ -yes X-rays interpreted by me (1pt min.). @ -yes negative for acute disease CT interpreted by me (1pt min.). @ -no U/S interpreted by me (1pt. min.). @ -no What testing was considered but not performed or refused? (CT, X-rays, U/S, labs)? Why? @ -none What meds were considered but not given or refused? Why? @ -none Did you discuss the management of the patient with other professionals (professionals i.e. , PA, G[employer] DISTRI[employer]ION AND EMERGENCY CLERK, lab, RT, psych nurse, social secretary, chain person, teacher, recreation officer, sample case porter)? Give summary @ -no Was smoking cessation discussed for >3mins.? @ -no Was critical care preformed (if so, how long)? @ -no Were there social determinants of health that impacted care today? How? (Homelessness, low income, unemployed, alcoholism, drug addiction, transportation, low edu. Level, literacy, decrease access to med. care, fci, rehab)? @ -none Was there de-escalation of care discussed even if they declined (Discuss DNR or withdrawal of care, Hospice)? DNR status @ -no What co-morbidities impacted this encounter? (DM, HTN, Smoking, COPD, CAD, Cancer, CVA, ARF, Chemo, Hep., AIDS, mental health diagnosis, sleep apnea, morbid obesity)? @ -none Was patient admitted / discharged? Hospital course, mention meds given and route, prescriptions, significant lab abnormalities, going to OR and other pertinent info. @ - Undiagnosed new problem with uncertain prognosis? @ -no Drug Therapy requiring intensive monitoring for toxicity (Heparin, Nitro, Insulin, Cardizem)? @ -no Were any procedures done? @ -no Diagnosis/symptom? @ - Acute, or Chronic, or Acute on Chronic? @ -Acute Uncomplicated (without systemic symptoms) or Complicated (systemic symptoms)? @ -Complicated Side effects of treatment? @ -no Exacerbation, Progression, or Severe Exacerbation? @ -exacerbation Poses a threat to life or bodily function? How? (Chest pain, [place], [place], pneumonia, PE, COPD, DKA, ARF, appy, cholecystitis, CVA, Diverticulitis, Homicidal, Suicidal, threat to staff... and all critical care pts) @ -yes Reevaluation #5: Differential Palpitations Ventricular arrhythmias, atrial arrhythmias, myocardial infarction, anemia, thyrotoxicosis, electrolyte imbalance, hypokalemia, pulmonary embolism, pulmonary disease, drugs, alcohol, anxiety, stress.... This is not meant to be an all-inclusive list. Medical Decision Making - Medical Decision Making 29 female medication reaction anxiety with palpitations EKG normal patient can be discharged home - EKG Data -: EKG Interpreted by Me (EKG is sinus 84 VT 141 QRS 93 QTc 394) Disposition Clinical Impression: Medication reaction, Akathisia, Anxiety, Palpitations Disposition: HOME SELF-CARE Condition: Good Instructions (If sedation given, give patient instructions): Metoclopramide (By mouth), Anxiety (ED), Extrapyramidal Symptoms (ED) Is patient prescribed a controlled substance at d/c from ED?: No Referrals: None,Stated [Primary Care Provider] - 1-2 days Time of Disposition: 23:55
[2025-04-02] MEDS: LORazepam 1 MG TAB PO STA (00:41)
[2025-04-02] MEDS: hydrOXYzine HCL 25 MG TAB PO STA (00:42)
[2025-04-02 01:49] VITALS: BP 127/89; PULSE 83; RESP 16; TEMP 97.6
== END 2025-04-02 01:46 | disposition home or self-care (01) ==
LOC: EC 23:17
DX: G25.71 Drug induced akathisia (principal); T50.905A Adverse effect of unspecified drugs, medicaments and biological substances, initial encounter; F41.9 Anxiety disorder, unspecified; Z87.891 Personal history of nicotine dependence; Z88.0 Allergy status to penicillin
CPT/HCPCS: 93005; 99284